=== PATIENT | female | born 1945 | race Caucasian/White ===

== ENCOUNTER 2017-01-14 12:05 | Inpatient (IN) | payer MEDICARE ==
[~2017-01-14] VITALS: Ht 149.9 cm; Wt 36.3 kg
[2017-01-14 14:55] VITALS: BP 166/98
--- NOTE | 2017-01-14 15:12 | PM&R Post Admission Assessment ---
Post Admission Physician Asses The preadmission screen agrees with the post admission assessment that the patient is a good candidate for inpatient rehabilitation. The patient will have a comprehensive program of inpatient rehabilitation with a goal of maximizing level of functional independence prior to discharge home with spouse. The patient will have PT/OT ninety minutes per day each discipline when not being seen by ST, five days a week for gait, strengthening, conditioning, balance, ADLs, any patient/family/caregiver training as necessary. Speech therapy to do cognitive,speech and swallow assessment and treat 5 days a week for 30 to 45 minutes for 2 weeks. Rehabilitation nursing to assist with bowel, bladder, skin, wound care, medication administration, pain management. Card Grinder to assist with discharge planning, community reentry. SCD's for DVT prophylaxis. She appears to be well motivated to participate in three hours of therapy a day. She should be able to tolerate three hours of therapy a day from a medical standpoint. She should benefit from the three hours of therapy a day. She has a reasonable discharge plan, reasonable discharge rehabilitation goals and a supportive family. She has various comorbidities that need to be closely monitored with medications and treatments adjusted on a daily basis as needed. These include: HTN Anemia associated with rectal bleeding Barriers to discharge for this patient who had been independent prior to this are for her to be modified independent to supervision for ADLs and mobility skills prior to discharge home with spouse, so as to lessen the burden of the caregivers. Risks for this patient include: 1. Fall 2. Fracture 3. DVT 4. Pulmonary embolism 5. Worsening anemia/rectal bleeding 6. Skin breakdown 7. Contractures 8. Poorly controlled pain 9. Urinary retention 10. UTI 11. Respiratory infection 12. Aspiration 13, Poorly controlled HTN Estimated Length of Stay: 14 days Prognosis: Rehab prognosis appears good for goal of discharge home with spouse modified independent to supervision for ADLs and mobility skills. LAUREL LOPEZ MD Jan 14, 2017 15:12
--- NOTE | 2017-01-14 15:44 | Physical Therapy Evaluation ---
PT Evaluation-General Medical Diagnosis Admission Date Jan 14, 2017 at 15:23 Medical Diagnosis: CVA Onset Date: Jan 11, 2017 Therapy Diagnosis Therapy Diagnosis: weakness; abn gait Precautions Precautions/Isolations: Standard Precautions Referral Physician: Solis Reason for Referral: Evaluation/Treatment Medical History Pertinent Medical History: HTN, Smoking Current History Pt admitted to acute hospital in [facility] on 01/11/17 with diagnosis of CVA with left sided hemiparesis. Reviewed History: Yes Social History Home: Single Level Current Living Status: Spouse Entry Into Home: Stairs Without Railing PT Steps Into Home: 2 Prior/Core FIM Prior Level of Function Functional [place] Measure 0=Not Assessed/NA 4=Minimal Assistance 1=Total Assistance 5=Supervision or Setup 2=Maximal Assistance 6=Modified [place] 3=Moderate Assistance 7=Complete [place] Bed Mobility: 7 Transfers (B,C,W/C) (FIM): 7 Gait: 7 Pt indep at home and does own housecleaning as well as self care; cooks, laundry. Still drives and able to ambulate community distances. PT Evaluation-Current Subjective Eager to begin therapy services. Agrees to evaluation and treatment this date. Notes that since the original onset, she has improved some. Pain Numeric Pain Scale: 0-No Pain Location: No Pain Reported Pt/Family Goals Return home with her spouse when able Objective Patient Orientation: Person, Place, Time, Situation Problem Solving: Fair ROM/Strength ROM Lower Extremities WFL Strenght Lower Extremities Right LE strength is grossly 5/5 throughout. Left LE: DF 2+/5, Quads 3/5, hip flexion 2/5, hamstrings 3/5. Integumentary/Posture Integumentary Refer to nursing notes. Bowel Incontinence: Yes (per pt report) Bladder Incontinence: Yes (per pt report) Posture normal and symmetrical; small thin frame. Neuromuscular (Tone, Coordination, Reflexes) Right LE: WNL Left LE: impaired coordination and delayed reflexes; no noted tone. Sensory Vision: Wears Glasses (cataract left eye) Hearing: Functional Hand Dominance: Right Sensation Right Lower Extremit: Intact Sensation Left Lower Extremity: Intact Transfers Functional [place] Measure 0=Not Assessed/NA 4=Minimal Assistance 1=Total Assistance 5=Supervision or Setup 2=Maximal Assistance 6=Modified [place] 3=Moderate Assistance 7=Complete IndependenceIRFPAI Quality Coding Scale 6 Independent with activity with or without an assistive device 5 Patient requires set up or clean up by helper. Patient completes activity by themselves 4 Supervision or touching assist (CGA). [place] provide cues , steadying assist 3 The helper provides less than half the effort to complete the activity 2 The helper provides more than half the effort to complete the activity 1 Dependent. The helper does all the effort to complete an activity 7 Patient refused to complete or attempt activity 9 The patient did not perform the activity before the current illness or injury 88 Not attempted due to Medical conditions or safety concerns Transfers (B, C, W/C) (FIM): 4 Roll Left to Right (QC): 5 Supine to/from Sit: 4 (assist to lift her trunk) Sit to/from Stand: 4 (CGA for safety due to balance deficits) Sit to Lying (QC): 5 Lying to Sitting/Side of Bed(Q: 4 Sit to Stand (QC): 4 Chair/Arh-uz-Tyzbr Xfer(QC): 4 Car Transfer (QC): 4 CGA primarily for safety concerns. Gait Does the Patient Walk?: Yes Mode of Locomotion: Walk Anticipated Mode of Locomotion: Walk Gait (FIM): 4 Distance (FIM): 3=150 ft Walk 10 feet (QC): 4 Walk 50 ft with 2 Turns(QC): 4 Walk 150 ft (QC): 4 Walking 10ft/uneven surface-QC: 4 Gait Assistive Device: FWW Comments/Gait Description Unsteady gait with narrow RACHEAL with reliance on FWW. CGA due to balance deficits and fall risk. Wheelchair Training Does the Pt Use a Wheelchair?: No Stairs Stairs (FIM): 2 #of Steps: 4 1 Step (curb) (QC): 4 4 Steps (QC): 4 12 Steps (QC): 88 close CGA on stairs due to balance deficits and safety concerns; step to gait pattern. Balance Sitting Static: Good Sitting Dynamic: Fair Standing Static: Fair Standing Dynamic: Fair Picking up an Object (QC): 3 Treatment Treatment consisted of Co treatment with OT due to need for assist with functional balance activities as well as OT addressing self care tasks. PT provided assist and skilled cues throughout treatment for safetywith sit to from stand transfers as well as seated dynamic, standing static and dynamic balance while pt performed self care. Pt slightly impulsive and requires cues and assist for safety purposes. Assessment/Needs Pt presents post CVA with left sided weakness that impairs transfers, gait, balance, safety and functional activity tolerance. She has decreased safety awareness and has some difficulty with complex movements. She is a good candidate for skilled PT intervention to work on functional strength, mobility and safety to allow her to return home with her spouse. Eval of moderate intensity due to hx: needs to be mod indp for self care/ mobility ( unable to help), recent CVA; exam: L LE weakness, impaired functional balance; impaired safety, limited gait/tfr; presentation: evolving as she recently had the CVA. Rehab Potential: Good PT Short Term Goals Short Term Goals Time Frame: Jan 28, 2017 Transfers (B,C,W/C) (FIM): 5 Gait (FIM): 5 PT Retirement Goals Cloth Painter Goals PT Cloth Painter Goals Time Frame: Feb 11, 2017 Transfers (B,C,W/C) (FIM): 6 Sit to Lying (QC): 6 Lying-Sitting on Side/Bed(QC): 6 Sit to Stand (QC): 6 Roll Left to Right (QC): 6 Chair/Ktv-aw-Utzmq Xfer(QC): 6 Car Transfer (QC): 6 Does the Patient Walk: Yes Gait (FIM): 4 Gait distance (FIM): 3=150 ft Walk 10 feet (QC): 6 Walk 10ft-Uneven Surface(QC): 6 Walk 50ft with 2 Turns (QC): 6 Walk 150 ft (QC): 6 Gait Level of Assist: 6 Gait Assistive Device: FWW Does the Pt use WC or Scooter?: No Stairs (FIM): 5 # of Steps: 8 1 Step (curb) (QC): 6 4 Steps (QC): 6 12 Steps (QC): 88 Picking up an Object (QC): 5 LTG's set so that pt is able to care for herself in her home at a mod indep level. PT Plan Problem List Problem List: Activity Tolerance, Functional Strength, Safety, Balance, Gait, Transfer, Bed Mobility Treatment/Plan Treatment Plan: Continue Plan of Care Treatment Plan: Bed Mobility, Education, Functional Activity Po, Functional Strength, Group Therapy, Gait, Safety, Therapeutic Exercise, Transfers Treatment Duration: Feb 11, 2017 Frequency: At least 5-7 days/Wk (IRF) Estimated Hrs Per Day: 1.5 hours per day Patient and/or Family Agrees t: Yes Safety Risks/Education Patient Education: Transfer Techniques, Safety Issues Teaching Recipient: Patient Teaching Methods: Demonstration, Discussion Response to Teaching: Reinforcement Needed Discharge Recommendations Therapy D/C Recommendations: Physical Therapy Home Care Time/GCodes Time In: 1450 (1555) Time Out: 1515 (1645) Total Billed Treatment Time: 75 Total Billed Treatment visit EVM 15 FA 60 EMILY BRITTON PT Jan 14, 2017 15:44
[2017-01-14] MEDS ORDERED: IBUP-2055 PO (15:50)
[2017-01-14] MEDS ORDERED: BISA5TAB8 PO (15:50)
[2017-01-14] MEDS ORDERED: PANT40TA2 PO (15:50)
[2017-01-14] MEDS ORDERED: MULT-35 PO (15:50)
--- NOTE | 2017-01-14 16:09 | ST Cognitive Linguistic Eval ---
Speech Evaluation-General Medical Diagnosis CVA Onset Date: Jan 11, 2017 Therapy Diagnosis Therapy Diagnosis: Mild Dysarthria Precautions Precautions/Isolations: Standard Precautions Referral Referring Physician: Dr. Leonardo Ely Reason for Referral: Evaluation/Treatment Cognitive, Speech, Language Evaluation Medical History Pertinent Medical History: HTN, Smoking Reviewed History: Yes Social History Current Living Status: Spouse Speech PLF-Current Status Prior Level of Function The patient denied prior challenges with speech, language, or cognition. The patient (and patient's daughter) reported the patient displays mildly imprecise articulation secondary to the patient's edentulous state, however, her speech appears more impaired at this time. Subjective The patient was recently admitted to [facility] following a right ischemic CVA. The patient greeted the clinician appropriately and was agreeable to participation in the cognitive evaluation. Language Eval: Auditory Comprehends Simple Yes/No Ques: Functional Indent/Objects Multiple [place]: Functional Ident/Pics in Multiple [place]: Functional Follows 1-Step Commands: Functional Follows Complex Directions: Functional Follows General Conversations: Functional Language Eval: Verbal Language Completes Spontaneous Greeting: Functional Imitates Simple Words/Phrases: Functional Word Finding: Functional Requests Basic Needs: Functional States Basic Personal Info: Functional Expresses Complex Ideas: Functional Cognitive Patient Orientation The patient was oriented to month, day of week, date, and year (independently). Objective Cognitive Domain Attention: WNL Memory: WNL Problem Solving: Functional Objective Oral Motor/Speech Production The patient displays mildly reduced imprecise articulation secondary to reduced lingual strength and left labial strength. Impression The patient displays cognitive and language skills grossly within normal limits. The patient demonstrates mild dysarthria. Communication/Social Cognition Comprehension: 5 Expression: 5 Social Interaction: 6 Problem Solvin Memory: 6 Speech Patient Assess Expression of Ideas/Wants: Exhibits (3) Understanding [place] Content: Understands (4) Brief Interview-Mental Status: Yes Repetition of Three Words: Three (3) Temporal Orientation: Year: Correct (3) Temporal Orientation: Month: Accurate within 5 days(2) Temporal Orientation: Day: Correct (1) Recall : Wear to say "Sock": Yes, no cue required (2) Recall : Color: Yes, no cue required (2) Recall : Bed: Yes, no cue required (2) Speech Short Term Goals Short Term Goals Short Term Goals 1. The patient will demonstrate oral motor exercises to improve lingual and labial strength while improving verbal intelligibility. Time Frame-STG: Four Days Speech Concert Singer Goals Skilled Nursing Goals 1. The patient will demonstrate increased intelligibility through oral motor strengthening and range of motion exercises. Time Frame: Two Weeks Comprehension: 6 Expression: 6 Social Interaction: 6 Problem Solvin Speech-Plan Treatment Plan Speech Therapy Treatment Plan: Continue Plan of Care Continue skilled speech pathology to target improved intelligibility through oral motor exercises. Frequency: Modified Program (IRF) Estimated Hrs Per Day: .5 hour per day Rehab Potential: Good Safety Risks/Education Teaching Recipient: Patient Teaching Methods: Discussion Response to Teaching: Verbalize Understanding Education Topics Provided: Results, Plan of Care, Recommendations Time Speech Therapy Time In: 15:25 Speech Therapy Time Out: 15:35 Total Billed Time: 10 Billed Treatment Time 1, MICKY GUIDO Jan 14, 2017 16:09
--- NOTE | 2017-01-14 16:16 | Speech Therapy Daily Note ---
Speech Daily Progress Note Subjective Date Seen by Provider: Jan 14, 2017 Time Seen by Provider: 15:35 The patient was recently admitted to [facility] with a diagnosis of right ischemic CVA. The patient greeted the clinician appropriately and was agreeable to participation in the speech treatment session on this date. Co-Treatment occurred with Occupational Therapy due to overall patient fatigue. Per patient, she has participated in therapy prior to discharge from the outside facility and recently completed a 30+ minute drive to our location. Occupation Therapy focused on ADL tasks (feeding, eating) and range of motion exercises, while speech pathology focused on oral motor strengthening and range of motion, as well as, sequencing and problem solving functional ADL activities. Objective Oral Motor Exercises: A cursory oral mechanism exam was completed on this date. The patient demonstrated minimally reduced left labial range of motion and strength, as well as, mildly reduced left lingual range of motion. The patient is edentulous and does not wear dentures at this time (per patient's daughter, the patient has not worn dentures in over two years). The patient displayed mildly reduced laryngeal elevation, however, denied odynophagia upon a dry swallow. Per patient, she consumes a regular diet with thin liquids at home ( prior to the stroke). Oral motor exercises were discussed on this date. Exercises will be provided to the patient on the subsequent date in the form of a handout. The patient and patient's daughter denied questions or concerns at this time. Assessment Assessment Current Status: Excellent Progress Treatment Plan Continue Plan of Care Communication Comprehension: 5 Expression: 5 Social Cognition Social Interaction: 6 Problem Solvin Memory: 6 Speech Short Term Goals Short Term Goals Short Term Goals 1. The patient will demonstrate oral motor exercises to improve lingual and labial strength while improving verbal intelligibility. Time Frame-STG: Four Days Speech Shelter Goals Shelter Goals 1. The patient will demonstrate increased intelligibility through oral motor strengthening and range of motion exercises. Time Frame: Two Weeks Comprehension: 6 Expression: 6 Social Interaction: 6 Problem Solvin Speech-Plan Treatment Plan Speech Therapy Treatment Plan: Continue Plan of Care Continue skilled speech pathology to target oral motor exercises for strengthening and increased intelligibility. Frequency: Modified Program (IRF) Estimated Hrs Per Day: .5 hour per day Rehab Potential: Good Safety Risks/Education Teaching Recipient: Patient, Family Teaching Methods: Discussion Response to Teaching: Verbalize Understanding Education Topics Provided: Oral Motor Exercises Time Speech Therapy Time In: 15:35 Speech Therapy Time Out: 15:55 Total Billed Time: 20 Billed Treatment Time 1, MICKY BESS Jan 14, 2017 16:16
--- NOTE | 2017-01-14 17:00 | Occupational Therapy Eval ---
OT Evaluation-General/PLF Medical Diagnosis Admission Date Jan 14, 2017 at 15:23 Medical Diagnosis: CVA Onset Date: Jan 11, 2017 Therapy Diagnosis Therapy Diagnosis: Left sided weakness Precautions Precautions/Isolations: Standard Precautions Weight Bear Status Weight Bearing Restriction: Weight Bearing/Tolerated Referral Physician: Solis Referral Reason: Activity Tolerance, Self Care, Evaluation/Treatment, Strengthening/ROM Medical History Pertinent Medical History: HTN, Smoking Current History Pt. went to ER with rectal bleeding. Went home. Called daughter to state that she felt poorly. Had slurred speech. Daughter took her to hospital. Reviewed History: Yes Social History Home: Single Level Current Living Status: Spouse Entry Into Home: Stairs Without Railing Steps Into Home: 2 ADL-Prior Level of Function ADL PLOF Comments Pt. was independent with all basic self care. Pt. still drives. Shares household responsibilities with spouse. DME/Equipment: Bath Chair, Tub/Shower DME/Equipment Comments No other equipment available. Drive Self: Yes OT Current Status Subjective No pain reported. Appearance Pt. is alert and oriented. Agreeable to treatment. Mental Status/Objective Patient Orientation: Person, Place, Time, Situation Current Hand Dominance: Right Upper Extremity ROM Pt. is able to abduct left shoulder to approximately 100 degrees. Shoulder does not go into flexion automatically. Pt. is able to flex left elbow to approximately 100 degrees. No active wrist or finger movement noted. Right UE- WFL Upper Extremity Sensation intact Upper Extremity Strength Right UE- WFL Left- impaired in all planes. 2+/5 shoulder ADL-Treatment Functional [place] Measure 0=Not Assessed/NA 4=Minimal Assistance 1=Total Assistance 5=Supervision or Setup 2=Maximal Assistance 6=Modified [place] 3=Moderate Assistance 7=Complete IndependenceIRFPAI Quality Coding Scale 6 Independent with activity with or without an assistive device 5 Patient requires set up or clean up by helper. Patient completes activity by themselves 4 Supervision or touching assist (CGA). [place] provide cues , steadying assist 3 The helper provides less than half the effort to complete the activity 2 The helper provides more than half the effort to complete the activity 1 Dependent. The helper does all the effort to complete an activity 7 Patient refused to complete or attempt activity 9 The patient did not perform the activity before the current illness or injury 88 Not attempted due to Medical conditions or safety concerns Grooming (FIM): 5 (Pt. is able to brush her hair with SBA.) Bathing (FIM): 4 (Pt. needs CGA in stance and cues for safety and balance.) Shower/Bathe Self (QC): 4 Upper Body Dressing (FIM): 4 (Min assist needed to fasten bra. SBA to don shirt.) Upper Body Dressing (QC): 4 Lower Body Dressing (FIM): 3 (Pt. requires assistance to pull pants over hips, CGA in stance, and min assist to start right sock over toes. Able to do all else.) Lower Body Dressing (QC): 3 On/Off Footwear (QC): 3 Toileting (FIM): 4 (CGA to stand and balance.) Toileting Hygiene (QC): 4 Transfers (B, C, W/C) (FIM): 4 (Min assist with walker. Please see note below. ) Toilet/Commode Transfer (FIM): 4 Toilet Transfer (QC): 4 Shower Transfer (FIM): 4 Other Treatments OT co-treated with pt. at different times during course of treatment. Once with PT, and once with speech. This was due to pt's fatigue level after car ride from [facility]. During co-treatment with speech, OT facilitated and worked on left UE assessment, PROM, and positioning of shoulder while speech therapist gave pt. cognitive assessment. This also put pt. into situation, in which she was forced to concentrate and attend to multiple things going on. She did very well with this activity. Note tight bicep in left UE. Good scapular glide noted. During co-treatment with PT, PT assessed balance and gait while OT facilitated placement of left UE on walker, as well as cues for safety during ADLs. PT coached pt. on balance and dynamic movement in shower, while OT made sure that pt. was able to wash and dress all parts. Pt. back in chair after treatment with all needs met. Pt. and family educated on how to use room service to eat. Education OT Patient Education: Correct positioning, Energy conservation, Exercise program, Modified ADL techniques, Progress toward Goal/Update tx plan, Purpose of tx/functional activities, Reviewed precautions, Rehab process, Transfer techniques Teaching Recipient: Patient, Family Teaching Methods: Demonstration, Discussion Response to Teaching: Verbalize Understanding, Return Demonstration OT Short Term Goals Short Term Goals Transfers (B,C,W/C) (FIM): 5 1=Demonstrate adherence to instructed precautions during ADL tasks. 2=Patient will verbalize/demonstrate understanding of assistive devices/ modifications for ADL. 3=Patient will improve strength/tolerance for activity to enable patient to perform ADL's. OT Mcfp Goals [place] Goals Time Frame: Jan 28, 2017 Eating (FIM): 7 Eating (QC): 6 Groomin Oral Hygiene (QC): 6 Bathing(FIM): 6 Shower/Bathe Self (QC): 6 Upper Body Dressing(FIM): 6 Upper Body Dressing (QC): 6 Lower Body Dressing(FIM): 6 Lower Body Dressing (QC): 6 On/Off Footwear (QC): 6 Toileting(FIM): 6 Toileting Hygiene (QC): 6 Transfers (B,C,W/C) (FIM): 6 Toilet/Commode Transfer(FIM): 6 Toilet/Commode Transfer (QC): 6 Shower Transfer(FIM): 6 Comprehension(FIM): 6 Expression (FIM): 6 Social Interaction(FIM): 6 Problem Solving(FIM): 6 Additional Goals: 1-Demonstrate ADL Tasks, 2-Verbalize Understanding, 3- ImproveStrength/Po 1=Demonstrate adherence to instructed precautions during ADL tasks. 2=Patient will verbalize/demonstrate understanding of assistive devices/ modifications for ADL. 3=Patient will improve strength/tolerance for activity to enable patient to perform ADL's. OT Education/Plan Problem List/Assessment Assessment: Decreased Activ Tolerance, Decreased UE Strength, Dependent Transfers, Impaired Bed Mobility, Impaired Coordination, Impaired Funct Balance , Impaired I ADL's, Impaired Self-Care Skills, Restricted Funct UE ROM Discharge Recommendations Plan/Recommendations: Continue POC Therapy D/C Recommendations: Home w/ Family Support, Occupational Therapy Home Care Equpiment Recommendations-D/C: Extended Bath Bench Patient/Family Goals To return home and to be able to knit again. Treatment Plan/Plan of Care Treatment,Training & Education: Yes Patient would benefit from OT for education, treatment and training to promote independence in ADL's, mobility, safety and/or upper extremity function for ADL' s. Plan of Care: ADL Retraining, Caregiver Training, Functional Mobility, Group Exercise/Act as Ind, UE Funct Exercise/Act, UE Neuromus Re-Ed/Coord Treatment Duration: Jan 28, 2017 Frequency: At least 5-7 days/Wk (IRF) Estimated Hrs Per Day: 1 hour per day Agreement: Yes Rehab Potential: Good Time/GCodes Start Time: 15:15 Stop Time: 16:45 Total Time Billed (hr/min): 80 Billed Treatment Time 9406-0501- OT eval [id number]- ST eval no charge [id number] [id number] Co treat with PT 1, EVM x 10minutes, EX x 20minutes, ADL x 50minutes RAMAKRISHNA MOULTON OT Jan 14, 2017 17:00
[2017-01-14 17:59] VITALS: BP 161/84
--- NOTE | 2017-01-15 02:05 | HISTORY AND PHYSICAL ---
DATE OF SERVICE: CHIEF COMPLAINT: Difficulty walking. HISTORY OF PRESENT ILLNESS: The patient is a 71-year-old female who is and had been independent who lives with her spouse in [place] who presented to the [place] ED for rectal bleeding and was set up to have a scope with physician on 01/15/2017, however she began to have left sided weakness, right sided facial droop. She was admitted to the hospital on 01/11/17 and MRI of the brain revealed a right middle cerebral artery distribution ischemic stroke accounting for her left hemiparesis , right facial droop, dysphagia and dysarthria. Also noted was multiple old small lacunar infarcts she apparently had in the past as well as undiagnosed hypertension. Medications were begun for this. Her physician in [place] discussed the case with Dr. Ely on day of transfer and indicated that the patient has not seen a physician in 20 years. She now requires assistance for her ADLs and mobility skills. Currently she is Min assist for bed mobility, transfers and ambulation with a walker. She is set up for grooming. Minimal assist for upper body dressing, toilet, commode transfers, shower transfers, mod assist for lower body dressing. She has impaired standing balance. She has a mild dysarthria and is on nectar thick liquids for dysphagia. PAST MEDICAL HISTORY: Apparently has had undiagnosed hypertension and small lacunar infarcts in the past. Recent rectal bleeding, endoscopy deferred due to stroke. Tobacco use currently abstaining. PAST SURGICAL HISTORY: Noncontributory. ALLERGIES: No known medication allergies. FAMILY HISTORY: Noncontributory. SOCIAL HISTORY: She is right handed, had been independent, was driving, living with spouse in [place]. PCP: Dr. Solange Gil. REVIEW OF SYSTEMS: A 10 point review of systems significant for mild slurring of speech, left sided weakness, upper limb more than lower limb gait imbalance. MEDICATIONS: Plavix 75 mg p.o. every day, ASA discontinued due to rectal bleeding, Lisinopril 10 mg p.o. every day, Dulcolax 5 mg p.o. every day, multivitamins with minerals 1 tablet p.o. every day, Protonix 40 mg p.o. every day, ibuprofen 400 mg p.o. b.i.d. p.r.n. mild pain. PHYSICAL EXAMINATION: GENERAL: A thin female, short stature, alert and oriented in no acute distress. VITAL SIGNS: She is afebrile, pulse 71, respirations 20, blood pressure 161/84, O2 sat 99% on room air. HEENT: Vision and hearing grossly intact. No oral lesions noted. She has a mild right labial droop and mild dysarthria. NECK: Supple without mass. HEART: Regular rhythm. LUNGS: Clear. ABDOMEN: Soft, nontender. Bowel sounds present. EXTREMITIES: No lower edema, no calf tenderness. MUSCULOSKELETAL: The patient has functional passive range of motion in all 4 extremities. NEUROLOGIC: Sensation is grossly intact to touch. Cognition grossly intact. Speech mild dysarthria. Swallow on modified diet. Strength on the right is 5/5, on the left lower extremity 2+/5. Ankle dorsiflexion quads are 3/5, hip flexion 3/5, hamstrings 3/5. She has impaired coordination on the left. Sensation is intact in both upper limbs. She has decreased coordination of left upper limb, 2+/5 strength at the shoulder, 3/5 distal. IMPRESSION: 1. Ambulatory dysfunction secondary to right middle cerebral artery distribution ischemic stroke with resulting left hemiparesis, mild dysarthria and dysphagia on modified diet, nectar thick liquids. 2. Hypertension now controlled with medication. 3. Rectal bleeding, I believe resolved. 4. Tobaccoism, currently abstaining. PLAN: The patient will have a comprehensive program of inpatient stroke rehabilitation with the patient to have PT, OT 90 minutes per day each discipline, 5 days a week for 2 weeks, (when not being seen by speech therapy) for gait, strengthening, balance, ADLs, any patient family caregiver training necessary, any adaptive equipment and training necessary. Speech therapy to have ongoing speech swallow and cognition assessment and treatment 30-45 minutes per day 5 days a week for 2 weeks. Rehabilitation nursing to assist with bowel, bladder, skin care, medication administration, pain management, Check admission labs. Therapy with cardiac and fall precautions. clearing tub worker to assist with discharge planning, community reentry. The patient's family presents with her unit at time of admission to inpatient rehabilitation at [facility]. Consult Dr. English to assist with medical management of this out of town patient. ESTIMATED LENGTH OF STAY: 17 days. PROGNOSIS: Rehab prognosis appears good for goal of discharging home with spouse, modified independent to supervision for ADLs and mobility skills. DIET: Regular but with nectar thickened consistency liquids. CODE STATUS: Full code. Job ID: [id number] DocumentID: [id number] Dictated Date: 01/14/2017 18:33:12 Generation Technician Date: 01/14/2017 20:42:12 Dictated By: LAUREL ELY MD MTDD
[2017-01-15 04:46] LABS: BASOPHILS # (AUTO) 0.1 10^3/uL (0.0-0.1); BASOPHILS % (AUTO) 1 % (0-10); EOSINOPHILS # (AUTO) 0.2 10^3/uL (0.0-0.3); EOSINOPHILS % (AUTO) 2 % (0-10); LYMPHOCYTES # (AUTO) 3.4 X 10^3 (1.0-4.0); LYMPHOCYTES % (AUTO) 30 % (12-44); MEAN CORPUSCULAR HEMOGLOBIN 31 PG (25-34); MEAN CORPUSCULAR HGB CONC 34 G/DL (32-36); MEAN CORPUSCULAR VOLUME 91 FL (80-99); MEAN PLATELET VOLUME 9.8 FL (7.4-10.4); MONOCYTES # (AUTO) 1.1 X 10^3 (0.0-1.0); MONOCYTES % (AUTO) 9 % (0-12); NEUTROPHILS # (AUTO) 6.6 X 10^3 (1.8-7.8); NEUTROPHILS % (AUTO) 58 % (42-75); PLATELET COUNT 270 10^3/uL (130-400); RED BLOOD COUNT 3.62 10^6/uL (4.35-5.85); RED CELL DISTRIBUTION WIDTH 12.4 % (10.0-14.5); WHITE BLOOD COUNT 11.3 10^3/uL (4.3-11.0)
[2017-01-15 04:58] LABS: ALBUMIN 3.5 GM/DL (3.2-4.5); BILIRUBIN,TOTAL 0.5 MG/DL (0.1-1.0); CALCIUM 8.9 MG/DL (8.5-10.1); CREATININE SERUM 0.93 MG/DL (0.60-1.30); POTASSIUM 4.1 MMOL/L (3.6-5.0); TOTAL PROTEIN 5.7 GM/DL (6.4-8.2)
[2017-01-15 05:00] VITALS: BP 157/74
[2017-01-15] MEDS: PANTOPRAZOLE 40 MG (PROTONIX) TAB PO SCH (06:00)
[2017-01-15] MEDS: MULTIVIT W/MINERALS TAB (THERAGRAN M) PO SCH (06:01)
[2017-01-15] MEDS: lisINopril 10 MG (PRINIVIL) TAB PO SCH (07:54)
[2017-01-15] MEDS: CLOPIDOGREL 75 MG (PLAVIX) TABLET PO SCH (07:54)
--- NOTE | 2017-01-15 08:27 | Occupational Ther Daily Note ---
OT Current Status-Daily Note Subjective Pt alert, sitting in recliner. Pt agreed to therapy. No c/o pain. Pt declined shower at this time. Mental Status/Objective Functional [place] Measure 0=Not Assessed/NA 4=Minimal Assistance 1=Total Assistance 5=Supervision or Setup 2=Maximal Assistance 6=Modified [place] 3=Moderate Assistance 7=Complete [place] ADL-Treatment Functional [place] Measure 0=Not Assessed/NA 4=Minimal Assistance 1=Total Assistance 5=Supervision or Setup 2=Maximal Assistance 6=Modified [place] 3=Moderate Assistance 7=Complete IndependenceIRFPAI Quality Coding Scale 6 Independent with activity with or without an assistive device 5 Patient requires set up or clean up by helper. Patient completes activity by themselves 4 Supervision or touching assist (CGA). [place] provide cues , steadying assist 3 The helper provides less than half the effort to complete the activity 2 The helper provides more than half the effort to complete the activity 1 Dependent. The helper does all the effort to complete an activity 7 Patient refused to complete or attempt activity 9 The patient did not perform the activity before the current illness or injury 88 Not attempted due to Medical conditions or safety concerns Toileting (FIM): 4 (CGA using grabbar and FWW, pt was able to manipulate clothing with R UE and cleansed self while sitting.) Toileting Hygiene (QC): 3 (CGA using grabbar and FWW, pt was able to manipulate clothing with R UE and cleansed self while sitting.) Transfers (B, C, W/C) (FIM): 4 (Using FWW, pt is CGA for transfers.) Toilet/Commode Transfer (FIM): 4 (Using FWW and grabbars, pt is CGA for transfers.) Toilet Transfer (QC): 4 (Using FWW and grabbars, pt is CGA for transfers.) Other Treatment Pt ambulated with min A using FWW to therapy gym. Pt completed arm bike 10 min at 5 anne resistance to increase functional movement and grasp for daily functional tasks, frequent breaks for L hand repositioning. During arm bike exercise pt was able to grasp onto handle for 2-3 rotations prior to repositioning L hand. Then pt picker operator pegs with L hand and then transferred them to R hand to place in peg board to increase functional grasp and movement with L hand and strengthening with R hand. Pt ambulated back to room with CGA using FWW. After therapy, pt sitting in recliner with call light/phone in reach. All needs met in room. OT Short Term Goals Short Term Goals Transfers (B,C,W/C) (FIM): 5 1=Demonstrate adherence to instructed precautions during ADL tasks. 2=Patient will verbalize/demonstrate understanding of assistive devices/ modifications for ADL. 3=Patient will improve strength/tolerance for activity to enable patient to perform ADL's. OT Mcc Goals Lotteries Agent Goals Time Frame: Jan 28, 2017 Eating (FIM): 7 Eating (QC): 6 Groomin Oral Hygiene (QC): 6 Bathing(FIM): 6 Shower/Bathe Self (QC): 6 Upper Body Dressing(FIM): 6 Upper Body Dressing (QC): 6 Lower Body Dressing(FIM): 6 Lower Body Dressing (QC): 6 On/Off Footwear (QC): 6 Toileting(FIM): 6 Toileting Hygiene (QC): 6 Transfers (B,C,W/C) (FIM): 6 Toilet/Commode Transfer(FIM): 6 Toilet/Commode Transfer (QC): 6 Shower Transfer(FIM): 6 Comprehension(FIM): 6 Expression (FIM): 6 Social Interaction(FIM): 6 Problem Solving(FIM): 6 Additional Goals: 1-Demonstrate ADL Tasks, 2-Verbalize Understanding, 3- ImproveStrength/Po 1=Demonstrate adherence to instructed precautions during ADL tasks. 2=Patient will verbalize/demonstrate understanding of assistive devices/ modifications for ADL. 3=Patient will improve strength/tolerance for activity to enable patient to perform ADL's. OT Education/Plan Discharge Recommendations Plan/Recommendations: Continue POC Treatment Plan/Plan of Care Patient would benefit from OT for education, treatment and training to promote independence in ADL's, mobility, safety and/or upper extremity function for ADL' s. Plan of Care: ADL Retraining, Caregiver Training, Functional Mobility, Group Exercise/Act as Ind, UE Funct Exercise/Act, UE Neuromus Re-Ed/Coord Treatment Duration: Jan 28, 2017 Frequency: At least 5-7 days/Wk (IRF) Estimated Hrs Per Day: 1 hour per day Agreement: Yes Rehab Potential: Good Time/GCodes Start Time: 08:00 Stop Time: 09:00 Total Time Billed (hr/min): 60 Billed Treatment Time 1 visit-FA 2 (25 min) NM 2 (35 min) EMILY RAYO Jan 15, 2017 08:27
--- NOTE | 2017-01-15 09:07 | Individualized Plan of Care ---
Individualized Plan of Care Rehab Nursing IPOC Order Admission Date Jan 14, 2017 at 15:23 Current Orders Orders Admission-Acute Rehab Unit (01/14/17 14:58) Social Service (01/14/17 14:58) Rehab Nursing Orders-Ipoc (01/14/17 14:58) Physical Therapy Rehab Orders (01/14/17 14:58) Occupational Therapy Rehab Ord (01/14/17 14:58) Speech Therapy Rehab Orders (01/14/17 14:58) Turn And Reposition Q2HR (01/14/17 14:58) Intake & Output Shift Assessme 06,14,22 (01/14/17 14:58) Precautions (Aru) (01/14/17 14:58) Weekly Weight (Lbs) WEEK (01/14/17 14:58) Consult Physician (01/14/17 15:02) Cbc With Automated Diff (01/15/17 06:00) Comprehensive Metabolic Panel (01/15/17 06:00) Clopidogrel Tablet (Plavix Tablet) (01/15/17 09:00) Lisinopril Tablet (Zestril Tablet) (01/15/17 09:00) Bisacodyl Tablet (Dulcolax Tablet) (01/15/17 09:00) Ibuprofen Tablet (Motrin Tablet) (01/14/17 15:15) Therapeutic Multivitamin Tab (Vitamins, (01/15/17 07:00) Pantoprazole Tablet (Protonix Tablet) (01/15/17 07:00) Ambulate TID (01/14/17 15:43) Sequential Compression Device 08,20 (01/14/17 15:43) Dvt/Vte Risk - Notifiy Physici (01/14/17 15:43) Patient Visit (01/14/17 ) Speech Sound Lang Comp (01/14/17 ) Treat. Speech/Lang/Voice (01/14/17 ) Patient Visit (01/14/17 ) Pt Eval Moderate Complexity (01/14/17 ) Functional Activities, Ea 15 (01/14/17 ) Dys1 Pureed (01/15/17 Breakfast) Request For Dysphagia Services (01/14/17 18:52) Speech Therapy Orders (01/14/17 18:52) Request Ot Evaluate & Treat (8/10/17 18:52) Rehab Nursing Orders: Diseage Management, Edu in Press Rel Techn, Hydration Management, Nutrition Management, Pain Management PT IPOC Problem List: Activity Tolerance, Functional Strength, Safety, Balance, Gait, Transfer, Bed Mobility Treatment Plan: Continue Plan of Care Bed Mobility, Education, Functional Activity Po, Functional Strength, Group Therapy, Gait, Safety, Therapeutic Exercise, Transfers Treatment Duration: Feb 11, 2017 Frequency: At least 5-7 days/Wk (IRF) Estimated Hrs Per Day: 1.5 hours per day OT IPOC Problems: Decreased Activ Tolerance, Decreased UE Strength, Dependent Transfers , Impaired Bed Mobility, Impaired Coordination, Impaired Funct Balance, Impaired I ADL's, Impaired Self-Care Skills, Restricted Funct UE ROM Plan of Care: ADL Retraining, Caregiver Training, Functional Mobility, Group Exercise/Act as Ind, UE Funct Exercise/Act, UE Neuromus Re-Ed/Coord Treatment Duration: Jan 28, 2017 Frequency: At least 5-7 days/Wk (IRF) Estimated Hrs Per Day: [address] IPOC Speech Therapy Treatment Plan: Continue Plan of Care Frequency: Modified Program (IRF) Estimated Hrs Per Day: .5 hour per day Physician IPOC Medical Issues being managed closely and that require the 24 hour availability of a physician:HTN mild anemia with hx of rectal bleeding with endoscopy postponed due to stroke Medical Issues: Bowel/Bladder Function, DVT Prophylaxis, Falls Precautions, Fluid/Electrolyte/Nutrition Balance, Infection Protection, Pain Management, Swallowing Precautions, Other (List) (as per above) Brief Synthesis of Preadmission Screen, Post-Admission Evaluation, and Therapy Evaluations: 71 yo female who had been Independent and living with spouse in [facility] who sustained a RT MCA distribution ischemic CVA with resulting left HP and a decline in Functional [place] .Referred to IRU by PCP for Stroke rehab PMH prior small lacunar infarcts and HTN and rectal bleeding Had not seen a Physician in 20 years Medical Prognosis: good Anticipated Length of Stay: 8-24-17 Rehab Goals Modified Independent for ADLS and Mobility skills with resolved dysarthria and dysphagia Anticipated discharge destinat: Home with spouse and [facility] LAUREL LOPEZ MD Jan 15, 2017 09:07
--- NOTE | 2017-01-15 09:12 | PM & R (SOAP) Progress Note ---
Subjective Time Seen by Provider: 08:10 Subjective/Events-last exam Patient was seen in her room this AM Adjusting well to unit Patient min assist for transfers Appreciate labs and therapy notes Review of Systems Neurological: Weakness Objective Exam Last Set of Vital Signs Vital Signs Date Time Temp Pulse Resp B/P (MAP) Pulse Ox O2 Delivery O2 Flow Rate FiO2 01/15/17 05:00 97.6 55 20 157/74 97 Room Air Capillary Refill : Less Than 3 Seconds I&O Bad tableGeneral: Alert, Oriented X3, Cooperative, No Acute Distress HEENT: Atraumatic, PERRLA, EOMI, Mucous Memb Moist/[place], Other (mild rt labial droop) Neck: Supple, No JVD Lungs: Clear to Auscultation Heart: Regular Rate Abdomen: Normal Bowel Sounds, Soft, No Tenderness Extremities: No Edema Skin: No Significant Lesion Neuro: Other (Mild left HP and dysasrthria Dysphagia on thickened liquids) Results Lab Laboratory Tests 01/15/17 04:26: White Blood Count 11.3H, Red Blood Count 3.62L, Hemoglobin 11.2L, Hematocrit 33L , Mean Corpuscular Volume 91, Mean Corpuscular Hemoglobin 31, Mean Corpuscular Hemoglobin Concent 34, Red Cell Distribution Width 12.4, Platelet Count 270, Mean Platelet Volume 9.8, Neutrophils (%) (Auto) 58, Lymphocytes (%) (Auto) 30, Monocytes (%) (Auto) 9, Eosinophils (%) (Auto) 2, Basophils (%) (Auto) 1, Neutrophils # (Auto) 6.6, Lymphocytes # (Auto) 3.4, Monocytes # (Auto) 1.1H, Eosinophils # (Auto) 0.2, Basophils # (Auto) 0.1, Sodium Level 145, Potassium Level 4.1, Chloride Level 111H, Carbon Dioxide Level 25, Anion Gap 9, Blood Urea Nitrogen 12, Creatinine 0.93, Estimat Glomerular Filtration Rate 60, BUN/ Creatinine Ratio 13, Glucose Level 97, Calcium Level 8.9, Total Bilirubin 0.5, Aspartate Amino Transf (AST/SGOT) 20, Alanine Aminotransferase (ALT/SGPT) 17, Alkaline Phosphatase 64, Total Protein 5.7L, Albumin 3.5 Assessment/Plan Assessment RT MCA distribution Ischemic CVA with Left HP ( on plavix) and Dysphagia and Dysarthria HTN MILD Anemia with hx of rectal bleeding Tobaccoism currently abstaining Plan Continue PT/OT/ST Team Conference next week Monitor for any rectal bleeding Adjust meds for HTN as needed LAUREL LOPEZ MD Jan 15, 2017 09:12
[2017-01-15] MEDS: BISACODYL 5 MG (DULCOLAX) TABLET PO SCH (09:37)
--- NOTE | 2017-01-15 10:02 | ST Dysphagia Evaluation ---
Speech Evaluation-General Medical Diagnosis CVA Onset Date: Jan 11, 2017 Therapy Diagnosis Therapy Diagnosis: Oropharyngeal Swallow WNL Precautions Precautions/Isolations: Aspiration, Fall Prevention Referral Referring Physician: Dr. Leonardo Ely Reason for Referral: Evaluation/Treatment Clinical Bedside Swallow Evaluation Medical History Pertinent Medical History: HTN, Smoking Reviewed History: Yes Social History Current Living Status: Spouse Speech PLF/Current-Dysphagia Prior Level of Function The patient denied prior challenges with swallowing, stating she consumed a regular diet with thin liquids at home without difficulties. Subjective The patient was recently admitted to [facility] with a diagnosis of a right ischemic CVA. Upon admission, the patient presented with a diet consistency of puree with honey-thickened liquid. Per patient, the speech pathologist was on vacation in [facility], therefore, they placed her on the most restricted diet until a speech pathologist was available for evaluation. The patient greeted the clinician appropriately and was agreeable to participation in the dysphagia evaluation on this date. Cognitive Status Patient Orientation: Person, Place, Time, Situation Oral Motor Skills Dentition: Edentalous Current Food Consistancy: Pureed, Honey Liquids Ability to Follow Directions: Excellent Oral Expression Ability: No Impairment Voice Voice Phonatory-Based Quality: Glottal [place] Voice Pitch: Normal Voice Loudness: Normal Face Facial Symmetry: Asymmetrical (Minimal left labial weakness/droop noted.) Oral-Facial Assessment Oral-Facial Dentition: Normal Labial Seal Description: Droops Left Smile: Droops Left Puff Cheeks: Reduced Strength (Left (minimal)) Lingual Protrusion: Normal Lingual ROM: Normal Lingual Strength: Normal Pharynx Velopharyngeal Move.: Normal Volitional Dry Swallow: Yes Dysphagia Evaluation Consistencies Presented: Regular, Thin Liquid, Pureed - No oral impairments were noted throughout the evaluation. - No pharyngeal impairments were noted throughout the evaluation. - No signs/symptoms of aspiration were demonstrated with multiple boluses of thin liquid (via teaspoon or straw drink), puree, or solid consistencies tested. The patient's vocal quality remained clear throughout the assessment. Dietary Recommendations: Regular Liquid Recommendations: Thin Swallowing Precautions: Small Bites and Sips, Sitting Upright 90 Degrees Dysphagia Evaluation Summary The patient presented with an oropharyngeal swallow grossly within normal limits. Speech Short Term Goals Short Term Goals Short Term Goals 1. The patient will demonstrate oral motor exercises to improve lingual and labial strength while improving verbal intelligibility. Time Frame-STG: Four Days Speech Care Home Goals Candy Spreader Helper Goals 1. The patient will demonstrate increased intelligibility through oral motor strengthening and range of motion exercises. Time Frame: Two Weeks Comprehension: 6 Expression: 6 Social Interaction: 6 Problem Solvin Speech-Plan Treatment Plan Speech Therapy Treatment Plan: Discontinue ST Discontinue dysphagia services, only. Frequency: Modified Program (IRF) Estimated Hrs Per Day: .5 hour per day Rehab Potential: Good Safety Risks/Education Teaching Recipient: Patient Teaching Methods: Handout, Discussion Response to Teaching: Verbalize Understanding Education Topics Provided: Recommendations, Results, Signs/Symptoms of Aspiration, Swallowing Strategies Time Speech Therapy Time In: 09:00 Speech Therapy Time Out: 09:30 Total Billed Time: 30 Billed Treatment Time 1, MICKY GRUBBS Jan 15, 2017 10:02
--- NOTE | 2017-01-15 10:51 | Occupational Ther Daily Note ---
OT Current Status-Daily Note Subjective Pt alert, sitting in recliner. Pt agreed to therapy. No c/o pain at this time. Mental Status/Objective Patient Orientation: Person, Place, Time, Situation Functional [place] Measure 0=Not Assessed/NA 4=Minimal Assistance 1=Total Assistance 5=Supervision or Setup 2=Maximal Assistance 6=Modified [place] 3=Moderate Assistance 7=Complete [place] ADL-Treatment Pt ambulated with CGA using FWW to bathroom. Pt transferred to toilet using FWW and grabbar with CGA. Pt completed hygiene sitting on toilet by self, manipulating clothing with CGA using FWW. Pt attempts to use L hand to assist with manipulating clothing. L hand is able to grasp waist band of clothing, unable to pull up with L hand at this time. Ambulated with min A using FWW to large shower room. Pt used tub transfer bench to transfer into tub, CGA when going from stand to sit and back, pt able to lift B LE's into tub and out of tub by self. Pt ambulated back to room with min A using FWW. After therapy, pt sitting in recliner with call light/phone in reach. All needs met in room. Functional [place] Measure 0=Not Assessed/NA 4=Minimal Assistance 1=Total Assistance 5=Supervision or Setup 2=Maximal Assistance 6=Modified [place] 3=Moderate Assistance 7=Complete IndependenceIRFPAI Quality Coding Scale 6 Independent with activity with or without an assistive device 5 Patient requires set up or clean up by helper. Patient completes activity by themselves 4 Supervision or touching assist (CGA). [place] provide cues , steadying assist 3 The helper provides less than half the effort to complete the activity 2 The helper provides more than half the effort to complete the activity 1 Dependent. The helper does all the effort to complete an activity 7 Patient refused to complete or attempt activity 9 The patient did not perform the activity before the current illness or injury 88 Not attempted due to Medical conditions or safety concerns OT Short Term Goals Short Term Goals Transfers (B,C,W/C) (FIM): 5 1=Demonstrate adherence to instructed precautions during ADL tasks. 2=Patient will verbalize/demonstrate understanding of assistive devices/ modifications for ADL. 3=Patient will improve strength/tolerance for activity to enable patient to perform ADL's. OT Skilled Nursing Goals Skilled Nursing Goals Time Frame: Jan 28, 2017 Eating (FIM): 7 Eating (QC): 6 Groomin Oral Hygiene (QC): 6 Bathing(FIM): 6 Shower/Bathe Self (QC): 6 Upper Body Dressing(FIM): 6 Upper Body Dressing (QC): 6 Lower Body Dressing(FIM): 6 Lower Body Dressing (QC): 6 On/Off Footwear (QC): 6 Toileting(FIM): 6 Toileting Hygiene (QC): 6 Transfers (B,C,W/C) (FIM): 6 Toilet/Commode Transfer(FIM): 6 Toilet/Commode Transfer (QC): 6 Shower Transfer(FIM): 6 Comprehension(FIM): 6 Expression (FIM): 6 Social Interaction(FIM): 6 Problem Solving(FIM): 6 Additional Goals: 1-Demonstrate ADL Tasks, 2-Verbalize Understanding, 3- ImproveStrength/Po 1=Demonstrate adherence to instructed precautions during ADL tasks. 2=Patient will verbalize/demonstrate understanding of assistive devices/ modifications for ADL. 3=Patient will improve strength/tolerance for activity to enable patient to perform ADL's. OT Education/Plan Discharge Recommendations Plan/Recommendations: Continue POC Treatment Plan/Plan of Care Patient would benefit from OT for education, treatment and training to promote independence in ADL's, mobility, safety and/or upper extremity function for ADL' s. Plan of Care: ADL Retraining, Caregiver Training, Functional Mobility, Group Exercise/Act as Ind, UE Funct Exercise/Act, UE Neuromus Re-Ed/Coord Treatment Duration: Jan 28, 2017 Frequency: At least 5-7 days/Wk (IRF) Estimated Hrs Per Day: 1 hour per day Agreement: Yes Rehab Potential: Good Time/GCodes Start Time: 10:20 Stop Time: 10:40 Total Time Billed (hr/min): 20 Billed Treatment Time 1 visit-FA 1 (20 min) EMILY RAYO Jan 15, 2017 10:51
--- NOTE | 2017-01-15 12:03 | Physical Therapy Daily Note ---
PT Daily Note-Current Subjective Pt. very friendly, agrees to Rx. Pain Numeric Pain Scale: 0-No Pain Mental Status Patient Orientation: Normal For Age Transfers Functional [place] Measure 0=Not Assessed/NA 4=Minimal Assistance 1=Total Assistance 5=Supervision or Setup 2=Maximal Assistance 6=Modified [place] 3=Moderate Assistance 7=Complete IndependenceIRFPAI Quality Coding Scale 6 Independent with activity with or without an assistive device 5 Patient requires set up or clean up by helper. Patient completes activity by themselves 4 Supervision or touching assist (CGA). Bernie provide cues , steadying assist 3 The helper provides less than half the effort to complete the activity 2 The helper provides more than half the effort to complete the activity 1 Dependent. The helper does all the effort to complete an activity 7 Patient refused to complete or attempt activity 9 The patient did not perform the activity before the current illness or injury 88 Not attempted due to Medical conditions or safety concerns Transfers (B, C, W/C) (FIM): 6 Scootin Rollin Supine to/from Sit: 6 Sit to/from Stand: 6 Gait Training Does the Patient Walk?: Yes Gait (FIM): 5 Distance (FIM): 3=150 ft (x2) Gait Level of Assist: 5 Gait Persons Needed: 1 Gait Assistive Device: FWW instruction and cues for broader RACHEAL and hand on FWW Stair Training Stair Training: Handrails/: 2 handrails Stairs (FIM): 2 #of Steps: 4 Stairs: Pattern: Step to Level of Assist: 4 Exercises Supine Ex: Bridging, Ankle pumps, Quad Set, Rolling, Glut sets, Heel Slides, Short Arc Quads, Scooting, Straight leg raise, Hip abd/add Supine Reps: 15 Seated Therapy Exercises: Ankle pumps, Sit to stand, Long arc quads, Hip flexion, Hip abd/add Seated Reps: 12 prone and sidelying exercises as well for hamstring curls, glut sets, clam shells and hip abd Treatments tolieted managing all SBA Assessment Current Status: Good Progress well motivated, gives full effort PT Short Term Goals Short Term Goals Time Frame: Jan 28, 2017 Transfers (B,C,W/C) (FIM): 5 Gait (FIM): 5 PT Lab Support Tech Goals Lab Support Tech Goals PT Custodial Goals Time Frame: Feb 11, 2017 Transfers (B,C,W/C) (FIM): 6 Sit to Lying (QC): 6 Lying-Sitting on Side/Bed(QC): 6 Sit to Stand (QC): 6 Roll Left to Right (QC): 6 Chair/Vty-ep-Txlwy Xfer(QC): 6 Car Transfer (QC): 6 Does the Patient Walk: Yes Gait (FIM): 4 Gait distance (FIM): 3=150 ft Walk 10 feet (QC): 6 Walk 10ft-Uneven Surface(QC): 6 Walk 50ft with 2 Turns (QC): 6 Walk 150 ft (QC): 6 Gait Level of Assist: 6 Gait Assistive Device: FWW Does the Pt use WC or Scooter?: No Stairs (FIM): 5 # of Steps: 8 1 Step (curb) (QC): 6 4 Steps (QC): 6 12 Steps (QC): 88 Picking up an Object (QC): 5 PT Plan Treatment/Plan Treatment Plan: Continue Plan of Care Treatment Plan: Bed Mobility, Education, Functional Activity Po, Functional Strength, Group Therapy, Gait, Safety, Therapeutic Exercise, Transfers Treatment Duration: Feb 11, 2017 Frequency: At least 5-7 days/Wk (IRF) Estimated Hrs Per Day: 1.5 hours per day Patient and/or Family Agrees t: Yes Safety Risks/Education Patient Education: Gait Training, Transfer Techniques, Steps, Correct Positioning Teaching Recipient: Patient Teaching Methods: Demonstration, Discussion, Audiovisual Response to Teaching: Verbalize Understanding, Return Demonstration, Reinforcement Needed Time/GCodes Time In: 1100 Time Out: 1200 Total Billed Treatment Time: 60 Total Billed Treatment 1,GT30m,FA15m,EX15m G Codes Necessary: JOSHUA Ferrara PROFESSOR OF HISTORICAL THEOLOGY Jan 15, 2017 12:02
--- NOTE | 2017-01-15 13:40 | Consultation ---
History of Present Illness History of Present Illness Patient Consulted On(jair/time) 01/15/17 13:34 Time Seen by Provider: 13:25 History of Present Illness patient states she had rectal bleed. Patient went to [facility] . Patient to have a colonoscopy done today Last Wednesday patient Is feeling worse and got more dizzy. Contact To the emergency room. 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 Patient has mild speech problem now. Left upper extremity weakness and unable to move fingers. Surgeries and an appendectomy. Family history denies asthma TB, or diabetes Allergies and Home Medications Allergies Coded Allergies: No Known Drug Allergies (Unverified , 01/14/17) Home Medications Ibuprofen 200 Mg Tablet, 400 MG PO Q12H PRN for PAIN-MILD, (Reported) Multivitamin 1 Each Tablet, 1 TAB PO DAILY, (Reported) Pantoprazole Sodium 40 Mg Tablet.dr, 40 MG PO DAILY, (Reported) Past Ndyftrj-Qwdpfw-Ojajpk Hx Patient Social History Alcohol Use: Denies Use Recreational Drug Use: No Smoking Status: Current Everyday Smoker Type Used: Cigarettes Recent Foreign Travel: No Contact w/Someone Who Travel: No Recent Hopitalizations: Yes ([facility] for CVA) Physical Abuse Screen: No Sexual Abuse: No Seasonal Allergies Seasonal Allergies: Yes (sinus) Surgeries Surgeries: Appendectomy, Bowel Surgery Respiratory Hx Respiratory Disorders: No Cardiovascular Hx Cardiac Disorders: No Cardiac Disorders: Hypertension Gastrointestinal Gastrointestinal Disorders: Gastrointestinal Bleed, Chronic Constipation Musculoskeletal Musculoskeletal Disorders: Arthritis HEENT HEENT Disorders: Cataract Loss of Vision: Left Hearing Impairment: Denies Blood Transfusions Adverse Reaction to a Blood Tr: No Review of Systems-General Constitutional: weakness EENTM: no symptoms reported Respiratory: no symptoms reported Cardiovascular: no symptoms reported Gastrointestinal: no symptoms reported Genitourinary: no symptoms reported Physical Exam-General Problems Physical Exam Vital Signs Vital Sign - Last 12Hours 01/14/17 14:55 Temp 96.9 Pulse 69 Resp 18 B/P (MAP) 166/98 Pulse Ox 97 O2 Delivery Room Air Capillary Refill : Less Than 3 Seconds General Appearance: WD/WN, thin Eyes: Bilateral Eye Normal Inspection Neck: non-tender, full range of motion, normal inspection Respiratory: chest non-tender, no respiratory distress, no accessory muscle use Cardiovascular: regular rate, rhythm, no murmur Gastrointestinal: non tender, soft Assessment/Plan Assessment/Plan Admission Diagnosis/Plan CVA on left. Hypertension. Blood in the stools. Clinical Quality Measures DVT/VTE Risk/Contraindication: Risk Factor Score Per Nursin RFS Level Per Nursing on Admit: 4+=Very High QUINN BRIGGS DO Jan 15, 2017 13:40
--- NOTE | 2017-01-15 15:05 | Physical Therapy Daily Note ---
PT Daily Note-Current Subjective Jovial, states she really enjoyed her lunch and is already planning her dinner. Agrees to Rx. Pain Numeric Pain Scale: 0-No Pain Mental Status Patient Orientation: Normal For Age Transfers Functional [place] Measure 0=Not Assessed/NA 4=Minimal Assistance 1=Total Assistance 5=Supervision or Setup 2=Maximal Assistance 6=Modified [place] 3=Moderate Assistance 7=Complete IndependenceIRFPAI Quality Coding Scale 6 Independent with activity with or without an assistive device 5 Patient requires set up or clean up by helper. Patient completes activity by themselves 4 Supervision or touching assist (CGA). [place] provide cues , steadying assist 3 The helper provides less than half the effort to complete the activity 2 The helper provides more than half the effort to complete the activity 1 Dependent. The helper does all the effort to complete an activity 7 Patient refused to complete or attempt activity 9 The patient did not perform the activity before the current illness or injury 88 Not attempted due to Medical conditions or safety concerns All TRFs SBA Gait Training Gait Assistive Device: FWW 150ft,[id number]. fig [id number], retro gait and turns were emphasized as well as broader safer RACHEAL. no LOB, good safety habits noted Exercises Seated Therapy Exercises: Ankle pumps, Sit to stand, Long arc quads, Hip flexion Seated Reps: 10 Assessment Current Status: Good Progress PT Short Term Goals Short Term Goals Time Frame: Jan 28, 2017 Transfers (B,C,W/C) (FIM): 5 Gait (FIM): 5 PT [facility] Goals Glass Mechanic Goals PT [facility] Goals Time Frame: Feb 11, 2017 Transfers (B,C,W/C) (FIM): 6 Sit to Lying (QC): 6 Lying-Sitting on Side/Bed(QC): 6 Sit to Stand (QC): 6 Rollin Roll Left to Right (QC): 6 Chair/Gsx-ks-Caqvq Xfer(QC): 6 Car Transfer (QC): 6 Does the Patient Walk: Yes Gait (FIM): 4 Gait distance (FIM): 3=150 ft Walk 10 feet (QC): 6 Walk 10ft-Uneven Surface(QC): 6 Walk 50ft with 2 Turns (QC): 6 Walk 150 ft (QC): 6 Gait Level of Assist: 6 Gait Assistive Device: FWW Does the Pt use WC or Scooter?: No Stairs (FIM): 5 # of Steps: 8 1 Step (curb) (QC): 6 4 Steps (QC): 6 12 Steps (QC): 88 Picking up an Object (QC): 5 PT Plan Treatment/Plan Treatment Plan: Continue Plan of Care Treatment Plan: Bed Mobility, Education, Functional Activity Po, Functional Strength, Group Therapy, Gait, Safety, Therapeutic Exercise, Transfers Treatment Duration: Feb 11, 2017 Frequency: At least 5-7 days/Wk (IRF) Estimated Hrs Per Day: 1.5 hours per day Patient and/or Family Agrees t: Yes Safety Risks/Education Patient Education: Gait Training, Transfer Techniques, Correct Positioning, Safety Issues Teaching Recipient: Patient Teaching Methods: Demonstration, Discussion Response to Teaching: Verbalize Understanding, Return Demonstration, Reinforcement Needed Time/GCodes Time In: 1440 Time Out: 1500 Total Billed Treatment Time: 20 Total Billed Treatment 1,GT20m G Codes Necessary: JOSHUA Ferrara CERTIFIED MIDWIFE Jan 15, 2017 15:05
[2017-01-15 18:00] VITALS: BP 180/86
[2017-01-16 05:43] VITALS: BP 168/75
[2017-01-16 05:58] LABS: MEAN PLATELET VOLUME 10.2 FL (7.4-10.4); RED BLOOD COUNT 3.74 10^6/uL (4.35-5.85); RED CELL DISTRIBUTION WIDTH 12.4 % (10.0-14.5); WHITE BLOOD COUNT 11.3 10^3/uL (4.3-11.0)
[2017-01-16] MEDS: MULTIVIT W/MINERALS TAB (THERAGRAN M) PO SCH (06:44)
[2017-01-16] MEDS: PANTOPRAZOLE 40 MG (PROTONIX) TAB PO SCH (06:44)
[2017-01-16] MEDS: BISACODYL 5 MG (DULCOLAX) TABLET PO SCH (08:41)
[2017-01-16] MEDS: CLOPIDOGREL 75 MG (PLAVIX) TABLET PO SCH (08:41)
[2017-01-16] MEDS: lisINopril 10 MG (PRINIVIL) TAB PO SCH (08:41)
--- NOTE | 2017-01-16 08:48 | Physical Therapy Daily Note ---
PT Daily Note-Current Subjective Cheerful, agrees to Rx. Pain Numeric Pain Scale: 0-No Pain Mental Status Patient Orientation: Normal For Age Transfers Functional [place] Measure 0=Not Assessed/NA 4=Minimal Assistance 1=Total Assistance 5=Supervision or Setup 2=Maximal Assistance 6=Modified [place] 3=Moderate Assistance 7=Complete IndependenceIRFPAI Quality Coding Scale 6 Independent with activity with or without an assistive device 5 Patient requires set up or clean up by helper. Patient completes activity by themselves 4 Supervision or touching assist (CGA). [place] provide cues , steadying assist 3 The helper provides less than half the effort to complete the activity 2 The helper provides more than half the effort to complete the activity 1 Dependent. The helper does all the effort to complete an activity 7 Patient refused to complete or attempt activity 9 The patient did not perform the activity before the current illness or injury 88 Not attempted due to Medical conditions or safety concerns Transfers (B, C, W/C) (FIM): 6 Scootin Rollin Supine to/from Sit: 6 Sit to/from Stand: 6 Gait Training Does the Patient Walk?: Yes Gait (FIM): 5 Distance (FIM): 3=150 ft (x2) Gait Level of Assist: 5 Gait Persons Needed: 1 Gait Assistive Device: FWW some assist to cue pt. to keep hand on walker, improving Exercises Standing: Hip Abduction, Hamstring curls, Heel/toe raises, Marching, Mini squats, Sit to Stand Standing Reps: 15 Treatments toileted indep with superv Assessment Current Status: Good Progress PT Short Term Goals Short Term Goals Time Frame: Jan 28, 2017 Transfers (B,C,W/C) (FIM): 5 Gait (FIM): 5 PT Commercial Litigation Paralegal Goals [facility]dc Goals PT [facility]dc Goals Time Frame: Feb 11, 2017 Transfers (B,C,W/C) (FIM): 6 Sit to Lying (QC): 6 Lying-Sitting on Side/Bed(QC): 6 Sit to Stand (QC): 6 Rollin Roll Left to Right (QC): 6 Chair/Hva-bw-Wlvrf Xfer(QC): 6 Car Transfer (QC): 6 Does the Patient Walk: Yes Gait (FIM): 4 Gait distance (FIM): 3=150 ft Walk 10 feet (QC): 6 Walk 10ft-Uneven Surface(QC): 6 Walk 50ft with 2 Turns (QC): 6 Walk 150 ft (QC): 6 Gait Level of Assist: 6 Gait Assistive Device: FWW Does the Pt use WC or Scooter?: No Stairs (FIM): 5 # of Steps: 8 1 Step (curb) (QC): 6 4 Steps (QC): 6 12 Steps (QC): 88 Picking up an Object (QC): 5 PT Plan Treatment/Plan Treatment Plan: Continue Plan of Care Treatment Plan: Bed Mobility, Education, Functional Activity Po, Functional Strength, Group Therapy, Gait, Safety, Therapeutic Exercise, Transfers Treatment Duration: Feb 11, 2017 Frequency: At least 5-7 days/Wk (IRF) Estimated Hrs Per Day: 1.5 hours per day Patient and/or Family Agrees t: Yes Safety Risks/Education Patient Education: Gait Training, Transfer Techniques, Correct Positioning, Safety Issues Teaching Recipient: Patient Teaching Methods: Demonstration, Discussion Response to Teaching: Verbalize Understanding, Return Demonstration, Reinforcement Needed Time/GCodes Time In: 745 Time Out: 810 Total Billed Treatment Time: 25 Total Billed Treatment 1,GT15m,EX10m G Codes Necessary: JOSHUA Ferrara APPLICATIONS ENGINEER MANUFACTURING Jan 16, 2017 08:48
[2017-01-16 17:51] VITALS: BP 155/78
[2017-01-17 05:25] VITALS: BP 162/93
[2017-01-17] MEDS: PANTOPRAZOLE 40 MG (PROTONIX) TAB PO SCH (06:27)
[2017-01-17] MEDS: MULTIVIT W/MINERALS TAB (THERAGRAN M) PO SCH (07:08)
[2017-01-17] MEDS: CLOPIDOGREL 75 MG (PLAVIX) TABLET PO SCH (07:35)
[2017-01-17] MEDS: lisINopril 10 MG (PRINIVIL) TAB PO SCH (07:35)
[2017-01-17] MEDS: BISACODYL 5 MG (DULCOLAX) TABLET PO SCH (12:20)
[2017-01-17 18:00] VITALS: BP 175/93
[2017-01-18 05:27] VITALS: BP 163/84
[2017-01-18] MEDS: MULTIVIT W/MINERALS TAB (THERAGRAN M) PO SCH (06:01)
[2017-01-18] MEDS: PANTOPRAZOLE 40 MG (PROTONIX) TAB PO SCH (06:01)
--- NOTE | 2017-01-18 07:42 | Progress Note (SOAP) ---
Subjective Time Seen by Provider: 07:40 Subjective/Events-last exam CVA. Malignant hypertension. Increase lisinopril to 20 mg from 10 mg. Patient able to move her fingers today on the left hand Objective Exam Vital Signs Date Time Temp Pulse Resp B/P (MAP) Pulse Ox O2 Delivery O2 Flow Rate FiO2 01/18/17 05:27 97.1 77 16 163/84 98 Room Air 01/17/17 18:00 98.5 68 22 175/93 98 Room Air I & O 01/18/17 07:00 Intake Total 1700 ml Output Total 12 ml Balance 1688 ml Capillary Refill : Less Than 3 Seconds General Appearance: No Apparent Distress, Thin HEENT: Normal ENT Inspection Neck: Full Range of Motion, Normal Inspection Respiratory: Chest Non Tender, No Accessory Muscle Use, No Respiratory Distress Cardiovascular: Regular Rate, Rhythm, No Murmur Assessment/Plan Assessment/Plan Assess & Plan/Chief Complaint CVA on left. Hypertension. Blood in the stools.. . 01/18/17 area CVA on left. Malignant hypertension. History of blood in stools. Patient moving hand better. Patient able to move her fingers Clinical Quality Measures DVT/VTE Risk/Contraindication: Risk Factor Score Per Nursin RFS Level Per Nursing on Admit: 4+=Very High QUINN BRIGGS DO Jan 18, 2017 07:42
[2017-01-18] MEDS: lisINopril 20 MG (ZESTRIL) TAB PO SCH (08:14)
[2017-01-18] MEDS: CLOPIDOGREL 75 MG (PLAVIX) TABLET PO SCH (08:14)
[2017-01-18] MEDS: BISACODYL 5 MG (DULCOLAX) TABLET PO SCH (08:15)
--- NOTE | 2017-01-18 10:56 | Occupational Ther Daily Note ---
OT Current Status-Daily Note Subjective Pt alert, sitting in recliner. Pt agreed to therapy. No c/o pain. Mental Status/Objective Patient Orientation: Person, Place, Time, Situation Functional [place] Measure 0=Not Assessed/NA 4=Minimal Assistance 1=Total Assistance 5=Supervision or Setup 2=Maximal Assistance 6=Modified [place] 3=Moderate Assistance 7=Complete [place] ADL-Treatment Functional [place] Measure 0=Not Assessed/NA 4=Minimal Assistance 1=Total Assistance 5=Supervision or Setup 2=Maximal Assistance 6=Modified [place] 3=Moderate Assistance 7=Complete IndependenceIRFPAI Quality Coding Scale 6 Independent with activity with or without an assistive device 5 Patient requires set up or clean up by helper. Patient completes activity by themselves 4 Supervision or touching assist (CGA). [place] provide cues , steadying assist 3 The helper provides less than half the effort to complete the activity 2 The helper provides more than half the effort to complete the activity 1 Dependent. The helper does all the effort to complete an activity 7 Patient refused to complete or attempt activity 9 The patient did not perform the activity before the current illness or injury 88 Not attempted due to Medical conditions or safety concerns Grooming (FIM): 5 (Pt. completed grooming with supervision and items handed to her. ) Bathing (FIM): 5 (After set up, using grabbars, shower bench and hand held shower pt completed bathing, rinsing and drying with supervision.) Bathing Location: L Arm, R Arm, L Upper Leg, R Upper Leg, L Lower Leg ( including foot), R Lower Leg (including foot), Chest, Abdomen, Buttocks, Perineal Area Upper Body (FIM): 5 (Pt. completed dressing with superivision while sitting. ) Lower Body Dressing (FIM): 5 (After set up pt. completed dressing with supervision while sitting. ) Shower Transfer(FIM): 4 (Pt. transferred into shower with CGA using FWW, grabbar and shower bench. ) Other Treatment Pt ambulated with CGA using FWW to therapy gym. Pt completed functional activities to work on L fine motor skills. Pt demonstrated increased finger flexion and slight finger extension. Blocking joints, pt able to oppose thumb to each finger. Pt worked on picking up small items and placing in designated area. Pt ambulated back to room with CGA using FWW. After therapy, pt sitting in recliner with call light/phone in reach. All needs met in room. OT Short Term Goals Short Term Goals Transfers (B,C,W/C) (FIM): 5 1=Demonstrate adherence to instructed precautions during ADL tasks. 2=Patient will verbalize/demonstrate understanding of assistive devices/ modifications for ADL. 3=Patient will improve strength/tolerance for activity to enable patient to perform ADL's. OT Emergency Nurse Goals Emergency Nurse Goals Time Frame: Jan 28, 2017 Eating (FIM): 7 Eating (QC): 6 Groomin Oral Hygiene (QC): 6 Bathing(FIM): 6 Shower/Bathe Self (QC): 6 Upper Body Dressing(FIM): 6 Upper Body Dressing (QC): 6 Lower Body Dressing(FIM): 6 Lower Body Dressing (QC): 6 On/Off Footwear (QC): 6 Toileting(FIM): 6 Toileting Hygiene (QC): 6 Transfers (B,C,W/C) (FIM): 6 Toilet/Commode Transfer(FIM): 6 Toilet/Commode Transfer (QC): 6 Shower Transfer(FIM): 6 Comprehension(FIM): 6 Expression (FIM): 6 Social Interaction(FIM): 6 Problem Solving(FIM): 6 Additional Goals: 1-Demonstrate ADL Tasks, 2-Verbalize Understanding, 3- ImproveStrength/Po 1=Demonstrate adherence to instructed precautions during ADL tasks. 2=Patient will verbalize/demonstrate understanding of assistive devices/ modifications for ADL. 3=Patient will improve strength/tolerance for activity to enable patient to perform ADL's. OT Education/Plan Discharge Recommendations Plan/Recommendations: Continue POC Treatment Plan/Plan of Care Patient would benefit from OT for education, treatment and training to promote independence in ADL's, mobility, safety and/or upper extremity function for ADL' s. Plan of Care: ADL Retraining, Caregiver Training, Functional Mobility, Group Exercise/Act as Ind, UE Funct Exercise/Act, UE Neuromus Re-Ed/Coord Treatment Duration: Jan 28, 2017 Frequency: At least 5-7 days/Wk (IRF) Estimated Hrs Per Day: 1 hour per day Agreement: Yes Rehab Potential: Good Time/GCodes Start Time: 10:00 Stop Time: 11:00 Total Time Billed (hr/min): 60 Billed Treatment Time 1 visit-ADL 2 (30 min) NM 2 (30 min) EMILY RAYO Jan 18, 2017 10:56
--- NOTE | 2017-01-18 11:21 | Speech Therapy Daily Note ---
Speech Daily Progress Note Subjective Date Seen by Provider: Jan 18, 2017 Time Seen by Provider: 09:15 The patient was seated upright in recliner upon entrance. The patient greeted the clinician appropriately and was agreeable to participation in the speech and language treatment session. Objective Oral Motor Exercises: Oral motor exercises (lingual and labial range of motion and strength) were initiated, discussed, and demonstrated on this date. The patient displayed high accuracy with this task (80%) with moderate clinician verbal cueing and direct modeling. Ten repetitions of each exercise were performed. Communication Comprehension: 6 Expression: 5 Social Cognition Social Interaction: 6 Problem Solvin Memory: 5 Speech Short Term Goals Short Term Goals Short Term Goals 1. The patient will demonstrate oral motor exercises to improve lingual and labial strength while improving verbal intelligibility. Time Frame-STG: Four Days Speech Snf Goals Lead Embedded Software Engineer Goals 1. The patient will demonstrate increased intelligibility through oral motor strengthening and range of motion exercises. Time Frame: Two Weeks Comprehension: 6 Expression: 6 Social Interaction: 6 Problem Solvin Speech-Plan Treatment Plan Speech Therapy Treatment Plan: Continue Plan of Care Continued skilled speech pathology to target improved oral intelligibility. Frequency: Modified Program (IRF) Estimated Hrs Per Day: .5 hour per day Rehab Potential: Good Safety Risks/Education Teaching Recipient: Patient Teaching Methods: Demonstration, Handout, Discussion Response to Teaching: Verbalize Understanding, Return Demonstration Education Topics Provided: Oral Motor Exericises Time Speech Therapy Time In: 09:15 Speech Therapy Time Out: 09:45 Total Billed Time: 30 Billed Treatment Time 1, VLADIMIR BESSCESAR PARRA Jan 18, 2017 11:21
--- NOTE | 2017-01-18 12:27 | Physical Therapy Daily Note ---
PT Daily Note-Current Subjective Agrees to PT. Reports she wants to go home on Wednesday or . Pain Numeric Pain Scale: 0-No Pain Location: No Pain Reported Mental Status Patient Orientation: Person, Place, Time, Situation Transfers Functional [place] Measure 0=Not Assessed/NA 4=Minimal Assistance 1=Total Assistance 5=Supervision or Setup 2=Maximal Assistance 6=Modified [place] 3=Moderate Assistance 7=Complete IndependenceIRFPAI Quality Coding Scale 6 Independent with activity with or without an assistive device 5 Patient requires set up or clean up by helper. Patient completes activity by themselves 4 Supervision or touching assist (CGA). [place] provide cues , steadying assist 3 The helper provides less than half the effort to complete the activity 2 The helper provides more than half the effort to complete the activity 1 Dependent. The helper does all the effort to complete an activity 7 Patient refused to complete or attempt activity 9 The patient did not perform the activity before the current illness or injury 88 Not attempted due to Medical conditions or safety concerns Transfers (B, C, W/C) (FIM): 4 (occas CGA for safety) skilled cues 50% of the time to push up from the arms of the chair to stand. Gait Training Does the Patient Walk?: Yes Gait (FIM): 4 (CGA 50% of the time; SBA the other 50%) Distance (FIM): 3=150 ft Walk 10 feet (QC): 5 Walk 50 ft with 2 Turns(QC): 4 Walk 150 ft (QC): 4 Walking 10ft/uneven surface-QC: 4 (outdoor/boardwalk) Gait Assistive Device: FWW Gait training with a combination of functional balance activity with gait 250 ft x 3 reps. Walked on outdoor surfaces to challenge her balance on a boardwalk , slope and stairs all with CGA. Also it was challenging to her to walk on the sidewalk which is a bit rougher surface. She had 2 episodes in which her left knee seemed to buckle, but recovered on her own. Slight balance deficit still present and slightly diminished safety awereness noted. Pt continues to progress and benefit from high level gait training. Stair Training Stairs (FIM): 2 (CGA) #of Steps: 6 Exercises NuStep Minutes: 15 (To increase LE strength for fall recovery with gait and transfers. ) Neuromuscular as noted above Assessment Current Status: Good Progress Pt making functional gains but has potential to continue to progress. PT Short Term Goals Short Term Goals Time Frame: Jan 28, 2017 Transfers (B,C,W/C) (FIM): 5 Gait (FIM): 5 PT Alf Goals Retail Warehouse Supervisor Goals PT Retail Warehouse Supervisor Goals Time Frame: Feb 11, 2017 Transfers (B,C,W/C) (FIM): 6 Sit to Lying (QC): 6 Lying-Sitting on Side/Bed(QC): 6 Sit to Stand (QC): 6 Rollin Roll Left to Right (QC): 6 Chair/Fuj-zh-Ifici Xfer(QC): 6 Car Transfer (QC): 6 Does the Patient Walk: Yes Gait (FIM): 4 Gait distance (FIM): 3=150 ft Walk 10 feet (QC): 6 Walk 10ft-Uneven Surface(QC): 6 Walk 50ft with 2 Turns (QC): 6 Walk 150 ft (QC): 6 Gait Level of Assist: 6 Gait Assistive Device: FWW Does the Pt use WC or Scooter?: No Stairs (FIM): 5 # of Steps: 8 1 Step (curb) (QC): 6 4 Steps (QC): 6 12 Steps (QC): 88 Picking up an Object (QC): 5 PT Plan Problem List Problem List: Activity Tolerance, Functional Strength, Safety Treatment/Plan Treatment Plan: Continue Plan of Care Treatment Plan: Bed Mobility, Education, Functional Activity Po, Functional Strength, Group Therapy, Gait, Safety, Therapeutic Exercise, Transfers Treatment Duration: Feb 11, 2017 Frequency: At least 5-7 days/Wk (IRF) Estimated Hrs Per Day: 1.5 hours per day Patient and/or Family Agrees t: Yes Safety Risks/Education Patient Education: Transfer Techniques, Safety Issues Teaching Recipient: Patient Teaching Methods: Demonstration, Discussion Response to Teaching: Reinforcement Needed Discharge Recommendations Therapy D/C Recommendations: Physical Therapy Home Care Time/GCodes Time In: 1100 Time Out: 1200 Total Billed Treatment Time: 60 Total Billed Treatment visit GT 30 NM 15 EX 15 EMILY BRITTON PT Jan 18, 2017 12:27
--- NOTE | 2017-01-18 14:38 | Therapy Group Daily Note ---
Therapy Daily Group Note Patient Education Topic Home Safety, Fall Prevention Exercises LE Seated Exercise, Fine Motor Other/Notes Pt ambulated to OT group with SBA using FWW. OT group consisted of introductions (name, place living, first car), socialization, education on home safety/fall prevention and seated UE/LE exercises. Pt was able to introduce self appropriately and was attentive to other pt's stories. Pt was able to verbalize understanding of educational topics by stating how it is used in own home and different ways to incorporate in every day use. Pt was able to complete UE seated exercises using R UE to assisted L UE with shldr exercises. Pt demonstrated ability to complete LE exercises without difficulty. Pt ambulated back to room with CGA using FWW then requested to use toilet. After therapy, pt sitting in recliner with call light/phone in reach. All needs met in room. Start Time: 13:00 Stop Time: 14:10 Total Billed Treatment Time: 70 Total Billed Treatment 1-GRP EMILY RAYO Jan 18, 2017 14:38
[2017-01-18 18:03] VITALS: BP 160/75
--- NOTE | 2017-01-18 20:39 | PM & R (SOAP) Progress Note ---
Subjective Time Seen by Provider: 20:20 Subjective/Events-last exam Patient was seen in her room this AM Patient Min assist for transfers Objective Exam Last Set of Vital Signs Vital Signs Date Time Temp Pulse Resp B/P (MAP) Pulse Ox O2 Delivery O2 Flow Rate FiO2 01/18/17 18:03 97.8 74 18 160/75 97 Room Air Capillary Refill : Less Than 3 Seconds I&O Intake and Output 01/18/17 00:00 Intake Total 2050 ml Output Total 6 ml Balance 2044 ml Intake Oral 2050 ml Output Urine Total 6 ml # Voids 4 # Bowel Movements 1 General: Alert, Oriented X3, Cooperative, No Acute Distress HEENT: Atraumatic, PERRLA, EOMI, Mucous Memb Moist/[place], Other (mild rt labial droop) Neck: Supple, No JVD Lungs: Clear to Auscultation Heart: Regular Rate Abdomen: Normal Bowel Sounds, Soft, No Tenderness Extremities: No Edema Skin: No Significant Lesion Neuro: Other (Mild left HP and dysasrthria Dysphagia on thickened liquids) Results Lab Laboratory Tests 01/16/17 05:45: White Blood Count 11.3H, Red Blood Count 3.74L, Hemoglobin 11.4L, Hematocrit 34L , Mean Corpuscular Volume 91, Mean Corpuscular Hemoglobin 31, Mean Corpuscular Hemoglobin Concent 33, Red Cell Distribution Width 12.4, Platelet Count 254, Mean Platelet Volume 10.2 Assessment/Plan Assessment 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
[2017-01-19 04:35] VITALS: BP 136/78
[2017-01-19] MEDS: MULTIVIT W/MINERALS TAB (THERAGRAN M) PO SCH (06:07)
[2017-01-19] MEDS: PANTOPRAZOLE 40 MG (PROTONIX) TAB PO SCH (06:07)
--- NOTE | 2017-01-19 07:44 | Progress Note (SOAP) ---
Subjective Time Seen by Provider: 07:40 Subjective/Events-last exam left CVA improving. Patient can tack picker checkers now with the left hand . Hypertension better with increase dose of lisinopril. Tobaccoism. Objective Exam Vital Signs Date Time Temp Pulse Resp B/P (MAP) Pulse Ox O2 Delivery O2 Flow Rate FiO2 01/19/17 04:35 97.8 73 18 136/78 97 Room Air 01/18/17 18:03 97.8 74 18 160/75 97 Room Air I & O 01/19/17 07:00 Intake Total 1400 ml Balance 1400 ml Capillary Refill : Less Than 3 Seconds General Appearance: No Apparent Distress, Thin Assessment/Plan Assessment/Plan Assess & Plan/Chief Complaint CVA on left. Hypertension. Blood in the stools.. . 01/18/17 area CVA on left. Malignant hypertension. History of blood in stools. Patient moving hand better. Patient able to move her fingers. . 01/19/17. CVA on left improving. Hypertension. Improving. Blood in the stools. Patient able to tack picker checkers with left hand Clinical Quality Measures DVT/VTE Risk/Contraindication: Risk Factor Score Per Nursin RFS Level Per Nursing on Admit: 4+=Very High QUINN BRIGGS DO Jan 19, 2017 07:44
[2017-01-19] MEDS: CLOPIDOGREL 75 MG (PLAVIX) TABLET PO SCH (08:09)
[2017-01-19] MEDS: BISACODYL 5 MG (DULCOLAX) TABLET PO SCH (08:09)
[2017-01-19] MEDS: lisINopril 20 MG (ZESTRIL) TAB PO SCH (08:09)
--- NOTE | 2017-01-19 08:10 | Occupational Ther Daily Note ---
OT Current Status-Daily Note Subjective Pt. was alert, sitting in chair. Pt. agreed to therapy. No c/o pain. Mental Status/Objective Patient Orientation: Person, Place, Time, Situation Functional [place] Measure 0=Not Assessed/NA 4=Minimal Assistance 1=Total Assistance 5=Supervision or Setup 2=Maximal Assistance 6=Modified [place] 3=Moderate Assistance 7=Complete [place] ADL-Treatment Functional [place] Measure 0=Not Assessed/NA 4=Minimal Assistance 1=Total Assistance 5=Supervision or Setup 2=Maximal Assistance 6=Modified [place] 3=Moderate Assistance 7=Complete IndependenceIRFPAI Quality Coding Scale 6 Independent with activity with or without an assistive device 5 Patient requires set up or clean up by helper. Patient completes activity by themselves 4 Supervision or touching assist (CGA). [place] provide cues , steadying assist 3 The helper provides less than half the effort to complete the activity 2 The helper provides more than half the effort to complete the activity 1 Dependent. The helper does all the effort to complete an activity 7 Patient refused to complete or attempt activity 9 The patient did not perform the activity before the current illness or injury 88 Not attempted due to Medical conditions or safety concerns Grooming (FIM): 5 (Pt requested to sit in chair after dressing and have grooming items handed to her. Pt is able to use all grooming items by self. Pt uses oral swabs to cleanse mouth due to no teeth.) Bathing (FIM): 5 (Supervision, pt. completed washing, rinsing, and drying using shower chair, grab bars, and handheld shower. ) Bathing Location: L Arm, R Arm, L Upper Leg, R Upper Leg, L Lower Leg ( including foot), R Lower Leg (including foot), Chest, Abdomen, Buttocks, Perineal Area Upper Body (FIM): 5 (After set up, pt. completed dressing seated.) Lower Body Dressing (FIM): 5 (After set up, pt. completed dressing while seated then supervision while standing to hike pants over hips. ) Toileting (FIM): 5 (Pt. able to complete hygiene sitting then manipulated clothing with supervision in standing.) Transfers (B, C, W/C) (FIM): 5 (Using FWW, pt is able to complete transfers with supervision.) Toilet/Commode Transfer (FIM): 5 (Using FWW and grabbars, pt is able to complete transfers with supervision.) Shower Transfer(FIM): 5 (Using grabbars, FWW and shower bench, pt is able to complete with SBA.) Other Treatment Pt ambulated with CGA using FWW to therapy gym. Electrical stimulation completed to L wrist/fingers extensors for grasp/release during daily activities. Pt has finger flexion with fair director game strength. Pt is able to partially extend L fingers to release object, actively. During electrical stimulation pt was able to grasp and release with fully extended fingers. Then completed arm bike duration 5 min at 10 anne resistance using L UE only to increase strength, AROM and activity tolerance for daily functional tasks. Pt rotated arm bike other direction for director game and shldr retraction. Pt ambulated back to room and completed shower. After therapy, pt sitting in recliner with call light/phone in reach. All needs met in room. OT Short Term Goals Short Term Goals Transfers (B,C,W/C) (FIM): 5 1=Demonstrate adherence to instructed precautions during ADL tasks. 2=Patient will verbalize/demonstrate understanding of assistive devices/ modifications for ADL. 3=Patient will improve strength/tolerance for activity to enable patient to perform ADL's. OT Pump Servicer Goals Custodial Goals Time Frame: Jan 28, 2017 Eating (FIM): 7 Eating (QC): 6 Groomin Oral Hygiene (QC): 6 Bathing(FIM): 6 Shower/Bathe Self (QC): 6 Upper Body Dressing(FIM): 6 Upper Body Dressing (QC): 6 Lower Body Dressing(FIM): 6 Lower Body Dressing (QC): 6 On/Off Footwear (QC): 6 Toileting(FIM): 6 Toileting Hygiene (QC): 6 Transfers (B,C,W/C) (FIM): 6 Toilet/Commode Transfer(FIM): 6 Toilet/Commode Transfer (QC): 6 Shower Transfer(FIM): 6 Comprehension(FIM): 6 Expression (FIM): 6 Social Interaction(FIM): 6 Problem Solving(FIM): 6 Additional Goals: 1-Demonstrate ADL Tasks, 2-Verbalize Understanding, 3- ImproveStrength/Po 1=Demonstrate adherence to instructed precautions during ADL tasks. 2=Patient will verbalize/demonstrate understanding of assistive devices/ modifications for ADL. 3=Patient will improve strength/tolerance for activity to enable patient to perform ADL's. OT Education/Plan Discharge Recommendations Plan/Recommendations: Continue POC Treatment Plan/Plan of Care Patient would benefit from OT for education, treatment and training to promote independence in ADL's, mobility, safety and/or upper extremity function for ADL' s. Plan of Care: ADL Retraining, Caregiver Training, Functional Mobility, Group Exercise/Act as Ind, UE Funct Exercise/Act, UE Neuromus Re-Ed/Coord Treatment Duration: Jan 28, 2017 Frequency: At least 5-7 days/Wk (IRF) Estimated Hrs Per Day: 1 hour per day Agreement: Yes Rehab Potential: Good Time/GCodes Start Time: 07:00 Stop Time: 08:00 Total Time Billed (hr/min): 60 Billed Treatment Time 1 visit - NM 2 (30 minutes) ADL 2 (30 minutes) EMILY RAYO Jan 19, 2017 08:10
--- NOTE | 2017-01-19 10:05 | Speech Therapy Daily Note ---
Speech Daily Progress Note Subjective Date Seen by Provider: Jan 19, 2017 Time Seen by Provider: 09:00 The patient was seated upright in recliner upon entrance. The patient greeted the clinician appropriately and was agreeable to participation in the speech and language treatment session. Objective Oral Motor Exercises: Oral motor exercises (lingual and labial range of motion and strength) were continued, discussed, and demonstrated on this date. The patient displayed high accuracy with this task (95%) with minimal clinician verbal cueing and direct modeling. Ten repetitions of each exercise were performed, independently, by the patient. Assessment Assessment Current Status: Excellent Progress Treatment Plan Discontinue ST, Goals Met Communication Comprehension: 6 Expression: 6 Social Cognition Social Interaction: 6 Problem Solvin Memory: 5 Speech Short Term Goals Short Term Goals Short Term Goals 1. The patient will demonstrate oral motor exercises to improve lingual and labial strength while improving verbal intelligibility. Time Frame-STG: Four Days Speech Alf Goals Outsole Handler Goals 1. The patient will demonstrate increased intelligibility through oral motor strengthening and range of motion exercises. Time Frame: Two Weeks Comprehension: 6 Expression: 6 Social Interaction: 6 Problem Solvin Speech-Plan Treatment Plan Speech Therapy Treatment Plan: Discontinue ST, Goals Met Speech pathology goals have been met at this time. The patient will be discharged from skilled speech pathology services. Frequency: Modified Program (IRF) Estimated Hrs Per Day: .5 hour per day Rehab Potential: Good Safety Risks/Education Teaching Recipient: Patient Teaching Methods: Demonstration, Handout, Discussion Response to Teaching: Verbalize Understanding, Return Demonstration Education Topics Provided: Oral Motor Exercises Time Speech Therapy Time In: 09:00 Speech Therapy Time Out: 09:30 Total Billed Time: 30 Billed Treatment Time 1, MICKY BESS Jan 19, 2017 10:05
--- NOTE | 2017-01-19 10:09 | Therapy Team Discharge Summary ---
Therapy Discharge Summary Discharge Recommendations Date of Discharge Therapy D/C Recommendations: Physical Therapy Home Care Speech-Language Pathology The patient was recently admitted to [facility] following a CVA. Upon admission, the patient demonstrated mild dysarthria (flaccid-type). Skilled speech pathology focused on oral motor exercises (lingual and labial range of motion and strength). The patient displayed high accuracy and independence with the exercises, as well as, increased intelligibility throughout unstructured conversation. The patient met all speech pathology goals placed. No additional speech pathology services are warranted at this time. The patient will be discharged from speech pathology. PT Alf Goals Elephant Keeper Goals PT Elephant Keeper Goals Time Frame: Feb 11, 2017 Transfers (B,C,W/C) (FIM): 6 Roll Left to Right (QC): 6 Sit to Lying (QC): 6 Lying-Sitting on Side/Bed(QC): 6 Sit to Stand (QC): 6 Chair/Jbu-su-Ltabp Xfer(QC): 6 Car Transfer (QC): 6 Does the Patient Walk: Yes Gait (FIM): 4 Gait distance (FIM): 3=150 ft Walk 10 feet (QC): 6 Walk 10ft-Uneven Surface(QC): 6 Walk 50ft with 2 Turns (QC): 6 Walk 150 ft (QC): 6 Gait Level of Assist: 6 Gait Assistive Device: FWW Does the Pt use WC or Scooter?: No Stairs (FIM): 5 # of Steps: 8 1 Step (curb) (QC): 6 4 Steps (QC): 6 12 Steps (QC): 88 Picking up an Object (QC): 5 OT Elephant Keeper Goals Elephant Keeper Goals Time Frame: Jan 28, 2017 Eating (FIM): 7 Eating (QC): 6 Oral Hygiene (QC): 6 Grooming(FIM): 6 Bathing(FIM): 6 Shower/Bathe Self (QC): 6 Upper Body Dressing(FIM): 6 Upper Body Dressing (QC): 6 Lower Body Dressing(FIM): 6 Lower Body Dressing (QC): 6 On/Off Footwear (QC): 6 Toileting(FIM): 6 Toileting Hygiene (QC): 6 Transfers (B,C,W/C) (FIM): 6 Toilet/Commode Transfer(FIM): 6 Toilet/Commode Transfer (QC): 6 Shower Transfer(FIM): 6 Comprehension(FIM): 6 Expression (FIM): 6 Social Interaction(FIM): 6 Problem Solving(FIM): 6 Additional Goals: 1-Demonstrate ADL Tasks, 2-Verbalize Understanding, 3- ImproveStrength/Po 1=Demonstrate adherence to instructed precautions during ADL tasks. 2=Patient will verbalize/demonstrate understanding of assistive devices/ modifications for ADL. 3=Patient will improve strength/tolerance for activity to enable patient to perform ADL's. Speech Alf Goals Alf Goals 1. The patient will demonstrate increased intelligibility through oral motor strengthening and range of motion exercises. Time Frame: Two Weeks Comprehension: 6 (MET) Expression: 6 (MET) Social Interaction: 6 (MET) Problem Solvin (MET) Memory: 5 (MET) MICKY SANDERS Jan 19, 2017 10:09
--- NOTE | 2017-01-19 10:54 | Physical Therapy Daily Note ---
PT Daily Note-Current Subjective Pt was seated in recliner prior to tx. Pt was agreeable to PT. Pt was seated in recliner post tx with all needs within reach. Pain Numeric Pain Scale: 0-No Pain Location: No Pain Reported Mental Status Patient Orientation: Normal For Age Transfers Functional [place] Measure 0=Not Assessed/NA 4=Minimal Assistance 1=Total Assistance 5=Supervision or Setup 2=Maximal Assistance 6=Modified [place] 3=Moderate Assistance 7=Complete IndependenceIRFPAI Quality Coding Scale 6 Independent with activity with or without an assistive device 5 Patient requires set up or clean up by helper. Patient completes activity by themselves 4 Supervision or touching assist (CGA). [place] provide cues , steadying assist 3 The helper provides less than half the effort to complete the activity 2 The helper provides more than half the effort to complete the activity 1 Dependent. The helper does all the effort to complete an activity 7 Patient refused to complete or attempt activity 9 The patient did not perform the activity before the current illness or injury 88 Not attempted due to Medical conditions or safety concerns Transfers (B, C, W/C) (FIM): 5 Scootin Sit to/from Stand: 5 Sit to Stand (QC): 4 Car Transfer (QC): 4 Pt requires close SBA for safety with sit to stand transfers. Gait Training Does the Patient Walk?: Yes Gait (FIM): 5 Distance (FIM): 3=150 ft Distance: >800' Walk 10 feet (QC): 4 Walk 50 ft with 2 Turns(QC): 4 Walk 150 ft (QC): 4 Walking 10ft/uneven surface-QC: 4 Gait Level of Assist: 5 Gait Persons Needed: 1 Gait Assistive Device: FWW Pt performed gait training on uneven terrain, ramps, narrow areas, and navigating obstacles. Pt requires close SBA for safety. Pt presents with left foot drag with fatigue and verbally cued for increased foot clearance. Pt shows exaggerated left knee extension after cueing. Pt requires frequent breaks for rest. Pt experiences occasional LOB and requires steadying with gait belt. Stair Training Stair Training: Handrails/: uses walker Stairs (FIM): 1 #of Steps: 3 1 Step (curb) (QC): 4 Stairs: Pattern: Step to Level of Assist: 5 Exercises Standing: Side steps, Step-ups Standing Reps: 20 Pt requires close SBA with step-ups and side steps for safety. Pt completes step -ups and side steps to increase LE strength to return to PLOF. NuStep Minutes: 15 NuStep Workload: 5 Assessment Current Status: Good Progress Pt performed all gait training activities with close SBA. Pt requires occasional steadying with gait belt and self correct due to swaying without LOB. Pt presents with left foot drag that worsens with fatigue. Pt is given verbal cues for increased foot clearance on left. Pt requires close SBA for step -ups and side steps for safety. PT Short Term Goals Short Term Goals Time Frame: Jan 28, 2017 Transfers (B,C,W/C) (FIM): 5 Gait (FIM): 5 PT Application Support Consultant Goals Nursing Home Goals PT Application Support Consultant Goals Time Frame: Feb 11, 2017 Transfers (B,C,W/C) (FIM): 6 Sit to Lying (QC): 6 Lying-Sitting on Side/Bed(QC): 6 Sit to Stand (QC): 6 Rollin Roll Left to Right (QC): 6 Chair/Ubu-zw-Veill Xfer(QC): 6 Car Transfer (QC): 6 Does the Patient Walk: Yes Gait (FIM): 4 Gait distance (FIM): 3=150 ft Walk 10 feet (QC): 6 Walk 10ft-Uneven Surface(QC): 6 Walk 50ft with 2 Turns (QC): 6 Walk 150 ft (QC): 6 Gait Level of Assist: 6 Gait Assistive Device: FWW Does the Pt use WC or Scooter?: No Stairs (FIM): 5 # of Steps: 8 1 Step (curb) (QC): 6 4 Steps (QC): 6 12 Steps (QC): 88 Picking up an Object (QC): 5 PT Plan Problem List Problem List: Activity Tolerance, Functional Strength, Safety, Balance, Gait, Transfer Treatment/Plan Treatment Plan: Continue Plan of Care Treatment Plan: Bed Mobility, Education, Functional Activity Po, Functional Strength, Group Therapy, Gait, Safety, Therapeutic Exercise, Transfers Treatment Duration: Feb 11, 2017 Frequency: At least 5-7 days/Wk (IRF) Estimated Hrs Per Day: 1.5 hours per day Patient and/or Family Agrees t: Yes Safety Risks/Education Patient Education: Gait Training Teaching Recipient: Patient Teaching Methods: Demonstration Response to Teaching: Verbalize Understanding, Return Demonstration Pt is cued to pick up driver left foot more with gait for increased safety and decreased fall risk. Time/GCodes Time In: 945 Time Out: 1045 Total Billed Treatment Time: 60 Total Billed Treatment 1 visit GT x 2 30 min EX x 2 30 min ISABEL SHEA PT Jan 19, 2017 10:54
--- NOTE | 2017-01-19 11:43 | Occupational Ther Daily Note ---
OT Current Status-Daily Note Subjective Pt. was alert, sitting in chair. Pt. agreed to therapy. No c/o pain. Mental Status/Objective Patient Orientation: Person, Place, Time, Situation Functional [place] Measure 0=Not Assessed/NA 4=Minimal Assistance 1=Total Assistance 5=Supervision or Setup 2=Maximal Assistance 6=Modified [place] 3=Moderate Assistance 7=Complete [place] ADL-Treatment Functional [place] Measure 0=Not Assessed/NA 4=Minimal Assistance 1=Total Assistance 5=Supervision or Setup 2=Maximal Assistance 6=Modified [place] 3=Moderate Assistance 7=Complete IndependenceIRFPAI Quality Coding Scale 6 Independent with activity with or without an assistive device 5 Patient requires set up or clean up by helper. Patient completes activity by themselves 4 Supervision or touching assist (CGA). [place] provide cues , steadying assist 3 The helper provides less than half the effort to complete the activity 2 The helper provides more than half the effort to complete the activity 1 Dependent. The helper does all the effort to complete an activity 7 Patient refused to complete or attempt activity 9 The patient did not perform the activity before the current illness or injury 88 Not attempted due to Medical conditions or safety concerns Eating (FIM): 6 (Pt. opened all packets and was able to feed self using regular utensils. ) Other Treatment Pt. ambulated from room to therapy gym with supervision using FWW. Pt. completed functional activity to work on L fine motor skills. Pt. worked on finger flexion and extension and precision motor skills by picking up small items and placing in designated area. Pt. ambulated back to room with supervision using FWW. Pt. sat in chair to eat lunch. After therapy with call button and phone in reach, All needs met in room. OT Short Term Goals Short Term Goals Transfers (B,C,W/C) (FIM): 5 1=Demonstrate adherence to instructed precautions during ADL tasks. 2=Patient will verbalize/demonstrate understanding of assistive devices/ modifications for ADL. 3=Patient will improve strength/tolerance for activity to enable patient to perform ADL's. OT Chcf Goals Chcf Goals Time Frame: Jan 28, 2017 Eating (FIM): 7 Eating (QC): 6 Groomin Oral Hygiene (QC): 6 Bathing(FIM): 6 Shower/Bathe Self (QC): 6 Upper Body Dressing(FIM): 6 Upper Body Dressing (QC): 6 Lower Body Dressing(FIM): 6 Lower Body Dressing (QC): 6 On/Off Footwear (QC): 6 Toileting(FIM): 6 Toileting Hygiene (QC): 6 Transfers (B,C,W/C) (FIM): 6 Toilet/Commode Transfer(FIM): 6 Toilet/Commode Transfer (QC): 6 Shower Transfer(FIM): 6 Comprehension(FIM): 6 (MET) Expression (FIM): 6 (MET) Social Interaction(FIM): 6 (MET) Problem Solving(FIM): 5 (MET) Memory(FIM): 5 (MET) Additional Goals: 1-Demonstrate ADL Tasks, 2-Verbalize Understanding, 3- ImproveStrength/Po 1=Demonstrate adherence to instructed precautions during ADL tasks. 2=Patient will verbalize/demonstrate understanding of assistive devices/ modifications for ADL. 3=Patient will improve strength/tolerance for activity to enable patient to perform ADL's. OT Education/Plan Discharge Recommendations Plan/Recommendations: Continue POC Treatment Plan/Plan of Care Patient would benefit from OT for education, treatment and training to promote independence in ADL's, mobility, safety and/or upper extremity function for ADL' s. Plan of Care: ADL Retraining, Caregiver Training, Functional Mobility, Group Exercise/Act as Ind, UE Funct Exercise/Act, UE Neuromus Re-Ed/Coord Treatment Duration: Jan 28, 2017 Frequency: At least 5-7 days/Wk (IRF) Estimated Hrs Per Day: 1 hour per day Agreement: Yes Rehab Potential: Good Time/GCodes Start Time: 11:00 Stop Time: 11:30 Total Time Billed (hr/min): 30 Billed Treatment Time 1 visit- FA-1 (15 minutes). EX-1 (15 minutes). EMILY RAYO Jan 19, 2017 11:42
--- NOTE | 2017-01-19 13:58 | Physical Therapy Daily Note ---
PT Daily Note-Current Subjective Pt was in recliner prior to tx and agreeable to PT. Pt was seated in recliner with all needs within reach post tx. Pain Numeric Pain Scale: 0-No Pain Location: No Pain Reported Mental Status Patient Orientation: Normal For Age Transfers Functional [place] Measure 0=Not Assessed/NA 4=Minimal Assistance 1=Total Assistance 5=Supervision or Setup 2=Maximal Assistance 6=Modified [place] 3=Moderate Assistance 7=Complete IndependenceIRFPAI Quality Coding Scale 6 Independent with activity with or without an assistive device 5 Patient requires set up or clean up by helper. Patient completes activity by themselves 4 Supervision or touching assist (CGA). [place] provide cues , steadying assist 3 The helper provides less than half the effort to complete the activity 2 The helper provides more than half the effort to complete the activity 1 Dependent. The helper does all the effort to complete an activity 7 Patient refused to complete or attempt activity 9 The patient did not perform the activity before the current illness or injury 88 Not attempted due to Medical conditions or safety concerns Transfers (B, C, W/C) (FIM): 5 Scootin Sit to/from Stand: 5 Sit to Stand (QC): 4 Pt requires close standby supervision for safety in all transfer and gait activities. Gait Training Does the Patient Walk?: Yes Gait (FIM): 3 Distance (FIM): 3=150 ft Distance: 100x2, 50x2 Walk 10 feet (QC): 4 Walk 50 ft with 2 Turns(QC): 4 Walk 150 ft (QC): 4 Gait Level of Assist: 4 Gait Persons Needed: 1 Gait Assistive Device: FWW Pt walked 100'x2 with FWW and close standby supervision. Pt also walked 50' with single point cane and 50' with quad base cane and CGA for safety. Pt had slower juan and reported less stability using both types of canes, but was more comfortable with quad base cane. Pt had concerns of left knee weakness and "giving out." Pt will continue to use FWW for increased stability and increased safety with gait. Exercises Seated Therapy Exercises: Ankle pumps, Long arc quads, Hip flexion, Hip abd/add , Glut set Seated Reps: 20 Assessment Pt completed gait training with close SBA with FWW and required CGA with single point cane and quad base cane for safety. Patient improving with demonstrating ability to ambulate with SBQC, however, due to comfort and safety, will continue utilizing FWW. PT Short Term Goals Short Term Goals Time Frame: Jan 28, 2017 Transfers (B,C,W/C) (FIM): 5 Gait (FIM): 5 PT Field Education Director Goals Field Education Director Goals PT Field Education Director Goals Time Frame: Feb 11, 2017 Transfers (B,C,W/C) (FIM): 6 Sit to Lying (QC): 6 Lying-Sitting on Side/Bed(QC): 6 Sit to Stand (QC): 6 Rollin Roll Left to Right (QC): 6 Chair/Yjk-vq-Vwhjo Xfer(QC): 6 Car Transfer (QC): 6 Does the Patient Walk: Yes Gait (FIM): 4 Gait distance (FIM): 3=150 ft Walk 10 feet (QC): 6 Walk 10ft-Uneven Surface(QC): 6 Walk 50ft with 2 Turns (QC): 6 Walk 150 ft (QC): 6 Gait Level of Assist: 6 Gait Assistive Device: FWW Does the Pt use WC or Scooter?: No Stairs (FIM): 5 # of Steps: 8 1 Step (curb) (QC): 6 4 Steps (QC): 6 12 Steps (QC): 88 Picking up an Object (QC): 5 PT Plan Problem List Problem List: Activity Tolerance, Functional Strength, Safety, Balance, Gait, Transfer Treatment/Plan Treatment Plan: Continue Plan of Care Treatment Plan: Bed Mobility, Education, Functional Activity Po, Functional Strength, Group Therapy, Gait, Safety, Therapeutic Exercise, Transfers Treatment Duration: Feb 11, 2017 Frequency: At least 5-7 days/Wk (IRF) Estimated Hrs Per Day: 1.5 hours per day Patient and/or Family Agrees t: Yes Safety Risks/Education Patient Education: Gait Training Teaching Recipient: Patient Teaching Methods: Demonstration, Discussion Response to Teaching: Verbalize Understanding, Return Demonstration Time/GCodes Time In: 1320 Time Out: 1350 Total Billed Treatment Time: 30 Total Billed Treatment 1 visit GT 15 min EX 15 min ISABEL SHEA PT Jan 19, 2017 13:58
--- NOTE | 2017-01-19 15:57 | PM & R (SOAP) Progress Note ---
Subjective Time Seen by Provider: 08:15 Subjective/Events-last exam Patient was seen in her room this AM Patient Min assist for transfers Objective Exam Last Set of Vital Signs Vital Signs Date Time Temp Pulse Resp B/P (MAP) Pulse Ox O2 Delivery O2 Flow Rate FiO2 01/19/17 04:35 97.8 73 18 136/78 97 Room Air Capillary Refill : Less Than 3 Seconds I&O Intake and Output 01/19/17 00:00 Intake Total 1400 ml Output Total 6 ml Balance 1394 ml Intake Oral 1400 ml Output Urine Total 6 ml # Voids 8 # Bowel Movements 1 General: Alert, Oriented X3, Cooperative, No Acute Distress HEENT: Atraumatic, PERRLA, EOMI, Mucous Memb Moist/[place], Other (mild rt labial droop) Neck: Supple, No JVD Lungs: Clear to Auscultation Heart: Regular Rate Abdomen: Normal Bowel Sounds, Soft, No Tenderness Extremities: No Edema Skin: No Significant Lesion Neuro: Other (Mild left HP and dysasrthria Dysphagia on thickened liquids) Assessment/Plan Assessment 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
[2017-01-19 16:30] VITALS: BP 135/72
[2017-01-19 19:08] VITALS: BP 169/73
[2017-01-20 06:00] VITALS: BP 138/73
[2017-01-20] MEDS: MULTIVIT W/MINERALS TAB (THERAGRAN M) PO SCH (06:39)
[2017-01-20] MEDS: PANTOPRAZOLE 40 MG (PROTONIX) TAB PO SCH (06:39)
--- NOTE | 2017-01-20 08:08 | Occupational Ther Daily Note ---
OT Current Status-Daily Note Subjective Pt. alert, sitting in chair. Agreed to therapy. No c/o pain. Mental Status/Objective Patient Orientation: Person, Place, Time, Situation Functional [place] Measure 0=Not Assessed/NA 4=Minimal Assistance 1=Total Assistance 5=Supervision or Setup 2=Maximal Assistance 6=Modified [place] 3=Moderate Assistance 7=Complete [place] ADL-Treatment Functional [place] Measure 0=Not Assessed/NA 4=Minimal Assistance 1=Total Assistance 5=Supervision or Setup 2=Maximal Assistance 6=Modified [place] 3=Moderate Assistance 7=Complete IndependenceIRFPAI Quality Coding Scale 6 Independent with activity with or without an assistive device 5 Patient requires set up or clean up by helper. Patient completes activity by themselves 4 Supervision or touching assist (CGA). [place] provide cues , steadying assist 3 The helper provides less than half the effort to complete the activity 2 The helper provides more than half the effort to complete the activity 1 Dependent. The helper does all the effort to complete an activity 7 Patient refused to complete or attempt activity 9 The patient did not perform the activity before the current illness or injury 88 Not attempted due to Medical conditions or safety concerns Grooming (FIM): 5 (Pt. able to complete grooming by self with supervision when standing at sink. ) Bathing (FIM): 5 (After set up, pt. able to complete washing, rinsing, drying with shower chair, grab bars, and handheld shower. ) Bathing Location: L Arm, R Arm, L Upper Leg, R Upper Leg, L Lower Leg ( including foot), R Lower Leg (including foot), Chest, Abdomen, Buttocks, Perineal Area Upper Body (FIM): 5 (After set up, pt. able to complete dressing while sitting. ) Lower Body Dressing (FIM): 5 (After set up, pt. able to complete dressing while sitting. Supervision while standing to pull up pants. ) Toileting (FIM): 5 (Pt. able to complete hygiene by self in sitting then supervision while standing to manipulate clothing. ) Transfers (B, C, W/C) (FIM): 5 (Pt. able to transfer using walker with supervision. ) Toilet/Commode Transfer (FIM): 6 (Pt. able to transfer to toilet using walker and grab bars.) Shower Transfer(FIM): 5 (Pt. able to transfer into shower using FWW, shower bench and grab bars with supervision. ) Other Treatment Pt. ambulated to laundry room with supervision using FWW. Completed functional activity while carrying clothes to laundry room, putting clothes and soap into washer, and turning it on. Pt. then ambulated to therapy gym with supervision using FWW. Pt. worked on L fine motor skills while completing AROM activities against gravity to increase strength. Pt. worked on L wrist flexion and extension 3 sets,10 times each. Pt. was able flex and extend past neutral 5x's then fatigued and was only able to get wrist to neutral. Worked on L finger abduction, adduction 2 sets, 10 times each, pt. was able to complete activity with increased time. Pt. demonstrated gross grasp skills while pinching light resistance therapy sponge. Pt. instructed to work with therapy sponge in room. Pt. then ambulated to patient refrigerator, opened door and bent down to check on items, supervision. Pt. ambulated back to room with supervision using FWW. After therapy, pt. sitting in chair with call light and phone within reach. All needs met in room. OT Short Term Goals Short Term Goals Transfers (B,C,W/C) (FIM): 5 1=Demonstrate adherence to instructed precautions during ADL tasks. 2=Patient will verbalize/demonstrate understanding of assistive devices/ modifications for ADL. 3=Patient will improve strength/tolerance for activity to enable patient to perform ADL's. OT Fci Goals Shopfitter Goals Time Frame: Jan 28, 2017 Eating (FIM): 7 Eating (QC): 6 Groomin Oral Hygiene (QC): 6 Bathing(FIM): 6 Shower/Bathe Self (QC): 6 Upper Body Dressing(FIM): 6 Upper Body Dressing (QC): 6 Lower Body Dressing(FIM): 6 Lower Body Dressing (QC): 6 On/Off Footwear (QC): 6 Toileting(FIM): 6 Toileting Hygiene (QC): 6 Transfers (B,C,W/C) (FIM): 6 Toilet/Commode Transfer(FIM): 6 Toilet/Commode Transfer (QC): 6 Shower Transfer(FIM): 6 Comprehension(FIM): 6 (MET) Expression (FIM): 6 (MET) Social Interaction(FIM): 6 (MET) Problem Solving(FIM): 5 (MET) Memory(FIM): 5 (MET) Additional Goals: 1-Demonstrate ADL Tasks, 2-Verbalize Understanding, 3- ImproveStrength/Po 1=Demonstrate adherence to instructed precautions during ADL tasks. 2=Patient will verbalize/demonstrate understanding of assistive devices/ modifications for ADL. 3=Patient will improve strength/tolerance for activity to enable patient to perform ADL's. OT Education/Plan Discharge Recommendations Plan/Recommendations: Continue POC Treatment Plan/Plan of Care Patient would benefit from OT for education, treatment and training to promote independence in ADL's, mobility, safety and/or upper extremity function for ADL' s. Plan of Care: ADL Retraining, Caregiver Training, Functional Mobility, Group Exercise/Act as Ind, UE Funct Exercise/Act, UE Neuromus Re-Ed/Coord Treatment Duration: Jan 28, 2017 Frequency: At least 5-7 days/Wk (IRF) Estimated Hrs Per Day: 1 hour per day Agreement: Yes Rehab Potential: Good Time/GCodes Start Time: 07:00 Stop Time: 08:00 Total Time Billed (hr/min): 60 Billed Treatment Time 1 visit - ADL 1 (20 minutes) FA 1 (20 minutes) EX 1 (20 minutes) EMILY RAYO Jan 20, 2017 08:08
--- NOTE | 2017-01-20 08:22 | Progress Note (SOAP) ---
Subjective Time Seen by Provider: 08:17 Subjective/Events-last exam left CVA. Patient released with speech therapy yesterday. Patient can move left arm uncomfortably. Patient able to move her fingers. Patient working progress but improving. Patient voices no complaints Objective Exam Vital Signs Date Time Temp Pulse Resp B/P (MAP) Pulse Ox O2 Delivery O2 Flow Rate FiO2 01/20/17 06:00 97.8 55 21 138/73 97 Room Air 01/19/17 19:08 98.1 72 16 169/73 96 Room Air 0.00 01/19/17 16:30 97.5 75 18 135/72 98 Room Air Capillary Refill : Less Than 3 Seconds General Appearance: No Apparent Distress, Thin HEENT: Normal ENT Inspection Neck: Full Range of Motion, Normal Inspection Respiratory: No Accessory Muscle Use, No Respiratory Distress, Decreased Breath Sounds Cardiovascular: Regular Rate, Rhythm, No Murmur Gastrointestinal: non tender, soft Assessment/Plan Assessment/Plan Assess & Plan/Chief Complaint CVA on left. Hypertension. Blood in the stools.. . 01/18/17 area CVA on left. Malignant hypertension. History of blood in stools. Patient moving hand better. Patient able to move her fingers. . 01/19/17. CVA on left improving. Hypertension. Improving. Blood in the stools. 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 . . 01/20/17. CVA on left.. Hypertension. Blood in stools. patient improving. Hypertension okay Clinical Quality Measures DVT/VTE Risk/Contraindication: Risk Factor Score Per Nursin RFS Level Per Nursing on Admit: 4+=Very High QUINN BRIGGS DO Jan 20, 2017 08:22
[2017-01-20] MEDS: lisINopril 20 MG (ZESTRIL) TAB PO SCH (08:27)
[2017-01-20] MEDS: BISACODYL 5 MG (DULCOLAX) TABLET PO SCH (08:27)
[2017-01-20] MEDS: CLOPIDOGREL 75 MG (PLAVIX) TABLET PO SCH (08:27)
--- NOTE | 2017-01-20 11:10 | Physical Therapy Daily Note ---
PT Daily Note-Current Subjective Pt. agrees to Rx. States she is anxious to go home and was hoping for Fri. Discussion with OT reveals pt. has had some LOB during Rx and perhaps pt. should stay to work on further balance issues etc. Pain Numeric Pain Scale: 0-No Pain Mental Status Patient Orientation: Normal For Age Transfers Functional [place] Measure 0=Not Assessed/NA 4=Minimal Assistance 1=Total Assistance 5=Supervision or Setup 2=Maximal Assistance 6=Modified [place] 3=Moderate Assistance 7=Complete IndependenceIRFPAI Quality Coding Scale 6 Independent with activity with or without an assistive device 5 Patient requires set up or clean up by helper. Patient completes activity by themselves 4 Supervision or touching assist (CGA). [place] provide cues , steadying assist 3 The helper provides less than half the effort to complete the activity 2 The helper provides more than half the effort to complete the activity 1 Dependent. The helper does all the effort to complete an activity 7 Patient refused to complete or attempt activity 9 The patient did not perform the activity before the current illness or injury 88 Not attempted due to Medical conditions or safety concerns Transfers (B, C, W/C) (FIM): 5 Scootin Rollin Supine to/from Sit: 6 Sit to/from Stand: 5 Gait Training Does the Patient Walk?: Yes Gait (FIM): 5 Distance (FIM): 3=150 ft (250x2) Gait Level of Assist: 5 Gait Persons Needed: 1 Gait Assistive Device: FWW much work on fig 8s small and large as well as balance challenges for retro gait , tight turns and 360 degree turns etc, no uziel LOB Stair Training Stair Training: Handrails/: 2 handrails Stairs (FIM): 5 #of Steps: 4 Stairs: Pattern: Step to Level of Assist: 5 household assist Exercises Supine Ex: Bridging, Ankle pumps, Quad Set, Rolling, Glut sets, Heel Slides, Short Arc Quads, Scooting, Straight leg raise, Hip abd/add Supine Reps: 15 sidelying clam shells and side hip abduction NuStep Minutes: 10 NuStep Workload: 5 Neuromuscular balance challenges in stance and gait, see above Treatments leg presses on Nustep x12 Assessment Current Status: Good Progress PT Short Term Goals Short Term Goals Time Frame: Jan 28, 2017 Transfers (B,C,W/C) (FIM): 5 Gait (FIM): 5 PT Agricultural Scientist Goals Agricultural Scientist Goals PT Agricultural Scientist Goals Time Frame: Feb 11, 2017 Transfers (B,C,W/C) (FIM): 6 Sit to Lying (QC): 6 Lying-Sitting on Side/Bed(QC): 6 Sit to Stand (QC): 6 Rollin Roll Left to Right (QC): 6 Chair/Oxv-yr-Aiwwg Xfer(QC): 6 Car Transfer (QC): 6 Does the Patient Walk: Yes Gait (FIM): 4 Gait distance (FIM): 3=150 ft Walk 10 feet (QC): 6 Walk 10ft-Uneven Surface(QC): 6 Walk 50ft with 2 Turns (QC): 6 Walk 150 ft (QC): 6 Gait Level of Assist: 6 Gait Assistive Device: FWW Does the Pt use WC or Scooter?: No Stairs (FIM): 5 # of Steps: 8 1 Step (curb) (QC): 6 4 Steps (QC): 6 12 Steps (QC): 88 Picking up an Object (QC): 5 PT Plan Treatment/Plan Treatment Plan: Continue Plan of Care Treatment Plan: Bed Mobility, Education, Functional Activity Po, Functional Strength, Group Therapy, Gait, Safety, Therapeutic Exercise, Transfers Treatment Duration: Feb 11, 2017 Frequency: At least 5-7 days/Wk (IRF) Estimated Hrs Per Day: 1.5 hours per day Patient and/or Family Agrees t: Yes Safety Risks/Education Patient Education: Gait Training, Transfer Techniques, Steps, Correct Positioning, Disease Process, Safety Issues Teaching Recipient: Patient Teaching Methods: Demonstration, Discussion Response to Teaching: Verbalize Understanding, Return Demonstration, Reinforcement Needed Time/GCodes Time In: 1000 Time Out: 1100 Total Billed Treatment Time: 60 Total Billed Treatment 1,NM15m,GT15m,EX20m,FA10m G Codes Necessary: No JOSHUA BLUM OIL SEPARATOR Jan 20, 2017 11:10
--- NOTE | 2017-01-20 11:42 | Occupational Ther Daily Note ---
OT Current Status-Daily Note Subjective Pt. was alert, sitting in chair. Agreed to therapy. No c/o pain. Mental Status/Objective Functional [place] Measure 0=Not Assessed/NA 4=Minimal Assistance 1=Total Assistance 5=Supervision or Setup 2=Maximal Assistance 6=Modified [place] 3=Moderate Assistance 7=Complete [place] ADL-Treatment Functional [place] Measure 0=Not Assessed/NA 4=Minimal Assistance 1=Total Assistance 5=Supervision or Setup 2=Maximal Assistance 6=Modified [place] 3=Moderate Assistance 7=Complete IndependenceIRFPAI Quality Coding Scale 6 Independent with activity with or without an assistive device 5 Patient requires set up or clean up by helper. Patient completes activity by themselves 4 Supervision or touching assist (CGA). [place] provide cues , steadying assist 3 The helper provides less than half the effort to complete the activity 2 The helper provides more than half the effort to complete the activity 1 Dependent. The helper does all the effort to complete an activity 7 Patient refused to complete or attempt activity 9 The patient did not perform the activity before the current illness or injury 88 Not attempted due to Medical conditions or safety concerns Toileting (FIM): 6 (Pt. completed toilet hygiene and manipulated clothing using FWW and grab bars. ) Toilet/Commode Transfer (FIM): 6 (Pt. transferred to and from toilet using FWW and grab bars. ) Other Treatment Pt. ambulated to laundry room using FWW with supervision due to impulsive tendencies. Pt. gathered clothes out of dryer and placed into bag with supervision. Pt. then ambulated back to room using FWW and sat on bed to fold clothes with B UE. Pt. then placed clothes into closet with supervision. Pt. worked on improving balance while bending over to pick items off the floor, education required for safety. Pt. completed activity and ambulated to use the bathroom. Pt. then completed functional activity to work on sit to stand without using walker. After therapy, pt sitting in recliner with call light and phone within reach. All needs met in room. OT Short Term Goals Short Term Goals Transfers (B,C,W/C) (FIM): 5 1=Demonstrate adherence to instructed precautions during ADL tasks. 2=Patient will verbalize/demonstrate understanding of assistive devices/ modifications for ADL. 3=Patient will improve strength/tolerance for activity to enable patient to perform ADL's. OT Fdc Goals Medical Orderly Goals Time Frame: Jan 28, 2017 Eating (FIM): 7 Eating (QC): 6 Groomin Oral Hygiene (QC): 6 Bathing(FIM): 6 Shower/Bathe Self (QC): 6 Upper Body Dressing(FIM): 6 Upper Body Dressing (QC): 6 Lower Body Dressing(FIM): 6 Lower Body Dressing (QC): 6 On/Off Footwear (QC): 6 Toileting(FIM): 6 Toileting Hygiene (QC): 6 Transfers (B,C,W/C) (FIM): 6 Toilet/Commode Transfer(FIM): 6 Toilet/Commode Transfer (QC): 6 Shower Transfer(FIM): 6 Comprehension(FIM): 6 (MET) Expression (FIM): 6 (MET) Social Interaction(FIM): 6 (MET) Problem Solving(FIM): 5 (MET) Memory(FIM): 5 (MET) Additional Goals: 1-Demonstrate ADL Tasks, 2-Verbalize Understanding, 3- ImproveStrength/Po 1=Demonstrate adherence to instructed precautions during ADL tasks. 2=Patient will verbalize/demonstrate understanding of assistive devices/ modifications for ADL. 3=Patient will improve strength/tolerance for activity to enable patient to perform ADL's. OT Education/Plan Discharge Recommendations Plan/Recommendations: Continue POC Treatment Plan/Plan of Care Patient would benefit from OT for education, treatment and training to promote independence in ADL's, mobility, safety and/or upper extremity function for ADL' s. Plan of Care: ADL Retraining, Caregiver Training, Functional Mobility, Group Exercise/Act as Ind, UE Funct Exercise/Act, UE Neuromus Re-Ed/Coord Treatment Duration: Jan 28, 2017 Frequency: At least 5-7 days/Wk (IRF) Estimated Hrs Per Day: 1 hour per day Agreement: Yes Rehab Potential: Good Time/GCodes Start Time: 11:00 Stop Time: 11:30 Total Time Billed (hr/min): 30 Billed Treatment Time 1 visit - FA 2 (30 minutes) EMILY RAYO Jan 20, 2017 11:42
--- NOTE | 2017-01-20 13:32 | Physical Therapy Daily Note ---
PT Daily Note-Current Subjective Enjoyed her lunch and ready to work. Pain Numeric Pain Scale: 0-No Pain Mental Status Patient Orientation: Normal For Age Transfers Functional [place] Measure 0=Not Assessed/NA 4=Minimal Assistance 1=Total Assistance 5=Supervision or Setup 2=Maximal Assistance 6=Modified [place] 3=Moderate Assistance 7=Complete IndependenceIRFPAI Quality Coding Scale 6 Independent with activity with or without an assistive device 5 Patient requires set up or clean up by helper. Patient completes activity by themselves 4 Supervision or touching assist (CGA). [place] provide cues , steadying assist 3 The helper provides less than half the effort to complete the activity 2 The helper provides more than half the effort to complete the activity 1 Dependent. The helper does all the effort to complete an activity 7 Patient refused to complete or attempt activity 9 The patient did not perform the activity before the current illness or injury 88 Not attempted due to Medical conditions or safety concerns all TRFs SBA Gait Training Gait Assistive Device: FWW [id number], no uziel LOB, several turns Exercises Standing: Hip Abduction, Hamstring curls, Heel/toe raises, Marching, Mini squats, Sit to Stand, Side steps Standing Reps: 15 Assessment Current Status: Good Progress PT Short Term Goals Short Term Goals Time Frame: Jan 28, 2017 Transfers (B,C,W/C) (FIM): 5 Gait (FIM): 5 PT Director [employer] Goals Director [employer] Goals PT Longterm Goals Time Frame: Feb 11, 2017 Transfers (B,C,W/C) (FIM): 6 Sit to Lying (QC): 6 Lying-Sitting on Side/Bed(QC): 6 Sit to Stand (QC): 6 Rollin Roll Left to Right (QC): 6 Chair/Lah-sj-Nkzzd Xfer(QC): 6 Car Transfer (QC): 6 Does the Patient Walk: Yes Gait (FIM): 4 Gait distance (FIM): 3=150 ft Walk 10 feet (QC): 6 Walk 10ft-Uneven Surface(QC): 6 Walk 50ft with 2 Turns (QC): 6 Walk 150 ft (QC): 6 Gait Level of Assist: 6 Gait Assistive Device: FWW Does the Pt use WC or Scooter?: No Stairs (FIM): 5 # of Steps: 8 1 Step (curb) (QC): 6 4 Steps (QC): 6 12 Steps (QC): 88 Picking up an Object (QC): 5 PT Plan Treatment/Plan Treatment Plan: Continue Plan of Care Treatment Plan: Bed Mobility, Education, Functional Activity Po, Functional Strength, Group Therapy, Gait, Safety, Therapeutic Exercise, Transfers Treatment Duration: Feb 11, 2017 Frequency: At least 5-7 days/Wk (IRF) Estimated Hrs Per Day: 1.5 hours per day Patient and/or Family Agrees t: Yes Safety Risks/Education Patient Education: Gait Training, Transfer Techniques, Issued Written HEP Teaching Recipient: Patient Teaching Methods: Demonstration, Discussion Response to Teaching: Verbalize Understanding, Return Demonstration, Reinforcement Needed Time/GCodes Time In: 1300 Time Out: 1330 Total Billed Treatment Time: 30 Total Billed Treatment 1,GT15m,EX15m G Codes Necessary: JOSHUA Ferrara VEGETABLE SPECKER Jan 20, 2017 13:32
--- NOTE | 2017-01-20 16:44 | PM & R (SOAP) Progress Note ---
Subjective Time Seen by Provider: 08:20 Subjective/Events-last exam Patient was seen in Gym this AM Enjoyed her dinner pass last evening.Progressing well with therapies Objective Exam Last Set of Vital Signs Vital Signs Date Time Temp Pulse Resp B/P (MAP) Pulse Ox O2 Delivery O2 Flow Rate FiO2 01/20/17 06:00 97.8 55 21 138/73 97 Room Air 01/19/17 19:08 0.00 Capillary Refill : Less Than 3 Seconds I&O Intake and Output 01/21/17 00:00 Intake Total 600 ml Balance 600 ml Intake Oral 600 ml # Voids 6 General: Alert, Oriented X3, Cooperative, No Acute Distress HEENT: Atraumatic, PERRLA, EOMI, Mucous Memb Moist/[place], Other (mild rt labial droop) Neck: Supple, No JVD Lungs: Clear to Auscultation Heart: Regular Rate Abdomen: Normal Bowel Sounds, Soft, No Tenderness Extremities: No Edema Skin: No Significant Lesion Neuro: Other (Mild left HP and dysasrthria Dysphagia on thickened liquids) Assessment/Plan Assessment 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
[2017-01-20 18:17] VITALS: BP 136/72
[2017-01-21 05:08] VITALS: BP 165/79
[2017-01-21] MEDS: MULTIVIT W/MINERALS TAB (THERAGRAN M) PO SCH (06:08)
[2017-01-21] MEDS: PANTOPRAZOLE 40 MG (PROTONIX) TAB PO SCH (06:08)
--- NOTE | 2017-01-21 07:56 | Occupational Ther Daily Note ---
OT Current Status-Daily Note Subjective Pt alert and sitting in chair. Pt agreed to therapy. No c/o pain. Mental Status/Objective Patient Orientation: Person, Place, Time, Situation Functional [place] Measure 0=Not Assessed/NA 4=Minimal Assistance 1=Total Assistance 5=Supervision or Setup 2=Maximal Assistance 6=Modified [place] 3=Moderate Assistance 7=Complete [place] ADL-Treatment Functional [place] Measure 0=Not Assessed/NA 4=Minimal Assistance 1=Total Assistance 5=Supervision or Setup 2=Maximal Assistance 6=Modified [place] 3=Moderate Assistance 7=Complete IndependenceIRFPAI Quality Coding Scale 6 Independent with activity with or without an assistive device 5 Patient requires set up or clean up by helper. Patient completes activity by themselves 4 Supervision or touching assist (CGA). [place] provide cues , steadying assist 3 The helper provides less than half the effort to complete the activity 2 The helper provides more than half the effort to complete the activity 1 Dependent. The helper does all the effort to complete an activity 7 Patient refused to complete or attempt activity 9 The patient did not perform the activity before the current illness or injury 88 Not attempted due to Medical conditions or safety concerns Bathing (FIM): 6 (Pt. completed shower using shower chair, grab bars, and handheld shower. ) Bathing Location: L Arm, R Arm, L Upper Leg, R Upper Leg, L Lower Leg ( including foot), R Lower Leg (including foot), Chest, Abdomen, Buttocks, Perineal Area Shower/Bathe Self (QC): 6 (Pt. completed shower with shower chair, grab bars, and handheld shower. ) Upper Body (FIM): 6 (After retrieving own clothing using FWW to transport clothing, pt completed dressing while sitting. ) Upper Body Dressing (QC): 6 (After retrieving own clothing using FWW to transport clothing, pt completed dressing while sitting. ) Lower Body Dressing (FIM): 6 (After retrieving own clothing using FWW to transport clothing, pt completed dressing while sitting. Used FWW to steady self while hiking pants over hips. ) Lower Body Dressing (QC): 6 (After retrieving own clothing using FWW to transport clothing, pt completed dressing while sitting. Used FWW to steady self while hiking pants over hips. ) On/Off Footwear (QC): 6 (Pt. put shoes and socks on while seated. ) Toileting (FIM): 6 (Pt completed hygiene and manipulation of clothing using grab bars and FWW. ) Toileting Hygiene (QC): 6 (Pt completed hygiene and manipulation of clothing using grab bars and FWW. ) Transfers (B, C, W/C) (FIM): 6 (Pt. transfers using FWW. ) Toilet/Commode Transfer (FIM): 6 (Pt trasnfers to toilet using grab bars and FWW.) Toilet Transfer (QC): 6 (Pt transfers to toilet using grab bars and FWW.) Shower Transfer(FIM): 6 (Pt transfers to shower using FWW, shower chair, and grab bars. ) Pt was able to complete ADL tasks mod I with safety concerns. Pt moves abruptly with turning and bending, has been able to catch self with any slight LOB. Other Treatment Pt. ambulated with FWW to therapy gym. Pt completed wrist flexion and extension AROM exercises 3 sets, 10 times each. Pt brought past neutral 5x then fatigued and brought to neutral. Pt then completed activity to work on pinch strength using clothes pins. Pt completed first time by self, then fatigued and required assistance steadying wrist. Pt completed UE dowel scott exercises with 2 lb weight attached, worked on shoulder and bicep strengthening. Pt. tolerated well. Pt ambulated with FWW back to room where shower was completed. After shower, pt. sitting in recliner with call light and phone in reach. All needs met in room. OT Short Term Goals Short Term Goals Transfers (B,C,W/C) (FIM): 5 1=Demonstrate adherence to instructed precautions during ADL tasks. 2=Patient will verbalize/demonstrate understanding of assistive devices/ modifications for ADL. 3=Patient will improve strength/tolerance for activity to enable patient to perform ADL's. OT Senior Care Goals Senior Care Goals Time Frame: Jan 28, 2017 Eating (FIM): 7 Eating (QC): 6 Groomin Oral Hygiene (QC): 6 Bathing(FIM): 6 Shower/Bathe Self (QC): 6 Upper Body Dressing(FIM): 6 Upper Body Dressing (QC): 6 Lower Body Dressing(FIM): 6 Lower Body Dressing (QC): 6 On/Off Footwear (QC): 6 Toileting(FIM): 6 Toileting Hygiene (QC): 6 Transfers (B,C,W/C) (FIM): 6 Toilet/Commode Transfer(FIM): 6 Toilet/Commode Transfer (QC): 6 Shower Transfer(FIM): 6 Comprehension(FIM): 6 (MET) Expression (FIM): 6 (MET) Social Interaction(FIM): 6 (MET) Problem Solving(FIM): 5 (MET) Memory(FIM): 5 (MET) Additional Goals: 1-Demonstrate ADL Tasks, 2-Verbalize Understanding, 3- ImproveStrength/Po 1=Demonstrate adherence to instructed precautions during ADL tasks. 2=Patient will verbalize/demonstrate understanding of assistive devices/ modifications for ADL. 3=Patient will improve strength/tolerance for activity to enable patient to perform ADL's. OT Education/Plan Discharge Recommendations Plan/Recommendations: Continue POC Treatment Plan/Plan of Care Patient would benefit from OT for education, treatment and training to promote independence in ADL's, mobility, safety and/or upper extremity function for ADL' s. Plan of Care: ADL Retraining, Caregiver Training, Functional Mobility, Group Exercise/Act as Ind, UE Funct Exercise/Act, UE Neuromus Re-Ed/Coord Treatment Duration: Jan 28, 2017 Frequency: At least 5-7 days/Wk (IRF) Estimated Hrs Per Day: 1 hour per day Agreement: Yes Rehab Potential: Good Time/GCodes Start Time: 07:00 Stop Time: 08:00 Total Time Billed (hr/min): 60 Billed Treatment Time 1 visit, ADL 2 (30 minutes) EX 2 (30 minutes) EMILY RAYO Jan 21, 2017 07:56
--- NOTE | 2017-01-21 08:12 | Progress Note (SOAP) ---
Subjective Time Seen by Provider: 08:10 Subjective/Events-last exam CVA. Malignant hypertension. Patient doing better. Patient Moving her hands better and fingers. Patient's blood pressure in the morning elevated.. Patient improving and doing better Objective Exam Vital Signs Date Time Temp Pulse Resp B/P (MAP) Pulse Ox O2 Delivery O2 Flow Rate FiO2 01/21/17 05:08 97.3 66 20 165/79 98 Room Air 01/20/17 18:17 98.0 58 18 136/72 98 Room Air Capillary Refill : Less Than 3 Seconds General Appearance: No Apparent Distress, Thin HEENT: Normal ENT Inspection Neck: Full Range of Motion, Normal Inspection Cardiovascular: Regular Rate, Rhythm Assessment/Plan Assessment/Plan Assess & Plan/Chief Complaint CVA on left. Hypertension. Blood in the stools.. . 01/18/17 area CVA on left. Malignant hypertension. History of blood in stools. Patient moving hand better. Patient able to move her fingers. . 01/19/17. CVA on left improving. Hypertension. Improving. Blood in the stools. 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 . . 01/20/17. CVA on left.. Hypertension. Blood in stools. patient improving. Hypertension okay.. . 01/21/17. CVA on left improving. Hypertension still high in the morning .. Patient using walker to get around.. Left hand doing better and fingers is improving Clinical Quality Measures DVT/VTE Risk/Contraindication: Risk Factor Score Per Nursin RFS Level Per Nursing on Admit: 4+=Very High QUINN BRIGGS DO Jan 21, 2017 08:12
[2017-01-21 08:34] VITALS: BP 126/66
[2017-01-21] MEDS: BISACODYL 5 MG (DULCOLAX) TABLET PO SCH (08:40)
[2017-01-21] MEDS: lisINopril 20 MG (ZESTRIL) TAB PO SCH (08:41)
[2017-01-21] MEDS: CLOPIDOGREL 75 MG (PLAVIX) TABLET PO SCH (08:41)
--- NOTE | 2017-01-21 08:53 | PM & R (SOAP) Progress Note ---
Subjective Time Seen by Provider: 08:05 Subjective/Events-last exam Patient was seen in her room this AM Patient SBA for transfers Patient progressing well with therapies. Objective Exam Last Set of Vital Signs Vital Signs Date Time Temp Pulse Resp B/P (MAP) Pulse Ox O2 Delivery O2 Flow Rate FiO2 01/21/17 08:34 97.6 76 18 126/66 98 Room Air 01/19/17 19:08 0.00 Capillary Refill : Less Than 3 Seconds I&O Intake and Output 01/22/17 00:00 Intake Total 400 ml Balance 400 ml Intake Oral 400 ml # Voids 5 # Bowel Movements 1 General: Alert, Oriented X3, Cooperative, No Acute Distress HEENT: Atraumatic, PERRLA, EOMI, Mucous Memb Moist/[place], Other (mild rt labial droop) Neck: Supple, No JVD Lungs: Clear to Auscultation Heart: Regular Rate Abdomen: Normal Bowel Sounds, Soft, No Tenderness Extremities: No Edema Skin: No Significant Lesion Neuro: Other (Mild left HP and dysasrthria Dysphagia on thickened liquids) Assessment/Plan Assessment 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
--- NOTE | 2017-01-21 10:58 | Physical Therapy Daily Note ---
PT Daily Note-Current Subjective Patient agrees to PT. No c/o at this time. Pain Numeric Pain Scale: 0-No Pain Location: No Pain Reported Mental Status Patient Orientation: Normal For Age Transfers Functional [place] Measure 0=Not Assessed/NA 4=Minimal Assistance 1=Total Assistance 5=Supervision or Setup 2=Maximal Assistance 6=Modified [place] 3=Moderate Assistance 7=Complete IndependenceIRFPAI Quality Coding Scale 6 Independent with activity with or without an assistive device 5 Patient requires set up or clean up by helper. Patient completes activity by themselves 4 Supervision or touching assist (CGA). [place] provide cues , steadying assist 3 The helper provides less than half the effort to complete the activity 2 The helper provides more than half the effort to complete the activity 1 Dependent. The helper does all the effort to complete an activity 7 Patient refused to complete or attempt activity 9 The patient did not perform the activity before the current illness or injury 88 Not attempted due to Medical conditions or safety concerns Transfers (B, C, W/C) (FIM): 6 Scootin Rollin Roll Left to Right (QC): 5 Supine to/from Sit: 6 Sit to/from Stand: 6 Sit to Lying (QC): 5 Sit to Stand (QC): 5 Chair/Suy-wg-Fjpxp Xfer(QC): 5 Bed to/from Chair: 6 Car Transfer (QC): 5 Gait Training Does the Patient Walk?: Yes Gait (FIM): 6 Distance (FIM): 3=150 ft Distance: >500' x 5 Walk 10 feet (QC): 5 Walk 50 ft with 2 Turns(QC): 5 Walk 150 ft (QC): 5 Walking 10ft/uneven surface-QC: 6 Gait Level of Assist: 6 Gait Assistive Device: FWW safe and functional on all terrains. no deviations noted and is progressing well Stair Training Stair Training: Handrails/: 1 handrail Stairs (FIM): 2 #of Steps: 4 1 Step (curb) (QC): 5 4 Steps (QC): 5 Stairs: Pattern: Step to Level of Assist: 6 Balance Picking up an Object (QC): 5 Exercises Supine Ex: Knee to chest, Straight leg raise Supine Reps: 20 (2 sets with 2# wt bilateral LE) Seated Therapy Exercises: Long arc quads, Hip flexion Seated Reps: 20 (2 sets 2# wts bilateral LE) Standing: Heel/toe raises, Marching Standing Reps: 20 (2 sets 2# wt. bilateral LE) Assessment Progressing with treatment plan with improvement with distance with ambulation and left foot clearance. Patient prefers to utilize FWW for ambulate due to security with this device. PT Short Term Goals Short Term Goals Time Frame: Jan 28, 2017 Transfers (B,C,W/C) (FIM): 5 Gait (FIM): 5 PT Group Home Goals Group Social Worker Goals PT Group Home Goals Time Frame: Feb 11, 2017 Transfers (B,C,W/C) (FIM): 6 Sit to Lying (QC): 6 Lying-Sitting on Side/Bed(QC): 6 Sit to Stand (QC): 6 Rollin Roll Left to Right (QC): 6 Chair/Jzv-ug-Igrbf Xfer(QC): 6 Car Transfer (QC): 6 Does the Patient Walk: Yes Gait (FIM): 4 Gait distance (FIM): 3=150 ft Walk 10 feet (QC): 6 Walk 10ft-Uneven Surface(QC): 6 Walk 50ft with 2 Turns (QC): 6 Walk 150 ft (QC): 6 Gait Level of Assist: 6 Gait Assistive Device: FWW Does the Pt use WC or Scooter?: No Stairs (FIM): 5 # of Steps: 8 1 Step (curb) (QC): 6 4 Steps (QC): 6 12 Steps (QC): 88 Picking up an Object (QC): 5 PT Plan Treatment/Plan Treatment Plan: Continue Plan of Care Treatment Plan: Bed Mobility, Education, Functional Activity Po, Functional Strength, Group Therapy, Gait, Safety, Therapeutic Exercise, Transfers Treatment Duration: Feb 11, 2017 Frequency: At least 5-7 days/Wk (IRF) Estimated Hrs Per Day: 1.5 hours per day Patient and/or Family Agrees t: Yes Time/GCodes Time In: 955 Time Out: 1055 Total Billed Treatment Time: 60 Total Billed Treatment 1 visit EX x 2 30 min GT x 2 30 min ISABEL SHEA PT Jan 21, 2017 10:58
--- NOTE | 2017-01-21 11:50 | Occupational Ther Daily Note ---
OT Current Status-Daily Note Subjective Pt. alert, sitting in chair. Agreed to therapy. No c/o pain. Mental Status/Objective Patient Orientation: Person, Place, Time, Situation Functional [place] Measure 0=Not Assessed/NA 4=Minimal Assistance 1=Total Assistance 5=Supervision or Setup 2=Maximal Assistance 6=Modified [place] 3=Moderate Assistance 7=Complete [place] ADL-Treatment Functional [place] Measure 0=Not Assessed/NA 4=Minimal Assistance 1=Total Assistance 5=Supervision or Setup 2=Maximal Assistance 6=Modified [place] 3=Moderate Assistance 7=Complete IndependenceIRFPAI Quality Coding Scale 6 Independent with activity with or without an assistive device 5 Patient requires set up or clean up by helper. Patient completes activity by themselves 4 Supervision or touching assist (CGA). [place] provide cues , steadying assist 3 The helper provides less than half the effort to complete the activity 2 The helper provides more than half the effort to complete the activity 1 Dependent. The helper does all the effort to complete an activity 7 Patient refused to complete or attempt activity 9 The patient did not perform the activity before the current illness or injury 88 Not attempted due to Medical conditions or safety concerns Other Treatment Pt ambulated to therapy kitchen using FWW. Pt completed dishwashing activity to increase fine and gross motor skills, activity tolerance, and prepare for home. Pt tolerated well, had one LOB but recovered by self. Pt. used problem solving skills to put dishes away in cupboard. Pt. walked along countertop to steady self while putting away dishes. Pt ambulated to [facility] large shower room to work on tub transfers. Pt completed transfer by self using FWW, tub transfer bench, and grab bars. Pt ambulated back to room using FWW. After therapy, pt sitting in chair with phone and call light within reach. All needs met in room. OT Short Term Goals Short Term Goals Transfers (B,C,W/C) (FIM): 5 1=Demonstrate adherence to instructed precautions during ADL tasks. 2=Patient will verbalize/demonstrate understanding of assistive devices/ modifications for ADL. 3=Patient will improve strength/tolerance for activity to enable patient to perform ADL's. OT Intermediate Goals Studio Designer Goals Time Frame: Jan 28, 2017 Eating (FIM): 7 Eating (QC): 6 Groomin Oral Hygiene (QC): 6 Bathing(FIM): 6 Shower/Bathe Self (QC): 6 Upper Body Dressing(FIM): 6 Upper Body Dressing (QC): 6 Lower Body Dressing(FIM): 6 Lower Body Dressing (QC): 6 On/Off Footwear (QC): 6 Toileting(FIM): 6 Toileting Hygiene (QC): 6 Transfers (B,C,W/C) (FIM): 6 Toilet/Commode Transfer(FIM): 6 Toilet/Commode Transfer (QC): 6 Shower Transfer(FIM): 6 Comprehension(FIM): 6 (MET) Expression (FIM): 6 (MET) Social Interaction(FIM): 6 (MET) Problem Solving(FIM): 5 (MET) Memory(FIM): 5 (MET) Additional Goals: 1-Demonstrate ADL Tasks, 2-Verbalize Understanding, 3- ImproveStrength/Po 1=Demonstrate adherence to instructed precautions during ADL tasks. 2=Patient will verbalize/demonstrate understanding of assistive devices/ modifications for ADL. 3=Patient will improve strength/tolerance for activity to enable patient to perform ADL's. OT Education/Plan Discharge Recommendations Plan/Recommendations: Continue POC Treatment Plan/Plan of Care Patient would benefit from OT for education, treatment and training to promote independence in ADL's, mobility, safety and/or upper extremity function for ADL' s. Plan of Care: ADL Retraining, Caregiver Training, Functional Mobility, Group Exercise/Act as Ind, UE Funct Exercise/Act, UE Neuromus Re-Ed/Coord Treatment Duration: Jan 28, 2017 Frequency: At least 5-7 days/Wk (IRF) Estimated Hrs Per Day: 1 hour per day Agreement: Yes Rehab Potential: Good Time/GCodes Start Time: 11:15 Stop Time: 11:45 Total Time Billed (hr/min): 30 Billed Treatment Time 1 visit, FA 2 (30 minutes) EMILY RAYO Jan 21, 2017 11:50
--- NOTE | 2017-01-21 14:06 | Physical Therapy Daily Note ---
PT Daily Note-Current Subjective Patient agrees to PT. No c/o at this time. Pain Numeric Pain Scale: 0-No Pain Location: No Pain Reported Mental Status Patient Orientation: Normal For Age Transfers Functional [place] Measure 0=Not Assessed/NA 4=Minimal Assistance 1=Total Assistance 5=Supervision or Setup 2=Maximal Assistance 6=Modified [place] 3=Moderate Assistance 7=Complete IndependenceIRFPAI Quality Coding Scale 6 Independent with activity with or without an assistive device 5 Patient requires set up or clean up by helper. Patient completes activity by themselves 4 Supervision or touching assist (CGA). [place] provide cues , steadying assist 3 The helper provides less than half the effort to complete the activity 2 The helper provides more than half the effort to complete the activity 1 Dependent. The helper does all the effort to complete an activity 7 Patient refused to complete or attempt activity 9 The patient did not perform the activity before the current illness or injury 88 Not attempted due to Medical conditions or safety concerns Transfers (B, C, W/C) (FIM): 6 Scootin Sit to/from Stand: 6 Sit to Stand (QC): 5 Car Transfer (QC): 6 Gait Training Does the Patient Walk?: Yes Gait (FIM): 6 Distance (FIM): 3=150 ft Distance: 150' x 2 Walk 10 feet (QC): 5 Walk 50 ft with 2 Turns(QC): 5 Walk 150 ft (QC): 5 Gait Level of Assist: 6 Gait Persons Needed: 1 Gait Assistive Device: FWW slight left LE lag Exercises Seated Therapy Exercises: Ankle pumps, Long arc quads, Hip flexion, Hip abd/add Seated Reps: 25 NuStep Minutes: 15 NuStep Workload: 3 (to increase strength and functional mobility to return to home safely with family support) Assessment Current Status: Excellent Progress PT Short Term Goals Short Term Goals Time Frame: Jan 28, 2017 Transfers (B,C,W/C) (FIM): 5 Gait (FIM): 5 PT Reel Winder Goals Chcf Goals PT Reel Winder Goals Time Frame: Feb 11, 2017 Transfers (B,C,W/C) (FIM): 6 Sit to Lying (QC): 6 Lying-Sitting on Side/Bed(QC): 6 Sit to Stand (QC): 6 Rollin Roll Left to Right (QC): 6 Chair/Bzw-ej-Mzdui Xfer(QC): 6 Car Transfer (QC): 6 Does the Patient Walk: Yes Gait (FIM): 4 Gait distance (FIM): 3=150 ft Walk 10 feet (QC): 6 Walk 10ft-Uneven Surface(QC): 6 Walk 50ft with 2 Turns (QC): 6 Walk 150 ft (QC): 6 Gait Level of Assist: 6 Gait Assistive Device: FWW Does the Pt use WC or Scooter?: No Stairs (FIM): 5 # of Steps: 8 1 Step (curb) (QC): 6 4 Steps (QC): 6 12 Steps (QC): 88 Picking up an Object (QC): 5 PT Plan Treatment/Plan Treatment Plan: Continue Plan of Care Treatment Plan: Bed Mobility, Education, Functional Activity Po, Functional Strength, Group Therapy, Gait, Safety, Therapeutic Exercise, Transfers Treatment Duration: Feb 11, 2017 Frequency: At least 5-7 days/Wk (IRF) Estimated Hrs Per Day: 1.5 hours per day Patient and/or Family Agrees t: Yes Time/GCodes Time In: 1330 Time Out: 1400 Total Billed Treatment Time: 30 Total Billed Treatment 1 visit EX x 2 30 min ISABEL SHEA PT Jan 21, 2017 14:06
[2017-01-21 15:08] VITALS: BP 127/75
[2017-01-21] MEDS: HYDROCHLOROTHIAZIDE 12.5 MG (HCTZ) CAP PO SCH (15:12)
[2017-01-21 18:33] VITALS: BP 123/75
[2017-01-22 05:36] VITALS: BP 135/83
[2017-01-22] MEDS: MULTIVIT W/MINERALS TAB (THERAGRAN M) PO SCH (06:27)
[2017-01-22] MEDS: PANTOPRAZOLE 40 MG (PROTONIX) TAB PO SCH (06:27)
--- NOTE | 2017-01-22 07:53 | Progress Note (SOAP) ---
Subjective Time Seen by Provider: 07:50 Subjective/Events-last exam hypertension better. CVA on left Patient moving left hand better and fingers better Objective Exam Vital Signs Date Time Temp Pulse Resp B/P (MAP) Pulse Ox O2 Delivery O2 Flow Rate FiO2 01/22/17 05:36 97.6 78 18 135/83 98 Room Air 01/21/17 18:33 97.7 87 14 123/75 98 Room Air 01/21/17 15:08 83 18 127/75 98 Room Air 01/21/17 08:34 97.6 76 18 126/66 98 Room Air Capillary Refill : Less Than 3 Seconds General Appearance: No Apparent Distress, Thin HEENT: Normal ENT Inspection Neck: Full Range of Motion, Normal Inspection, Non Tender Respiratory: Chest Non Tender, No Accessory Muscle Use, No Respiratory Distress Cardiovascular: Regular Rate, Rhythm, No Murmur Gastrointestinal: non tender, soft Assessment/Plan Assessment/Plan Assess & Plan/Chief Complaint CVA on left. Hypertension. Blood in the stools.. . 01/18/17 area CVA on left. Malignant hypertension. History of blood in stools. Patient moving hand better. Patient able to move her fingers. . 01/19/17. CVA on left improving. Hypertension. Improving. Blood in the stools. Patient able to cotton picker checkers with left hand.. . . 01/20/17. CVA on left.. Hypertension. Blood in stools. patient improving. Hypertension okay.. . 01/21/17. CVA on left improving. Hypertension still high in the morning .. Patient using walker to get around.. Left hand doing better and fingers is improving. . 01/22/17. CVA on left. Hypertension. Patient moving left hand and fingers much better Clinical Quality Measures DVT/VTE Risk/Contraindication: Risk Factor Score Per Nursin RFS Level Per Nursing on Admit: 4+=Very High QUINN BRIGGS DO Jan 22, 2017 07:53
--- NOTE | 2017-01-22 07:54 | Occupational Ther Daily Note ---
OT Current Status-Daily Note Subjective Pt alert, sitting in chair. Pt agreed to therapy. No c/o pain. Mental Status/Objective Patient Orientation: Person, Place, Time, Situation Functional [place] Measure 0=Not Assessed/NA 4=Minimal Assistance 1=Total Assistance 5=Supervision or Setup 2=Maximal Assistance 6=Modified [place] 3=Moderate Assistance 7=Complete [place] ADL-Treatment Functional [place] Measure 0=Not Assessed/NA 4=Minimal Assistance 1=Total Assistance 5=Supervision or Setup 2=Maximal Assistance 6=Modified [place] 3=Moderate Assistance 7=Complete IndependenceIRFPAI Quality Coding Scale 6 Independent with activity with or without an assistive device 5 Patient requires set up or clean up by helper. Patient completes activity by themselves 4 Supervision or touching assist (CGA). [place] provide cues , steadying assist 3 The helper provides less than half the effort to complete the activity 2 The helper provides more than half the effort to complete the activity 1 Dependent. The helper does all the effort to complete an activity 7 Patient refused to complete or attempt activity 9 The patient did not perform the activity before the current illness or injury 88 Not attempted due to Medical conditions or safety concerns Grooming (FIM): 6 (Pt completed grooming at sink with FWW. ) Oral Hygiene (QC): 6 (Pt able to stand at sink using FWW to wash mouth out. Pt wears dentures. ) Bathing (FIM): 6 (Pt is able to complete bathing using shower chair, grab bars , and handheld shower. ) Bathing Location: L Arm, R Arm, L Upper Leg, R Upper Leg, L Lower Leg ( including foot), R Lower Leg (including foot), Chest, Abdomen, Buttocks, Perineal Area Shower/Bathe Self (QC): 6 (Pt is able to complete shower using shower chair, grab bars, and handheld shower. ) Upper Body (FIM): 6 (Pt is able to retrieve clothing using FWW to transport back to bathroom. Pt is able to complete dressing while sitting. ) Upper Body Dressing (QC): 6 (Pt is able to retrieve clothing using FWW to transport back to bathroom. Pt is able to complete dressing while sitting. ) Lower Body Dressing (FIM): 6 (Pt is able to retrieve clothing using FWW to transport back to bathroom. Pt is able to complete dressing while sitting. Pt is able to steady self with FWW while standing to hike pants over hips. ) Lower Body Dressing (QC): 6 (Pt is able to retrieve clothing using FWW to transport back to bathroom. Pt is able to complete dressing while sitting. Pt is able to steady self with FWW while standing to hike pants over hips. ) On/Off Footwear (QC): 6 (Pt is able to don and doff socks and shoes while sitting. ) Toileting (FIM): 6 (Pt is able to complete hygiene and manipulation of clothing using FWW and grab bars. ) Toileting Hygiene (QC): 6 (Pt is able to complete hygiene and manipulation of clothing using FWW and grab bars. ) Transfers (B, C, W/C) (FIM): 6 (Pt is able to transfer using FWW. ) Toilet/Commode Transfer (FIM): 6 (Pt is able to transfer to toilet using FWW and grab bars. ) Toilet Transfer (QC): 6 (Pt is able to transfer to toilet using FWW and grab bars. ) Shower Transfer(FIM): 6 (Pt is able to transfer to shower using FWW, grab bars , and shower chair. ) Other Treatment Pt ambulated to therapy gym using FWW. Pt completed B UE exercises using light resistance theraband. Theraband exercises to strengthen B elbow flex and shoulder external rotation, 3 sets, 10x . Pt performed well the first 2 sets and began to fatigue on the last set, taking more time and needing help steadying arm. Then completed activity of [employer] to work on L FM skills to increase ability for bathing and dressing. Used 3 pt pincer grasp to take a card checker out of a box and set on table. Pt then placed checkers into designated slots. Pt required help to steady wrist while placing into slots. Pt then the checkers again and put back into box. Pt ambulated back to room where a shower was completed. After therapy, pt sitting in recliner with call light and phone within reach. All needs met in room. OT Short Term Goals Short Term Goals Transfers (B,C,W/C) (FIM): 5 1=Demonstrate adherence to instructed precautions during ADL tasks. 2=Patient will verbalize/demonstrate understanding of assistive devices/ modifications for ADL. 3=Patient will improve strength/tolerance for activity to enable patient to perform ADL's. OT Engineering Technology Instructor Goals Skilled Nursing Goals Time Frame: Jan 28, 2017 Eating (FIM): 7 Eating (QC): 6 Groomin Oral Hygiene (QC): 6 Bathing(FIM): 6 Shower/Bathe Self (QC): 6 Upper Body Dressing(FIM): 6 Upper Body Dressing (QC): 6 Lower Body Dressing(FIM): 6 Lower Body Dressing (QC): 6 On/Off Footwear (QC): 6 Toileting(FIM): 6 Toileting Hygiene (QC): 6 Transfers (B,C,W/C) (FIM): 6 Toilet/Commode Transfer(FIM): 6 Toilet/Commode Transfer (QC): 6 Shower Transfer(FIM): 6 Comprehension(FIM): 6 (MET) Expression (FIM): 6 (MET) Social Interaction(FIM): 6 (MET) Problem Solving(FIM): 5 (MET) Memory(FIM): 5 (MET) Additional Goals: 1-Demonstrate ADL Tasks, 2-Verbalize Understanding, 3- ImproveStrength/Po 1=Demonstrate adherence to instructed precautions during ADL tasks. 2=Patient will verbalize/demonstrate understanding of assistive devices/ modifications for ADL. 3=Patient will improve strength/tolerance for activity to enable patient to perform ADL's. OT Education/Plan Discharge Recommendations Plan/Recommendations: Continue POC Treatment Plan/Plan of Care Patient would benefit from OT for education, treatment and training to promote independence in ADL's, mobility, safety and/or upper extremity function for ADL' s. Plan of Care: ADL Retraining, Caregiver Training, Functional Mobility, Group Exercise/Act as Ind, UE Funct Exercise/Act, UE Neuromus Re-Ed/Coord Treatment Duration: Jan 28, 2017 Frequency: At least 5-7 days/Wk (IRF) Estimated Hrs Per Day: 1 hour per day Agreement: Yes Rehab Potential: Good Time/GCodes Start Time: 07:00 Stop Time: 08:00 Total Time Billed (hr/min): 60 Billed Treatment Time 1 visit, ADL 2 (30 minutes) EX 2 (30 minutes) EMILY RAYO Jan 22, 2017 07:54
--- NOTE | 2017-01-22 08:50 | PM & R (SOAP) Progress Note ---
Subjective Time Seen by Provider: 08:10 Subjective/Events-last exam Patient was seen in her room this AM Patient SBA for transfers Progressing well with therapies Objective Exam Last Set of Vital Signs Vital Signs Date Time Temp Pulse Resp B/P (MAP) Pulse Ox O2 Delivery O2 Flow Rate FiO2 01/22/17 05:36 97.6 78 18 135/83 98 Room Air 01/19/17 19:08 0.00 Capillary Refill : Less Than 3 Seconds I&O Intake and Output 01/23/17 00:00 Intake Total 400 ml Balance 400 ml Intake Oral 400 ml # Voids 3 General: Alert, Oriented X3, Cooperative, No Acute Distress HEENT: Atraumatic, PERRLA, EOMI, Mucous Memb Moist/[place], Other (mild rt labial droop) Neck: Supple, No JVD Lungs: Clear to Auscultation Heart: Regular Rate Abdomen: Normal Bowel Sounds, Soft, No Tenderness Extremities: No Edema Skin: No Significant Lesion Neuro: Other (Mild left HP and dysasrthria Dysphagia on thickened liquids) Assessment/Plan Assessment 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
[2017-01-22 09:11] VITALS: BP 133/63
[2017-01-22] MEDS: lisINopril 20 MG (ZESTRIL) TAB PO SCH (09:13)
[2017-01-22] MEDS: CLOPIDOGREL 75 MG (PLAVIX) TABLET PO SCH (09:13)
[2017-01-22] MEDS: HYDROCHLOROTHIAZIDE 12.5 MG (HCTZ) CAP PO SCH (09:13)
[2017-01-22] MEDS: BISACODYL 5 MG (DULCOLAX) TABLET PO SCH (09:13)
--- NOTE | 2017-01-22 10:53 | Physical Therapy Daily Note ---
PT Daily Note-Current Subjective Patient agrees to PT. Patient voices she is up ad alicia in room and hallway without difficulty. Pain Numeric Pain Scale: 0-No Pain Location: No Pain Reported Mental Status Patient Orientation: Normal For Age Transfers Functional [place] Measure 0=Not Assessed/NA 4=Minimal Assistance 1=Total Assistance 5=Supervision or Setup 2=Maximal Assistance 6=Modified [place] 3=Moderate Assistance 7=Complete IndependenceIRFPAI Quality Coding Scale 6 Independent with activity with or without an assistive device 5 Patient requires set up or clean up by helper. Patient completes activity by themselves 4 Supervision or touching assist (CGA). [place] provide cues , steadying assist 3 The helper provides less than half the effort to complete the activity 2 The helper provides more than half the effort to complete the activity 1 Dependent. The helper does all the effort to complete an activity 7 Patient refused to complete or attempt activity 9 The patient did not perform the activity before the current illness or injury 88 Not attempted due to Medical conditions or safety concerns Transfers (B, C, W/C) (FIM): 6 Scootin Rollin Roll Left to Right (QC): 5 Supine to/from Sit: 6 Sit to/from Stand: 6 Sit to Lying (QC): 5 Sit to Stand (QC): 5 Gait Training Does the Patient Walk?: Yes Gait (FIM): 6 Distance (FIM): 3=150 ft Distance: >1200' Walk 10 feet (QC): 5 Walk 50 ft with 2 Turns(QC): 5 Walk 150 ft (QC): 5 Walking 10ft/uneven surface-QC: 5 Gait Level of Assist: 6 Gait Assistive Device: FWW on all terrains inside and outside with improved ability to negotiate on rough terrain and changes/adjusting to all levels of terrain Stair Training Stair Training: Handrails/: 2 handrails Stairs (FIM): 5 #of Steps: 8 1 Step (curb) (QC): 4 4 Steps (QC): 4 Level of Assist: 5 1 sets with 2# wt bilateral LE to improve ability for foot clearance 1 set without demonstrating improved ability with foot clearance Exercises Supine Ex: Ankle pumps, Quad Set, Heel Slides, Short Arc Quads, Straight leg raise Supine Reps: 20 (2# wts bilateral LE to improve strength to improve functional mobility with left LE foot clearance) Seated Therapy Exercises: Long arc quads Seated Reps: 25 (2 sets with 2# wt to increase strength) Assessment Patient does fatigue with treatment program on this date due to PT increasing, with use of 2# wt, exercise program and ambulation to ensure safe return to home with spouse/family support. PT Short Term Goals Short Term Goals Time Frame: Jan 28, 2017 Transfers (B,C,W/C) (FIM): 5 Gait (FIM): 5 PT Motor And Generator Brush Maker Goals Mcc Goals PT Mcc Goals Time Frame: Feb 11, 2017 Transfers (B,C,W/C) (FIM): 6 Sit to Lying (QC): 6 Lying-Sitting on Side/Bed(QC): 6 Sit to Stand (QC): 6 Rollin Roll Left to Right (QC): 6 Chair/Ywk-ek-Zmjlt Xfer(QC): 6 Car Transfer (QC): 6 Does the Patient Walk: Yes Gait (FIM): 4 Gait distance (FIM): 3=150 ft Walk 10 feet (QC): 6 Walk 10ft-Uneven Surface(QC): 6 Walk 50ft with 2 Turns (QC): 6 Walk 150 ft (QC): 6 Gait Level of Assist: 6 Gait Assistive Device: FWW Does the Pt use WC or Scooter?: No Stairs (FIM): 5 # of Steps: 8 1 Step (curb) (QC): 6 4 Steps (QC): 6 12 Steps (QC): 88 Picking up an Object (QC): 5 PT Plan Treatment/Plan Treatment Plan: Continue Plan of Care Treatment Plan: Bed Mobility, Education, Functional Activity Po, Functional Strength, Group Therapy, Gait, Safety, Therapeutic Exercise, Transfers Treatment Duration: Feb 11, 2017 Frequency: At least 5-7 days/Wk (IRF) Estimated Hrs Per Day: 1.5 hours per day Patient and/or Family Agrees t: Yes Time/GCodes Time In: 945 Time Out: 1045 Total Billed Treatment Time: 60 Total Billed Treatment 1 visit EX 20 min FA 10 min GT x 2 30 min ISABEL SHEA PT Jan 22, 2017 10:53
--- NOTE | 2017-01-22 13:06 | Physical Therapy Daily Note ---
PT Daily Note-Current Subjective Patient is very agreeable to participate with PT. Pain Numeric Pain Scale: 0-No Pain Location: No Pain Reported Mental Status Patient Orientation: Normal For Age Transfers Functional [place] Measure 0=Not Assessed/NA 4=Minimal Assistance 1=Total Assistance 5=Supervision or Setup 2=Maximal Assistance 6=Modified [place] 3=Moderate Assistance 7=Complete IndependenceIRFPAI Quality Coding Scale 6 Independent with activity with or without an assistive device 5 Patient requires set up or clean up by helper. Patient completes activity by themselves 4 Supervision or touching assist (CGA). [place] provide cues , steadying assist 3 The helper provides less than half the effort to complete the activity 2 The helper provides more than half the effort to complete the activity 1 Dependent. The helper does all the effort to complete an activity 7 Patient refused to complete or attempt activity 9 The patient did not perform the activity before the current illness or injury 88 Not attempted due to Medical conditions or safety concerns Transfers (B, C, W/C) (FIM): 6 Scootin Rollin Roll Left to Right (QC): 5 Supine to/from Sit: 6 Sit to/from Stand: 6 Sit to Lying (QC): 5 Sit to Stand (QC): 5 Car Transfer (QC): 5 Gait Training Does the Patient Walk?: Yes Gait (FIM): 6 Distance (FIM): 3=150 ft Distance: 150' x 2 Walk 10 feet (QC): 5 Walk 50 ft with 2 Turns(QC): 5 Walk 150 ft (QC): 5 Gait Level of Assist: 6 Gait Assistive Device: FWW safe and functional Exercises Standin way Ex=Flex, Abd, Ext, Mini squats Standing Reps: 20 (2 sets with 2# wt bilateral LE to improve strength) NuStep Minutes: 15 NuStep Workload: 4 (to improve reciprocal pattern with ambulation) Assessment Current Status: Excellent Progress PT Short Term Goals Short Term Goals Time Frame: Jan 28, 2017 Transfers (B,C,W/C) (FIM): 5 Gait (FIM): 5 PT Insurance Manager Goals Senior Living Goals PT Insurance Manager Goals Time Frame: Feb 11, 2017 Transfers (B,C,W/C) (FIM): 6 Sit to Lying (QC): 6 Lying-Sitting on Side/Bed(QC): 6 Sit to Stand (QC): 6 Rollin Roll Left to Right (QC): 6 Chair/Xjf-qc-Wjsgt Xfer(QC): 6 Car Transfer (QC): 6 Does the Patient Walk: Yes Gait (FIM): 4 Gait distance (FIM): 3=150 ft Walk 10 feet (QC): 6 Walk 10ft-Uneven Surface(QC): 6 Walk 50ft with 2 Turns (QC): 6 Walk 150 ft (QC): 6 Gait Level of Assist: 6 Gait Assistive Device: FWW Does the Pt use WC or Scooter?: No Stairs (FIM): 5 # of Steps: 8 1 Step (curb) (QC): 6 4 Steps (QC): 6 12 Steps (QC): 88 Picking up an Object (QC): 5 PT Plan Treatment/Plan Treatment Plan: Continue Plan of Care Treatment Plan: Bed Mobility, Education, Functional Activity Po, Functional Strength, Group Therapy, Gait, Safety, Therapeutic Exercise, Transfers Treatment Duration: Feb 11, 2017 Frequency: At least 5-7 days/Wk (IRF) Estimated Hrs Per Day: 1.5 hours per day Patient and/or Family Agrees t: Yes Time/GCodes Time In: 1225 Time Out: 1255 Total Billed Treatment Time: 30 Total Billed Treatment 1 visit EX x 2 30 min ISABEL SHEA PT Jan 22, 2017 13:06
--- NOTE | 2017-01-22 13:23 | Occupational Ther Daily Note ---
OT Current Status-Daily Note Subjective Pt alert, sitting in chair. Agreed to therapy. No c/o pain. Mental Status/Objective Patient Orientation: Person, Place, Time, Situation Functional [place] Measure 0=Not Assessed/NA 4=Minimal Assistance 1=Total Assistance 5=Supervision or Setup 2=Maximal Assistance 6=Modified [place] 3=Moderate Assistance 7=Complete [place] ADL-Treatment Functional [place] Measure 0=Not Assessed/NA 4=Minimal Assistance 1=Total Assistance 5=Supervision or Setup 2=Maximal Assistance 6=Modified [place] 3=Moderate Assistance 7=Complete IndependenceIRFPAI Quality Coding Scale 6 Independent with activity with or without an assistive device 5 Patient requires set up or clean up by helper. Patient completes activity by themselves 4 Supervision or touching assist (CGA). [place] provide cues , steadying assist 3 The helper provides less than half the effort to complete the activity 2 The helper provides more than half the effort to complete the activity 1 Dependent. The helper does all the effort to complete an activity 7 Patient refused to complete or attempt activity 9 The patient did not perform the activity before the current illness or injury 88 Not attempted due to Medical conditions or safety concerns Other Treatment Pt completed knitting activity to work on FM skills. Pt gathered supplies using FWW. Pt sat on EOB to begin activity. Pt began knitting using built-up handles for L hand to increase grasp ability. Pt demonstrated FM skills and hand manipulation to work with yarn and needles. Pt L hand then fatigued and became more difficult to work with. Pt then sat in chair and completed AROM against gravity when completing wrist flexion and extension, forearm pronation and supination. Progress noted in L wrist flexion as evidenced by increased ROM, and in L wrist extension as evidenced by the ability to extend fingers while extending wrist. After therapy, pt sitting in chair, call light and phone within reach. All needs met in room. OT Short Term Goals Short Term Goals Transfers (B,C,W/C) (FIM): 5 1=Demonstrate adherence to instructed precautions during ADL tasks. 2=Patient will verbalize/demonstrate understanding of assistive devices/ modifications for ADL. 3=Patient will improve strength/tolerance for activity to enable patient to perform ADL's. OT Long-Term Goals Long-Term Goals Time Frame: Jan 28, 2017 Eating (FIM): 7 Eating (QC): 6 Groomin Oral Hygiene (QC): 6 Bathing(FIM): 6 Shower/Bathe Self (QC): 6 Upper Body Dressing(FIM): 6 Upper Body Dressing (QC): 6 Lower Body Dressing(FIM): 6 Lower Body Dressing (QC): 6 On/Off Footwear (QC): 6 Toileting(FIM): 6 Toileting Hygiene (QC): 6 Transfers (B,C,W/C) (FIM): 6 Toilet/Commode Transfer(FIM): 6 Toilet/Commode Transfer (QC): 6 Shower Transfer(FIM): 6 Comprehension(FIM): 6 (MET) Expression (FIM): 6 (MET) Social Interaction(FIM): 6 (MET) Problem Solving(FIM): 5 (MET) Memory(FIM): 5 (MET) Additional Goals: 1-Demonstrate ADL Tasks, 2-Verbalize Understanding, 3- ImproveStrength/Po 1=Demonstrate adherence to instructed precautions during ADL tasks. 2=Patient will verbalize/demonstrate understanding of assistive devices/ modifications for ADL. 3=Patient will improve strength/tolerance for activity to enable patient to perform ADL's. OT Education/Plan Discharge Recommendations Plan/Recommendations: Continue POC Treatment Plan/Plan of Care Patient would benefit from OT for education, treatment and training to promote independence in ADL's, mobility, safety and/or upper extremity function for ADL' s. Plan of Care: ADL Retraining, Caregiver Training, Functional Mobility, Group Exercise/Act as Ind, UE Funct Exercise/Act, UE Neuromus Re-Ed/Coord Treatment Duration: Jan 28, 2017 Frequency: At least 5-7 days/Wk (IRF) Estimated Hrs Per Day: 1 hour per day Agreement: Yes Rehab Potential: Good Time/GCodes Start Time: 11:30 Stop Time: 12:00 Total Time Billed (hr/min): 30 Billed Treatment Time 1 visit, FA 1 (15 minutes) MIKEY 1 (15 minutes) EMILY RAYO Jan 22, 2017 13:23
[2017-01-22 19:00] VITALS: BP 122/73
[2017-01-22 20:01] VITALS: BP 157/79
[2017-01-22] MEDS ORDERED: HYDROCHLOROTHIAZIDE 25 MG (HCTZ) TAB PO NR (20:15)
[2017-01-22 21:00] VITALS: BP 155/84
[2017-01-22] MEDS: IBUPROFEN TABLET 200 MG TAB PO PRN (22:15)
[2017-01-23] MEDS: MULTIVIT W/MINERALS TAB (THERAGRAN M) PO SCH (06:42)
[2017-01-23] MEDS: PANTOPRAZOLE 40 MG (PROTONIX) TAB PO SCH (06:42)
[2017-01-23 06:47] VITALS: BP 131/77
[2017-01-23] MEDS: BISACODYL 5 MG (DULCOLAX) TABLET PO SCH (09:03)
[2017-01-23] MEDS: lisINopril 20 MG (ZESTRIL) TAB PO SCH (09:04)
[2017-01-23] MEDS: HYDROCHLOROTHIAZIDE 12.5 MG (HCTZ) CAP PO SCH (09:04)
[2017-01-23] MEDS: CLOPIDOGREL 75 MG (PLAVIX) TABLET PO SCH (09:04)
--- NOTE | 2017-01-23 12:27 | Physical Therapy Daily Note ---
PT Daily Note-Current Subjective Pt up in chair, agreeable. Denied pain. Anxious to discharge home on Wednesday. Mental Status Patient Orientation: Person, Place, Time, Situation Transfers Functional [place] Measure 0=Not Assessed/NA 4=Minimal Assistance 1=Total Assistance 5=Supervision or Setup 2=Maximal Assistance 6=Modified [place] 3=Moderate Assistance 7=Complete IndependenceIRFPAI Quality Coding Scale 6 Independent with activity with or without an assistive device 5 Patient requires set up or clean up by helper. Patient completes activity by themselves 4 Supervision or touching assist (CGA). [place] provide cues , steadying assist 3 The helper provides less than half the effort to complete the activity 2 The helper provides more than half the effort to complete the activity 1 Dependent. The helper does all the effort to complete an activity 7 Patient refused to complete or attempt activity 9 The patient did not perform the activity before the current illness or injury 88 Not attempted due to Medical conditions or safety concerns Sit to/from Stand: 6 Sit to Stand (QC): 6 Weight Bearing Weight Bearing Restriction: Full Weight Bearing Gait Training Does the Patient Walk?: Yes Gait (FIM): 6 Distance (FIM): 3=150 ft Distance: 200 Walk 10 feet (QC): 6 Walk 50 ft with 2 Turns(QC): 6 Walk 150 ft (QC): 6 Gait Level of Assist: 6 Gait Persons Needed: 0 Gait Assistive Device: FWW Exercises Standin way Ex=Flex, Abd, Ext, Marching NuStep Minutes: 8 NuStep Workload: 5 Treatments NuStep for reciprocal movement, LE strengthening with 2# weights for functional strengthening. Returned to up in chair with all needs met. Assessment Current Status: Good Progress Pt tolerated very well. Improving functional strength. PT Short Term Goals Short Term Goals Time Frame: Jan 28, 2017 Transfers (B,C,W/C) (FIM): 5 Gait (FIM): 5 PT Mcc Goals Sales Team Recruiter Goals PT Sales Team Recruiter Goals Time Frame: Feb 11, 2017 Transfers (B,C,W/C) (FIM): 6 Sit to Lying (QC): 6 Lying-Sitting on Side/Bed(QC): 6 Sit to Stand (QC): 6 Rollin Roll Left to Right (QC): 6 Chair/Rvx-vd-Zueav Xfer(QC): 6 Car Transfer (QC): 6 Does the Patient Walk: Yes Gait (FIM): 4 Gait distance (FIM): 3=150 ft Walk 10 feet (QC): 6 Walk 10ft-Uneven Surface(QC): 6 Walk 50ft with 2 Turns (QC): 6 Walk 150 ft (QC): 6 Gait Level of Assist: 6 Gait Assistive Device: FWW Does the Pt use WC or Scooter?: No Stairs (FIM): 5 # of Steps: 8 1 Step (curb) (QC): 6 4 Steps (QC): 6 12 Steps (QC): 88 Picking up an Object (QC): 5 PT Plan Problem List Problem List: Activity Tolerance, Functional Strength, Safety, Balance, Gait, Transfer Treatment/Plan Treatment Plan: Continue Plan of Care Treatment Plan: Bed Mobility, Education, Functional Activity Po, Functional Strength, Group Therapy, Gait, Safety, Therapeutic Exercise, Transfers Treatment Duration: Feb 11, 2017 Frequency: At least 5-7 days/Wk (IRF) Estimated Hrs Per Day: 1.5 hours per day Patient and/or Family Agrees t: Yes Time/GCodes Time In: 857 Time Out: 921 Total Billed Treatment Time: 24 Total Billed Treatment 1, Ex x 24' G Codes Necessary: No LATRICIA PEDERSON DPT Jan 23, 2017 12:27
[2017-01-23 18:33] VITALS: BP 146/81
[2017-01-24] MEDS: PANTOPRAZOLE 40 MG (PROTONIX) TAB PO SCH (06:21)
[2017-01-24] MEDS: MULTIVIT W/MINERALS TAB (THERAGRAN M) PO SCH (06:21)
[2017-01-24 06:24] VITALS: BP 123/80
[2017-01-24] MEDS: HYDROCHLOROTHIAZIDE 12.5 MG (HCTZ) CAP PO SCH (08:17)
[2017-01-24] MEDS: lisINopril 20 MG (ZESTRIL) TAB PO SCH (08:17)
[2017-01-24] MEDS: CLOPIDOGREL 75 MG (PLAVIX) TABLET PO SCH (08:17)
[2017-01-24 08:19] VITALS: BP 107/71
[2017-01-24] MEDS: BISACODYL 5 MG (DULCOLAX) TABLET PO SCH (08:19)
[2017-01-24 18:22] VITALS: BP 127/74
[2017-01-25 06:00] VITALS: BP 107/66
[2017-01-25] MEDS: MULTIVIT W/MINERALS TAB (THERAGRAN M) PO SCH (06:19)
[2017-01-25] MEDS: PANTOPRAZOLE 40 MG (PROTONIX) TAB PO SCH (06:19)
--- NOTE | 2017-01-25 07:54 | Occupational Ther Daily Note ---
OT Current Status-Daily Note Subjective Pt alert, sitting in chair. Agreed to therapy. No c/o pain. C/o tingling in R hand and foot, reports it has been present since before CVA. Mental Status/Objective Patient Orientation: Person, Place, Time, Situation Functional [place] Measure 0=Not Assessed/NA 4=Minimal Assistance 1=Total Assistance 5=Supervision or Setup 2=Maximal Assistance 6=Modified [place] 3=Moderate Assistance 7=Complete [place] ADL-Treatment Functional [place] Measure 0=Not Assessed/NA 4=Minimal Assistance 1=Total Assistance 5=Supervision or Setup 2=Maximal Assistance 6=Modified [place] 3=Moderate Assistance 7=Complete IndependenceIRFPAI Quality Coding Scale 6 Independent with activity with or without an assistive device 5 Patient requires set up or clean up by helper. Patient completes activity by themselves 4 Supervision or touching assist (CGA). [place] provide cues , steadying assist 3 The helper provides less than half the effort to complete the activity 2 The helper provides more than half the effort to complete the activity 1 Dependent. The helper does all the effort to complete an activity 7 Patient refused to complete or attempt activity 9 The patient did not perform the activity before the current illness or injury 88 Not attempted due to Medical conditions or safety concerns Eating (FIM): 7 (Pt is able to set self up and use regular utensils to feed self. Pt states has dentures at home, did not bring to hospital. Pt able to eat all food without dentures. ) Eating (QC): 6 (Pt is able to set self up and use regular utensils to feed self. Pt states has dentures at home, did not bring to hospital. Pt able to eat all food without dentures. ) Grooming (FIM): 6 (Pt completes grooming while seated/standing at sink with FWW. ) Oral Hygiene (QC): 6 (Pt uses oral swabs to cleanse mouth at sink using FWW. ) Bathing (FIM): 6 (Pt completes bathing using shower bench, grab bars, and handheld shower. ) Bathing Location: L Arm, R Arm, L Upper Leg, R Upper Leg, L Lower Leg ( including foot), R Lower Leg (including foot), Chest, Abdomen, Buttocks, Perineal Area Shower/Bathe Self (QC): 6 (Pt completes bathing using shower bench, grab bars, and handheld shower. ) Upper Body (FIM): 6 (Pt gathers clothing using FWW to transport clothes to bathroom, completes dressing while seated. ) Upper Body Dressing (QC): 6 (Pt gathers clothing using FWW to transport clothes to bathroom, completes dressing while seated. ) Lower Body Dressing (FIM): 6 (Pt gathers clothing using FWW to transport clothes to bathroom. Dressing completed while seated, using FWW to stand to hike pants over hips. ) Lower Body Dressing (QC): 6 (Pt gathers clothing using FWW to transport clothes to bathroom, completes dressing while seated. ) On/Off Footwear (QC): 6 (Pt is able to don and doff shoes and socks while seated. ) Toileting (FIM): 6 (Pt completes hygiene and manipulation of clothing using FWW and grab bars. ) Toileting Hygiene (QC): 6 (Pt completes hygiene and manipulation of clothing using FWW and grab bars.) Transfers (B, C, W/C) (FIM): 6 (Pt transfers using FWW. ) Toilet/Commode Transfer (FIM): 6 (Pt transfers to and from toilet using FWW and grab bars. ) Toilet Transfer (QC): 6 (Pt transfers to and from toilet using FWW and grab bars. ) Shower Transfer(FIM): 6 (Pt transfers into shower using shower chair, grab bars , and FWW. ) Pt completes tub transfer using tub transfer bench, FWW, and grab bars. Pt reports having this equipment at home. Other Treatment Pt ambulates to therapy gym using FWW. Completes exercises with dowel bar with 2 lb weight attached to increase strength, ROM and activity tolerance. Dowel bar exercises included elbow flexion and extension and shoulder flexion 2 sets, 10x. Pt began to fatigue after first set, resulting in incomplete ROM, more rest breaks, and the need to regrip L hand. Pt ambulate back to room using FWW to use bathroom. After therapy, pt sitting in recliner with phone and call button within reach. All needs met in room. Education OT Patient Education: Safety issues, Transfer techniques Teaching Recipient: Patient Teaching Methods: Demonstration, Discussion Response to Teaching: Verbalize Understanding, Return Demonstration OT Short Term Goals Short Term Goals Transfers (B,C,W/C) (FIM): 5 1=Demonstrate adherence to instructed precautions during ADL tasks. 2=Patient will verbalize/demonstrate understanding of assistive devices/ modifications for ADL. 3=Patient will improve strength/tolerance for activity to enable patient to perform ADL's. OT Associate Professor Goals Associate Professor Goals Time Frame: Jan 28, 2017 Eating (FIM): 7 (met- 01/25/17) Eating (QC): 6 (met 01/25/17) Groomin (met 01/25/17) Oral Hygiene (QC): 6 (met 01/25/17) Bathing(FIM): 6 (met 01/25/17) Shower/Bathe Self (QC): 6 (met 01/25/17) Upper Body Dressing(FIM): 6 (met 01/25/17) Upper Body Dressing (QC): 6 (met 01/25/17) Lower Body Dressing(FIM): 6 (met 01/25/17) Lower Body Dressing (QC): 6 (met 01/25/17) On/Off Footwear (QC): 6 (met 01/25/17) Toileting(FIM): 6 (met 01/25/17) Toileting Hygiene (QC): 6 (met 01/25/17) Transfers (B,C,W/C) (FIM): 6 (met 01/25/17) Toilet/Commode Transfer(FIM): 6 (met 01/25/17) Toilet/Commode Transfer (QC): 6 (met 01/25/17) Shower Transfer(FIM): 6 (met 01/25/17) Comprehension(FIM): 6 (MET) Expression (FIM): 6 (MET) Social Interaction(FIM): 6 (MET) Problem Solving(FIM): 5 (MET) Memory(FIM): 5 (MET) Additional Goals: 1-Demonstrate ADL Tasks, 2-Verbalize Understanding, 3- ImproveStrength/Po 1=Demonstrate adherence to instructed precautions during ADL tasks. 2=Patient will verbalize/demonstrate understanding of assistive devices/ modifications for ADL. 3=Patient will improve strength/tolerance for activity to enable patient to perform ADL's. OT Education/Plan Discharge Recommendations Plan/Recommendations: Continue POC Therapy D/C Recommendations: Occupational Therapy Home Care Treatment Plan/Plan of Care Patient would benefit from OT for education, treatment and training to promote independence in ADL's, mobility, safety and/or upper extremity function for ADL' s. Plan of Care: ADL Retraining, Caregiver Training, Functional Mobility, Group Exercise/Act as Ind, UE Funct Exercise/Act, UE Neuromus Re-Ed/Coord Treatment Duration: Jan 28, 2017 Frequency: At least 5-7 days/Wk (IRF) Estimated Hrs Per Day: 1 hour per day Agreement: Yes Rehab Potential: Good Time/GCodes Start Time: 07:00 Stop Time: 08:00 Total Time Billed (hr/min): 60 Billed Treatment Time 1 visit, ADL 2 (30 minutes) EX 2 (30 minutes) EMILY RAYO Jan 25, 2017 07:54
--- NOTE | 2017-01-25 08:52 | Progress Note (SOAP) ---
Subjective Time Seen by Provider: 08:50 Subjective/Events-last exam CVA on left. Patient improving. Patient able to move left arm and fingers. Patient stronger with left leg. 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 Hypertension. Blood in the stools.. . 01/18/17 area CVA on left. Malignant hypertension. History of blood in stools. Patient moving hand better. Patient able to move her fingers. . 01/19/17. CVA on left improving. Hypertension. Improving. Blood in the stools. 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 . . 01/20/17. CVA on left.. Hypertension. Blood in stools. patient improving. Hypertension okay.. . 01/21/17. CVA on left improving. Hypertension still high in the morning .. Patient using walker to get around.. Left hand doing better and fingers is improving. . 01/22/17. CVA on left. Hypertension. Patient moving left hand and fingers much better. . 01/25/17. CVA on left. Hypertension. Patient improving. Patient doing more things with the left upper and lower extremities Clinical Quality Measures DVT/VTE Risk/Contraindication: Risk Factor Score Per Nursin RFS Level Per Nursing on Admit: 4+=Very High QUINN BRIGGS DO Jan 25, 2017 08:52
[2017-01-25] MEDS: BISACODYL 5 MG (DULCOLAX) TABLET PO SCH (09:00)
[2017-01-25] MEDS: HYDROCHLOROTHIAZIDE 12.5 MG (HCTZ) CAP PO SCH (09:09)
[2017-01-25] MEDS: CLOPIDOGREL 75 MG (PLAVIX) TABLET PO SCH (09:09)
[2017-01-25] MEDS: lisINopril 20 MG (ZESTRIL) TAB PO SCH (09:09)
--- NOTE | 2017-01-25 11:47 | Physical Therapy Daily Note ---
PT Daily Note-Current Subjective Pt. states she is having some tingling and heat down her right arm and leg. States it is non stop and that she had had these symptoms previously on and off for years. Also state she has a little dizziness upon standing and wonders if it is related to the increase in BP meds. Pain Numeric Pain Scale: 2 Location: Right Location Body Site: Arm Pain Description: Burning Mental Status Patient Orientation: Normal For Age Transfers Functional [place] Measure 0=Not Assessed/NA 4=Minimal Assistance 1=Total Assistance 5=Supervision or Setup 2=Maximal Assistance 6=Modified [place] 3=Moderate Assistance 7=Complete IndependenceIRFPAI Quality Coding Scale 6 Independent with activity with or without an assistive device 5 Patient requires set up or clean up by helper. Patient completes activity by themselves 4 Supervision or touching assist (CGA). [place] provide cues , steadying assist 3 The helper provides less than half the effort to complete the activity 2 The helper provides more than half the effort to complete the activity 1 Dependent. The helper does all the effort to complete an activity 7 Patient refused to complete or attempt activity 9 The patient did not perform the activity before the current illness or injury 88 Not attempted due to Medical conditions or safety concerns Transfers (B, C, W/C) (FIM): 6 Scootin Rollin Roll Left to Right (QC): 6 Supine to/from Sit: 6 Sit to/from Stand: 6 Sit to Lying (QC): 6 Sit to Stand (QC): 6 Chair/Lsx-lj-Ljxcc Xfer(QC): 6 Bed to/from Chair: 6 Gait Training Does the Patient Walk?: Yes Gait (FIM): 6 Distance (FIM): 3=150 ft (300x2) Walk 10 feet (QC): 6 Walk 50 ft with 2 Turns(QC): 6 Walk 150 ft (QC): 6 Walking 10ft/uneven surface-QC: 6 Gait Level of Assist: 6 Gait Persons Needed: 0 Gait Assistive Device: FWW up ad alicia no LOB Wheelchair Training Does the Pt Use a Wheelchair?: No Stair Training Stair Training: Handrails/: 2 handrails Stairs (FIM): 6 #of Steps: 12 1 Step (curb) (QC): 6 4 Steps (QC): 6 12 Steps (QC): 6 Stairs: Pattern: Step to Level of Assist: 6 Balance Picking up an Object (QC): 6 Exercises Supine Ex: Bridging, Ankle pumps, Quad Set, Rolling, Glut sets, Lower trunk rotation, Heel Slides, Short Arc Quads, Scooting, Straight leg raise, Hip abd/ add Supine Reps: 15 NuStep Minutes: 8 NuStep Workload: 4 Treatments TRFs to prone and up on all 4s and back indep Assessment Current Status: Excellent Progress PT Short Term Goals Short Term Goals Time Frame: Jan 28, 2017 Transfers (B,C,W/C) (FIM): 5 Gait (FIM): 5 PT Detention Goals Can Capper Goals PT Can Capper Goals Time Frame: Feb 11, 2017 Transfers (B,C,W/C) (FIM): 6 Sit to Lying (QC): 6 Lying-Sitting on Side/Bed(QC): 6 Sit to Stand (QC): 6 Rollin Roll Left to Right (QC): 6 Chair/Img-by-Wqptf Xfer(QC): 6 Car Transfer (QC): 6 Does the Patient Walk: Yes Gait (FIM): 4 Gait distance (FIM): 3=150 ft Walk 10 feet (QC): 6 Walk 10ft-Uneven Surface(QC): 6 Walk 50ft with 2 Turns (QC): 6 Walk 150 ft (QC): 6 Gait Level of Assist: 6 Gait Assistive Device: FWW Does the Pt use WC or Scooter?: No Stairs (FIM): 5 # of Steps: 8 1 Step (curb) (QC): 6 4 Steps (QC): 6 12 Steps (QC): 88 Picking up an Object (QC): 5 PT Plan Treatment/Plan Treatment Plan: Continue Plan of Care Treatment Plan: Bed Mobility, Education, Functional Activity Po, Functional Strength, Group Therapy, Gait, Safety, Therapeutic Exercise, Transfers Treatment Duration: Feb 11, 2017 Frequency: At least 5-7 days/Wk (IRF) Estimated Hrs Per Day: 1.5 hours per day Patient and/or Family Agrees t: Yes Safety Risks/Education Patient Education: Gait Training, Transfer Techniques, Steps, Correct Positioning, Safety Issues Teaching Recipient: Patient Teaching Methods: Demonstration, Discussion Response to Teaching: Verbalize Understanding, Return Demonstration Time/GCodes Time In: 1000 Time Out: 1100 Total Billed Treatment Time: 60 Total Billed Treatment 1,FA15m,EX25m,GT20m G Codes Necessary: No JOSHUA BLUM JIG OPERATOR Jan 25, 2017 11:47
--- NOTE | 2017-01-25 12:55 | Physical Therapy Daily Note ---
PT Daily Note-Current Subjective Patient states she is not feeling well. Agrees to PT. Pain Numeric Pain Scale: 0-No Pain Location: No Pain Reported Mental Status Patient Orientation: Normal For Age Transfers Functional [place] Measure 0=Not Assessed/NA 4=Minimal Assistance 1=Total Assistance 5=Supervision or Setup 2=Maximal Assistance 6=Modified [place] 3=Moderate Assistance 7=Complete IndependenceIRFPAI Quality Coding Scale 6 Independent with activity with or without an assistive device 5 Patient requires set up or clean up by helper. Patient completes activity by themselves 4 Supervision or touching assist (CGA). [place] provide cues , steadying assist 3 The helper provides less than half the effort to complete the activity 2 The helper provides more than half the effort to complete the activity 1 Dependent. The helper does all the effort to complete an activity 7 Patient refused to complete or attempt activity 9 The patient did not perform the activity before the current illness or injury 88 Not attempted due to Medical conditions or safety concerns Transfers (B, C, W/C) (FIM): 6 Scootin Rollin Roll Left to Right (QC): 5 Supine to/from Sit: 6 Sit to/from Stand: 6 Sit to Lying (QC): 5 Sit to Stand (QC): 5 Gait Training Does the Patient Walk?: Yes Gait (FIM): 6 Distance (FIM): 3=150 ft Distance: 500' x 5 Walk 10 feet (QC): 5 Walk 50 ft with 2 Turns(QC): 5 Walk 150 ft (QC): 5 Walking 10ft/uneven surface-QC: 5 Gait Level of Assist: 6 Gait Assistive Device: FWW Stair Training Stair Training: Handrails/: 1 handrail Stairs (FIM): 5 #of Steps: 8 1 Step (curb) (QC): 5 4 Steps (QC): 5 Stairs: Pattern: Step to Level of Assist: 6 Assessment Patient to dismiss to home tomorrow. Patient is currently at [facility] safely. PT Short Term Goals Short Term Goals Time Frame: Jan 28, 2017 Transfers (B,C,W/C) (FIM): 5 Gait (FIM): 5 PT Halfway Goals Posting Machine Operator Goals PT Halfway Goals Time Frame: Feb 11, 2017 Transfers (B,C,W/C) (FIM): 6 Sit to Lying (QC): 6 Lying-Sitting on Side/Bed(QC): 6 Sit to Stand (QC): 6 Rollin Roll Left to Right (QC): 6 Chair/Hzj-ez-Ymqzj Xfer(QC): 6 Car Transfer (QC): 6 Does the Patient Walk: Yes Gait (FIM): 4 Gait distance (FIM): 3=150 ft Walk 10 feet (QC): 6 Walk 10ft-Uneven Surface(QC): 6 Walk 50ft with 2 Turns (QC): 6 Walk 150 ft (QC): 6 Gait Level of Assist: 6 Gait Assistive Device: FWW Does the Pt use WC or Scooter?: No Stairs (FIM): 5 # of Steps: 8 1 Step (curb) (QC): 6 4 Steps (QC): 6 12 Steps (QC): 88 Picking up an Object (QC): 5 PT Plan Treatment/Plan Treatment Plan: Continue Plan of Care Treatment Plan: Bed Mobility, Education, Functional Activity Po, Functional Strength, Group Therapy, Gait, Safety, Therapeutic Exercise, Transfers Treatment Duration: Feb 11, 2017 Frequency: At least 5-7 days/Wk (IRF) Estimated Hrs Per Day: 1.5 hours per day Patient and/or Family Agrees t: Yes Time/GCodes Time In: 1220 Time Out: 1250 Total Billed Treatment Time: 30 Total Billed Treatment 1 visit FA x 2 30 min ISABEL SHEA PT Jan 25, 2017 12:55
--- NOTE | 2017-01-25 13:08 | Occupational Ther Daily Note ---
OT Current Status-Daily Note Subjective Pt stated that she was fatigued and not feeling very well. BP-106/71 P-76. Reported to nrsg. Mental Status/Objective Functional [place] Measure 0=Not Assessed/NA 4=Minimal Assistance 1=Total Assistance 5=Supervision or Setup 2=Maximal Assistance 6=Modified [place] 3=Moderate Assistance 7=Complete [place] ADL-Treatment Functional [place] Measure 0=Not Assessed/NA 4=Minimal Assistance 1=Total Assistance 5=Supervision or Setup 2=Maximal Assistance 6=Modified [place] 3=Moderate Assistance 7=Complete IndependenceIRFPAI Quality Coding Scale 6 Independent with activity with or without an assistive device 5 Patient requires set up or clean up by helper. Patient completes activity by themselves 4 Supervision or touching assist (CGA). [place] provide cues , steadying assist 3 The helper provides less than half the effort to complete the activity 2 The helper provides more than half the effort to complete the activity 1 Dependent. The helper does all the effort to complete an activity 7 Patient refused to complete or attempt activity 9 The patient did not perform the activity before the current illness or injury 88 Not attempted due to Medical conditions or safety concerns Other Treatment Pt participated in therapy in room. Completed activity to work on L FM skills. Worked on grasping and releasing small objects into designated area. Pt participated in beading activity to work on L tip pinch and precision motor control. Pt tolerated activity well but began to fatigue at the end, requiring rest breaks. After therapy, pt sitting in bed with phone and call button within reach. All needs met in room. OT Short Term Goals Short Term Goals Transfers (B,C,W/C) (FIM): 5 1=Demonstrate adherence to instructed precautions during ADL tasks. 2=Patient will verbalize/demonstrate understanding of assistive devices/ modifications for ADL. 3=Patient will improve strength/tolerance for activity to enable patient to perform ADL's. OT Long-Term Goals Regulatory Administrator Goals Time Frame: Jan 28, 2017 Eating (FIM): 7 Eating (QC): 6 Groomin (met 01/25/17) Oral Hygiene (QC): 6 (met 01/25/17) Bathing(FIM): 6 (met 01/25/17) Shower/Bathe Self (QC): 6 (met 01/25/17) Upper Body Dressing(FIM): 6 (met 01/25/17) Upper Body Dressing (QC): 6 (met 01/25/17) Lower Body Dressing(FIM): 6 (met 01/25/17) Lower Body Dressing (QC): 6 (met 01/25/17) On/Off Footwear (QC): 6 (met 01/25/17) Toileting(FIM): 6 (met 01/25/17) Toileting Hygiene (QC): 6 (met 01/25/17) Transfers (B,C,W/C) (FIM): 6 (met 01/25/17) Toilet/Commode Transfer(FIM): 6 (met 01/25/17) Toilet/Commode Transfer (QC): 6 (met 01/25/17) Shower Transfer(FIM): 6 (met 01/25/17) Comprehension(FIM): 6 (MET) Expression (FIM): 6 (MET) Social Interaction(FIM): 6 (MET) Problem Solving(FIM): 5 (MET) Memory(FIM): 5 (MET) Additional Goals: 1-Demonstrate ADL Tasks, 2-Verbalize Understanding, 3- ImproveStrength/Po 1=Demonstrate adherence to instructed precautions during ADL tasks. 2=Patient will verbalize/demonstrate understanding of assistive devices/ modifications for ADL. 3=Patient will improve strength/tolerance for activity to enable patient to perform ADL's. OT Education/Plan Discharge Recommendations Plan/Recommendations: Continue POC Treatment Plan/Plan of Care Patient would benefit from OT for education, treatment and training to promote independence in ADL's, mobility, safety and/or upper extremity function for ADL' s. Plan of Care: ADL Retraining, Caregiver Training, Functional Mobility, Group Exercise/Act as Ind, UE Funct Exercise/Act, UE Neuromus Re-Ed/Coord Treatment Duration: Jan 28, 2017 Frequency: At least 5-7 days/Wk (IRF) Estimated Hrs Per Day: 1 hour per day Agreement: Yes Rehab Potential: Good Time/GCodes Start Time: 12:50 Stop Time: 13:20 Total Time Billed (hr/min): 30 Billed Treatment Time 1 visit-EX 2 (30 min) EMILY RAYO Jan 25, 2017 13:08
--- NOTE | 2017-01-25 13:26 | Occupational Ther Daily Note ---
OT Current Status-Daily Note Subjective Mental Status/Objective Functional [place] Measure 0=Not Assessed/NA 4=Minimal Assistance 1=Total Assistance 5=Supervision or Setup 2=Maximal Assistance 6=Modified [place] 3=Moderate Assistance 7=Complete [place] ADL-Treatment Functional [place] Measure 0=Not Assessed/NA 4=Minimal Assistance 1=Total Assistance 5=Supervision or Setup 2=Maximal Assistance 6=Modified [place] 3=Moderate Assistance 7=Complete IndependenceIRFPAI Quality Coding Scale 6 Independent with activity with or without an assistive device 5 Patient requires set up or clean up by helper. Patient completes activity by themselves 4 Supervision or touching assist (CGA). [place] provide cues , steadying assist 3 The helper provides less than half the effort to complete the activity 2 The helper provides more than half the effort to complete the activity 1 Dependent. The helper does all the effort to complete an activity 7 Patient refused to complete or attempt activity 9 The patient did not perform the activity before the current illness or injury 88 Not attempted due to Medical conditions or safety concerns OT Short Term Goals Short Term Goals Transfers (B,C,W/C) (FIM): 5 1=Demonstrate adherence to instructed precautions during ADL tasks. 2=Patient will verbalize/demonstrate understanding of assistive devices/ modifications for ADL. 3=Patient will improve strength/tolerance for activity to enable patient to perform ADL's. OT Fermentologist Goals Fermentologist Goals Time Frame: Jan 28, 2017 Eating (FIM): 7 Eating (QC): 6 Groomin (met 01/25/17) Oral Hygiene (QC): 6 (met 01/25/17) Bathing(FIM): 6 (met 01/25/17) Shower/Bathe Self (QC): 6 (met 01/25/17) Upper Body Dressing(FIM): 6 (met 01/25/17) Upper Body Dressing (QC): 6 (met 01/25/17) Lower Body Dressing(FIM): 6 (met 01/25/17) Lower Body Dressing (QC): 6 (met 01/25/17) On/Off Footwear (QC): 6 (met 01/25/17) Toileting(FIM): 6 (met 01/25/17) Toileting Hygiene (QC): 6 (met 01/25/17) Transfers (B,C,W/C) (FIM): 6 (met 01/25/17) Toilet/Commode Transfer(FIM): 6 (met 01/25/17) Toilet/Commode Transfer (QC): 6 (met 01/25/17) Shower Transfer(FIM): 6 (met 01/25/17) Comprehension(FIM): 6 (MET) Expression (FIM): 6 (MET) Social Interaction(FIM): 6 (MET) Problem Solving(FIM): 5 (MET) Memory(FIM): 5 (MET) Additional Goals: 1-Demonstrate ADL Tasks, 2-Verbalize Understanding, 3- ImproveStrength/Po 1=Demonstrate adherence to instructed precautions during ADL tasks. 2=Patient will verbalize/demonstrate understanding of assistive devices/ modifications for ADL. 3=Patient will improve strength/tolerance for activity to enable patient to perform ADL's. OT Education/Plan Treatment Plan/Plan of Care Patient would benefit from OT for education, treatment and training to promote independence in ADL's, mobility, safety and/or upper extremity function for ADL' s. Plan of Care: ADL Retraining, Caregiver Training, Functional Mobility, Group Exercise/Act as Ind, UE Funct Exercise/Act, UE Neuromus Re-Ed/Coord Treatment Duration: Jan 28, 2017 Frequency: At least 5-7 days/Wk (IRF) Estimated Hrs Per Day: 1 hour per day Agreement: Yes Rehab Potential: EMILY Lara Jan 25, 2017 13:26
[2017-01-25] MEDS: IBUPROFEN TABLET 200 MG TAB PO PRN (15:05)
[2017-01-25 17:23] VITALS: BP 124/76
--- NOTE | 2017-01-25 20:20 | PM & R (SOAP) Progress Note ---
Subjective Time Seen by Provider: 20:15 Subjective/Events-last exam Patient was seen in her room this evening Patient has progressed well Discharge remains set for tomorrow Patient SBA for transfers Objective Exam Last Set of Vital Signs Vital Signs Date Time Temp Pulse Resp B/P (MAP) Pulse Ox O2 Delivery O2 Flow Rate FiO2 01/25/17 20:06 Room Air 01/25/17 17:23 97.9 68 18 124/76 97 01/19/17 19:08 0.00 Capillary Refill : Less Than 3 Seconds I&O Intake and Output 01/26/17 00:00 Intake Total 1040 ml Balance 1040 ml Intake Oral 1040 ml # Voids 7 # Bowel Movements 1 General: Alert, Oriented X3, Cooperative, No Acute Distress HEENT: Atraumatic, PERRLA, EOMI, Mucous Memb Moist/[place], Other (mild rt labial droop) Neck: Supple, No JVD Lungs: Clear to Auscultation Heart: Regular Rate Abdomen: Normal Bowel Sounds, Soft, No Tenderness Extremities: No Edema Skin: No Significant Lesion Neuro: Other (Mild left HP and dysasrthria Dysphagia on thickened liquids) Assessment/Plan Assessment 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
[2017-01-26 05:01] VITALS: BP 110/75
[2017-01-26] MEDS: PANTOPRAZOLE 40 MG (PROTONIX) TAB PO SCH (06:22)
[2017-01-26] MEDS: MULTIVIT W/MINERALS TAB (THERAGRAN M) PO SCH (06:22)
--- NOTE | 2017-01-26 08:08 | Progress Note (SOAP) ---
Subjective Time Seen by Provider: 08:05 Subjective/Events-last exam patient feels upset with her stomach today. Zofran ordered. CVA on left. Patient moving left hand and finger much better.. Patient continues to improve Objective Exam Vital Signs Date Time Temp Pulse Resp B/P (MAP) Pulse Ox O2 Delivery O2 Flow Rate FiO2 01/26/17 05:01 97.8 76 18 110/75 97 Room Air 01/25/17 20:06 Room Air 01/25/17 17:23 97.9 68 18 124/76 97 Room Air 01/25/17 09:00 Room Air Capillary Refill : Less Than 3 Seconds General Appearance: No Apparent Distress, Thin HEENT: Normal ENT Inspection Neck: Normal Inspection Respiratory: No Accessory Muscle Use, No Respiratory Distress Cardiovascular: Regular Rate, Rhythm, No Murmur Assessment/Plan Assessment/Plan Assess & Plan/Chief Complaint CVA on left. Hypertension. Blood in the stools.. . 01/18/17 area CVA on left. Malignant hypertension. History of blood in stools. Patient moving hand better. Patient able to move her fingers. . 01/19/17. CVA on left improving. Hypertension. Improving. Blood in the stools. 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 . . 01/20/17. CVA on left.. Hypertension. Blood in stools. patient improving. Hypertension okay.. . 01/21/17. CVA on left improving. Hypertension still high in the morning .. Patient using walker to get around.. Left hand doing better and fingers is improving. . 01/22/17. CVA on left. Hypertension. Patient moving left hand and fingers much better. . 01/25/17. CVA on left. Hypertension. Patient improving. Patient doing more things with the left upper and lower extremities. . 01/26/17. CVA on left. Hypertension. Patient has an upset stomach today.. Patient working progress Clinical Quality Measures DVT/VTE Risk/Contraindication: Risk Factor Score Per Nursin RFS Level Per Nursing on Admit: 4+=Very High QUINN BRIGGS DO Jan 26, 2017 08:08
[2017-01-26] MEDS ORDERED: ONDANSETRON 4 MG (ZOFRAN) ORAL DISSOLVE TAB PO PRN (08:15)
[2017-01-26] MEDS: BISACODYL 5 MG (DULCOLAX) TABLET PO SCH (08:38)
[2017-01-26] MEDS ORDERED: CLOP75TA28 PO (08:45)
[2017-01-26] MEDS ORDERED: HYDR12.5 PO (08:45)
[2017-01-26] MEDS ORDERED: PANT40TA2 PO (08:45)
[2017-01-26] MEDS ORDERED: LISI-552 PO (08:45)
--- NOTE | 2017-01-26 08:48 | PM & R (SOAP) Progress Note ---
Subjective Time Seen by Provider: 07:45 Subjective/Events-last exam Patient was seen in her room this AM C/O mild dyspepsia this AM Current meds reviewed Dr salazar has addressed. Objective Exam Last Set of Vital Signs Vital Signs Date Time Temp Pulse Resp B/P (MAP) Pulse Ox O2 Delivery O2 Flow Rate FiO2 01/26/17 05:01 97.8 76 18 110/75 97 Room Air Capillary Refill : Less Than 3 Seconds I&O Intake and Output 01/27/17 00:00 Intake Total 250 ml Balance 250 ml Intake Oral 250 ml # Voids 4 General: Alert, Oriented X3, Cooperative, No Acute Distress HEENT: Atraumatic, PERRLA, EOMI, Mucous Memb Moist/[place], Other (mild rt labial droop) Neck: Supple, No JVD Lungs: Clear to Auscultation Heart: Regular Rate Abdomen: Normal Bowel Sounds, Soft, No Tenderness Extremities: No Edema Skin: No Significant Lesion Neuro: Other (Mild left HP and dysasrthria Dysphagia on thickened liquids) Assessment/Plan Assessment 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 Patient indicates thst she will have f/u with PCP in [place] 01/27/17 and that her daughter will be picking her up tomorrow afternoon LAUREL LOPEZ MD Jan 26, 2017 08:48
[2017-01-26 09:40] VITALS: BP 110/72
[2017-01-26] MEDS: HYDROCHLOROTHIAZIDE 12.5 MG (HCTZ) CAP PO SCH (09:44)
[2017-01-26] MEDS: lisINopril 20 MG (ZESTRIL) TAB PO SCH (09:44)
[2017-01-26] MEDS: CLOPIDOGREL 75 MG (PLAVIX) TABLET PO SCH (09:45)
--- NOTE | 2017-01-26 10:16 | Therapy Team Discharge Summary ---
Therapy Discharge Summary Discharge Recommendations Date of Discharge Therapy D/C Recommendations: Occupational Therapy Home Care Physical Therapy 71 y.o. female, s/p CVA with left hemiparesis, received skilled PT to improve functional strength and mobility. Upon initial evaluation, patient presents post CVA with left sided weakness that impairs transfers, gait, balance, safety and functional activity tolerance. She has decreased safety awareness and has some difficulty with complex movements. Patient is currently at a modified independent LOF with all gross motor skills and has attained all functional goals set. Patient will continue to receive therapy on a home health or out patient basis. PT Deoiling Machine Operator Goals Usp Goals PT Deoiling Machine Operator Goals Time Frame: Feb 11, 2017 Transfers (B,C,W/C) (FIM): 6 (met 01/25/17) Roll Left to Right (QC): 6 (met 01/25/17) Sit to Lying (QC): 6 (met 01/25/17) Lying-Sitting on Side/Bed(QC): 6 (met 01/25/17) Sit to Stand (QC): 6 (met 01/25/17) Chair/Oru-mr-Onirh Xfer(QC): 6 (met 01/25/17) Car Transfer (QC): 6 (met 01/25/17) Does the Patient Walk: Yes Gait (FIM): 4 (met 01/25/17) Gait distance (FIM): 3=150 ft Walk 10 feet (QC): 6 (met 01/25/17) Walk 10ft-Uneven Surface(QC): 6 (met 01/25/17) Walk 50ft with 2 Turns (QC): 6 (met 01/25/17) Walk 150 ft (QC): 6 (met 01/25/17) Gait Level of Assist: 6 (met 01/25/17) Gait Assistive Device: FWW Does the Pt use WC or Scooter?: No Stairs (FIM): 5 (met 01/25/17) # of Steps: 8 1 Step (curb) (QC): 6 (met 01/25/17) 4 Steps (QC): 6 (met 01/25/17) 12 Steps (QC): 88 (performed 12 steps modified independent) Picking up an Object (QC): 5 (met 01/25/17) OT Deoiling Machine Operator Goals Usp Goals Time Frame: Jan 28, 2017 Eating (FIM): 7 (met- 01/25/17) Eating (QC): 6 (met 01/25/17) Oral Hygiene (QC): 6 (met 01/25/17) Grooming(FIM): 6 (met 01/25/17) Bathing(FIM): 6 (met 01/25/17) Shower/Bathe Self (QC): 6 (met 01/25/17) Upper Body Dressing(FIM): 6 (met 01/25/17) Upper Body Dressing (QC): 6 (met 01/25/17) Lower Body Dressing(FIM): 6 (met 01/25/17) Lower Body Dressing (QC): 6 (met 01/25/17) On/Off Footwear (QC): 6 (met 01/25/17) Toileting(FIM): 6 (met 01/25/17) Toileting Hygiene (QC): 6 (met 01/25/17) Transfers (B,C,W/C) (FIM): 6 (met 01/25/17) Toilet/Commode Transfer(FIM): 6 (met 01/25/17) Toilet/Commode Transfer (QC): 6 (met 01/25/17) Shower Transfer(FIM): 6 (met 01/25/17) Comprehension(FIM): 6 (MET) Expression (FIM): 6 (MET) Social Interaction(FIM): 6 (MET) Problem Solving(FIM): 5 (MET) Memory(FIM): 5 (MET) Additional Goals: 1-Demonstrate ADL Tasks, 2-Verbalize Understanding, 3- ImproveStrength/Po 1=Demonstrate adherence to instructed precautions during ADL tasks. 2=Patient will verbalize/demonstrate understanding of assistive devices/ modifications for ADL. 3=Patient will improve strength/tolerance for activity to enable patient to perform ADL's. Speech Deoiling Machine Operator Goals Usp Goals 1. The patient will demonstrate increased intelligibility through oral motor strengthening and range of motion exercises. Time Frame: Two Weeks Comprehension: 6 (MET) Expression: 6 (MET) Social Interaction: 6 (MET) Problem Solvin (MET) Memory: 5 (MET) ISABEL SHEA PT Jan 26, 2017 10:16
[2017-01-26 13:15] VITALS: BP 110/72
--- NOTE | 2017-01-26 15:30 | Therapy Team Discharge Summary ---
Therapy Discharge Summary Discharge Recommendations Date of Discharge Therapy D/C Recommendations: Home w/ Family Support, Occupational Therapy Home Care Occupational Therapy Pt. has been seen by occupational therapy to increase overall strength and independence with daily tasks. Pt. has met all goals. Pt. is able to complete all ADLs with Mod I/I. Pt. is discharging home with spouse and family support. Recommend home health OT services. PT Clinical Transformation Specialist Goals Clinical Transformation Specialist Goals PT Clinical Transformation Specialist Goals Time Frame: Feb 11, 2017 Transfers (B,C,W/C) (FIM): 6 (met 01/25/17) Roll Left to Right (QC): 6 (met 01/25/17) Sit to Lying (QC): 6 (met 01/25/17) Lying-Sitting on Side/Bed(QC): 6 (met 01/25/17) Sit to Stand (QC): 6 (met 01/25/17) Chair/Mzm-al-Fpyoq Xfer(QC): 6 (met 01/25/17) Car Transfer (QC): 6 (met 01/25/17) Does the Patient Walk: Yes Gait (FIM): 4 (met 01/25/17) Gait distance (FIM): 3=150 ft Walk 10 feet (QC): 6 (met 01/25/17) Walk 10ft-Uneven Surface(QC): 6 (met 01/25/17) Walk 50ft with 2 Turns (QC): 6 (met 01/25/17) Walk 150 ft (QC): 6 (met 01/25/17) Gait Level of Assist: 6 (met 01/25/17) Gait Assistive Device: FWW Does the Pt use WC or Scooter?: No Stairs (FIM): 5 (met 01/25/17) # of Steps: 8 1 Step (curb) (QC): 6 (met 01/25/17) 4 Steps (QC): 6 (met 01/25/17) 12 Steps (QC): 88 (performed 12 steps modified independent) Picking up an Object (QC): 5 (met 01/25/17) OT Clinical Transformation Specialist Goals Correction Goals Time Frame: Jan 28, 2017 Eating (FIM): 7 (met- 01/25/17) Eating (QC): 6 (met 01/25/17) Oral Hygiene (QC): 6 (met 01/25/17) Grooming(FIM): 6 (met 01/25/17) Bathing(FIM): 6 (met 01/25/17) Shower/Bathe Self (QC): 6 (met 01/25/17) Upper Body Dressing(FIM): 6 (met 01/25/17) Upper Body Dressing (QC): 6 (met 01/25/17) Lower Body Dressing(FIM): 6 (met 01/25/17) Lower Body Dressing (QC): 6 (met 01/25/17) On/Off Footwear (QC): 6 (met 01/25/17) Toileting(FIM): 6 (met 01/25/17) Toileting Hygiene (QC): 6 (met 01/25/17) Transfers (B,C,W/C) (FIM): 6 (met 01/25/17) Toilet/Commode Transfer(FIM): 6 (met 01/25/17) Toilet/Commode Transfer (QC): 6 (met 01/25/17) Shower Transfer(FIM): 6 (met 01/25/17) Comprehension(FIM): 6 (MET) Expression (FIM): 6 (MET) Social Interaction(FIM): 6 (MET) Problem Solving(FIM): 5 (MET) Memory(FIM): 5 (MET) Additional Goals: 1-Demonstrate ADL Tasks, 2-Verbalize Understanding, 3- ImproveStrength/Po 1=Demonstrate adherence to instructed precautions during ADL tasks. 2=Patient will verbalize/demonstrate understanding of assistive devices/ modifications for ADL. 3=Patient will improve strength/tolerance for activity to enable patient to perform ADL's. Speech Clinical Transformation Specialist Goals Clinical Transformation Specialist Goals 1. The patient will demonstrate increased intelligibility through oral motor strengthening and range of motion exercises. Time Frame: Two Weeks Comprehension: 6 (MET) Expression: 6 (MET) Social Interaction: 6 (MET) Problem Solvin (MET) Memory: 5 (MET) RAMAKRISHNA MOULTON OT Jan 26, 2017 15:30
--- NOTE | 2017-01-28 04:20 | DISCHARGE SUMMARY ---
DATE OF SERVICE: 01/26/2017 HISTORY OF PRESENT ILLNESS: The patient is a 71-year-old female who is and independent, lives with her spouse in [place], [place] who presented to [place] ED for rectal bleeding, was setup to have a scope with a physician on 01/15/2017 however, she developed left-sided weakness and facial droop in the interval. She was admitted to the hospital on 01/11/2017. MRI of the brain revealed a right middle cerebral artery distribution ischemic stroke accounting for her left hemiparesis, right facial droop, dysphagia and dysarthria. Also noted was multiple small old lacunar infarcts she apparently had in the past as well as undiagnosed hypertension. Medications were begun for this. Apparently the patient had not been seen by a physician in quite a while. She has a mild dysarthria and is on nectar thick liquids for her dysphagia. PAST MEDICAL HISTORY: Hypertension, small lacunar infarcts, recent rectal bleeding, endoscopy deferred due to stroke, tobacco use currently abstaining. She is right handed, had been independent, was driving and living with spouse in [place]. PRIMARY CARE PHYSICIAN: Dr. Solange Gil. MEDICAL COURSE: The patient was followed by Dr. Ely and Amador while on rehab unit. She progressed well with her therapies. Her CBC was stable. Her stool for occult blood was negative. Her WBC on 01/16/2017 was 1.3, H and H 11.4 and 34, platelet count 254,000. Chemistry on 01/15/2017 was normal other than mildly elevated chloride of 111 and total protein low at 5.7. She was afebrile during her stay. Blood pressure was 110/72 on 01/26, pulse 70, respirations 18, O2 sat 99% on room air. She had improved strength on the left side and improved balance. She had some mild nausea on day of discharge which resolved was 1 Zofran tablet. She continued on her hydrochlorothiazide, lisinopril, Plavix, multivitamins, Protonix and Motrin p.r.n. REHABILITATION COURSE: She progressed well with her therapy. She had increased strength and endurance as mentioned above. PHYSICAL THERAPY NOTES: Upon admission, the patient presented with left-sided weakness and impaired transfers, gait, balance, safety and functional activity tolerance. She had decreased safety awareness and had some difficulty with complex movements. Upon discharge she is modified independent with all gross motor skills, modified independent for transfers, bed mobility and ambulation with extra time. OCCUPATIONAL THERAPY NOTES: Upon discharge, she is able to complete all her ADLs, modified independent to independent. Upon admission, she was set up for grooming, min assist for bathing, upper body dressing, mod assist for lower body dressing, min assist for toilet and hygiene, toilet transfers, shower transfers. Thus, she markedly improved in those domains. SPEECH THERAPY NOTES: Upon admission the patient demonstrated mild dysarthria, although flaccid type skills. Speech pathology focused on oral motor exercises, lingual and labial range of motion and strength. The patient displayed high accuracy and independence with her exercises as well as increased intelligibility throughout unstructured conversation. The patient was essentially independent for cognition and speech and swallow, eating regular consistency diet and liquids. DISCHARGE INSTRUCTIONS: Continue current diet. The patient will have home health care. The patient indicates that she will see Dr. Solange Gil her PCP, later this week. She is discharged to home with her spouse. DISCHARGE MEDICATIONS: 1. Plavix 75 mg p.o. daily. 2. Hydrochlorothiazide 12.5 mg p.o. daily. 3. Lisinopril 20 mg p.o. daily. 4. Ibuprofen 400 mg p.o. q.12h. p.r.n. mild pain. 5. Multivitamins 1 tablet p.o. daily. 6. Protonix 40 mg p.o. daily. DISCHARGE DIAGNOSES: 1. Rehabilitation ambulatory dysfunction secondary to right middle cerebral artery distribution ischemic stroke with resulting left hemiparesis, mild dysarthria and dysphagia, all improved. 2. Hypertension, controlled on medication. 3. History of rectal bleeding, now quiescent. 4. Tobaccoism, currently abstaining. 5. Mild anemia of blood loss. 6. Dyspepsia, resolved. CONDITION AT DISCHARGE: Improved and stable. PROGNOSIS: Rehab prognosis appears good for continued improvement at home with home health care and assistance from her spouse as needed. Return to independent living. Job ID: [id number] DocumentID: [id number] Dictated Date: 01/27/2017 09:46:04 Career Based Intervention Coordinator Date: 01/28/2017 04:20:01 Dictated By: LAUREL ELY MD
== END 2017-01-26 18:01 | disposition home health service (06) | DRG 57 ==
PROVIDERS: ADMIT Physical Medicine & Rehabilitation; ATTEND Physical Medicine & Rehabilitation
DX: I69.354 Hemiplegia and hemiparesis following cerebral infarction affecting left non-dominant side (principal); I69.392 Facial weakness following cerebral infarction; I69.391 Dysphagia following cerebral infarction; I69.322 Dysarthria following cerebral infarction; I10 Essential (primary) hypertension; K92.1 Melena; D64.9 Anemia, unspecified; R10.13 Epigastric pain; F17.200 Nicotine dependence, unspecified, uncomplicated
CPT/HCPCS: 36415; 80053; 82274; 85025; 85027

== ENCOUNTER → 2019-10-16 | Outpatient (CLI) | payer MEDICARE ==
[~2019-10-16] MED LIST: B12; BISA5TAB8 PO; CLOP75TA28 PO; CLOP75TA69 PO; CYAN-41 PO; HYDR12.5 PO; IBUP-2473 PO; LISI-552 PO; MULT-178 PO; MULT-35 PO; PANT40TA2 PO
[2019-10-16 10:53] LABS: POTASSIUM 4.1 MMOL/L (3.6-5.0)
[2019-10-16 10:54] LABS: BILIRUBIN,TOTAL 0.4 MG/DL (0.1-1.0); CALCIUM 9.4 MG/DL (8.5-10.1); CREATININE SERUM 0.97 MG/DL (0.60-1.30); TOTAL PROTEIN 6.5 GM/DL (6.4-8.2)
[2019-10-17 15:22] LABS: TRIGLYCERIDES 74 MG/DL (<150); VLDL CHOLESTEROL 15 MG/DL (5-40)
[2019-10-17 15:27] LABS: CHOLESTEROL 168 MG/DL (< 200)
[2019-10-17 15:28] LABS: HDL CHOLESTEROL 49 MG/DL (40-60)
== END ==
LOC: LAB FS 09:11
PROVIDERS: ATTEND Family Medicine
DX: Z00.00 Encounter for general adult medical examination without abnormal findings (principal)
CPT/HCPCS: 36415; 80053; 80061

== ENCOUNTER 2021-03-18 21:11 | Emergency (ER) | payer MEDICARE ==
[~2021-03-18] VITALS: Ht 149.9 cm; Wt 32.6 kg
[~2021-03-18 21:11] MED LIST changes: -LISI-552 PO; +LISI20TA26 PO
[2021-03-18] MEDS ORDERED: IBUPROFEN TABLET 200 MG TAB PO STA (21:28)
--- NOTE | 2021-03-18 21:34 | ED Hip Pain/Injury ---
General Chief Complaint: Hip/Pelvic Problems Stated Complaint: FALL/R HIP PAIN History of Present Illness Date Seen by Provider: Mar 18, 2021 Time Seen by Provider: 21:15 Initial Comments 75-year-old female presents by private conveyance for right hip pain. She states she stubbed her toe on a piece of grass causing her to fall and land on her right hip. She denies head injury. She is on an anticoagulant. No other injuries from the fall. She was unable to bear weight on her right leg after the fall. She has had no previous history of injuries to her right lower extremity. Timing/Duration: this evening Location: hip (R) Method of Injury: fell Associated Symptoms: denies symptoms (KAIN CORDOVA) Allergies and Home Medications Allergies Coded Allergies: No Known Drug Allergies (Unverified , 01/14/17) Patient Home Medication List Home Medication List Reviewed: Yes (KAIN CORDOVA) Clopidogrel Bisulfate (Plavix) 75 Mg Tablet, 75 MG PO DAILY, (Reported) Entered as Reported by: GUERRERO BERGMAN on 08/25/18 150 Last Action: Last Taken Edited Cyanocobalamin (Vitamin B-12) (Vitamin B-12) 1,000 Mcg Tablet, 1,000 MCG PO DAILY, (Reported) Entered as Reported by: GUERRERO BERGMAN on 08/25/181507 Lisinopril (Lisinopril) 20 Mg Tablet, 20 MG PO DAILY, (Reported) Entered as Reported by: GUERRERO BERGMAN on 08/25/18 150 Last Action: Last Taken Edited Multivitamin (Multiple Vitamins) 1 Each Tablet, 1 TAB PO DAILY, (Reported) Entered as Reported by: GUERRERO BERGMAN on 08/25/18 150 Review of Systems Constitutional: no symptoms reported, see HPI Musculoskeletal: see HPI, joint pain (Right hip) (KAIN CORDOVA) All Other Systems Reviewed Negative Unless Noted: Yes (KAIN CORDOVA) Past Tnugbeb-Glaqkp-Zybhpi Hx Patient Social History Tobacco Use?: No Substance use?: No Alcohol Use?: No Pt feels they are or have been: No (KAIN CORDOVA) Seasonal Allergies Seasonal Allergies: Yes (sinus) (KAIN CORDOVA) Past Medical History Surgery/Hospitalization HX: COLON RESECTION, COLOSTOMY WITH REVERSAL. HTN, CVA Surgeries: Yes Appendectomy, Bowel Surgery Respiratory: No Currently Using CPAP: No Currently Using BIPAP: No Cardiac: No Hypertension Neurological: Yes Stroke Genitourinary: No Gastrointestinal: Yes (colon resection, temporary colostomy 20 yrs ago) Gastrointestinal Bleed, Chronic Constipation Musculoskeletal: Yes (hands) Arthritis Endocrine: No HEENT: Yes (Cataract Lt eye) Cataract Loss of Vision: Left Hearing Impairment: Denies Cancer: No Psychosocial: No Integumentary: Yes (dry/flaky) Blood Disorders: No Adverse Reaction/Blood Tranf: No (KAIN CORDOVA) Family Medical History Reviewed Nursing Family Hx (KAIN CORDOVA) Physical Exam Vital Signs Vital Signs - First Documented 03/18/21 21:15 Temp 37.0 Pulse 77 Resp 16 B/P (MAP) 164/92 (116) Pulse Ox 93 O2 Delivery Room Air (BOBBI,MICHELET K DO) Vital Signs Capillary Refill : (KAIN CORDOVA) Height, Weight, BMI Height: 4'11.00" Weight: 72lbs. 5.0oz. 32.273450il; 15.2 BMI Method:Stated General Appearance: No Apparent Distress, WD/WN HEENT: PERRL/EOMI, TMs Normal, Normal ENT Inspection, Pharynx Normal Neck: Full Range of Motion, Normal Inspection, Non Tender, Supple Cardiovascular: Regular Rate, Rhythm, No Murmur, Normal Peripheral Pulses Respiratory: Chest Non Tender, Lungs Clear, Normal Breath Sounds Gastrointestinal: Normal Bowel Sounds, Non Tender, Soft Extremity: Normal Capillary Refill, Normal Inspection, Pelvis Stable, Other (Limited range of motion to right hip secondary to pain. No shortening or external rotation noted.) Neurologic/Psychiatric: Alert, Oriented x3, No Motor/Sensory Deficits, Normal Mood/Affect Skin: Normal Color, Warm/Dry, Other (No abrasions or lacerations noted to right lower extremity.) (KAIN CORDOVA) Progress/Results/Core Measures Results/Orders Vital Signs/I&O 03/18/21 03/18/21 21:15 22:43 Temp 37.0 36.5 Pulse 77 68 Resp 16 16 B/P (MAP) 164/92 (116) 154/87 Pulse Ox 93 94 O2 Delivery Room Air Room Air (BOBBI,MICHELET K DO) Progress Progress Note : Time: 21:15 Progress Note Patient seen and evaluated, with will obtain x-ray of the pelvis and right hip. Ice to right hip. Motrin 600 mg orally. 2215 patient ambulated with mild discomfort on the lateral aspect of the right hip. She was able to bear full weight on the right hip. Improved mobility while in bed with right hip. She has a walker at home to use, discharge instructions and return precautions reviewed with the patient. (KAIN CORDOVA) Diagnostic Imaging Diagonstic Imaging: Xray Plain Films/CT/US/NM/MRI: pelvis, hip Comments No Fracture or acute findings noted. Will be over-read by radiology NAME: LAKHWINDER VIRK [facility] REC#: [id number] PT STATUS: REG ER : 1945 PHYSICIAN: KAIN CORDOVA ADMIT DATE: 03/18/21/ER Draft Date of Exam:03/18/21 PELVIS WITH RIGHT HIP 2-3VIEWS INDICATION: Pelvic pain COMPARISON: None. FINDINGS: AP view of the pelvis and 2 dedicated radiographic views of the right hip were obtained. There is no acute fracture or dislocation in the right hip. Femoral acetabular joint space is maintained. Note is made of deformity of the right inferior and superior pubic rami; presumably chronic. Pubic symphysis is within normal limits. SI joints are symmetric. No other acute appearing osseous abnormality in the pelvis is identified. No unexpected radiopaque foreign bodies are seen. IMPRESSION: 1. No acute fracture or dislocation in the right hip. 2. Deformity of the superior and inferior pubic rami on the right. These are favored to be chronic in nature, but if concern for acute fracture persists, CT is advised. Dictated on workstation # [id number] Dict: 03/18/212231 Trans: 03/18/212236 [facility] [id number] Interpreted by: ELMIRA MUHAMMAD MD Electronically signed by: Reviewed: Reviewed by Me (No pain over pelvis, noted chronic change to pubic rami, not symptomatic of site of pain. All pain is lateral hip and soft tissue. ) (KAIN CORDOVA) Departure Impression Primary Impression: Fall Qualified Codes: W19.XXXA - Unspecified fall, initial encounter Additional Impression: Right hip pain Disposition: 01 HOME, SELF-CARE Condition: Improved Departure-Patient Inst. Decision time for Depature: 22:30 (KAIN CORDOVA) Referrals: ADRIANA GRAHAM MD (PCP/Family) Primary Care Physician Patient Instructions: Contusion (DC) Add. Discharge Instructions: Use walker for the next 5 to 7 days as needed for support when ambulation. Continue to take Motrin 600 mg every 8 hours for pain. Apply ice to your right hip for 10 to 15 minutes every 2-3 hours. Use the tramadol for increased pain. Continue your home medications. Follow-up with Dr. Graham if symptoms are not improving or worsen. Return to the emergency department for new, urgent healthcare problems. All discharge instructions reviewed with patient and/or family. Voiced understanding. ATTENDING PHYSICIAN NOTE: I WAS PHYSICALLY PRESENT ER PHYSICIAN, WHEN THIS PATIENT WAS IN ER, BUT I WAS NOT INVOLVED IN DECISION MAKING OR ANY CARE OF THIS PATIENT. (MICHELET MARTINES DO) Copy Copies To 1: ADRIANA GRAHAM MD, AMY ARNP Mar 18, 2021 21:34 MICHELET MARTINES DO Mar 19, 2021 02:02
--- NOTE | 2021-03-18 22:37 | Diagnostic Imaging Report ---
INDICATION: Pelvic pain COMPARISON: None. FINDINGS: AP view of the pelvis and 2 dedicated radiographic views of the right hip were obtained. There is no acute fracture or dislocation in the right hip. Femoral acetabular joint space is maintained. Note is made of deformity of the right inferior and superior pubic rami; presumably chronic. Pubic symphysis is within normal limits. SI joints are symmetric. No other acute appearing osseous abnormality in the pelvis is identified. No unexpected radiopaque foreign bodies are seen. IMPRESSION: 1. No acute fracture or dislocation in the right hip. 2. Deformity of the superior and inferior pubic rami on the right. These are favored to be chronic in nature, but if concern for acute fracture persists, CT is advised. Dictated by: Dictated on workstation # [id number]
[2021-03-18 22:43] VITALS: BP 154/87
== END 2021-03-18 22:49 | disposition home or self-care (01) ==
LOC: EDUNIT# 21:11 → ER 21:12
DX: M25.551 Pain in right hip (principal); I10 Essential (primary) hypertension; Z86.73 Personal history of transient ischemic attack (TIA), and cerebral infarction without residual deficits; Z79.02 Long term (current) use of antithrombotics/antiplatelets; Z79.899 Other long term (current) drug therapy; W18.09XA Striking against other object with subsequent fall, initial encounter

== ENCOUNTER → 2021-03-25 | Outpatient (CLI) | payer MEDICARE ==
[~2021-03-25] MED LIST changes: +ACHD5005 PO; +CATHETER FLUSH 10 ML SYR IV PRN; +HOLD METFORMIN - RECEIVED CONTRAST 20 ML VIAL IV SCH; +IBUP-2185 PO; +IOHEXOL 350 MG/ML 100 ML (OMNIPAQUE 350) VIAL IV ONE; +NS 100 ML (IVPB) BAG IV ONE
[2021-03-25 10:08] LABS: CREATININE SERUM 0.94 MG/DL (0.60-1.30)
--- NOTE | 2021-03-25 11:32 | Diagnostic Imaging Report ---
PROCEDURE: CT pelvis with contrast. TECHNIQUE: Oral and intravenous contrast were administered with pelvic CT performed. Auto Exposure Controls were utilized during the CT exam to meet ALARA standards for radiation dose reduction. INDICATION: Pelvic fracture. COMPARISON: Radiographs of 03/27/2021. FINDINGS: There is an acute simple fracture in the central aspect of the right inferior pubic ramus which has less than 3 mm of fracture gap diastases. There is also an acute transverse simple fracture in the left pubic body. This fracture has approximately 4 mm of diastases. Vertically oriented simple fracture in the right sacral ala is lateral to the sacral foramen. No fracture in the left sacral ala. No acute fracture in the proximal femurs. No osteonecrosis of femoral heads. No free pelvic fluid. No features of pelvic hematoma. Uterus is normal in appearance. No adnexal mass. No dilated loops of bowel. IMPRESSION: 1. Acute and mildly displaced fractures of the right inferior pubic ramus and left pubic body. 2. Additional nondisplaced fracture of the right sacral ala is most likely posttraumatic in nature, but could be superimposed on insufficiency fracture. Dictated by: Dictated on workstation # [id number]
== END ==
LOC: LAB FS 09:24
PROVIDERS: ATTEND Family Medicine
DX: S34.139A Unspecified injury to sacral spinal cord, initial encounter (principal); S32.502A Unspecified fracture of left pubis, initial encounter for closed fracture; S32.501A Unspecified fracture of right pubis, initial encounter for closed fracture; X58.XXXA Exposure to other specified factors, initial encounter
CPT/HCPCS: 36415; 72193; 82565; 84520

== ENCOUNTER 2021-03-26 10:00 | Inpatient (IN) | payer MEDICARE ==
[~2021-03-26] VITALS: Ht 149.8 cm; Wt 32.2 kg
[2021-03-26 10:00] VITALS: BP_SYST 145; BP_DIAS 70; BP_DIAS 73
[~2021-03-26 10:00] MED LIST changes: -ACHD5005 PO; -CATHETER FLUSH 10 ML SYR IV PRN; -HOLD METFORMIN - RECEIVED CONTRAST 20 ML VIAL IV SCH; -IBUP-2185 PO; -IOHEXOL 350 MG/ML 100 ML (OMNIPAQUE 350) VIAL IV ONE; -NS 100 ML (IVPB) BAG IV ONE
[2021-03-26] MEDS ORDERED: ALPRAZolam 0.25 MG (XANAX) TAB PO PRN (10:15)
[2021-03-26] MEDS ORDERED: BISACODYL 10 MG SUPP (DULCOLAX) PR PRN (10:15)
[2021-03-26] MEDS ORDERED: diphenhydrAMINE 25 MG TAB (BENADRYL) PO PRN (10:15)
[2021-03-26] MEDS ORDERED: LOPERAMIDE 2 MG (IMODIUM) TABLET PO PRN (10:15)
[2021-03-26] MEDS ORDERED: FLEET ENEMA ADULT 1 EA BTL PR PRN (10:15)
[2021-03-26] MEDS ORDERED: guaiFENesin/CODEINE (ROBITUSSIN AC) 10ML UDC PO PRN (10:15)
[2021-03-26] MEDS ORDERED: CALCIUM CARBONATE 500 MG (TUMS) TAB.CHEW PO PRN (10:15)
[2021-03-26] MEDS ORDERED: DOCUSATE SODIUM 100 MG (COLACE) CAP PO PRN (10:15)
--- NOTE | 2021-03-26 10:46 | Occupational Therapy Eval ---
OT Evaluation-General/PLF Medical Diagnosis Admission Date Mar 26, 2021 at 10:00 Medical Diagnosis: Pelvic Fractures Onset Date: Mar 18, 2021 Therapy Diagnosis Therapy Diagnosis: decreased ADL status Height/Weight Height (Feet): 4 Height (Inches): 11.00 Weight (Pounds): 72 Weight (Ounces): 5.0 Weight Bear Status Weight Bearing Restriction: Weight Bearing/Tolerated Location Restriction: LE Bilateral Referral Physician: Jenni Referral Reason: Evaluation/Treatment Medical History Pertinent Medical History: CVA, HTN, Smoking Additional Medical History colon resection, colostomy with reversal Current History ED 03/18 due to fall and R hip pain. Found to have pelvic fractures (R inferior pubic ramus & L pubic body) Social History Home: Single Level Current Living Status: Alone Entry Into Home: Stairs With Railing Steps Into Home: 2 ADL-Prior Level of Function SCALE: Activities may be completed with or without assistive devices. 8-Gcdbcrlyvu-grmdvxd completes the activity by him/herself with no assistance from a helper. 5-Set-up or Clean-up Assistance-helper sets up or cleans up; patient completes activity. Aurora assists only prior to or following the activity. 4-Supervision or Touching Assistance-helper provides verbal cues and/or touching/steadying and/or contact guard assistance as patient completes activity. Assistance may be provided throughout the activity or intermittently. 3-Partial/Moderate Assistance-helper does LESS THAN HALF the effort. Aurora lifts, holds or supports trunk or limbs, but provides less than half the effort. 2-Substantial/Maximal Assistance-helper does MORE THAN HALF the effort. Aurora lifts or holds trunk or limbs and provides more than half the effort. 6-Phlumxyah-mothri does ALL the effort. Patient does none of the effort to complete the activity. Or, the assistance of 2 or more helpers is required for the patient to complete the activity. If activity was not attempted, code reason: 7-Patient Refused. 9-Not Applicable-not attempted and the patient did not perform the activity before the current illness, exacerbation or injury. 10-Not Attempted due to Environmental Limitations-(lack of equipment, weather restraints, etc.). 88-Not Attempted due to Medical Conditions or Safety Concerns. ADL PLOF Comments Pt reports IND with ADLs and functional mobility at OF, she uses a cane but primarily first thing in the morning. She completes her own housework, cooking/cleaning. Self Care: Independent Functional Cognition: Independent DME/Equipment: Bath Bench, Tub/Shower DME/Equipment Comments cane OT Current Status Subjective Pt agreeable to OT evaluation, then OT/PT cotreat. Rated pain 3/10 in pelvic area Mental Status/Objective Patient Orientation: Person, Place, Time, Situation Current Glasses/Contacts: Yes Hearing Aids: No Dentures/Partials: No Hand Dominance: Right Upper Extremity ROM WFL, BUE shoulder flexion to approx 130 degrees. Upper Extremity Coordination WFL, slightly decreased LUE as pt fatigues. Upper Extremity Sensation Pt reports decreased sensation in RUE, intact to light touch. Reports it feels "off" compared to her left. Upper Extremity Strength grossly 3+/5 RUE, grossly 3-/5 LUE. Some decreased strength noted in LUE with tasks (w/c mobility and balloon batting task) ADL-Treatment Eating (QC): 7 Oral Hygiene (QC): 4 (CGA standing at sink.) Shower/Bathe Self (QC): 7 Upper Body Dressing (QC): 7 Lower Body Dressing (QC): 7 On/Off Footwear (QC): 2 (Pt doffed slip on shoes, assistance to doff/don gripper socks.) Toileting Hygiene (QC): 3 (Min A standing balance, pt able to manage clothing and perform hygiene.) Other Treatments [id number]: OT evaluation complete. OT/PT cotreat due to skill of 2 clinicians required which a veterans rehabilitation counselor could not perform in order to coordinate UEs/LEs, decrease fall risk, and due to pt's limitations in pain, activity tolerance, strength, and mobility. OT focused on UE placement, ADLs, cues for sequencing and safety. PT focused on gross overall movements, transfers/mobility, and LE placement. Pt performed functional transfers in/out of bed, functional mobility using FWW, and w/c mobility. Pt taken to therapy gym where she stood at FWW to complete balloon batting task to improve dynamic standing balance. Pt completed 1st trial hitting balloon with L hand, standing 1:30mins, 2nd trial hitting balloon with R hand, standing 2 mins total. Pt taken back to her room, stood at sink for oral care, CGA. Pt performed functional mobility in w/c around ARU common area, then transferred to recliner. OT assisted pt with ordering lunch. Pt completed the following BUE exercises in order to increase strength and activity tolerance, 2x10 reps each: shoulder flexion, shoulder abduction, horizontal abduction, elbow flexion, elbow extension. Pt took rest breaks as needed between exercises. Post tx, pt in recliner, call light in reach and all needs met. Please refer to PT evaluation for scores associated with transfers/mobility. [id number] Pt seated in recliner, participated in moderate resistance theraputty activity, removing beads in order to increase fine motor strength and activity tolerance. Pt requests to use toilet, SPT performed from recliner to [facility], Min A. Pt completed toileting, then transferred back to recliner. Wound care nurse present, pt stood once more from recliner in order for allevyn to be placed on coccyx area. Min A sit to stand with cues for UE placement. Pt returned to recliner. Post tx, pt seated in recliner, call light in reach and all needs met. With transfers, pt required verbal cues for UE placement, and cues for UE placement with w/c mobility. Education OT Patient Education: Correct positioning, Energy conservation, Exercise program, Modified ADL techniques, Progress toward Goal/Update tx plan, Purpose of tx/functional activities, Rehab process Teaching Recipient: Patient Teaching Methods: Discussion Response to Teaching: Verbalize Understanding OT Short Term Goals Short Term Goals Time Frame: Apr 09, 2021 Eatin Oral hygiene: 5 Toileting hygiene: 4 Shower/bathe self: 4 Upper body dressin Lower body dressin Putting on/taking off footwear: 4 OT Rehab Liaison Goals Penitentiary Goals Time Frame: Apr 18, 2021 Eating (QC): 6 Oral Hygiene (QC): 6 Toileting Hygiene (QC): 6 Shower/Bathe Self (QC): 6 Upper Body Dressing (QC): 6 Lower Body Dressing (QC): 6 On/Off Footwear (QC): 6 Additional Goals: 1-Demonstrate ADL Tasks, 2-Verbalize Understanding, 3-Impro veStrength/Po 1=Demonstrate adherence to instructed precautions during ADL tasks. 2=Patient will verbalize/demonstrate understanding of assistive devices/modifications for ADL. 3=Patient will improve strength/tolerance for activity to enable patient to perform ADL's. OT Education/Plan Problem List/Assessment Assessment: Decreased Activ Tolerance, Decreased UE Strength, Impaired Coordination, Impaired Funct Balance, Impaired I ADL's, Impaired Self-Care Skills, Restricted Funct UE ROM Discharge Recommendations Plan/Recommendations: Continue POC Treatment Plan/Plan of Care Patient would benefit from OT for education, treatment and training to promote independence in ADL's, mobility, safety and/or upper extremity function for ADL's. Plan of Care: ADL Retraining, Functional Mobility, Group Exercise/Act as Ind, UE Funct Exercise/Act Treatment Duration: Apr 18, 2021 Frequency: At least 5 of 7 days/Wk (IRF) Estimated Hrs Per Day: 1.5 hours per day Rehab Potential: Good Time/GCodes Start Time: 10:10 ([id number]) Stop Time: 14:10 ([id number]) Total Time Billed (hr/min): 85 Billed Treatment Time 9811-0830 OT Evaluation (10'), 9182-4497 OT/PT cotreat (50') 1, EVM (10'), ADL (10'), FA 2 (40') 9154-2973 OT tx (25') 1, FA (15'), FA (10') ALEXANDRA SINGH OT Mar 26, 2021 10:46
[2021-03-26] MEDS ORDERED: ACHD5005 PO (11:24)
[2021-03-26] MEDS ORDERED: IBUP-2185 PO (11:24)
--- NOTE | 2021-03-26 11:24 | PM&R Post Admission Assessment ---
PM&R HP Date of Visit: Mar 26, 2021 Time of Visit: 13:00 History of Present Illness Chief complaint: Pelvic fracture with debility History of present illness: This is an elderly and frail 75-year-old white female of Dr. Gil who presents to inpatient rehab from home due to sustaining a pelvic fracture after she fell last Wednesday getting out of a car. She is deemed a nonsurgical fracture. At this current time patient is taking pain medication. She is very debilitated and has findings consistent with self- neglect. She appears to be frail and her BMI is 13. She does currently smoke. Pt seen/examined at 11:45 03/26/21 CC: Debility s/p fall with R pelvic fractures HPI: Pt presents to IRF after experiencing a fall last Wednesday(03/18/21) when she was getting out of a car, tripped and fell on her R hip. Denies LOC or hitting her head. Currently having 3/10 pain to her lower back, denies radiation, states that it is chronic. Denies pain related to her R pelvic fracture, but does state that she took Hydrocodone at about 7AM. No questions or concerns at this time. ROS: denies chest pain, abd pain, SOB, N/V, fevers/chills, dysuria, diarrhea/constipation PMH: HTN, CVA 4.5 years ago PSH: Appendectomy, bowel rupture with resection/repair 28 years ago Meds: Plavix 75mg QD, VitB12 1000mcg QD, Lisinopril 20mg QD, Multivitamin QD Allergies: NKDA, no food allergies, has seasonal allergies FHx: None Social HX: smokes 1/3-1/2pack/day since she was 15, denies alcohol/recreational drug use PE: VS: T 36.1, HR 52, RR 14, BP 145/70, O2Sat 96 on RA Laboratory Tests 03/26/21 12:20 General: Sitting in chair, NAD, alert, pleasant affect, thin/frail Neuro: Alert/oriented x3 HEENT: PERRLA, EOMI, no lymphadenopathy, edentulous, moist mucosa CV: RRR, no clicks/murmurs/rubs, no JVD, no edema Pulmonary: Lungs CTAB, no accessory muscle use GI/: abd soft/nontender, BS active x4, last bm yesterday morning without issue MSK: LUE 4/5, RUE 5/5, BLE 4/5 strength, gait not assessed Integument: thin/friable skin consistent with age related changes, no rashes/ulcers/erythema A/P: Debility s/p fall with R pelvic fractures PT/OT rehab per unit protocol Pain management Encourage PO nutrition HTN Continue home medication SARAI,SCHUYLER MED STUDENT Mar 26, 2021 15:27 Past Yldqwoc-Yxezlu-Lwovjy Hx Past Med/Social Hx: Reviewed Nursing Past Med/Soc Hx, Reviewed and Corrections made Patient Social History Marrital Status: single Employed/Student: retired Alcohol Use: Denies Use Smoking Status: Current Everyday Smoker Type Used: Cigarettes Recent Hopitalizations: No Seasonal Allergies Seasonal Allergies: Yes (sinus) Past Medical History Surgeries: Appendectomy, Bowel Surgery Currently Using CPAP: No Currently Using BIPAP: No Cardiac: Hypertension Neurological: Stroke Gastrointestinal: Gastrointestinal Bleed, Chronic Constipation Musculoskeletal: Arthritis HEENT: Cataract Loss of Vision: Left Hearing Impairment: Denies History of Blood Disorders: No Adverse Reaction to Blood Peter: No Self Care: Independent Functional Cognition: Independent PM&R Allergy/Meds/Data Review Allergies Coded Allergies: No Known Drug Allergies (Unverified , 01/14/17) Home Medications Scheduled Clopidogrel Bisulfate (Plavix), 75 MG PO DAILY, (Reported) Lisinopril (Lisinopril), 20 MG PO DAILY, (Reported) Multivitamin (Multiple Vitamins), 1 TAB PO DAILY, (Reported) Scheduled PRN Hydrocodone/Acetaminophen (Hydrocodone-Acetamin 5-325 mg), 1 EA PO Q6H PRN for PAIN-MODERATE (5-7), (Reported) Ibuprofen (Ibuprofen), 400 MG PO Q8H PRN for PAIN-MILD (1-4), (Reported) Current Medications Current Medications Reviewed Review of Systems Constitutional: see HPI, malaise, weakness EENTM: no symptoms reported Respiratory: no symptoms reported, dyspnea on exertion Cardiovascular: no symptoms reported Gastrointestinal: no symptoms reported Genitourinary: decreased output Musculoskeletal: back pain, joint pain, muscle pain, muscle stiffness, muscle cramps Skin: no symptoms reported Psychiatric/Neurological: Depressed All Other Systems Reviewed Negative Unless Noted: Yes Physical Exam Physical Exam Vital Signs Vital Signs - First Documented 03/26/21 10:00 Temp 36.1 Pulse 52 Resp 14 B/P (MAP) 145/70 (95) Pulse Ox 96 O2 Delivery Room Air Capillary Refill : Height, Weight, BMI Height: 4'11.00" Weight: 72lbs. 5.0oz. [id number]; 17.55 BMI Method:Stated General Appearance: No Apparent Distress, WD/WN, Chronically ill, Thin Eyes: Bilateral Eye Normal Inspection, Bilateral Eye PERRL HEENT: PERRL/EOMI, Normal ENT Inspection, Pharynx Normal Neck: Full Range of Motion, Normal Inspection, Non Tender, Supple, Carotid Bruit Respiratory: Chest Non Tender, Lungs Clear, Normal Breath Sounds, No Accessory Muscle Use, No Respiratory Distress Cardiovascular: Regular Rate, Rhythm, No Edema, No Gallop, No JVD, No Murmur, Normal Peripheral Pulses Gastrointestinal: Normal Bowel Sounds, No Organomegaly, No Pulsatile Mass, Non Tender, Soft Back: Normal Inspection, No CVA Tenderness, No Vertebral Tenderness Extremity: Normal Capillary Refill, Normal Inspection, Normal Range of Motion (Except legs with pain in pelvis), Non Tender, No Calf Tenderness, No Pedal Edema Neurologic/Psychiatric: Alert, Oriented x3, No Motor/Sensory Deficits, Normal Mood/Affect, Abnormal Gait, Motor Weakness (Generalized 4/5 extremities) Skin: Normal Color, Warm/Dry Lymphatic: No Adenopathy PM&R Medical Assessment & Plan REHAB/MEDICAL ASSESSMENT AND PLAN: REHAB IMPAIRMENT GROUP: Debility with pelvic fracture ETIOLOGIC DIAGNOSIS: Debility with pelvic fracture The comorbidities that impact the patients function and/or functional outcome by: Advanced age, frail status, self-neglect, pressure ulcer, malnutrition REHAB PLAN: The patient is being admitted to our comprehensive inpatient rehabilitation facility and can tolerate the intensity of service consisting of at least: 180 minutes of therapy a day, 5 out of 7 days a week Rehab treatment will consist of: PT and OT will focus on regaining function with use of assistive device to prevent falls and increase independence with ADLs The patient/family has a good understanding of our discharge process and will benefit from an interdisciplinary inpatient rehabilitation program. The patient has potential to make improvement and is in need of at least two of the following multidisciplinary therapies including but not limited to physical, occupational, speech, and prosthetics and orthotics. Additionally the patient will need services from respiratory, nutritional services, wound care, psychology, etc. (Customize this to each patient). Given the patients complex condition and risk of further medical complications, rehabilitation services cannot be safely or effectively provided at a lower level of care such as a alf facility. BARRIERS TO DISCHARGE: Lives alone with frail status ESTIMATED LOS: 10 days DISPOSITION: Home RELEVANT CHANGES SINCE PREADMISSION SCREENING: I have compared the patients medical and functional status at the time of the preadmission screening and there are: No changes PROGNOSIS: Fair REHABILITATION GOALS: 1. PT and OT will focus on regaining function with use of assistive device to prevent falls and increase independence with ADLs All the above goals were reviewed with the patient and he/she is in agreement. By signing this document, I acknowledge that I have personally performed a full physical examination on this patient within 24 hours of admission to this inpatient rehabilitation facility and have determined the patient to be able to tolerate the above course of treatment at an intensive level for a reasonable period of time. I will be completing a detailed individualized Plan of Care for this patient by day #4 of the patients stay based upon the Preadmission Screen, the Post-Admission Evaluation, and the therapy evaluations. Admission Dx/Comorbidities: (1) Debility ICD Codes: R53.81 - Other malaise (2) Pelvic fracture ICD Codes: S32.9XXA - Fracture of unspecified parts of lumbosacral spine and pelvis, initial encounter for closed fracture (3) History of CVA (cerebrovascular accident) ICD Codes: Z86.73 - Personal history of transient ischemic attack (TIA), and cerebral infarction without residual deficits (4) Malnutrition ICD Codes: E46 - Unspecified protein-calorie malnutrition (5) Leukocytosis ICD Codes: D72.829 - Elevated white blood cell count, unspecified (6) Fall Status: Acute ICD Codes: W19.XXXA - Unspecified fall, initial encounter Assessment/Plan Assessment and Plan Assess & Plan/Chief Complaint Assessment: Debility Pelvic fracture Previous CVA Current smoker Frail status BMI 13 Pressure ulcer Falls Leukocytosis without source of infection Plan: Supportive care Pain meds Bowel regimen Aggressive therapy ANTONIO HWANG DO Mar 26, 2021 11:24
[2021-03-26] MEDS: ONDANSETRON 4 MG (ZOFRAN) ORAL DISSOLVE TAB PO PRN (11:32)
[2021-03-26 12:27] LABS: BASOPHILS % (AUTO) 0 % (0-10); EOSINOPHILS % (AUTO) 0 % (0-10); HEMATOCRIT 40 % (35-52); HEMOGLOBIN 13.5 g/dL (11.5-16.0); LYMPHOCYTES # (AUTO) 1.8 10^3/uL (1.0-4.0); LYMPHOCYTES % (AUTO) 11 % (12-44); MEAN CORPUSCULAR HEMOGLOBIN 31 pg (25-34); MEAN CORPUSCULAR HGB CONC 34 g/dL (32-36); MEAN CORPUSCULAR VOLUME 91 fL (80-99); MEAN PLATELET VOLUME 10.4 fL (9.0-12.2); MONOCYTES # (AUTO) 1.1 10^3/uL (0.0-1.0); MONOCYTES % (AUTO) 6 % (0-12); NEUTROPHILS # (AUTO) 14.1 10^3/uL (1.8-7.8); NEUTROPHILS % (AUTO) 82 % (42-75); PLATELET COUNT 348 10^3/uL (130-400); WHITE BLOOD COUNT 17.1 10^3/uL (4.3-11.0)
[2021-03-26 12:38] LABS: ALBUMIN 3.8 GM/DL (3.2-4.5); POTASSIUM 2.9 MMOL/L (3.6-5.0)
[2021-03-26 12:42] LABS: BILIRUBIN,TOTAL 0.8 MG/DL (0.1-1.0)
[2021-03-26 12:44] LABS: CREATININE SERUM 0.99 MG/DL (0.60-1.30)
[2021-03-26] MEDS ORDERED: ACETAMINOPHEN 325 MG TABLET PO PRN (12:45)
[2021-03-26 12:50] LABS: LYMPHOCYTES % (MANUAL) 14 %; MONOCYTES % (MANUAL) 5 %; NEUTROPHILS % (MANUAL) 81 %; RBC MORPH NORMAL
--- NOTE | 2021-03-26 13:59 | ST Cognitive Linguistic Eval ---
Speech Evaluation-General Medical Diagnosis Pelvic Fractures Onset Date: Mar 18, 2021 Therapy Diagnosis Therapy Diagnosis: Cognitive-communication Referral Referring Physician: Dr. Arteaga Medical History Pertinent Medical History: CVA, HTN, Smoking Reviewed History: Yes Social History Current Living Status: Alone Speech PLF-Current Status Prior Level of Function Patient lives home alone, however she has many family members near by for daily support. Subjective Patient was pleasant and cooperative with the cognitive assessment. Language Eval: Auditory Comprehends Simple Yes/No Ques: Functional Indent/Objects Multiple Esquivel: Functional Ident/Pics in Multiple Esquivel: Functional Follows 1-Step Commands: Functional Follows Complex Directions: Functional Follows General Conversations: Functional Cognitive Patient Orientation Patient is A&O x3 Objective Cognitive Domain Attention: WNL Memory: WNL Problem Solving: Functional Executive Functions: WNL Visuospatial Skills: WNL Composite Severity Rating: WNL Clock Drawing Severity Rating: WNL Objective Formal/Standardized Tests [facility] Mental Status ([facility]) Results 27/30, within normal range of function Oral Motor/Speech Production Patient is edentulous, however her speech is intelligible Impression Patient is a pleasant 75 y/o female who was admitted to the ARU following a fall which resulted in multiple pelvic fractures. The patient had a prior admission in 2017 due to a CVA. The patient was given the UMS with a score of 27/30 obtained. This score is within normal range of function.and does not indicate a need for further ST services. Speech Patient Assess Expression of Ideas/Wants: Expression (4) Understanding Verbal Content: Understands (4) Brief Interview-Mental Status: Yes Repetition of Three Words: Three (3) Temporal Orientation: Year: Correct (3) Temporal Orientation: Month: Accurate within 5 days(2) Temporal Orientation: Day: Correct (1) Recall : Wear to say "Sock": Yes, no cue required (2) Recall : Color: Yes, after cueing (1) Recall : Bed: Yes, no cue required (2) Memory/Recall Ability: Current season, Location of own room, That he or she is in a hsp/hsp unit Speech-Plan Patient/Family Goals Patient/Family Goals: Patient plans on returning to her home where she lives alone. The patient has a lot of family near for support. Treatment Plan Speech Therapy Treatment Plan: Discontinue ST Treatment Duration: Mar 26, 2021 Frequency: 1 time per week Estimated Hrs Per Day: .5 hour per day Rehab Potential: Good Barriers to Learning: None identified Pt/Family Agrees to Plan: Yes Safety Risks/Education Teaching Recipient: Patient Teaching Methods: Discussion Response to Teaching: Verbalize Understanding Education Topics Provided: Safety within her room, communication of wants/needs. Time Speech Therapy Time In: 13:15 Speech Therapy Time Out: 13:45 Total Billed Time: 30 Billed Treatment Time 1, MELECIO ESPINOSA [address] Mar 26, 2021 13:59
[2021-03-26] MEDS: HYDROcodone/APAP 5 MG/325 MG (LORTAB) TAB PO PRN ×2 (14:28→23:55)
--- NOTE | 2021-03-26 15:27 | Progress Note ---
SCHUYLER MOON MED STUDENT 03/26/21 1527: Progress Note Pt seen/examined at 11:45 03/26/21 CC: Debility s/p fall with R pelvic fractures HPI: Pt presents to IRF after experiencing a fall last Wednesday(03/18/21) when she was getting out of a car, tripped and fell on her R hip. Denies LOC or hitting her head. Currently having 3/10 pain to her lower back, denies radiati on, states that it is chronic. Denies pain related to her R pelvic fracture, but does state that she took Hydrocodone at about 7AM. No questions or concerns at this time. ROS: denies chest pain, abd pain, SOB, N/V, fevers/chills, dysuria, diarrhea/constipation PMH: HTN, CVA 4.5 years ago PSH: Appendectomy, bowel rupture with resection/repair 28 years ago Meds: Plavix 75mg QD, VitB12 1000mcg QD, Lisinopril 20mg QD, Multivitamin QD Allergies: NKDA, no food allergies, has seasonal allergies FHx: None Social HX: smokes 1/3-1/2pack/day since she was 15, denies alcohol/recreational drug use PE: VS: T 36.1, HR 52, RR 14, BP 145/70, O2Sat 96 on RA Laboratory Tests 03/26/21 12:20 General: Sitting in chair, NAD, alert, pleasant affect, thin/frail Neuro: Alert/oriented x3 HEENT: PERRLA, EOMI, no lymphadenopathy, edentulous, moist mucosa CV: RRR, no clicks/murmurs/rubs, no JVD, no edema Pulmonary: Lungs CTAB, no accessory muscle use GI/: abd soft/nontender, BS active x4, last bm yesterday morning without issue MSK: LUE 4/5, RUE 5/5, BLE 4/5 strength, gait not assessed Integument: thin/friable skin consistent with age related changes, no rashes/ulc ers/erythema A/P: Debility s/p fall with R pelvic fractures PT/OT rehab per unit protocol Pain management Encourage PO nutrition HTN Continue home medication DESIREE HWANG DO 03/27/21 4220: Supervisory-Addendum Brief Verification & Attestation Participated in pt care: history, MDM, physical Personally performed: exam, history, MDM, supervision of care Care discussed with: Medical Student Procedures: n/a Results interpretation: Verified all documentation Verification and Attestation of Medical Student E/M Service A medical student performed and documented this service in my presence. I reviewed and verified all information documented by the medical student and made modifications to such information, when appropriate. I personally performed the physical exam and medical decision making. Desiree Hwang, Mar 27, 2021,05:20 SCHUYLER [employer] MED STUDENT Mar 26, 2021 15:27 DESIREE HWANG DO Mar 27, 2021 05:20
--- NOTE | 2021-03-26 15:46 | Physical Therapy Evaluation ---
PT Evaluation-General Medical Diagnosis Admission Date Mar 26, 2021 at 10:00 Medical Diagnosis: Pelvic Fractures Onset Date: Mar 18, 2021 Therapy Diagnosis Therapy Diagnosis: Gait deficit, Strength deficit Height/Weight Height (Feet): 4 Height (Inches): 11.00 Weight (Pounds): 72 Weight (Ounces): 5.0 Precautions Precautions/Isolations: Fall Prevention, Standard Precautions Weight Bear Status Right Lower Extremity: Right Weight Bearing/Tolerated Left Lower Extremity: Left Weight Bearing/Tolerated Referral Physician: Jneni Reason for Referral: Evaluation/Treatment Medical History Pertinent Medical History: CVA, HTN, Smoking Reviewed History: Yes Social History Home: Single Level Current Living Status: Alone Entry Into Home: Stairs With Railing PT Steps Into Home: 2 Prior Prior Level of Function SCALE: Activities may be completed with or without assistive devices. 7-Irdskoozzu-onuitnx completes the activity by him/herself with no assistance from a helper. 5-Set-up or Clean-up Assistance-helper sets up or cleans up; patient completes activity. [place] assists only prior to or following the activity. 4-Supervision or Touching Assistance-helper provides verbal cues and/or touching/steadying and/or contact guard assistance as patient completes activity. Assistance may be provided throughout the activity or intermittently. 3-Partial/Moderate Assistance-helper does LESS THAN HALF the effort. [place] lifts, holds or supports trunk or limbs, but provides less than half the effort. 2-Substantial/Maximal Assistance-helper does MORE THAN HALF the effort. [place] lifts or holds trunk or limbs and provides more than half the effort. 4-Mvkahizdp-wpnnlk does ALL the effort. Patient does none of the effort to comp lete the activity. Or, the assistance of 2 or more helpers is required for the patient to complete the activity. If activity was not attempted, code reason: 7-Patient Refused. 9-Not Applicable-not attempted and the patient did not perform the activity before the current illness, exacerbation or injury. 10-Not Attempted due to Environmental Limitations-(lack of equipment, weather restraints, etc.). 88-Not Attempted due to Medical Conditions or Safety Concerns. Bed Mobility: 6 Transfers (B,C,W/C): 6 Gait: 6 Stairs: 6 Indoor Mobility (Ambulation): Independent Stairs: Independent Prior Devices Use: Walker PT Evaluation-Current Subjective Patient rates her pain at 6/10 in her pelvic/hip area. Patient transferred from car to W/c and was transported from home to ARU. Objective Patient Orientation: Person, Place, Time, Situation ROM/Strength ROM Lower Extremities WFL's all planes bilaterally, however all motions increase pain Strength Lower Extremities 3/5 Bilaterally all planes Neuromuscular (Tone, Coordination, Reflexes) Impaired due to pain Sensory Vision: Wears Glasses Hearing: Functional Hand Dominance: Right Sensation Right Lower Extremit: Intact Sensation Left Lower Extremity: Intact Transfers Roll Left & Right (QC): 3 Sit to Lying (QC): 3 Lying to Sitting/Side of Bed(Q: 3 Sit to Stand (QC): 3 Chair/Yan-uf-Dgnnz Xfer(QC): 3 Toilet Transfer (QC): 3 Car Transfer (QC): 3 Gait Does the Patient Walk?: Yes Mode of Locomotion: Walk Anticipated Mode of Locomotion: Walk Walk 10 feet (QC): 88 Walk 50 ft with 2 Turns(QC): 88 Walk 150 ft (QC): 88 Walking 10ft/uneven surface-QC: 88 Distance: 5 feet Gait Assistive Device: FWW Wheelchair Training Does the Pt Use a Wheelchair?: Yes Distance: 40 feet Wheel 50 ft with 2 turns (QC): 88 Wheel 150 ft (QC): 88 Type of Wheelchair: Manual Stairs 1 Step (curb) (QC): 88 4 Steps (QC): 88 12 Steps (QC): 88 Balance Sitting Static: Fair Sitting Dynamic: Fair Standing Static: Poor Standing Dynamic: Poor Picking up an Object (QC): 88 Assessment/Needs Patient in car upon arrival to facility, requires mod/Max assistance for transfer out of car. Patient performs all other trasnfers with min a and bed mobility with mod assistance. Patient ambulates 5 feet with FWW, with mod A and x1 to follow with w/c. Patient demonstrates narrow RACHEAL with shortened stride length bilaterally and excessive standing time. Patient performs LE therapeutic exercise consisting of AP, QS, GS, hip abd, hip add, SLR with AAROM x 20 each, bilateral LEs. Patient is able to propel the w/c 40 feet with min A and verbal cues for safety, steering and use of left UE. She tends to move the left UE less with w/c mobility. Patient in chair post treatment with all needs met, nursing notified, call light in hand. Rehab Potential: Fair Equipment Needs Unsure at this time. PT Short Term Goals Short Term Goals Time Frame: Apr 09, 2021 Roll Left & Right: 5 Sit to lyin Lying to sitting on side of be: 5 Sit to stand: 5 Chair/mee-gq-jnqrf transfer: 5 Toilet transfer: 5 Walk 10 feet: 4 Walk 50 feet with two turns: 3 Walk 150 feet: 3 1 step (curb): 3 4 steps: 3 12 steps: 3 Picking up objects: 4 Does pt use a wc or scooter: Yes Wheel 50ft w/2 turns: 6 Wheel 150 feet: 6 Type: Manual PT Loom Tuner Goals Loom Tuner Goals PT Loom Tuner Goals Time Frame: May 07, 2021 Roll Left & Right (QC): 6 Sit to Lying (QC): 6 Lying-Sitting on Side/Bed(QC): 6 Sit to Stand (QC): 6 Chair/Ffl-yq-Sqmmw Xfer(QC): 6 Toilet Transfer (QC): 6 Car Transfer (QC): 6 Does the Patient Walk: Yes Walk 10 feet (QC): 6 Walk 50ft with 2 Turns (QC): 5 Walk 150 ft (QC): 5 Walking 10ft on Uneven Surface: 5 1 Step (curb) (QC): 5 4 Steps (QC): 5 12 Steps (QC): 5 Picking up an Object (QC): 5 Does the Pt use WC or Scooter?: Yes Wheel 50 feet with 2 turns (QC: 6 Type: Manual Wheel 150 feet: 6 Type: Manual PT Plan Problem List Problem List: Activity Tolerance, Functional Strength, Safety, Balance, Gait, Transfer, Bed Mobility, ROM Treatment/Plan Treatment Plan: Continue Plan of Care Treatment Plan: Bed Mobility, Education, Functional Activity Po, Functional Strength, Group Therapy, Gait, Safety, Therapeutic Exercise, Transfers Treatment Duration: Jun 04, 2021 Frequency: At least 5 of 7 days/Wk (IRF) Estimated Hrs Per Day: 1.5 hours per day Patient and/or Family Agrees t: Yes Safety Risks/Education Patient Education: Gait Training, Transfer Techniques Teaching Recipient: Patient, Family Teaching Methods: Demonstration, Discussion Response to Teaching: Verbalize Understanding, Return Demonstration Discharge Recommendations Target Placement Home with assistance as needed. Time/GCodes Time In: 1000 Time Out: 1110 Total Billed Treatment Time: 70 Total Billed Treatment Visit, Madhavi Rivera FA (2) TOSHIA MCCLELLAND PT Mar 26, 2021 15:46
[2021-03-26 16:21] LABS: BILIRUBIN,URINE NEGATIVE (NEGATIVE); CLARITY,URINE CLEAR; COLOR,URINE YELLOW; GLUCOSE, URINE (UA) NEGATIVE (NEGATIVE); KETONES,URINE TRACE (NEGATIVE); LEUKOCYTE ESTERASE ,URINE NEGATIVE (NEGATIVE); NITRITE,URINE NEGATIVE (NEGATIVE); PROTEIN,URINE 1+ (NEGATIVE)
--- NOTE | 2021-03-26 16:24 | Physical Therapy Daily Note ---
PT Daily Note-Current Subjective Pt in recliner upon arrival and pt agrees to PT. Pt reports pain of R hip but does not rate. Mental Status Patient Orientation: Normal For Age Transfers SCALE: Activities may be completed with or without assistive devices. 3-Beynlafkup-lgkrcqd completes the activity by him/herself with no assistance from a helper. 5-Set-up or Clean-up Assistance-helper sets up or cleans up; patient completes activity. [place] assists only prior to or following the activity. 4-Supervision or Touching Assistance-helper provides verbal cues and/or touching/steadying and/or contact guard assistance as patient completes activity. Assistance may be provided throughout the activity or intermittently. 3-Partial/Moderate Assistance-helper does LESS THAN HALF the effort. [place] lifts, holds or supports trunk or limbs, but provides less than half the effort. 2-Substantial/Maximal Assistance-helper does MORE THAN HALF the effort. [place] lifts or holds trunk or limbs and provides more than half the effort. 4-Wypjwitnj-xbvhlu does ALL the effort. Patient does none of the effort to complete the activity. Or, the assistance of 2 or more helpers is required for the patient to complete the activity. If activity was not attempted, code reason: 7-Patient Refused. 9-Not Applicable-not attempted and the patient did not perform the activity before the current illness, exacerbation or injury. 10-Not Attempted due to Environmental Limitations-(lack of equipment, weather restraints, etc.). 88-Not Attempted due to Medical Conditions or Safety Concerns. Weight Bearing Right Lower Extremity: Right Weight Bearing/Tolerated Left Lower Extremity: Left Weight Bearing/Tolerated Exercises Supine Ex: Ankle pumps, Quad Set, Glut sets, Heel Slides, Short Arc Quads, Straight leg raise, Hip abd/add Supine Reps: 10 Seated Therapy Exercises: Long arc quads, Hip flexion (LLE only), Glut set Seated Reps: 15 Treatments Pt in recliner upon arrival and agrees to PT. Pt performs seated exs while in recliner. Pt c/o some pain while performing add/abd and hip flexion on RLE but does not rate. Pt in recliner when PT departs call light in hand and all needs met. Assessment Current Status: Fair Progress Pt fatigued this afternoon but able to complete all exs w/o significant increase in pain. Did not ambulate d/t pt fatigue. PT Short Term Goals Short Term Goals Time Frame: Apr 09, 2021 Roll Left & Right: 5 Sit to lyin Lying to sitting on side of be: 5 Sit to stand: 5 Chair/jhl-vs-biown transfer: 5 Toilet transfer: 5 Walk 10 feet: 4 Walk 50 feet with two turns: 3 Walk 150 feet: 3 1 step (curb): 3 4 steps: 3 12 steps: 3 Picking up objects: 4 Does pt use a wc or scooter: Yes Wheel 50ft w/2 turns: 6 Wheel 150 feet: 6 Type: Manual PT Geologist [employer] Goals Usp Goals PT Usp Goals Time Frame: May 07, 2021 Roll Left & Right (QC): 6 Sit to Lying (QC): 6 Lying-Sitting on Side/Bed(QC): 6 Sit to Stand (QC): 6 Chair/Zrx-wx-Bfqaq Xfer(QC): 6 Toilet Transfer (QC): 6 Car Transfer (QC): 6 Does the Patient Walk: Yes Walk 10 feet (QC): 6 Walk 50ft with 2 Turns (QC): 5 Walk 150 ft (QC): 5 Walking 10ft on Uneven Surface: 5 1 Step (curb) (QC): 5 4 Steps (QC): 5 12 Steps (QC): 5 Picking up an Object (QC): 5 Does the Pt use WC or Scooter?: Yes Wheel 50 feet with 2 turns (QC: 6 Type: Manual Wheel 150 feet: 6 Type: Manual PT Plan Problem List Problem List: Activity Tolerance, Functional Strength, Other (pain) Treatment/Plan Treatment Plan: Continue Plan of Care Treatment Plan: Bed Mobility, Education, Functional Activity Po, Functional Strength, Group Therapy, Gait, Safety, Therapeutic Exercise, Transfers Treatment Duration: Jun 04, 2021 Frequency: At least 5 of 7 days/Wk (IRF) Estimated Hrs Per Day: 1.5 hours per day Patient and/or Family Agrees t: Yes Safety Risks/Education Patient Education: Correct Positioning Teaching Recipient: Patient Teaching Methods: Discussion Response to Teaching: Return Demonstration Time/GCodes Time In: 1435 Time Out: 1445 Total Billed Treatment Time: 10 Total Billed Treatment 1, EX RANDALL ANAYA FITNESS TEACHER Mar 26, 2021 16:24
[2021-03-26 16:35] LABS: BACTERIA,URINE NEGATIVE /HPF; RBC,URINE RARE /HPF; SQUAMOUS EPITHELIAL CELL,UR 0-2 /HPF; WBC,URINE 0-2 /HPF
--- NOTE | 2021-03-26 17:12 | Diagnostic Imaging Report ---
EXAMINATION: Chest 1 view. HISTORY: Elevated white blood cell count. COMPARISON: 08/25/2018. FINDINGS: Heart size and pulmonary vasculature are normal. There are background findings suggestive of COPD. No new consolidation, pleural effusion or pneumothorax. The osseous structures are intact. IMPRESSION: No acute radiographic abnormality in the chest. Dictated by: Dictated on workstation # [id number]
[2021-03-26] MEDS: SENNA W/DOCUSATE (SENOKOT S) TABLET PO SCH (19:28)
[2021-03-26] MEDS: polyethylene glycoL POWDER 17 GM (MIRALAX) PACK PO SCH (19:28)
[2021-03-26] MEDS: DOCUSATE SODIUM 100 MG (COLACE) CAP PO SCH (19:29)
[2021-03-26 19:59] VITALS: BP 123/55
[2021-03-27] MEDS: MULTIVIT W/MINERALS TAB (THERAGRAN M) PO SCH (06:18)
[2021-03-27 08:00] VITALS: BP 108/57
[2021-03-27] MEDS: SENNA W/DOCUSATE (SENOKOT S) TABLET PO SCH ×2 (08:59→19:37)
[2021-03-27] MEDS: HYDROcodone/APAP 5 MG/325 MG (LORTAB) TAB PO PRN ×2 (08:59→16:26)
[2021-03-27] MEDS: DOCUSATE SODIUM 100 MG (COLACE) CAP PO SCH ×2 (08:59→19:37)
[2021-03-27] MEDS: lisINopril 20 MG (PRINIVIL) TABLET PO SCH (08:59)
[2021-03-27] MEDS: CLOPIDOGREL 75 MG (PLAVIX) TABLET PO SCH (08:59)
[2021-03-27] MEDS: polyethylene glycoL POWDER 17 GM (MIRALAX) PACK PO SCH ×2 (09:34→19:37)
--- NOTE | 2021-03-27 10:12 | Individualized Plan of Care ---
Individualized Plan of Care Rehab Nursing IPOC Order Admission Date Mar 26, 2021 at 10:00 Current Orders Orders Admission Order(Inpt,Obs,Sdc) (03/26/21 10:02) Vital Signs: Per Unit Policy ( 08,16,00 (03/26/21 10:02) Silvestre Gordon (03/26/21 10:02) Sequential Compression Device .admit (03/26/21 10:02) Model Artists'-Inpt Rehab Con (03/26/21 10:02) Rehab Nursing Orders-Ipoc (03/26/21 10:02) Physical Therapy Rehab Orders (03/26/21 10:02) Occupational Therapy Rehab Ord (03/26/21 10:02) Speech Therapy Rehab Orders (03/26/21 10:02) Precautions (Aru) (03/26/21 10:02) Weekly Weight WEEK (03/26/21 10:02) Rehab-Intensity Of Therapy (03/26/21 10:02) Initiate Admission Nursing Pro .admission (03/26/21 10:02) Alprazolam Tablet (Xanax Tablet) (03/26/21 10:15) Calcium Carbonate Chew Tablet (Antacid C (03/26/21 10:15) Diphenhydramine Tablet (Benadryl Tablet) (03/26/21 10:15) Docusate Sodium Capsule (Colace Capsule) (03/26/21 21:00) Docusate Sodium Capsule (Colace Capsule) (03/26/21 10:15) Bisacodyl Suppository (Dulcolax Supposit (03/26/21 10:15) Lactulose Oral Solution (Enulose Oral So (03/26/21 10:15) Na Phos/Na Biphos Enema (Fleet Enema Matt (03/26/21 10:15) Guaifenesin/Codeine Syrup (Robitussin Ac (03/26/21 10:15) Loperamide Tablet (Imodium Tablet) (03/26/21 10:15) Melatonin Tablet (Melatonin Tablet) (03/26/21 10:15) Polyethylene Glycol Powder Pkt (Miralax (03/26/21 21:00) Ondansetron Oral Dissolve Tab (Zofran (03/26/21 10:15) Senna S Tablet (Senokot S Tablet) (03/26/21 21:00) Initiate Admission Nursing Pro .admission (03/26/21 10:02) Cbc With Automated Diff (03/26/21 10:02) Comprehensive Metabolic Panel (03/26/21 10:02) Admission Arrival Bed Request (03/26/21 10:10) General/Regular (03/26/21 Lunch) Ensure Plus Chocolate (03/26/21 11:02) Manual Differential (03/26/21 12:20) Clopidogrel Tablet (Plavix Tablet) (03/27/21 09:00) Hydrocodone/Apap 5/325 Tablet (Lortab 5 (03/26/21 12:45) Lisinopril Tablet (Zestril Tablet) (03/27/21 09:00) Ibuprofen Tablet (Motrin Tablet) (03/26/21 14:30) Therapeutic Multivitamin Tab (Vitamins, (03/27/21 07:00) Acetaminophen Tablet/Caplet (Tylenol T (03/26/21 12:45) Patient Visit (03/26/21 ) Pt Eval Low Complexity (03/26/21 ) Gait Training, Ea 15 Min (03/26/21 ) Exercise Therap, Ea 15 Min (03/26/21 ) Lactic Acid Analyzer (03/26/21 14:04) Procalcitonin (Pct) (03/26/21 14:04) Straight Cath (Urinary) (03/26/21 14:04) Urinalysis (03/26/21 16:10) Patient Visit (03/26/21 ) Speech Sound Lang Comp (03/26/21 ) Treat. Speech/Lang/Voice (03/26/21 ) Patient Visit (03/26/21 ) Exercise Therap, Ea 15 Min (03/26/21 ) Chest 1 View, Ap/Pa Only (03/26/21 16:49) Functional Activities, Ea 15 (03/26/21 ) Cbc With Automated Diff (03/27/21 10:09) Comprehensive Metabolic Panel (03/27/21 10:09) Magnesium (03/27/21 10:09) Smear For Path Review (03/27/21 10:09) LDH (03/27/21 10:09) Patient Visit (03/27/21 ) Exercise Therap, Ea 15 Min (03/27/21 ) Functional Activities, Ea 15 (03/27/21 ) Patient Visit (03/27/21 ) Exercise Therap, Ea 15 Min (03/27/21 ) Rehab Nursing Orders: Ongoing Assess. of Cognitive Status, Ongoing Assess. of Function Status, Bladder Management, Bladder Scan, Bladder Training, Bowel Management, Bowel Training, Disease Management & Educaiton, DVT Prophylaxis, Fall Prevention, Fluid/Electrolyte/Nutrition Mgmt, Infection Prevention, Medication Management & Education, Management of Risks & Complications, Management of Skin Intergrity, Nutrition Management, Pain Management, Patient/Family Support, Safety Management, Wound Management Intensity of Therapy to be met Patient to be seen: Min.3h per day/5 of 7d PT IPOC Problem List: Activity Tolerance, Functional Strength, Other (pain) Treatment Plan: Continue Plan of Care Bed Mobility, Education, Functional Activity Po, Functional Strength, Group Therapy, Gait, Safety, Therapeutic Exercise, Transfers Treatment Duration: Jun 04, 2021 Frequency: At least 5 of 7 days/Wk (IRF) Estimated Hrs Per Day: 1.5 hours per day OT IPOC Problems: Decreased Activ Tolerance, Decreased UE Strength, Impaired Coordination, Impaired Funct Balance, Impaired I ADL's, Impaired Self-Care Skills, Restricted Funct UE ROM OT Treatment, Training and Edu: Yes Plan of Care: ADL Retraining, Functional Mobility, Group Exercise/Act as Ind, UE Funct Exercise/Act Treatment Duration: Apr 18, 2021 Frequency: At least 5 of 7 days/Wk (IRF) Estimated Hrs Per Day: 1.[address] IPOC Speech Therapy Treatment Plan: Discontinue ST Treatment Duration: Mar 26, 2021 Frequency: 1 time per week Estimated Hrs Per Day: .5 hour per day Model Artists'/Case Mgmt Model Artists'/Case Managemen: Discharge Planning Dietitian/Merchandise Execution Leader Dietitian/Merchandise Execution Leader to monitor nutritional status and make changes and/or recommendations as needed and work with speech pathology on dietary upgrades as the occur. Physician IPOC Medical Issues being managed closely and that require the 24 hour availability of a physician: Patient with recent fall with pelvic fracture will require close monitoring for pain issues, narcotic bowel and high risk for further falls with elevated white count in the midst of work-up likely leukemic type of condition Medical Issues: Bowel/Bladder Function, DVT Prophylaxis, Falls Precautions, Fluid/Electrolyte/Nutrition Balance, Infection Protection, Pain Management, Wound Care Brief Synthesis of Preadmission Screen, Post-Admission Evaluation, and Therapy Evaluations: PT and OT will focus on regaining function with use of assistive devices and decrease chance for falls in addition increasing independent ADLs. Medical Prognosis: Fair Anticipated Length of Stay: 10 days ANTONIO HWANG DO Mar 27, 2021 10:12
--- NOTE | 2021-03-27 10:12 | PM&R Progress Note ---
Subjective HPI/CC On Admission Date Seen by Provider: Mar 27, 2021 Time Seen by Provider: 11:00 Subjective/Events-last exam 03/27/2021: Patient seen in gym Very frail Pain managed with Lortab Took a shower today Very fragile Recheck labs Review of Systems General: Fatigue, Malaise Neurological: Weakness Focused Exam Lactate Level 03/26/21 14:49: Lactic Acid Level 1.12 Objective Exam Vital Signs Vital Signs Date Time Temp Pulse Resp B/P (MAP) Pulse Ox O2 Delivery O2 Flow Rate FiO2 03/27/21 09:00 Room Air 03/27/21 08:00 36.5 65 12 108/57 (74) 93 Capillary Refill : General Appearance: No Apparent Distress, WD/WN, Chronically ill, Thin HEENT: PERRL/EOMI, Normal ENT Inspection, Pharynx Normal Neck: Full Range of Motion, Normal Inspection, Non Tender, Supple, Carotid Bruit Respiratory: Chest Non Tender, Lungs Clear, Normal Breath Sounds, No Accessory Muscle Use, No Respiratory Distress Cardiovascular: Regular Rate, Rhythm, No Edema, No Gallop, No JVD, No Murmur, Normal Peripheral Pulses Gastrointestinal: Normal Bowel Sounds, No Organomegaly, No Pulsatile Mass, Non Tender, Soft Back: Normal Inspection, No CVA Tenderness, No Vertebral Tenderness Extremity: Normal Capillary Refill, Normal Inspection, Normal Range of Motion (Except legs with pain in pelvis), Non Tender, No Calf Tenderness, No Pedal Edema Neurologic/Psychiatric: Alert, Oriented x3, No Motor/Sensory Deficits, Normal Mood/Affect, Abnormal Gait, Motor Weakness (Generalized 4/5 extremities) Skin: Normal Color, Warm/Dry Lymphatic: No Adenopathy Results/Procedures Lab Laboratory Tests 03/27/21 10:46 Patient resulted labs reviewed. FIM Transfers Therapy Code Descriptions/Definitions Functional [place] Measure: 0=Not Assessed/NA 4=Minimal Assistance 1=Total Assistance 5=Supervision or Setup 2=Maximal Assistance 6=Modified [place] 3=Moderate Assistance 7=Complete IndependenceSCALE: Activities may be completed with or without assistive devices. 3-Ussvnjnktu-eefrecc completes the activity by him/herself with no assistance from a helper. 5-Set-up or Clean-up Assistance-helper sets up or cleans up; patient completes activity. [place] assists only prior to or following the activity. 4-Supervision or Touching Assistance-helper provides verbal cues and/or touching/steadying and/or contact guard assistance as patient completes activity. Assistance may be provided throughout the activity or intermittently. 3-Partial/Moderate Assistance-helper does LESS THAN HALF the effort. [place] lifts, holds or supports trunk or limbs, but provides less than half the effort. 2-Substantial/Maximal Assistance-helper does MORE THAN HALF the effort. [place] lifts or holds trunk or limbs and provides more than half the effort. 4-Wzmhmsvkg-fxcwcc does ALL the effort. Patient does none of the effort to complete the activity. Or, the assistance of 2 or more helpers is required for the patient to complete the activity. If activity was not attempted, code reason: 7-Patient Refused. 9-Not Applicable-not attempted and the patient did not perform the activity before the current illness, exacerbation or injury. 10-Not Attempted due to Environmental Limitations-(lack of equipment, weather restraints, etc.). 88-Not Attempted due to Medical Conditions or Safety Concerns. Roll Left to Right (QC): 3 Sit to Lying (QC): 3 Sit to Stand (QC): 3 Chair/Iqn-kd-Khbqy Xfer(QC): 3 Car Transfer (QC): 3 Gait Training Does the Patient Walk?: Yes Walk 10 feet (QC): 88 Walk 50 ft with 2 Turns(QC): 88 Walk 150 ft (QC): 88 Walking 10ft/uneven surface-QC: 88 Gait Assistive Device: FWW Wheelchair Training Does the Pt Use a Wheelchair?: Yes Distance: 40 feet Wheel 50 ft with 2 turns (QC): 88 Wheel 150 ft (QC): 88 Type of Wheelchair: Manual Stair Training 1 Step (curb) (QC): 88 4 Steps (QC): 88 12 Steps (QC): 88 Balance Picking up an Object (QC): 88 ADL-Treatment Eating (QC): 7 Oral Hygiene (QC): 4 (CGA standing at sink.) Shower/Bathe Self (QC): 7 Upper Body Dressing (QC): 7 Lower Body Dressing (QC): 7 On/Off Footwear (QC): 2 (Pt doffed slip on shoes, assistance to doff/don gripper socks.) Toileting Hygiene (QC): 3 (Min A standing balance, pt able to manage clothing and perform hygiene.) Assessment/Plan Assessment and Plan Assess & Plan/Chief Complaint Assessment: Debility Pelvic fracture Previous CVA Current smoker Frail status BMI 13 Pressure ulcer Falls Leukocytosis without source of infection Plan: Supportive care Pain meds Bowel regimen Aggressive therapy 03/27/2021: Increase nutrition Work-up leukocytosis appears to be some sort of leukemia or that type of abnormality Check meds and labs (1) Debility (2) Pelvic fracture (3) History of CVA (cerebrovascular accident) (4) Malnutrition (5) Leukocytosis (6) Fall Status: Acute ANTONIO HWANG DO Mar 27, 2021 10:12
--- NOTE | 2021-03-27 10:51 | Physical Therapy Daily Note ---
PT Daily Note-Current Subjective Patient in hallway pre tx with OT coming to therapy gym. Agrees to PT, has 8/10 pain in right leg, states she has already had pain meds. Will be co-treating with OT due to poor patient mobility, strength, endurance, severe pain with activity, coordinate UE and LE with activity, safety and reduce risk of falls. Appearance Patient in bed post tx with nurse call, phone, tray, all needs met. Mental Status Patient Orientation: Person, Place, Situation Transfers SCALE: Activities may be completed with or without assistive devices. 3-Kmnceslqqe-ymzvwqj completes the activity by him/herself with no assistance f rom a helper. 5-Set-up or Clean-up Assistance-helper sets up or cleans up; patient completes activity. [place] assists only prior to or following the activity. 4-Supervision or Touching Assistance-helper provides verbal cues and/or touching/steadying and/or contact guard assistance as patient completes activity. Assistance may be provided throughout the activity or intermittently. 3-Partial/Moderate Assistance-helper does LESS THAN HALF the effort. [place] lifts, holds or supports trunk or limbs, but provides less than half the effort. 2-Substantial/Maximal Assistance-helper does MORE THAN HALF the effort. [place] lifts or holds trunk or limbs and provides more than half the effort. 0-Upzxtdypl-etenlg does ALL the effort. Patient does none of the effort to complete the activity. Or, the assistance of 2 or more helpers is required for the patient to complete the activity. If activity was not attempted, code reason: 7-Patient Refused. 9-Not Applicable-not attempted and the patient did not perform the activity before the current illness, exacerbation or injury. 10-Not Attempted due to Environmental Limitations-(lack of equipment, weather restraints, etc.). 88-Not Attempted due to Medical Conditions or Safety Concerns. Roll Left & Right (QC): 3 Sit to Lying (QC): 3 Sit to Stand (QC): 3 Chair/Mwc-tx-Emmjr Xfer(QC): 4 Weight Bearing Right Lower Extremity: Right Weight Bearing/Tolerated Left Lower Extremity: Left Weight Bearing/Tolerated Gait Training Distance: 3'x2, 6' Gait Assistive Device: Parallel Bars CGA, very slow, antalgic, WC follow Exercises Seated Therapy Exercises: Ankle pumps, Long arc quads, Hip flexion, Hip abd/add (with ball and RTB) standing in parallel bars performing ring activity x2 for about 1 min each time NuStep Minutes: 5 NuStep Workload: 4 (patient had a lot of pain and couldn't tolerate any more) Treatments bed mobility and transfers, ambulation, functional strengthening Assessment Current Status: Poor Progress Patient has a lot of pain, tries to stop therapy a couple of times because of it but continues with encouragement. PT Short Term Goals Short Term Goals Time Frame: Apr 09, 2021 Roll Left & Right: 5 Sit to lyin Lying to sitting on side of be: 5 Sit to stand: 5 Chair/bzq-rm-bclct transfer: 5 Toilet transfer: 5 Walk 10 feet: 4 Walk 50 feet with two turns: 3 Walk 150 feet: 3 1 step (curb): 3 4 steps: 3 12 steps: 3 Picking up objects: 4 Does pt use a wc or scooter: Yes Wheel 50ft w/2 turns: 6 Wheel 150 feet: 6 Type: Manual PT Long-Term Goals Gas Meter Checker Goals PT Long-Term Goals Time Frame: May 07, 2021 Roll Left & Right (QC): 6 Sit to Lying (QC): 6 Lying-Sitting on Side/Bed(QC): 6 Sit to Stand (QC): 6 Chair/Isd-hl-Cgjme Xfer(QC): 6 Toilet Transfer (QC): 6 Car Transfer (QC): 6 Does the Patient Walk: Yes Walk 10 feet (QC): 6 Walk 50ft with 2 Turns (QC): 5 Walk 150 ft (QC): 5 Walking 10ft on Uneven Surface: 5 1 Step (curb) (QC): 5 4 Steps (QC): 5 12 Steps (QC): 5 Picking up an Object (QC): 5 Does the Pt use WC or Scooter?: Yes Wheel 50 feet with 2 turns (QC: 6 Type: Manual Wheel 150 feet: 6 Type: Manual PT Plan Problem List Problem List: Activity Tolerance, Functional Strength, Safety, Balance, Gait, Transfer, Bed Mobility, ROM Treatment/Plan Treatment Plan: Continue Plan of Care Treatment Plan: Bed Mobility, Education, Functional Activity Po, Functional Strength, Group Therapy, Gait, Safety, Therapeutic Exercise, Transfers Treatment Duration: Jun 04, 2021 Frequency: At least 5 of 7 days/Wk (IRF) Estimated Hrs Per Day: 1.5 hours per day Patient and/or Family Agrees t: Yes Safety Risks/Education Patient Education: Gait Training, Transfer Techniques, Correct Positioning, Safety Issues Teaching Recipient: Patient Teaching Methods: Demonstration, Discussion Response to Teaching: Reinforcement Needed Time/GCodes Time In: 1000 Time Out: 1100 Total Billed Treatment Time: 60 Total Billed Treatment 1 visit EX 15' FA 45' co-treated with OT from 3035-1424 RAVEN CRAMER PT Mar 27, 2021 10:51
--- NOTE | 2021-03-27 10:57 | Occupational Ther Daily Note ---
OT Current Status-Daily Note Subjective Pt was lying supine in bed upon OT arrival. Pt was just waking up for the day. Nurse had just given pt her pain pill. Pt agreed to OT tx session. Mental Status/Objective Patient Orientation: Person, Place, Situation ADL-Treatment Therapy Code Descriptions/Definitions Functional [place] Measure: 0=Not Assessed/NA 4=Minimal Assistance 1=Total Assistance 5=Supervision or Setup 2=Maximal Assistance 6=Modified [place] 3=Moderate Assistance 7=Complete IndependenceSCALE: Activities may be completed with or without assistive devices. 2-Fuazlbfefe-yhhtxmp completes the activity by him/herself with no assistance from a helper. 5-Set-up or Clean-up Assistance-helper sets up or cleans up; patient completes activity. [place] assists only prior to or following the activity. 4-Supervision or Touching Assistance-helper provides verbal cues and/or touching/steadying and/or contact guard assistance as patient completes act ivity. Assistance may be provided throughout the activity or intermittently. 3-Partial/Moderate Assistance-helper does LESS THAN HALF the effort. [place] lifts, holds or supports trunk or limbs, but provides less than half the effort. 2-Substantial/Maximal Assistance-helper does MORE THAN HALF the effort. [place] lifts or holds trunk or limbs and provides more than half the effort. 6-Tkfuwnpkx-ajdaat does ALL the effort. Patient does none of the effort to complete the activity. Or, the assistance of 2 or more helpers is required for the patient to complete the activity. If activity was not attempted, code reason: 7-Patient Refused. 9-Not Applicable-not attempted and the patient did not perform the activity before the current illness, exacerbation or injury. 10-Not Attempted due to Environmental Limitations-(lack of equipment, weather restraints, etc.). 88-Not Attempted due to Medical Conditions or Safety Concerns. Eating (QC): 5 (per clincial judgment, set up assistance required with containers.) Shower/Bathe Self (QC): 2 (Pt unable to wash lower legs/feet, assistance with periarea and buttocks. Pt able to wash BUEs, chest/abdomen and thighs but assistance for thoroughness.) Upper Body Dressing (QC): 3 (Pt doffed extractor puller shirt, assist to doff fasteners of bra. Min A to don extractor puller shirt down trunk.) Lower Body Dressing (QC): 2 (Pt required max assist. Pt able to manage pants up/down with little assistance, assistance to thread over feet) On/Off Footwear: 1 (Pt required complete assitance. ) Other Treatment [id number] Pt was lying supine in bed upon OT arrival. Pt was just waking up for the day. Nurse had just given pt her pain pill. Pt agreed to OT tx session. Pt performed bed mobility from lying supine to EOB at Min assist w/ VC's. Pt then transferred from EOB to w/c and w/c to SC at Min assist. Pt performed shower task, UBD, LBD, and footwear, see above QC's. Pt transferred from SC to w/c at Mod assist due to decreased activity tolerance, to finish donning LBD and footwear. Pt required lotion getting applied to her skin due to excess dry skin covering entire body. Pt performed grooming task of putting on deodorant sink side while seated in w/c, w/ OT brushing hair for energy conservation. Pt then performed w/c mobility from room to therapy room, requiring x5 rest breaks. [id number] OT/PT cotreat due to skill of 2 clinicians required which a psychosocial rehabilitation counselor could not perform in order to coordinate UEs/LEs, decrease fall risk, and due to pt's limitations in pain, activity tolerance, strength, and mobility. OT focused on UE placement, cues for sequencing and safety. PT focused on gross overall movements, transfers/mobility, and LE placement. Pt performed functional mobility in parallel bars (3'x2, 6'), CGA with w/c follow. Pt then stood to complete ring arch x12 rings first with R hand, then with L, seated rest break between. Pt able to stand ~1 min each trial. This was complete to increase standing tolerance and crossing midline with tasks. Post tx, pt seated in w/c with PT present, all needs met. Education OT Patient Education: Correct positioning, Energy conservation, Progress toward Goal/Update tx plan, Purpose of tx/functional activities, Rehab process, Safety issues, Transfer techniques Teaching Recipient: Patient Teaching Methods: Demonstration, Discussion Response to Teaching: Verbalize Understanding, Return Demonstration OT Short Term Goals Short Term Goals Time Frame: Apr 09, 2021 Eatin Oral hygiene: 5 Toileting hygiene: 4 Shower/bathe self: 4 Upper body dressin Lower body dressin Putting on/taking off footwear: 4 OT Coil Winding Machines Set Up Mechanic Goals [facility] Goals Time Frame: Apr 18, 2021 Eating (QC): 6 Oral Hygiene (QC): 6 Toileting Hygiene (QC): 6 Shower/Bathe Self (QC): 6 Upper Body Dressing (QC): 6 Lower Body Dressing (QC): 6 On/Off Footwear (QC): 6 Additional Goals: 1-Demonstrate ADL Tasks, 2-Verbalize Understanding, 3- ImproveStrength/Po 1=Demonstrate adherence to instructed precautions during ADL tasks. 2=Patient will verbalize/demonstrate understanding of assistive devices/modifica tions for ADL. 3=Patient will improve strength/tolerance for activity to enable patient to perform ADL's. OT Education/Plan Problem List/Assessment Assessment: Decreased Activ Tolerance, Decreased Safety Aware, Decreased UE Strength, Impaired Bed Mobility, Impaired Coordination, Impaired Funct Balance, Impaired I ADL's, Impaired Self-Care Skills, Restricted Funct UE ROM Discharge Recommendations Plan/Recommendations: Continue POC Treatment Plan/Plan of Care Patient would benefit from OT for education, treatment and training to promote independence in ADL's, mobility, safety and/or upper extremity function for ADL's. Plan of Care: ADL Retraining, Functional Mobility, Group Exercise/Act as Ind, UE Funct Exercise/Act Treatment Duration: Apr 18, 2021 Frequency: At least 5 of 7 days/Wk (IRF) Estimated Hrs Per Day: 1.5 hours per day Rehab Potential: Fair Time/GCodes Start Time: 09:00 Stop Time: 10:30 Total Time Billed (hr/min): 90 Billed Treatment Time [id number] OT tx, [id number] OT/PT cotreat. 1 Visit, ADL 4 (60'), FA 2 (30') ALEXANDRA SINGH OT Mar 27, 2021 10:57
[2021-03-27 11:21] LABS: ALBUMIN 3.7 GM/DL (3.2-4.5); BILIRUBIN,TOTAL 0.4 MG/DL (0.1-1.0); CALCIUM 10.1 MG/DL (8.5-10.1); CREATININE SERUM 1.11 MG/DL (0.60-1.30); MAGNESIUM 2.4 MG/DL (1.6-2.4); POTASSIUM 3.5 MMOL/L (3.6-5.0); TOTAL PROTEIN 6.9 GM/DL (6.4-8.2)
[2021-03-27 11:28] LABS: ABSOLUTE RETIC # 91 10e9/uL (24-90); BASOPHILS # (AUTO) 0.1 10^3/uL (0.0-0.1); BASOPHILS % (AUTO) 0 % (0-10); EOSINOPHILS # (AUTO) 0.1 10^3/uL (0.0-0.3); EOSINOPHILS % (AUTO) 1 % (0-10); HEMATOCRIT 39 % (35-52); HEMOGLOBIN 13.1 g/dL (11.5-16.0); LYMPHOCYTES # (AUTO) 3.5 10^3/uL (1.0-4.0); LYMPHOCYTES % (AUTO) 19 % (12-44); MEAN CORPUSCULAR HEMOGLOBIN 31 pg (25-34); MEAN CORPUSCULAR HGB CONC 33 g/dL (32-36); MEAN CORPUSCULAR VOLUME 93 fL (80-99); MEAN PLATELET VOLUME 10.6 fL (9.0-12.2); MONOCYTES # (AUTO) 1.4 10^3/uL (0.0-1.0); MONOCYTES % (AUTO) 8 % (0-12); NEUTROPHILS # (AUTO) 13.5 10^3/uL (1.8-7.8); NEUTROPHILS % (AUTO) 72 % (42-75); PLATELET COUNT 364 10^3/uL (130-400); RETICULOCYTE % 2.15 % (0.50-2.40); WHITE BLOOD COUNT 18.7 10^3/uL (4.3-11.0)
[2021-03-27 12:07] LABS: BAND NEUTROPHILS 1 %; LYMPHOCYTES % (MANUAL) 13 %; MONOCYTES % (MANUAL) 8 %
[2021-03-27 12:08] LABS: BASOPHILS % (MANUAL) 0 %; EOSINOPHILS % (MANUAL) 0 %; NEUTROPHILS % (MANUAL) 78 %; RBC MORPH NORMAL
[2021-03-27] MEDS: IBUPROFEN TABLET 200 MG TAB PO PRN (13:11)
--- NOTE | 2021-03-27 14:56 | Physical Therapy Daily Note ---
PT Daily Note-Current Subjective Patient in bed pre tx, agrees to PT but she is very tired and doesn't want to get out of bed, agrees to exercises in bed, has 6/10 pain in right leg Appearance Patient in bed post tx with nurse call, phone, tray, all needs met. Mental Status Patient Orientation: Person, Place, Situation Transfers SCALE: Activities may be completed with or without assistive devices. 5-Mneogciztf-lvendoy completes the activity by him/herself with no assistance from a helper. 5-Set-up or Clean-up Assistance-helper sets up or cleans up; patient completes activity. [place] assists only prior to or following the activity. 4-Supervision or Touching Assistance-helper provides verbal cues and/or touching/steadying and/or contact guard assistance as patient completes activity. Assistance may be provided throughout the activity or intermittently. 3-Partial/Moderate Assistance-helper does LESS THAN HALF the effort. [place] lifts, holds or supports trunk or limbs, but provides less than half the effort. 2-Substantial/Maximal Assistance-helper does MORE THAN HALF the effort. [place] lifts or holds trunk or limbs and provides more than half the effort. 0-Yuybrwwgf-tmtfbq does ALL the effort. Patient does none of the effort to complete the activity. Or, the assistance of 2 or more helpers is required for the patient to complete the activity. If activity was not attempted, code reason: 7-Patient Refused. 9-Not Applicable-not attempted and the patient did not perform the activity before the current illness, exacerbation or injury. 10-Not Attempted due to Environmental Limitations-(lack of equipment, weather restraints, etc.). 88-Not Attempted due to Medical Conditions or Safety Concerns. Weight Bearing Right Lower Extremity: Right Weight Bearing/Tolerated Left Lower Extremity: Left Weight Bearing/Tolerated Exercises Supine Ex: Ankle pumps, Quad Set, Glut sets, Heel Slides (AAROM RLE), Short Arc Quads (AAROM RLE), Straight leg raise (AAROM RLE), Hip abd/add (AAROM RLE) Treatments LE exercise Assessment Current Status: Poor Progress increased pain in right leg with movement PT Short Term Goals Short Term Goals Time Frame: Apr 09, 2021 Roll Left & Right: 5 Sit to lyin Lying to sitting on side of be: 5 Sit to stand: 5 Chair/asu-oh-genxi transfer: 5 Toilet transfer: 5 Walk 10 feet: 4 Walk 50 feet with two turns: 3 Walk 150 feet: 3 1 step (curb): 3 4 steps: 3 12 steps: 3 Picking up objects: 4 Does pt use a wc or scooter: Yes Wheel 50ft w/2 turns: 6 Wheel 150 feet: 6 Type: Manual PT Loss Control Technician Goals [facility] Goals PT Loss Control Technician Goals Time Frame: May 07, 2021 Roll Left & Right (QC): 6 Sit to Lying (QC): 6 Lying-Sitting on Side/Bed(QC): 6 Sit to Stand (QC): 6 Chair/Yqs-xr-Pqjkk Xfer(QC): 6 Toilet Transfer (QC): 6 Car Transfer (QC): 6 Does the Patient Walk: Yes Walk 10 feet (QC): 6 Walk 50ft with 2 Turns (QC): 5 Walk 150 ft (QC): 5 Walking 10ft on Uneven Surface: 5 1 Step (curb) (QC): 5 4 Steps (QC): 5 12 Steps (QC): 5 Picking up an Object (QC): 5 Does the Pt use WC or Scooter?: Yes Wheel 50 feet with 2 turns (QC: 6 Type: Manual Wheel 150 feet: 6 Type: Manual PT Plan Problem List Problem List: Activity Tolerance, Functional Strength, Safety, Balance, Gait, Transfer, Bed Mobility, ROM Treatment/Plan Treatment Plan: Continue Plan of Care Treatment Plan: Bed Mobility, Education, Functional Activity Po, Functional Strength, Group Therapy, Gait, Safety, Therapeutic Exercise, Transfers Treatment Duration: Jun 04, 2021 Frequency: At least 5 of 7 days/Wk (IRF) Estimated Hrs Per Day: 1.5 hours per day Patient and/or Family Agrees t: Yes Safety Risks/Education Patient Education: Correct Positioning, Safety Issues Teaching Recipient: Patient Teaching Methods: Demonstration, Discussion Response to Teaching: Reinforcement Needed Time/GCodes Time In: 1430 Time Out: 1500 Total Billed Treatment Time: 30 Total Billed Treatment 1 visit EX 30' RAVEN CRAMER PT Mar 27, 2021 14:56
[2021-03-27 20:05] VITALS: BP 118/57
[2021-03-28] MEDS: HYDROcodone/APAP 5 MG/325 MG (LORTAB) TAB PO PRN ×5 (00:22→21:34)
[2021-03-28] MEDS: MULTIVIT W/MINERALS TAB (THERAGRAN M) PO SCH (05:57)
--- NOTE | 2021-03-28 06:11 | PM&R Progress Note ---
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 Overall very debilitated and Pt needs a fdc at discharge Pain medication will be changed to be more frequent of Q4 Dr Duque consult 03/27/2021: Patient seen in gym Very frail Pain managed with Lortab Took a shower today Very fragile Recheck labs Review of Systems General: Fatigue, Malaise Musculoskeletal: back pain, leg pain Focused Exam Lactate Level 03/26/21 14:49: Lactic Acid Level 1.12 Objective Exam Vital Signs Vital Signs Date Time Temp Pulse Resp B/P (MAP) Pulse Ox O2 Delivery O2 Flow Rate FiO2 03/28/21 20:09 36.8 66 18 127/59 (81) 97 Room Air Capillary Refill : General Appearance: No Apparent Distress, WD/WN, Chronically ill, Thin HEENT: PERRL/EOMI, Normal ENT Inspection, Pharynx Normal Neck: Full Range of Motion, Normal Inspection, Non Tender, Supple, Carotid Bruit Respiratory: Chest Non Tender, Lungs Clear, Normal Breath Sounds, No Accessory Muscle Use, No Respiratory Distress Cardiovascular: Regular Rate, Rhythm, No Edema, No Gallop, No JVD, No Murmur, Normal Peripheral Pulses Gastrointestinal: Normal Bowel Sounds, No Organomegaly, No Pulsatile Mass, Non Tender, Soft Back: Normal Inspection, No CVA Tenderness, No Vertebral Tenderness Extremity: Normal Capillary Refill, Normal Inspection, Normal Range of Motion (Except legs with pain in pelvis), Non Tender, No Calf Tenderness, No Pedal Edema Neurologic/Psychiatric: Alert, Oriented x3, No Motor/Sensory Deficits, Normal Mood/Affect, Abnormal Gait, Motor Weakness (Generalized 4/5 extremities) Skin: Normal Color, Warm/Dry Lymphatic: No Adenopathy Results/Procedures Lab Patient resulted labs reviewed. FIM Transfers Therapy Code Descriptions/Definitions Functional [place] Measure: 0=Not Assessed/NA 4=Minimal Assistance 1=Total Assistance 5=Supervision or Setup 2=Maximal Assistance 6=Modified [place] 3=Moderate Assistance 7=Complete IndependenceSCALE: Activities may be completed with or without assistive devices. 8-Tmrcsitqmc-eyphwje completes the activity by him/herself with no assistance from a helper. 5-Set-up or Clean-up Assistance-helper sets up or cleans up; patient completes activity. [place] assists only prior to or following the activity. 4-Supervision or Touching Assistance-helper provides verbal cues and/or touching/steadying and/or contact guard assistance as patient completes activity. Assistance may be provided throughout the activity or intermittently. 3-Partial/Moderate Assistance-helper does LESS THAN HALF the effort. [place] lifts, holds or supports trunk or limbs, but provides less than half the effort. 2-Substantial/Maximal Assistance-helper does MORE THAN HALF the effort. [place] lifts or holds trunk or limbs and provides more than half the effort. 1-Xpokbvofu-tgxvui does ALL the effort. Patient does none of the effort to complete the activity. Or, the assistance of 2 or more helpers is required for the patient to complete the activity. If activity was not attempted, code reason: 7-Patient Refused. 9-Not Applicable-not attempted and the patient did not perform the activity before the current illness, exacerbation or injury. 10-Not Attempted due to Environmental Limitations-(lack of equipment, weather restraints, etc.). 88-Not Attempted due to Medical Conditions or Safety Concerns. Roll Left to Right (QC): 3 Sit to Lying (QC): 3 Sit to Stand (QC): 3 Chair/Gfi-by-Abkfv Xfer(QC): 4 Car Transfer (QC): 3 Gait Training Does the Patient Walk?: Yes Distance: 3'x2, 6' Walk 10 feet (QC): 88 Walk 50 ft with 2 Turns(QC): 88 Walk 150 ft (QC): 88 Walking 10ft/uneven surface-QC: 88 Gait Assistive Device: Parallel Bars Wheelchair Training Does the Pt Use a Wheelchair?: Yes Distance: 40 feet Wheel 50 ft with 2 turns (QC): 88 Wheel 150 ft (QC): 88 Type of Wheelchair: Manual Stair Training 1 Step (curb) (QC): 88 4 Steps (QC): 88 12 Steps (QC): 88 Balance Picking up an Object (QC): 88 ADL-Treatment Eating (QC): 5 (per clincial judgment, set up assistance required with containers.) Oral Hygiene (QC): 4 (CGA standing at sink.) Shower/Bathe Self (QC): 2 (Pt unable to wash lower legs/feet, assistance with p eriarea and buttocks. Pt able to wash BUEs, chest/abdomen and thighs but assistance for thoroughness.) Upper Body Dressing (QC): 3 (Pt doffed dross puller shirt, assist to doff fasteners of bra. Min A to don dross puller shirt down trunk.) Lower Body Dressing (QC): 2 (Pt required max assist. Pt able to manage pants up/down with little assistance, assistance to thread over feet) On/Off Footwear (QC): 1 (Pt required complete assitance. ) Toileting Hygiene (QC): 3 (Min A standing balance, pt able to manage clothing and perform hygiene.) Assessment/Plan Assessment and Plan Assess & Plan/Chief Complaint Assessment: Debility Pelvic fracture Previous CVA Current smoker Frail status BMI 13 Pressure ulcer Falls Leukocytosis without source of infection Plan: Supportive care Pain meds Bowel regimen Aggressive therapy 03/27/2021: Increase nutrition Work-up leukocytosis appears to be some sort of leukemia or that type of abnormality Check meds and labs 03/28/21: Increase nutrition Consult Dr Duque (1) Debility (2) Pelvic fracture (3) History of CVA (cerebrovascular accident) (4) Malnutrition (5) Leukocytosis (6) Fall Status: Acute ANTONIO HWANG DO Mar 28, 2021 06:11
[2021-03-28 07:39] VITALS: BP 129/75
[2021-03-28] MEDS: DOCUSATE SODIUM 100 MG (COLACE) CAP PO SCH ×2 (08:48→20:15)
[2021-03-28] MEDS: SENNA W/DOCUSATE (SENOKOT S) TABLET PO SCH ×2 (08:49→20:16)
[2021-03-28] MEDS: polyethylene glycoL POWDER 17 GM (MIRALAX) PACK PO SCH ×2 (08:49→20:16)
[2021-03-28] MEDS: lisINopril 20 MG (PRINIVIL) TABLET PO SCH (08:49)
[2021-03-28] MEDS: CLOPIDOGREL 75 MG (PLAVIX) TABLET PO SCH (08:50)
--- NOTE | 2021-03-28 09:55 | Physical Therapy Daily Note ---
PT Daily Note-Current Subjective Patient in bed pre tx, agrees to PT, has 3/10 pain, wants pain meds, nurse notified. Will be co-treating with OT due to poor patient mobility, strength, endurance, severe pain with activity, coordinate UE and LE with activity, safety and reduce risk of falls. Appearance Patient in recliner post tx with nurse call, phone, tray, all needs met. Patient has a wet cough and sitting would be better for her. Mental Status Patient Orientation: Person, Place, Situation Transfers SCALE: Activities may be completed with or without assistive devices. 2-Vjnshsheef-hbqcqdx completes the activity by him/herself with no assistance from a helper. 5-Set-up or Clean-up Assistance-helper sets up or cleans up; patient completes activity. [place] assists only prior to or following the activity. 4-Supervision or Touching Assistance-helper provides verbal cues and/or touch ing/steadying and/or contact guard assistance as patient completes activity. Assistance may be provided throughout the activity or intermittently. 3-Partial/Moderate Assistance-helper does LESS THAN HALF the effort. [place] lifts, holds or supports trunk or limbs, but provides less than half the effort. 2-Substantial/Maximal Assistance-helper does MORE THAN HALF the effort. [place] lifts or holds trunk or limbs and provides more than half the effort. 1-Gmnvxepyr-ccpnok does ALL the effort. Patient does none of the effort to complete the activity. Or, the assistance of 2 or more helpers is required for the patient to complete the activity. If activity was not attempted, code reason: 7-Patient Refused. 9-Not Applicable-not attempted and the patient did not perform the activity before the current illness, exacerbation or injury. 10-Not Attempted due to Environmental Limitations-(lack of equipment, weather restraints, etc.). 88-Not Attempted due to Medical Conditions or Safety Concerns. Roll Left & Right (QC): 6 Lying to Sitting/Side of Bed(Q: 4 Sit to Stand (QC): 4 Chair/Xot-ry-Qtmjc Xfer(QC): 4 Patient has a wet brief and will ambulate to the restroom and sit on toilet and change brief and pants. Weight Bearing Right Lower Extremity: Right Weight Bearing/Tolerated Left Lower Extremity: Left Weight Bearing/Tolerated Gait Training Distance: 20', 5'x2 Walk 10 feet (QC): 4 Gait Persons Needed: 1 Gait Assistive Device: FWW WC follow, CGA, antalgic, very slow Wheelchair Training Does the Pt Use a Wheelchair?: Yes Wheel 50 ft with 2 turns (QC): 3 Type of Wheelchair: Manual 120'x2 Exercises standing ring activity, stands x4 for about 2 min each time Treatments PT performs toileting, bed mobility and transfers, ambulation, standing for ring activity, OT performed ring activity, toileting, dressing, UE positioning and safety during activity Assessment Current Status: Fair Progress improved distance of ambulation PT Short Term Goals Short Term Goals Time Frame: Apr 09, 2021 Roll Left & Right: 5 Sit to lyin Lying to sitting on side of be: 5 Sit to stand: 5 Chair/cjx-ew-yfmum transfer: 5 Toilet transfer: 5 Walk 10 feet: 4 Walk 50 feet with two turns: 3 Walk 150 feet: 3 1 step (curb): 3 4 steps: 3 12 steps: 3 Picking up objects: 4 Does pt use a wc or scooter: Yes Wheel 50ft w/2 turns: 6 Wheel 150 feet: 6 Type: Manual PT Pick Up Goals Nursing Home Goals PT Nursing Home Goals Time Frame: May 07, 2021 Roll Left & Right (QC): 6 Sit to Lying (QC): 6 Lying-Sitting on Side/Bed(QC): 6 Sit to Stand (QC): 6 Chair/Zsj-az-Pajes Xfer(QC): 6 Toilet Transfer (QC): 6 Car Transfer (QC): 6 Does the Patient Walk: Yes Walk 10 feet (QC): 6 Walk 50ft with 2 Turns (QC): 5 Walk 150 ft (QC): 5 Walking 10ft on Uneven Surface: 5 1 Step (curb) (QC): 5 4 Steps (QC): 5 12 Steps (QC): 5 Picking up an Object (QC): 5 Does the Pt use WC or Scooter?: Yes Wheel 50 feet with 2 turns (QC: 6 Type: Manual Wheel 150 feet: 6 Type: Manual PT Plan Problem List Problem List: Activity Tolerance, Functional Strength, Safety, Balance, Gait, Transfer, Bed Mobility, ROM Treatment/Plan Treatment Plan: Continue Plan of Care Treatment Plan: Bed Mobility, Education, Functional Activity Po, Functional Strength, Group Therapy, Gait, Safety, Therapeutic Exercise, Transfers Treatment Duration: Jun 04, 2021 Frequency: At least 5 of 7 days/Wk (IRF) Estimated Hrs Per Day: 1.5 hours per day Patient and/or Family Agrees t: Yes Safety Risks/Education Patient Education: Gait Training, Transfer Techniques, Correct Positioning, W/C Management, Safety Issues Teaching Recipient: Patient Teaching Methods: Demonstration, Discussion Response to Teaching: Reinforcement Needed Time/GCodes Time In: 0900 Time Out: 1000 Total Billed Treatment Time: 60 Total Billed Treatment 1 visit EX 15' FA 45' RAVEN CRAMER PT Mar 28, 2021 09:55
--- NOTE | 2021-03-28 10:00 | Occupational Ther Daily Note ---
OT Current Status-Daily Note Subjective Pt was lying supine in bed upon OT/PT arrival. Pt agreed to COTREAT session on this date. Mental Status/Objective Patient Orientation: Person, Place, Situation ADL-Treatment Therapy Code Descriptions/Definitions Functional [place] Measure: 0=Not Assessed/NA 4=Minimal Assistance 1=Total Assistance 5=Supervision or Setup 2=Maximal Assistance 6=Modified [place] 3=Moderate Assistance 7=Complete IndependenceSCALE: Activities may be completed with or without assistive devices. 0-Acfbajxzdt-kscuuvc completes the activity by him/herself with no assistance from a helper. 5-Set-up or Clean-up Assistance-helper sets up or cleans up; patient completes activity. [place] assists only prior to or following the activity. 4-Supervision or Touching Assistance-helper provides verbal cues and/or michelle padilla/steadying and/or contact guard assistance as patient completes activity. Assistance may be provided throughout the activity or intermittently. 3-Partial/Moderate Assistance-helper does LESS THAN HALF the effort. [place] lifts, holds or supports trunk or limbs, but provides less than half the effort. 2-Substantial/Maximal Assistance-helper does MORE THAN HALF the effort. [place] lifts or holds trunk or limbs and provides more than half the effort. 6-Ilarzbsob-kaqqmi does ALL the effort. Patient does none of the effort to complete the activity. Or, the assistance of 2 or more helpers is required for the patient to complete the activity. If activity was not attempted, code reason: 7-Patient Refused. 9-Not Applicable-not attempted and the patient did not perform the activity before the current illness, exacerbation or injury. 10-Not Attempted due to Environmental Limitations-(lack of equipment, weather restraints, etc.). 88-Not Attempted due to Medical Conditions or Safety Concerns. Lower Body Dressing (QC): 2 (Pt required Max assist, able to manage pants up/down w/ little assistance, full assistance to thread over feet. ) On/Off Footwear: 1 (Pt required full assistance. ) Toileting Hygiene (QC): 3 (Pt required min assist from sit to stand for pant hike, lost balance slightly when trying to pull up in the back. Pt required seated x2 rest breaks: first after pulling up brief, second pulling up pants to support energy conservation. ) Toilet Transfer (QC): 4 (Pt requried CGA during task. ) Other Treatment Pt was lying supine in bed upon OT/PT arrival. Pt agreed to COTREAT session on this date. [place] was utilized due to skill of 2 clinicians required which a rehabilitation services aide could not perform in order to coordinate UE's/LE's, decrease fall risk, and due to pt limitations in pain, activity tolerance, strength and mobility. OT focused on UE placement, cues for sequencing and safety, and ADLs. PT focused on gross overall movements, transfers/mobility, and LE placement Pt fatigues easily rest breaks were utilized for energy conservation during tx session. Pt performed bed mobility from supine to EOB at [facility]. Pt transferred from EOB to standing w/ FWW at [facility]. Pt performed functional mobility from standing EOB to toilet at [facility], slow pace. Pt performed toilet task, see above QC's. Pt transferred from standing w/ FWW to w/c. Pt performed w/c management from room to therapy gym, requiring VC's for skill, and x4 rest breaks. Pt was then wheeled into gym for energy conservation. Pt performed ring arch at parallel bars while standing at [facility] x4 rounds: First round: L hand crossing midline to R 12/12. Seated rest break. Second round: R hand crossing midline to L 12/12. Seated rest break. Third round: Arch raised to medium grade to support increased ROM, L to R 12/12. Seated rest break. Fourth round: Arch raised to medium grade to support increased ROM, R to L 12/12. Seated rest break. Pt performed w/c management from therapy gym to common area, requiring VC's for skill, and x2 rest breaks. Pt was then wheeled into room for energy conservation. Pt transferred from w/c to chair at [facility] w/ FWW. Post tx session, pt was seated in chair and tired, call light within reach, and all needs met. Education OT Patient Education: Correct positioning, Energy conservation, Progress toward Goal/Update tx plan, Purpose of tx/functional activities, Safety issues, Transfer techniques, W/C management Teaching Recipient: Patient Teaching Methods: Demonstration, Discussion Response to Teaching: Verbalize Understanding, Return Demonstration OT Short Term Goals Short Term Goals Time Frame: Apr 09, 2021 Eatin Oral hygiene: 5 Toileting hygiene: 4 Shower/bathe self: 4 Upper body dressin Lower body dressin Putting on/taking off footwear: 4 OT Gis Web Developer Goals Care Home Goals Time Frame: Apr 18, 2021 Eating (QC): 6 Oral Hygiene (QC): 6 Toileting Hygiene (QC): 6 Shower/Bathe Self (QC): 6 Upper Body Dressing (QC): 6 Lower Body Dressing (QC): 6 On/Off Footwear (QC): 6 Additional Goals: 1-Demonstrate ADL Tasks, 2-Verbalize Understanding, 3- ImproveStrength/Po 1=Demonstrate adherence to instructed precautions during ADL tasks. 2=Patient will verbalize/demonstrate understanding of assistive devices/modifications for ADL. 3=Patient will improve strength/tolerance for activity to enable patient to perform ADL's. OT Education/Plan Problem List/Assessment Assessment: Decreased Activ Tolerance, Decreased Safety Aware, Decreased UE Strength, Impaired Bed Mobility, Impaired Coordination, Impaired Funct Balance, Impaired I ADL's, Impaired Self-Care Skills Discharge Recommendations Plan/Recommendations: Continue POC Treatment Plan/Plan of Care Patient would benefit from OT for education, treatment and training to promote independence in ADL's, mobility, safety and/or upper extremity function for ADL's. Plan of Care: ADL Retraining, Functional Mobility, Group Exercise/Act as Ind, UE Funct Exercise/Act Treatment Duration: Apr 18, 2021 Frequency: At least 5 of 7 days/Wk (IRF) Estimated Hrs Per Day: 1.5 hours per day Rehab Potential: Fair Time/GCodes Start Time: 09:00 Stop Time: 10:00 Total Time Billed (hr/min): 60 Billed Treatment Time COTREAT: (10:00 - 11:00) 1 Visit, ADL (20'), FA 3 (40') ALEXANDRA SINGH OT Mar 28, 2021 10:00
--- NOTE | 2021-03-28 14:43 | Therapy Group Daily Note ---
Therapy Daily Group Note Patient Education Topic Fall Prevention, Home Safety Exercises LE Seated Exercise, UE Exercise Session Ratio (pt:therapist): 4:1 Goal of Session: Education on ARU Expectations, Home Safety Strategies, UE/LE Strengthing Goal Met for this Session: Yes Pt Benefit of Group: Contributions to Others, F/U Use of Strategies @Home, Increased Functional Safety, Increased Functional Strength, Improved Cognition, Recognition of Peers, Socialization Other/Notes Pt ambulated to [facility] area for OT/PT group. Group consisted of introductions (name, place living, childhood memory), socialization, B UE seated exercises, educational topics of fall prevention/risk, floor transfers and home safety. Pt introduced self appropriately and actively listened to peers. Pt able to complete B UE/LE seated exercises. Pt acknowledged understanding of educational topics by verbalizing own strategies and focusing on speakers. After session, pt lying in bed with call light/phone in reach. All needs met in room. Start Time: 13:00 Stop Time: 14:15 Total Billed Treatment Time: 75 Total Billed Treatment 1-GRP EMILY RAYO Mar 28, 2021 14:43
--- NOTE | 2021-03-28 16:54 | CONSULTATION REPORT ---
DATE OF SERVICE: 03/28/2021 The patient is admitted to room 228. PHYSICIAN REQUESTING CONSULTATION: Desiree Arteaga DO IMPRESSION: 1. A 75-year-old female admitted to acute rehabilitation unit after a fall and pelvic fracture. 2. Persistent leukocytosis with neutrophilia and monocytosis. RECOMMENDATIONS: 1. Continue to monitor CBC serially. 2. Continue rehabilitation and increase her activity level as tolerated. 3. If the leukocytosis and monocytosis is worsening, she may need a bone marrow aspiration and biopsy to rule out myeloproliferative/myelodysplastic or overlap syndrome. 4. As the patient is stable and is recovering from the pelvic fracture, I would not recommend immediate intervention other than surveillance. BRIEF HISTORY: The patient is a 75-year-old female who lives in [place], [place]. She had a fall after getting out of her daughter's vehicle and hit her right hip. Because of significant pain she was brought to the emergency room and was found to have fractured pelvis. This did not require surgery and is being managed conservatively. She was admitted to the acute rehabilitation unit for strengthening and ambulation. She was noted to have leukocytosis with neutrophilia and monocytosis. Pathology review of the smear was done and hematology consult was requested for further recommendations. PAST MEDICAL HISTORY: Only significant for hypertension for several years and is on treatment. No other medical problems. Previous surgeries include bilateral rupture requiring resection 28 years ago. Also had an appendectomy years ago. She had a CVA in 2017 with no residual. SOCIAL HISTORY: The patient lives by herself in [place], [place]. She has a daughter and a son, both of whom live close by. She has smoked a half pack of cigarettes a day since the age of 15 years. Recently, she has been smoking up to five cigarettes a day. No alcohol or recreational drug use. 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 No significant exposure to chemicals or radiation. FAMILY HISTORY: Unremarkable with no major medical problems or malignancies in the family. PHYSICAL EXAMINATION: GENERAL: Today showed an elderly female, thin appearing, awake and answering questions appropriately, in no acute distress. VITAL SIGNS: Temperature was 36.5, pulse rate of 64, respirations 18, blood pressure 129/75 with oxygen saturation of 94% on room air. HEENT: Normocephalic, extraocular muscles intact, conjunctivae pink, oral mucosa moist. NECK: Supple, with no JVD. No cervical, supraclavicular or axillary lymphadenopathy palpable. CHEST: Symmetrical. LUNGS: With slightly diminished breath sounds bilaterally without any wheezes or rales. CARDIOVASCULAR: Regular in rate and rhythm. No murmurs or gallops heard. ABDOMEN: Soft, nontender with no hepatosplenomegaly or other masses palpable. EXTREMITIES: Showed no edema. NEUROLOGIC: Showed no focal motor deficits. The patient is ambulating with a walker. Does have mild pain in the right hip/pelvis on weightbearing. LABORATORY DATA: CBC done yesterday showed white count of 18.7, hemoglobin 13.1, MCV 93, platelet count 364,000 with differential count showing neutrophil count of 13.5, lymphocyte count 3.5, monocyte count 1.4 with eosinophils 0.1 and basophils 0.1. Absolute reticulocyte count was 91,000. Previous CBCs dating back to 01/2017 showed mild leukocytosis and monocytosis. Hemoglobin and platelets have been in the normal range. Reviewed the peripheral smear, which showed increased white blood cells with mostly being mature neutrophils. Monocytes were slightly elevated. Red cells appeared unremarkable. Platelets are also adequate in number and no clumps were noted. Several large platelets noted. Chemistry panel done yesterday showed normal electrolytes except potassium level of 3.5. BUN was 31 and creatinine 1.1 with GFR of 48 mL per minute. Corrected calcium was 10.3. Liver function studies were within normal limits. Serum LDH was 325. Urinalysis done on 03/26/2021 was relatively unremarkable. Chest x-ray done on 03/26/2021 showed no acute radiographic abnormality in the chest. Thank you for allowing me to participate in this patient's care. I will follow the patient with you and make appropriate recommendations. CC: Solange Gil - requested, unable to deliver Job ID: [id number] DocumentID: [id number] Dictated Date: 03/28/2021 16:18:25 Yarn Preparation Supervisor Date: 03/28/2021 16:53:13 Dictated By: BRIJESH SANCHEZ MD
[2021-03-28 20:09] VITALS: BP 127/59
[2021-03-28] MEDS: MELATONIN 3 MG TABLET PO PRN (22:24)
[2021-03-28] MEDS: IBUPROFEN TABLET 200 MG TAB PO PRN (22:25)
[2021-03-29] MEDS: HYDROcodone/APAP 5 MG/325 MG (LORTAB) TAB PO PRN ×5 (02:47→22:50)
--- NOTE | 2021-03-29 06:20 | PM&R Progress Note ---
Subjective HPI/CC On Admission Date Seen by Provider: Mar 29, 2021 Time Seen by Provider: 06:20 Subjective/Events-last exam 03/29/2021: Patient improved Pain is better controlled Appreciate Dr. 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 Overall very debilitated and Pt needs a senior living at discharge Pain medication will be changed to be more frequent of Q4 Dr Duque consult 03/27/2021: Patient seen in gym Very frail Pain managed with Lortab Took a shower today Very fragile Recheck labs Review of Systems General: Fatigue, Malaise Focused Exam Lactate Level Objective Exam Vital Signs Vital Signs Date Time Temp Pulse Resp B/P (MAP) Pulse Ox O2 Delivery O2 Flow Rate FiO2 03/29/21 09:13 Room Air 03/29/21 08:20 37.0 60 16 127/66 (86) 95 Capillary Refill : General Appearance: No Apparent Distress, WD/WN, Chronically ill, Thin HEENT: PERRL/EOMI, Normal ENT Inspection, Pharynx Normal Neck: Full Range of Motion, Normal Inspection, Non Tender, Supple, Carotid Bruit Respiratory: Chest Non Tender, Lungs Clear, Normal Breath Sounds, No Accessory Muscle Use, No Respiratory Distress Cardiovascular: Regular Rate, Rhythm, No Edema, No Gallop, No JVD, No Murmur, Normal Peripheral Pulses Gastrointestinal: Normal Bowel Sounds, No Organomegaly, No Pulsatile Mass, Non Tender, Soft Back: Normal Inspection, No CVA Tenderness, No Vertebral Tenderness Extremity: Normal Capillary Refill, Normal Inspection, Normal Range of Motion (Except legs with pain in pelvis), Non Tender, No Calf Tenderness, No Pedal Edema Neurologic/Psychiatric: Alert, Oriented x3, No Motor/Sensory Deficits, Normal Mood/Affect, Abnormal Gait, Motor Weakness (Generalized 4/5 extremities) Skin: Normal Color, Warm/Dry Lymphatic: No Adenopathy Results/Procedures Lab Patient resulted labs reviewed. FIM Transfers Therapy Code Descriptions/Definitions Functional [place] Measure: 0=Not Assessed/NA 4=Minimal Assistance 1=Total Assistance 5=Supervision or Setup 2=Maximal Assistance 6=Modified [place] 3=Moderate Assistance 7=Complete IndependenceSCALE: Activities may be completed with or without assistive devices. 9-Jlhcdrbimy-qudxjia completes the activity by him/herself with no assistance from a helper. 5-Set-up or Clean-up Assistance-helper sets up or cleans up; patient completes activity. [place] assists only prior to or following the activity. 4-Supervision or Touching Assistance-helper provides verbal cues and/or touching/steadying and/or contact guard assistance as patient completes act ivity. Assistance may be provided throughout the activity or intermittently. 3-Partial/Moderate Assistance-helper does LESS THAN HALF the effort. [place] lifts, holds or supports trunk or limbs, but provides less than half the effort. 2-Substantial/Maximal Assistance-helper does MORE THAN HALF the effort. [place] lifts or holds trunk or limbs and provides more than half the effort. 3-Hznwqmouy-mbihdp does ALL the effort. Patient does none of the effort to complete the activity. Or, the assistance of 2 or more helpers is required for the patient to complete the activity. If activity was not attempted, code reason: 7-Patient Refused. 9-Not Applicable-not attempted and the patient did not perform the activity before the current illness, exacerbation or injury. 10-Not Attempted due to Environmental Limitations-(lack of equipment, weather restraints, etc.). 88-Not Attempted due to Medical Conditions or Safety Concerns. Roll Left to Right (QC): 6 Sit to Lying (QC): 3 Sit to Stand (QC): 4 Chair/Zqq-zn-Axmiq Xfer(QC): 4 Car Transfer (QC): 3 Gait Training Does the Patient Walk?: Yes Distance: 20', 5'x2 Walk 10 feet (QC): 4 Walk 50 ft with 2 Turns(QC): 88 Walk 150 ft (QC): 88 Walking 10ft/uneven surface-QC: 88 Gait Persons Needed: 1 Gait Assistive Device: FWW Wheelchair Training Does the Pt Use a Wheelchair?: Yes Distance: 40 feet Wheel 50 ft with 2 turns (QC): 3 Wheel 150 ft (QC): 88 Type of Wheelchair: Manual Stair Training 1 Step (curb) (QC): 88 4 Steps (QC): 88 12 Steps (QC): 88 Balance Picking up an Object (QC): 88 ADL-Treatment Eating (QC): 5 (per clincial judgment, set up assistance required with containers.) Oral Hygiene (QC): 4 (CGA standing at sink.) Shower/Bathe Self (QC): 2 (Pt unable to wash lower legs/feet, assistance with periarea and buttocks. Pt able to wash BUEs, chest/abdomen and thighs but assistance for thoroughness.) Upper Body Dressing (QC): 3 (Pt doffed government guard shirt, assist to doff fasteners of bra. Min A to don government guard shirt down trunk.) Lower Body Dressing (QC): 2 (Pt required Max assist, able to manage pants up/down w/ little assistance, full assistance to thread over feet. ) On/Off Footwear (QC): 1 (Pt required full assistance. ) Toileting Hygiene (QC): 3 (Pt required min assist from sit to stand for pant hike, lost balance slightly when trying to pull up in the back. Pt required seated x2 rest breaks: first after pulling up brief, second pulling up pants to support energy conservation. ) Toilet Transfer (QC): 4 (Pt requried CGA during task. ) Assessment/Plan Assessment and Plan Assess & Plan/Chief Complaint Assessment: Debility Pelvic fracture Previous CVA Current smoker Frail status BMI 13 Pressure ulcer Falls Leukocytosis without source of infection Plan: Supportive care Pain meds Bowel regimen Aggressive therapy 03/27/2021: Increase nutrition Work-up leukocytosis appears to be some sort of leukemia or that type of abnormality Check meds and labs 03/28/21: Increase nutrition Consult Dr Duque 03/29/2021: Supportive care Pain control (1) Debility (2) Pelvic fracture (3) History of CVA (cerebrovascular accident) (4) Malnutrition (5) Leukocytosis (6) Fall Status: Acute ANTONIO HWANG DO Mar 29, 2021 06:20
[2021-03-29] MEDS: MULTIVIT W/MINERALS TAB (THERAGRAN M) PO SCH (06:44)
[2021-03-29 08:20] VITALS: BP 127/66
[2021-03-29] MEDS: CLOPIDOGREL 75 MG (PLAVIX) TABLET PO SCH (08:21)
[2021-03-29] MEDS: DOCUSATE SODIUM 100 MG (COLACE) CAP PO SCH ×2 (08:21→20:44)
[2021-03-29] MEDS: lisINopril 20 MG (PRINIVIL) TABLET PO SCH (08:21)
[2021-03-29] MEDS: SENNA W/DOCUSATE (SENOKOT S) TABLET PO SCH ×2 (08:21→20:44)
[2021-03-29] MEDS: polyethylene glycoL POWDER 17 GM (MIRALAX) PACK PO SCH ×2 (09:16→19:40)
--- NOTE | 2021-03-29 09:19 | Physical Therapy Daily Note ---
PT Daily Note-Current Subjective Pt in bed upon arrival and states pain "everywhere", RN notified and has already given pain medication. Pt states she can't move and doesn't want to get out of bed, but agrees to supine ex. Mental Status Patient Orientation: Person, Place, Time, Situation Transfers SCALE: Activities may be completed with or without assistive devices. 4-Goxhthhcwz-leapmsi completes the activity by him/herself with no assistance from a helper. 5-Set-up or Clean-up Assistance-helper sets up or cleans up; patient completes activity. [place] assists only prior to or following the activity. 4-Supervision or Touching Assistance-helper provides verbal cues and/or touching/steadying and/or contact guard assistance as patient completes activity. Assistance may be provided throughout the activity or intermittently. 3-Partial/Moderate Assistance-helper does LESS THAN HALF the effort. [place] lif ts, holds or supports trunk or limbs, but provides less than half the effort. 2-Substantial/Maximal Assistance-helper does MORE THAN HALF the effort. [place] lifts or holds trunk or limbs and provides more than half the effort. 7-Hwwwjbcyg-sitgbo does ALL the effort. Patient does none of the effort to complete the activity. Or, the assistance of 2 or more helpers is required for the patient to complete the activity. If activity was not attempted, code reason: 7-Patient Refused. 9-Not Applicable-not attempted and the patient did not perform the activity before the current illness, exacerbation or injury. 10-Not Attempted due to Environmental Limitations-(lack of equipment, weather restraints, etc.). 88-Not Attempted due to Medical Conditions or Safety Concerns. Weight Bearing Right Lower Extremity: Right Weight Bearing/Tolerated Left Lower Extremity: Left Weight Bearing/Tolerated Exercises Supine Ex: Ankle pumps, Quad Set, Heel Slides, Short Arc Quads, Hip abd/add Supine Reps: 15 Treatments Pt states she is in too much pain to get out of bed, but agrees to supine ex. Pt completes ex and remains in bed with all needs met. Assessment Current Status: Fair Progress Increasing strength PT Short Term Goals Short Term Goals Time Frame: Apr 09, 2021 Roll Left & Right: 5 Sit to lyin Lying to sitting on side of be: 5 Sit to stand: 5 Chair/ffi-sz-bektr transfer: 5 Toilet transfer: 5 Walk 10 feet: 4 Walk 50 feet with two turns: 3 Walk 150 feet: 3 1 step (curb): 3 4 steps: 3 12 steps: 3 Picking up objects: 4 Does pt use a wc or scooter: Yes Wheel 50ft w/2 turns: 6 Wheel 150 feet: 6 Type: Manual PT Shelter Goals All Source Analyst Goals PT Shelter Goals Time Frame: May 07, 2021 Roll Left & Right (QC): 6 Sit to Lying (QC): 6 Lying-Sitting on Side/Bed(QC): 6 Sit to Stand (QC): 6 Chair/Pud-vw-Ybrdr Xfer(QC): 6 Toilet Transfer (QC): 6 Car Transfer (QC): 6 Does the Patient Walk: Yes Walk 10 feet (QC): 6 Walk 50ft with 2 Turns (QC): 5 Walk 150 ft (QC): 5 Walking 10ft on Uneven Surface: 5 1 Step (curb) (QC): 5 4 Steps (QC): 5 12 Steps (QC): 5 Picking up an Object (QC): 5 Does the Pt use WC or Scooter?: Yes Wheel 50 feet with 2 turns (QC: 6 Type: Manual Wheel 150 feet: 6 Type: Manual PT Plan Treatment/Plan Treatment Plan: Continue Plan of Care Treatment Plan: Bed Mobility, Education, Functional Activity Po, Functional Strength, Group Therapy, Gait, Safety, Therapeutic Exercise, Transfers Treatment Duration: Jun 04, 2021 Frequency: At least 5 of 7 days/Wk (IRF) Estimated Hrs Per Day: 1.5 hours per day Patient and/or Family Agrees t: Yes Time/GCodes Time In: 823 Time Out: 832 Total Billed Treatment Time: 9 Total Billed Treatment 1, Jennifer OLGA WEISS GARBAGE TRUCK DISPATCHER Mar 29, 2021 09:19
[2021-03-29] MEDS: IBUPROFEN TABLET 200 MG TAB PO PRN ×2 (11:07→20:45)
[2021-03-29 19:59] VITALS: BP 151/76
[2021-03-29] MEDS: MELATONIN 3 MG TABLET PO PRN (20:45)
[2021-03-30] MEDS: HYDROcodone/APAP 5 MG/325 MG (LORTAB) TAB PO PRN ×3 (05:28→16:50)
--- NOTE | 2021-03-30 05:58 | PM&R Progress Note ---
Subjective HPI/CC On Admission Date Seen by Provider: Mar 30, 2021 Time Seen by Provider: 06:00 Subjective/Events-last exam 03/30/2021: Patient about the same Pain is better controlled Wondered what her white blood cell count was today but she did not have labs ordered Subtle confusion noted Poor memory recall High risk for fci at discharge 03/29/2021: Patient improved Pain is better controlled Appreciate Dr. 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 Overall very debilitated and Pt needs a fci at discharge Pain medication will be changed to be more frequent of Q4 Dr Duque consult 03/27/2021: Patient seen in gym Very frail Pain managed with Lortab Took a shower today Very fragile Recheck labs Review of Systems General: Fatigue, Malaise Neurological: Weakness Objective Exam Vital Signs Vital Signs Date Time Temp Pulse Resp B/P (MAP) Pulse Ox O2 Delivery O2 Flow Rate FiO2 03/30/21 08:20 Room Air 03/30/21 07:30 37.2 64 16 123/71 (88) 93 Capillary Refill : General Appearance: No Apparent Distress, WD/WN, Chronically ill, Thin HEENT: PERRL/EOMI, Normal ENT Inspection, Pharynx Normal Neck: Full Range of Motion, Normal Inspection, Non Tender, Supple, Carotid Bruit Respiratory: Chest Non Tender, Lungs Clear, Normal Breath Sounds, No Accessory Muscle Use, No Respiratory Distress Cardiovascular: Regular Rate, Rhythm, No Edema, No Gallop, No JVD, No Murmur, Normal Peripheral Pulses Gastrointestinal: Normal Bowel Sounds, No Organomegaly, No Pulsatile Mass, Non Tender, Soft Back: Normal Inspection, No CVA Tenderness, No Vertebral Tenderness Extremity: Normal Capillary Refill, Normal Inspection, Normal Range of Motion (Except legs with pain in pelvis), Non Tender, No Calf Tenderness, No Pedal Edema Neurologic/Psychiatric: Alert, Oriented x3, No Motor/Sensory Deficits, Normal Mood/Affect, Abnormal Gait, Motor Weakness (Generalized 4/5 extremities) Skin: Normal Color, Warm/Dry Lymphatic: No Adenopathy Results/Procedures Lab Patient resulted labs reviewed. FIM Transfers Therapy Code Descriptions/Definitions Functional [place] Measure: 0=Not Assessed/NA 4=Minimal Assistance 1=Total Assistance 5=Supervision or Setup 2=Maximal Assistance 6=Modified [place] 3=Moderate Assistance 7=Complete IndependenceSCALE: Activities may be completed with or without assistive devices. 7-Vknwlxvbyc-jmludos completes the activity by him/herself with no assistance from a helper. 5-Set-up or Clean-up Assistance-helper sets up or cleans up; patient completes activity. [place] assists only prior to or following the activity. 4-Supervision or Touching Assistance-helper provides verbal cues and/or touching/steadying and/or contact guard assistance as patient completes activity. Assistance may be provided throughout the activity or intermittently. 3-Partial/Moderate Assistance-helper does LESS THAN HALF the effort. [place] lifts, holds or supports trunk or limbs, but provides less than half the effort. 2-Substantial/Maximal Assistance-helper does MORE THAN HALF the effort. [place] lifts or holds trunk or limbs and provides more than half the effort. 4-Bybbbnnsl-xdxamx does ALL the effort. Patient does none of the effort to complete the activity. Or, the assistance of 2 or more helpers is required for the patient to complete the activity. If activity was not attempted, code reason: 7-Patient Refused. 9-Not Applicable-not attempted and the patient did not perform the activity before the current illness, exacerbation or injury. 10-Not Attempted due to Environmental Limitations-(lack of equipment, weather restraints, etc.). 88-Not Attempted due to Medical Conditions or Safety Concerns. Roll Left to Right (QC): 6 Sit to Lying (QC): 3 Sit to Stand (QC): 4 Chair/Cjg-nf-Beqnj Xfer(QC): 4 Car Transfer (QC): 3 Gait Training Does the Patient Walk?: Yes Distance: 20', 5'x2 Walk 10 feet (QC): 4 Walk 50 ft with 2 Turns(QC): 88 Walk 150 ft (QC): 88 Walking 10ft/uneven surface-QC: 88 Gait Persons Needed: 1 Gait Assistive Device: FWW Wheelchair Training Does the Pt Use a Wheelchair?: Yes Distance: 40 feet Wheel 50 ft with 2 turns (QC): 3 Wheel 150 ft (QC): 88 Type of Wheelchair: Manual Stair Training 1 Step (curb) (QC): 88 4 Steps (QC): 88 12 Steps (QC): 88 Balance Picking up an Object (QC): 88 ADL-Treatment Eating (QC): 5 (per clincial judgment, set up assistance required with containers.) Oral Hygiene (QC): 4 (CGA standing at sink.) Shower/Bathe Self (QC): 2 (Pt unable to wash lower legs/feet, assistance with periarea and buttocks. Pt able to wash BUEs, chest/abdomen and thighs but assistance for thoroughness.) Upper Body Dressing (QC): 3 (Pt doffed pin puller shirt, assist to doff fasteners of bra. Min A to don pin puller shirt down trunk.) Lower Body Dressing (QC): 2 (Pt required Max assist, able to manage pants up/down w/ little assistance, full assistance to thread over feet. ) On/Off Footwear (QC): 1 (Pt required full assistance. ) Toileting Hygiene (QC): 3 (Pt required min assist from sit to stand for pant hike, lost balance slightly when trying to pull up in the back. Pt required seated x2 rest breaks: first after pulling up brief, second pulling up pants to support energy conservation. ) Toilet Transfer (QC): 4 (Pt requried CGA during task. ) Assessment/Plan Assessment and Plan Assess & Plan/Chief Complaint Assessment: Debility Pelvic fracture Previous CVA Current smoker Frail status BMI 13 Pressure ulcer Falls Leukocytosis without source of infection Plan: Supportive care Pain meds Bowel regimen Aggressive therapy 03/27/2021: Increase nutrition Work-up leukocytosis appears to be some sort of leukemia or that type of abnormality Check meds and labs 03/28/21: Increase nutrition Consult Dr Duque 03/29/2021: Supportive care Pain control 03/30/2021: Supportive care Pain control Check labs in the morning (1) Debility (2) Pelvic fracture (3) History of CVA (cerebrovascular accident) (4) Malnutrition (5) Leukocytosis (6) Fall Status: Acute ANTONIO HWANG DO Mar 30, 2021 05:58
[2021-03-30] MEDS: MULTIVIT W/MINERALS TAB (THERAGRAN M) PO SCH (06:35)
[2021-03-30] MEDS: ONDANSETRON 4 MG (ZOFRAN) ORAL DISSOLVE TAB PO PRN (06:59)
[2021-03-30 07:30] VITALS: BP 123/71
[2021-03-30] MEDS: lisINopril 20 MG (PRINIVIL) TABLET PO SCH (08:11)
[2021-03-30] MEDS: CLOPIDOGREL 75 MG (PLAVIX) TABLET PO SCH (08:11)
[2021-03-30] MEDS: DOCUSATE SODIUM 100 MG (COLACE) CAP PO SCH ×2 (08:11→19:34)
[2021-03-30] MEDS: SENNA W/DOCUSATE (SENOKOT S) TABLET PO SCH ×2 (08:11→19:35)
[2021-03-30] MEDS: IBUPROFEN TABLET 200 MG TAB PO PRN ×2 (08:11→19:38)
[2021-03-30] MEDS: polyethylene glycoL POWDER 17 GM (MIRALAX) PACK PO SCH ×3 (08:48→19:35)
[2021-03-30] MEDS: LACTULOSE SYRUP 10GM/15ML (ENULOSE) 30ML UDC PO PRN (13:51)
[2021-03-30 19:00] VITALS: BP 131/68
[2021-03-30] MEDS: MELATONIN 3 MG TABLET PO PRN (19:37)
[2021-03-31] MEDS: HYDROcodone/APAP 5 MG/325 MG (LORTAB) TAB PO PRN ×3 (00:01→13:18)
[2021-03-31] MEDS: MULTIVIT W/MINERALS TAB (THERAGRAN M) PO SCH (06:03)
[2021-03-31 06:40] LABS: BASOPHILS # (AUTO) 0.1 10^3/uL (0.0-0.1); BASOPHILS % (AUTO) 0 % (0-10); EOSINOPHILS # (AUTO) 0.2 10^3/uL (0.0-0.3); EOSINOPHILS % (AUTO) 1 % (0-10); HEMATOCRIT 33 % (35-52); LYMPHOCYTES # (AUTO) 2.9 10^3/uL (1.0-4.0); LYMPHOCYTES % (AUTO) 18 % (12-44); MEAN CORPUSCULAR HEMOGLOBIN 31 pg (25-34); MEAN CORPUSCULAR HGB CONC 33 g/dL (32-36); MEAN CORPUSCULAR VOLUME 93 fL (80-99); MEAN PLATELET VOLUME 9.7 fL (9.0-12.2); MONOCYTES # (AUTO) 1.4 10^3/uL (0.0-1.0); MONOCYTES % (AUTO) 8 % (0-12); NEUTROPHILS # (AUTO) 12.2 10^3/uL (1.8-7.8); NEUTROPHILS % (AUTO) 72 % (42-75); PLATELET COUNT 442 10^3/uL (130-400); WHITE BLOOD COUNT 16.8 10^3/uL (4.3-11.0)
[2021-03-31 06:58] LABS: ALBUMIN 3.1 GM/DL (3.2-4.5)
[2021-03-31 06:59] LABS: POTASSIUM 4.1 MMOL/L (3.6-5.0)
[2021-03-31 07:00] LABS: CALCIUM 9.2 MG/DL (8.5-10.1)
[2021-03-31 07:01] LABS: TOTAL PROTEIN 5.8 GM/DL (6.4-8.2)
[2021-03-31 07:03] LABS: BILIRUBIN,TOTAL 0.5 MG/DL (0.1-1.0)
[2021-03-31 07:05] LABS: CREATININE SERUM 0.97 MG/DL (0.60-1.30)
[2021-03-31 07:46] VITALS: BP 117/55
[2021-03-31] MEDS: lisINopril 20 MG (PRINIVIL) TABLET PO SCH (08:31)
[2021-03-31] MEDS: IBUPROFEN TABLET 200 MG TAB PO PRN ×2 (08:31→16:17)
[2021-03-31] MEDS: CLOPIDOGREL 75 MG (PLAVIX) TABLET PO SCH (08:31)
[2021-03-31] MEDS: DOCUSATE SODIUM 100 MG (COLACE) CAP PO SCH ×2 (09:31→19:50)
[2021-03-31] MEDS: polyethylene glycoL POWDER 17 GM (MIRALAX) PACK PO SCH ×2 (09:32→19:50)
[2021-03-31] MEDS: SENNA W/DOCUSATE (SENOKOT S) TABLET PO SCH ×2 (09:32→19:51)
--- NOTE | 2021-03-31 09:58 | Physical Therapy Daily Note ---
PT Daily Note-Current Subjective Patient in bed pre tx, agrees to PT, has "a little bit" of pain per patient. Will be co-treating with OT due to poor patient mobility, strength, endurance, severe pain with activity, coordinate UE and LE during activity, safety and reduce risk of falls. Appearance Patient in WC in room post tx to continue with OT Mental Status Patient Orientation: Person, Place, Situation Transfers SCALE: Activities may be completed with or without assistive devices. 5-Ewvutyubkb-sbxgypz completes the activity by him/herself with no assistance from a helper. 5-Set-up or Clean-up Assistance-helper sets up or cleans up; patient completes activity. [place] assists only prior to or following the activity. 4-Supervision or Touching Assistance-helper provides verbal cues and/or touching/steadying and/or contact guard assistance as patient completes activity. Assistance may be provided throughout the activity or intermittently. 3-Partial/Moderate Assistance-helper does LESS THAN HALF the effort. [place] lifts, holds or supports trunk or limbs, but provides less than half the effort. 2-Substantial/Maximal Assistance-helper does MORE THAN HALF the effort. [place] lifts or holds trunk or limbs and provides more than half the effort. 5-Cafmfrtvs-crpqsn does ALL the effort. Patient does none of the effort to complete the activity. Or, the assistance of 2 or more helpers is required for the patient to complete the activity. If activity was not attempted, code reason: 7-Patient Refused. 9-Not Applicable-not attempted and the patient did not perform the activity before the current illness, exacerbation or injury. 10-Not Attempted due to Environmental Limitations-(lack of equipment, weather restraints, etc.). 88-Not Attempted due to Medical Conditions or Safety Concerns. Roll Left & Right (QC): 6 Lying to Sitting/Side of Bed(Q: 6 Sit to Stand (QC): 4 Chair/Fgm-wj-Vtllq Xfer(QC): 4 Weight Bearing Right Lower Extremity: Right Weight Bearing/Tolerated Left Lower Extremity: Left Weight Bearing/Tolerated Gait Training Distance: 20'x7 Walk 10 feet (QC): 4 Gait Assistive Device: FWW WC follow, 20' is the max patient can ambulate at this time due to pain, has better step through but still very slow Wheelchair Training Does the Pt Use a Wheelchair?: Yes Wheel 50 ft with 2 turns (QC): 4 Type of Wheelchair: Manual 100' Exercises standing balance and stability exercise hitting balloon x4 Treatments PT worked on bed mobility and transfers, ambulation, standing during balloon activity, WC mobility, OT worked on balloon activity, UE positioning and safety during activity. Assessment Current Status: Fair Progress improved ambulation PT Short Term Goals Short Term Goals Time Frame: Apr 09, 2021 Roll Left & Right: 5 Sit to lyin Lying to sitting on side of be: 5 Sit to stand: 5 Chair/nec-wf-qurnf transfer: 5 Toilet transfer: 5 Walk 10 feet: 4 Walk 50 feet with two turns: 3 Walk 150 feet: 3 1 step (curb): 3 4 steps: 3 12 steps: 3 Picking up objects: 4 Does pt use a wc or scooter: Yes Wheel 50ft w/2 turns: 6 Wheel 150 feet: 6 Type: Manual PT Metallurgical Engineering Teacher Goals [facility] Goals PT Metallurgical Engineering Teacher Goals Time Frame: May 07, 2021 Roll Left & Right (QC): 6 Sit to Lying (QC): 6 Lying-Sitting on Side/Bed(QC): 6 Sit to Stand (QC): 6 Chair/Awd-qm-Xgpik Xfer(QC): 6 Toilet Transfer (QC): 6 Car Transfer (QC): 6 Does the Patient Walk: Yes Walk 10 feet (QC): 6 Walk 50ft with 2 Turns (QC): 5 Walk 150 ft (QC): 5 Walking 10ft on Uneven Surface: 5 1 Step (curb) (QC): 5 4 Steps (QC): 5 12 Steps (QC): 5 Picking up an Object (QC): 5 Does the Pt use WC or Scooter?: Yes Wheel 50 feet with 2 turns (QC: 6 Type: Manual Wheel 150 feet: 6 Type: Manual PT Plan Problem List Problem List: Activity Tolerance, Functional Strength, Safety, Balance, Gait, Transfer, Bed Mobility, ROM Treatment/Plan Treatment Plan: Continue Plan of Care Treatment Plan: Bed Mobility, Education, Functional Activity Po, Functional Strength, Group Therapy, Gait, Safety, Therapeutic Exercise, Transfers Treatment Duration: Jun 04, 2021 Frequency: At least 5 of 7 days/Wk (IRF) Estimated Hrs Per Day: 1.5 hours per day Patient and/or Family Agrees t: Yes Safety Risks/Education Patient Education: Gait Training, Transfer Techniques, Correct Positioning, W/C Management, Safety Issues Teaching Recipient: Patient Teaching Methods: Demonstration, Discussion Response to Teaching: Reinforcement Needed Time/GCodes Time In: 899 Time Out: 999 Total Billed Treatment 1 visit EX 15' FA 45' co-treat with OT from [id number] RAVEN CRAMER PT Mar 31, 2021 09:58
--- NOTE | 2021-03-31 10:29 | PM&R Progress Note ---
Subjective HPI/CC On Admission Date Seen by Provider: Mar 31, 2021 Time Seen by Provider: 10:15 Subjective/Events-last exam 03/31/2021: Pt appears to be about the same Frail status Constipated a bit yesterday, laxatives given Pain is pretty well controlled 03/30/2021: Patient about the same Pain is better controlled Wondered what her white blood cell count was today but she did not have labs ordered Subtle confusion noted Poor memory recall High risk for usp at discharge 03/29/2021: Patient improved Pain is better controlled Appreciate Dr. 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 Overall very debilitated and Pt needs a usp at discharge Pain medication will be changed to be more frequent of Q4 Dr Duque consult 03/27/2021: Patient seen in gym Very frail Pain managed with Lortab Took a shower today Very fragile Recheck labs Review of Systems General: Fatigue, Malaise Musculoskeletal: back pain, leg pain Neurological: Weakness, Incoordination Objective Exam Vital Signs Vital Signs Date Time Temp Pulse Resp B/P (MAP) Pulse Ox O2 Delivery O2 Flow Rate FiO2 03/31/21 20:00 Room Air 03/31/21 19:44 36.5 59 16 134/77 (96) 94 Capillary Refill : General Appearance: No Apparent Distress, WD/WN, Chronically ill, Thin HEENT: PERRL/EOMI, Normal ENT Inspection, Pharynx Normal Neck: Full Range of Motion, Normal Inspection, Non Tender, Supple, Carotid Bruit Respiratory: Chest Non Tender, Lungs Clear, Normal Breath Sounds, No Accessory Muscle Use, No Respiratory Distress Cardiovascular: Regular Rate, Rhythm, No Edema, No Gallop, No JVD, No Murmur, Normal Peripheral Pulses Gastrointestinal: Normal Bowel Sounds, No Organomegaly, No Pulsatile Mass, Non Tender, Soft Back: Normal Inspection, No CVA Tenderness, No Vertebral Tenderness Extremity: Normal Capillary Refill, Normal Inspection, Normal Range of Motion (Except legs with pain in pelvis), Non Tender, No Calf Tenderness, No Pedal Edema Neurologic/Psychiatric: Alert, Oriented x3, No Motor/Sensory Deficits, Normal Mood/Affect, Abnormal Gait, Motor Weakness (Generalized 4/5 extremities) Skin: Normal Color, Warm/Dry Lymphatic: No Adenopathy Results/Procedures Lab Laboratory Tests 03/31/21 05:59 Patient resulted labs reviewed. FIM Transfers Therapy Code Descriptions/Definitions Functional [place] Measure: 0=Not Assessed/NA 4=Minimal Assistance 1=Total Assistance 5=Supervision or Setup 2=Maximal Assistance 6=Modified [place] 3=Moderate Assistance 7=Complete IndependenceSCALE: Activities may be completed with or without assistive devices. 0-Urawzhlhkv-bhxdysc completes the activity by him/herself with no assistance from a helper. 5-Set-up or Clean-up Assistance-helper sets up or cleans up; patient completes activity. [place] assists only prior to or following the activity. 4-Supervision or Touching Assistance-helper provides verbal cues and/or touching/steadying and/or contact guard assistance as patient completes activity. Assistance may be provided throughout the activity or intermittently. 3-Partial/Moderate Assistance-helper does LESS THAN HALF the effort. [place] lifts, holds or supports trunk or limbs, but provides less than half the effort. 2-Substantial/Maximal Assistance-helper does MORE THAN HALF the effort. [place] lifts or holds trunk or limbs and provides more than half the effort. 9-Nouqfspmn-gnbfof does ALL the effort. Patient does none of the effort to complete the activity. Or, the assistance of 2 or more helpers is required for the patient to complete the activity. If activity was not attempted, code reason: 7-Patient Refused. 9-Not Applicable-not attempted and the patient did not perform the activity before the current illness, exacerbation or injury. 10-Not Attempted due to Environmental Limitations-(lack of equipment, weather restraints, etc.). 88-Not Attempted due to Medical Conditions or Safety Concerns. Roll Left to Right (QC): 6 Sit to Lying (QC): 3 Sit to Stand (QC): 4 Chair/Hpn-xu-Lmxpm Xfer(QC): 4 Car Transfer (QC): 3 Gait Training Does the Patient Walk?: Yes Distance: 20'x7 Walk 10 feet (QC): 4 Walk 50 ft with 2 Turns(QC): 88 Walk 150 ft (QC): 88 Walking 10ft/uneven surface-QC: 88 Gait Persons Needed: 1 Gait Assistive Device: FWW Wheelchair Training Does the Pt Use a Wheelchair?: Yes Distance: 40 feet Wheel 50 ft with 2 turns (QC): 4 Wheel 150 ft (QC): 88 Type of Wheelchair: Manual Stair Training 1 Step (curb) (QC): 88 4 Steps (QC): 88 12 Steps (QC): 88 Balance Picking up an Object (QC): 88 ADL-Treatment Eating (QC): 5 (per clincial judgment, set up assistance required with containers.) Oral Hygiene (QC): 4 (CGA standing at sink.) Shower/Bathe Self (QC): 2 (Pt unable to wash lower legs/feet, assistance with periarea and buttocks. Pt able to wash BUEs, chest/abdomen and thighs but assistance for thoroughness.) Upper Body Dressing (QC): 3 (Pt doffed plant puller shirt, assist to doff fasteners of bra. Min A to don plant puller shirt down trunk.) Lower Body Dressing (QC): 2 (Pt required Max assist, able to manage pants up/down w/ little assistance, full assistance to thread over feet. ) On/Off Footwear (QC): 1 (Pt required full assistance. ) Toileting Hygiene (QC): 3 (Pt required min assist from sit to stand for pant hike, lost balance slightly when trying to pull up in the back. Pt required seated x2 rest breaks: first after pulling up brief, second pulling up pants to support energy conservation. ) Toilet Transfer (QC): 4 (Pt requried CGA during task. ) Assessment/Plan Assessment and Plan Assess & Plan/Chief Complaint Assessment: Debility Pelvic fracture Previous CVA Current smoker Frail status BMI 13 Pressure ulcer Falls Leukocytosis without source of infection Plan: Supportive care Pain meds Bowel regimen Aggressive therapy 03/27/2021: Increase nutrition Work-up leukocytosis appears to be some sort of leukemia or that type of abnormality Check meds and labs 03/28/21: Increase nutrition Consult Dr Duque 03/29/2021: Supportive care Pain control 03/30/2021: Supportive care Pain control Check labs in the morning 03/31/2021: Supportive care (1) Debility (2) Pelvic fracture (3) History of CVA (cerebrovascular accident) (4) Malnutrition (5) Leukocytosis (6) Fall Status: Acute ANTONIO HWANG DO Mar 31, 2021 10:29
--- NOTE | 2021-03-31 10:59 | Occupational Ther Daily Note ---
OT Current Status-Daily Note Subjective Pt was in therapy gym finishing up w/ PT tx session. Pt agreed to co-treat and regular tx session on this date. Mental Status/Objective Patient Orientation: Person, Place, Situation ADL-Treatment Therapy Code Descriptions/Definitions Functional [place] Measure: 0=Not Assessed/NA 4=Minimal Assistance 1=Total Assistance 5=Supervision or Setup 2=Maximal Assistance 6=Modified [place] 3=Moderate Assistance 7=Complete IndependenceSCALE: Activities may be completed with or without assistive devices. 7-Ukigthkszc-qogjaqz completes the activity by him/herself with no assistance from a helper. 5-Set-up or Clean-up Assistance-helper sets up or cleans up; patient completes activity. [place] assists only prior to or following the activity. 4-Supervision or Touching Assistance-helper provides verbal cues and/or touching/steadying and/or contact guard assistance as patient completes activity. Assistance may be provided throughout the activity or intermittently. 3-Partial/Moderate Assistance-helper does LESS THAN HALF the effort. [place] li fts, holds or supports trunk or limbs, but provides less than half the effort. 2-Substantial/Maximal Assistance-helper does MORE THAN HALF the effort. [place] lifts or holds trunk or limbs and provides more than half the effort. 5-Jvfxwqzpi-oddbfv does ALL the effort. Patient does none of the effort to complete the activity. Or, the assistance of 2 or more helpers is required for the patient to complete the activity. If activity was not attempted, code reason: 7-Patient Refused. 9-Not Applicable-not attempted and the patient did not perform the activity before the current illness, exacerbation or injury. 10-Not Attempted due to Environmental Limitations-(lack of equipment, weather restraints, etc.). 88-Not Attempted due to Medical Conditions or Safety Concerns. Oral Hygiene (QC): 6 (Pt performed IND while seated in w/c sink side. ) Shower/Bathe Self (QC): 3 (Pt required Min assist when standing, washing backside, and shyann area. Pt utilized a long handled sponge during task to wash BLE and feet efficiently. ) Upper Body Dressing (QC): 5 (Pt requried set up. ) Lower Body Dressing (QC): 4 (Pt requried CGA when standing for pant hike and doffing LB garments to knees. No AE used to don LE clothing) On/Off Footwear: 5 (Pt required set up and utilized a meat dresser doff, donned with out AE) Other Treatment Pt was in therapy gym finishing up w/ PT tx session. Pt agreed to co-treat and regular tx session on this date. CO-TREAT {09:30 - 10:00}: OT/PT co-treat due to skill of 2 clinicians required which a animal rehabilitator could not perform in order to coordinate UEs/LEs, decrease fall risk, and due to pt's limitations in pain, activity tolerance, strength, and mobility. OT focused on UE placement, cues for sequencing and safety. PT focused on gross overall movement, transfers/mobility, and LE placement. Pt transferred from w/c to therapy mat [facility] w/ VC for hand placement. Pt then performed balloon hitting activity w/ FWW at [facility], w/ seated rest breaks, to support ROM, standing balance, coordination, wrist flexion/extension for strength and endurance in ADL's, x3 rounds: Round 1: Hitting balloon in all planes w/ L hand. Round 2: Hitting balloon in all planes w/ R hand. Round 3: Hitting balloon in all planes w/ L hand. Pt was too exhausted to complete 4th Round. Pt performed functional mobility from therapy mat to common area using FWW, w/c follow taking rest breaks as needed. Pt was wheeled the rest of the way back to room due to decrease of endurance. OT tx [id number]: Pt transferred from w/c to TX at [facility] for safety. Pt performed shower task, UBD, LBD, and footwear, see above QC's. Pt performed w/c mobility to sink side for oral hygiene and grooming task, see QC above. Pt required Mod assist to brush hair due to decrease in activity tolerance, OT put hair in braid to keep from tangling as much. Pt performed w/c mobility at [facility] from sink side to room. Pt participated in BUE exercises 1 round of x7 reps of each of the following to support strength and endurance for ADL function and skill: shoulder flexion, shoulder abduction, shoulder horizontal abduction, elbow flexion, and elbow extension. Pt transferred from w/c to chair w/ FWW at [facility] for safety. Post tx session, pt was seated in chair, legs elevated, call light within reach, and all needs met. Education OT Patient Education: Correct positioning, Energy conservation, Exercise program, Modified ADL techniques, Progress toward Goal/Update tx plan, Purpose of tx/functional activities, Rehab process, Safety issues, Transfer techniques, Use of adapted equipment, W/C management Teaching Recipient: Patient Teaching Methods: Demonstration, Discussion Response to Teaching: Verbalize Understanding, Return Demonstration OT Short Term Goals Short Term Goals Time Frame: Apr 09, 2021 Eatin Oral hygiene: 5 Toileting hygiene: 4 Shower/bathe self: 4 Upper body dressin Lower body dressin Putting on/taking off footwear: 4 OT Circular Head Saw Operator Goals Custodial Goals Time Frame: Apr 18, 2021 Eating (QC): 6 Oral Hygiene (QC): 6 Toileting Hygiene (QC): 6 Shower/Bathe Self (QC): 6 Upper Body Dressing (QC): 6 Lower Body Dressing (QC): 6 On/Off Footwear (QC): 6 Additional Goals: 1-Demonstrate ADL Tasks, 2-Verbalize Understanding, 3- ImproveStrength/Po 1=Demonstrate adherence to instructed precautions during ADL tasks. 2=Patient will verbalize/demonstrate understanding of assistive devices/modifications for ADL. 3=Patient will improve strength/tolerance for activity to enable patient to perform ADL's. OT Education/Plan Problem List/Assessment Assessment: Decreased Activ Tolerance, Decreased UE Strength, Impaired Coordination, Impaired Funct Balance, Impaired I ADL's, Impaired Self-Care Skills Discharge Recommendations Plan/Recommendations: Continue POC Treatment Plan/Plan of Care Patient would benefit from OT for education, treatment and training to promote independence in ADL's, mobility, safety and/or upper extremity function for ADL's. Plan of Care: ADL Retraining, Functional Mobility, Group Exercise/Act as Ind, UE Funct Exercise/Act Treatment Duration: Apr 18, 2021 Frequency: At least 5 of 7 days/Wk (IRF) Estimated Hrs Per Day: 1.5 hours per day Rehab Potential: Fair Time/GCodes Start Time: 09:30 Stop Time: 11:00 Total Time Billed (hr/min): 90 Billed Treatment Time [place] [id number], OT [place] [id number] 1 Visit, FA 2 (30'), ADL 3 (40'). EX (20') ALEXANDRA SINGH OT Mar 31, 2021 10:58
--- NOTE | 2021-03-31 14:23 | Physical Therapy Daily Note ---
PT Daily Note-Current Subjective Patient in bed pre tx, agrees reluctantly to PT, is very drowsy, asks if she can not get out of bed and perform LE exercise in stead. Appearance Patient in bed post tx with nurse call, phone, tray, all needs met. Mental Status Patient Orientation: Person, Place, Situation Transfers SCALE: Activities may be completed with or without assistive devices. 6-Mebqrbubol-xnlmncy completes the activity by him/herself with no assistance from a helper. 5-Set-up or Clean-up Assistance-helper sets up or cleans up; patient completes activity. [place] assists only prior to or following the activity. 4-Supervision or Touching Assistance-helper provides verbal cues and/or touching/steadying and/or contact guard assistance as patient completes activity. Assistance may be provided throughout the activity or intermittently. 3-Partial/Moderate Assistance-helper does LESS THAN HALF the effort. [place] lifts, holds or supports trunk or limbs, but provides less than half the effort. 2-Substantial/Maximal Assistance-helper does MORE THAN HALF the effort. [place] lifts or holds trunk or limbs and provides more than half the effort. 3-Inabuygzn-ibegqd does ALL the effort. Patient does none of the effort to complete the activity. Or, the assistance of 2 or more helpers is required for the patient to complete the activity. If activity was not attempted, code reason: 7-Patient Refused. 9-Not Applicable-not attempted and the patient did not perform the activity before the current illness, exacerbation or injury. 10-Not Attempted due to Environmental Limitations-(lack of equipment, weather restraints, etc.). 88-Not Attempted due to Medical Conditions or Safety Concerns. Weight Bearing Right Lower Extremity: Right Weight Bearing/Tolerated Left Lower Extremity: Left Weight Bearing/Tolerated Exercises Supine Ex: Ankle pumps, Quad Set, Glut sets, Heel Slides, Short Arc Quads, Straight leg raise, Hip abd/add Supine Reps: 20 AAROM BLE with HS, LAQ, hip abd/add, SLR Treatments LE strengthening Assessment Current Status: Poor Progress needed several rest breaks PT Short Term Goals Short Term Goals Time Frame: Apr 09, 2021 Roll Left & Right: 5 Sit to lyin Lying to sitting on side of be: 5 Sit to stand: 5 Chair/rwh-sj-pgqny transfer: 5 Toilet transfer: 5 Walk 10 feet: 4 Walk 50 feet with two turns: 3 Walk 150 feet: 3 1 step (curb): 3 4 steps: 3 12 steps: 3 Picking up objects: 4 Does pt use a wc or scooter: Yes Wheel 50ft w/2 turns: 6 Wheel 150 feet: 6 Type: Manual PT Residential Goals Operations Administrative Assistant Goals PT Residential Goals Time Frame: May 07, 2021 Roll Left & Right (QC): 6 Sit to Lying (QC): 6 Lying-Sitting on Side/Bed(QC): 6 Sit to Stand (QC): 6 Chair/Uso-gb-Vaccj Xfer(QC): 6 Toilet Transfer (QC): 6 Car Transfer (QC): 6 Does the Patient Walk: Yes Walk 10 feet (QC): 6 Walk 50ft with 2 Turns (QC): 5 Walk 150 ft (QC): 5 Walking 10ft on Uneven Surface: 5 1 Step (curb) (QC): 5 4 Steps (QC): 5 12 Steps (QC): 5 Picking up an Object (QC): 5 Does the Pt use WC or Scooter?: Yes Wheel 50 feet with 2 turns (QC: 6 Type: Manual Wheel 150 feet: 6 Type: Manual PT Plan Problem List Problem List: Activity Tolerance, Functional Strength, Safety, Balance, Gait, Transfer, Bed Mobility, ROM Treatment/Plan Treatment Plan: Continue Plan of Care Treatment Plan: Bed Mobility, Education, Functional Activity Po, Functional Strength, Group Therapy, Gait, Safety, Therapeutic Exercise, Transfers Treatment Duration: Jun 04, 2021 Frequency: At least 5 of 7 days/Wk (IRF) Estimated Hrs Per Day: 1.5 hours per day Patient and/or Family Agrees t: Yes Safety Risks/Education Patient Education: Correct Positioning, Safety Issues Teaching Recipient: Patient Teaching Methods: Demonstration, Discussion Response to Teaching: Reinforcement Needed Time/GCodes Time In: 1400 Time Out: 1430 Total Billed Treatment Time: 30 Total Billed Treatment 1 visit EX 30' RAVEN CRAMER PT Mar 31, 2021 14:23
[2021-03-31 19:44] VITALS: BP 134/77
[2021-03-31] MEDS: MELATONIN 3 MG TABLET PO PRN (19:50)
[2021-04-01] MEDS: HYDROcodone/APAP 5 MG/325 MG (LORTAB) TAB PO PRN ×3 (01:47→14:01)
[2021-04-01] MEDS: MULTIVIT W/MINERALS TAB (THERAGRAN M) PO SCH (06:17)
--- NOTE | 2021-04-01 07:21 | PM&R Progress Note ---
Subjective HPI/CC On Admission Date Seen by Provider: Apr 01, 2021 Time Seen by Provider: 09:00 Subjective/Events-last exam 04/01/2021: Patient about the same Minimal dietary intake Consult Dr. Grewal for feet and toenail care Working with therapy 03/31/2021: Pt appears to be about the same Frail status Constipated a bit yesterday, laxatives given Pain is pretty well controlled 03/30/2021: Patient about the same Pain is better controlled Wondered what her white blood cell count was today but she did not have labs ordered Subtle confusion noted Poor memory recall High risk for jail at discharge 03/29/2021: Patient improved Pain is better controlled Appreciate Dr. 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 Overall very debilitated and Pt needs a jail at discharge Pain medication will be changed to be more frequent of Q4 Dr Duque consult 03/27/2021: Patient seen in gym Very frail Pain managed with Lortab Took a shower today Very fragile Recheck labs Review of Systems General: Fatigue, Malaise Musculoskeletal: back pain Objective Exam Vital Signs Vital Signs Date Time Temp Pulse Resp B/P (MAP) Pulse Ox O2 Delivery O2 Flow Rate FiO2 04/02/21 04:30 36.6 04/01/21 21:00 Room Air 04/01/21 19:40 66 12 114/70 (85) 93 Capillary Refill : General Appearance: No Apparent Distress, WD/WN, Chronically ill, Thin HEENT: PERRL/EOMI, Normal ENT Inspection, Pharynx Normal Neck: Full Range of Motion, Normal Inspection, Non Tender, Supple, Carotid Bruit Respiratory: Chest Non Tender, Lungs Clear, Normal Breath Sounds, No Accessory Muscle Use, No Respiratory Distress Cardiovascular: Regular Rate, Rhythm, No Edema, No Gallop, No JVD, No Murmur, Normal Peripheral Pulses Gastrointestinal: Normal Bowel Sounds, No Organomegaly, No Pulsatile Mass, Non Tender, Soft Back: Normal Inspection, No CVA Tenderness, No Vertebral Tenderness Extremity: Normal Capillary Refill, Normal Inspection, Normal Range of Motion (Except legs with pain in pelvis), Non Tender, No Calf Tenderness, No Pedal Edema Neurologic/Psychiatric: Alert, Oriented x3, No Motor/Sensory Deficits, Normal Mood/Affect, Abnormal Gait, Motor Weakness (Generalized 4/5 extremities) Skin: Normal Color, Warm/Dry Lymphatic: No Adenopathy Results/Procedures Lab Patient resulted labs reviewed. FIM Transfers Therapy Code Descriptions/Definitions Functional [place] Measure: 0=Not Assessed/NA 4=Minimal Assistance 1=Total Assistance 5=Supervision or Setup 2=Maximal Assistance 6=Modified [place] 3=Moderate Assistance 7=Complete IndependenceSCALE: Activities may be completed with or without assistive devices. 8-Lhrsxahrhi-wgajhfj completes the activity by him/herself with no assistance from a helper. 5-Set-up or Clean-up Assistance-helper sets up or cleans up; patient completes activity. [place] assists only prior to or following the activity. 4-Supervision or Touching Assistance-helper provides verbal cues and/or touching/steadying and/or contact guard assistance as patient completes activity. Assistance may be provided throughout the activity or intermittently. 3-Partial/Moderate Assistance-helper does LESS THAN HALF the effort. [place] lifts, holds or supports trunk or limbs, but provides less than half the effort. 2-Substantial/Maximal Assistance-helper does MORE THAN HALF the effort. [place] lifts or holds trunk or limbs and provides more than half the effort. 6-Szpluvnvo-ajohte does ALL the effort. Patient does none of the effort to complete the activity. Or, the assistance of 2 or more helpers is required for the patient to complete the activity. If activity was not attempted, code reason: 7-Patient Refused. 9-Not Applicable-not attempted and the patient did not perform the activity before the current illness, exacerbation or injury. 10-Not Attempted due to Environmental Limitations-(lack of equipment, weather restraints, etc.). 88-Not Attempted due to Medical Conditions or Safety Concerns. Roll Left to Right (QC): 6 Sit to Lying (QC): 3 Sit to Stand (QC): 4 Chair/Mni-ef-Cfiyb Xfer(QC): 4 Car Transfer (QC): 3 Gait Training Does the Patient Walk?: Yes Distance: 20'x7 Walk 10 feet (QC): 4 Walk 50 ft with 2 Turns(QC): 88 Walk 150 ft (QC): 88 Walking 10ft/uneven surface-QC: 88 Gait Persons Needed: 1 Gait Assistive Device: FWW Wheelchair Training Does the Pt Use a Wheelchair?: Yes Distance: 40 feet Wheel 50 ft with 2 turns (QC): 4 Wheel 150 ft (QC): 88 Type of Wheelchair: Manual Stair Training 1 Step (curb) (QC): 88 4 Steps (QC): 88 12 Steps (QC): 88 Balance Picking up an Object (QC): 88 ADL-Treatment Eating (QC): 5 (per clincial judgment, set up assistance required with containers.) Oral Hygiene (QC): 6 (Pt performed IND while seated in w/c sink side. ) Shower/Bathe Self (QC): 3 (Pt required Min assist when standing, washing backside, and shyann area. Pt utilized a long handled sponge during task to wash BLE and feet efficiently. ) Upper Body Dressing (QC): 5 (Pt requried set up. ) Lower Body Dressing (QC): 4 (Pt requried CGA when standing for pant hike and doffing LB garments to knees. No AE used to don LE clothing) On/Off Footwear (QC): 5 (Pt required set up and utilized a block saw operator doff, donned without AE) Toileting Hygiene (QC): 3 (Pt required min assist from sit to stand for pant hike, lost balance slightly when trying to pull up in the back. Pt required seated x2 rest breaks: first after pulling up brief, second pulling up pants to support energy conservation. ) Toilet Transfer (QC): 4 (Pt requried CGA during task. ) Assessment/Plan Assessment and Plan Assess & Plan/Chief Complaint Assessment: Debility Pelvic fracture Previous CVA Current smoker Frail status BMI 13 Pressure ulcer Falls Leukocytosis without source of infection Plan: Supportive care Pain meds Bowel regimen Aggressive therapy 03/27/2021: Increase nutrition Work-up leukocytosis appears to be some sort of leukemia or that type of abnormality Check meds and labs 03/28/21: Increase nutrition Consult Dr Duque 03/29/2021: Supportive care Pain control 03/30/2021: Supportive care Pain control Check labs in the morning 03/31/2021: Supportive care 04/01/2021: Needs jail Plan to continue aggressive therapy (1) Debility (2) Pelvic fracture (3) History of CVA (cerebrovascular accident) (4) Malnutrition (5) Leukocytosis (6) Fall Status: Acute ANTONIO HWANG DO Apr 01, 2021 07:21
[2021-04-01 07:43] VITALS: BP 141/66
[2021-04-01] MEDS: CLOPIDOGREL 75 MG (PLAVIX) TABLET PO SCH (08:30)
[2021-04-01] MEDS: lisINopril 20 MG (PRINIVIL) TABLET PO SCH (08:30)
[2021-04-01] MEDS: SENNA W/DOCUSATE (SENOKOT S) TABLET PO SCH ×2 (08:30→20:24)
[2021-04-01] MEDS: DOCUSATE SODIUM 100 MG (COLACE) CAP PO SCH ×2 (08:31→20:25)
[2021-04-01] MEDS: polyethylene glycoL POWDER 17 GM (MIRALAX) PACK PO SCH ×2 (08:31→20:25)
--- NOTE | 2021-04-01 09:02 | Occupational Ther Daily Note ---
OT Current Status-Daily Note Subjective Pt was lying supine in bed upon OT/PT arrival. Pt stated she was ready for tx session today. Mental Status/Objective Patient Orientation: Person, Place, Time, Situation ADL-Treatment Therapy Code Descriptions/Definitions Functional [place] Measure: 0=Not Assessed/NA 4=Minimal Assistance 1=Total Assistance 5=Supervision or Setup 2=Maximal Assistance 6=Modified [place] 3=Moderate Assistance 7=Complete IndependenceSCALE: Activities may be completed with or without assistive devices. 4-Ipfiwsagra-ncmtddy completes the activity by him/herself with no assistance from a helper. 5-Set-up or Clean-up Assistance-helper sets up or cleans up; patient completes activity. [place] assists only prior to or following the activity. 4-Supervision or Touching Assistance-helper provides verbal cues and/or touching/steadying and/or contact guard assistance as patient completes activity. Assistance may be provided throughout the activity or intermittently. 3-Partial/Moderate Assistance-helper does LESS THAN HALF the effort. [place] lifts, holds or supports trunk or limbs, but provides less than half the effort. 2-Substantial/Maximal Assistance-helper does MORE THAN HALF the effort. [place] lifts or holds trunk or limbs and provides more than half the effort. 4-Uyroczalm-zxlajx does ALL the effort. Patient does none of the effort to complete the activity. Or, the assistance of 2 or more helpers is required for the patient to complete the activity. If activity was not attempted, code reason: 7-Patient Refused. 9-Not Applicable-not attempted and the patient did not perform the activity before the current illness, exacerbation or injury. 10-Not Attempted due to Environmental Limitations-(lack of equipment, weather restraints, etc.). 88-Not Attempted due to Medical Conditions or Safety Concerns. Oral Hygiene (QC): 6 (IND seated) Toileting Hygiene (QC): 4 (Pt required CGA for safety, pant and brief hike, and doffing pant and brief to knees.) Toilet Transfer (QC): 4 (Pt required CGA for safety during task. ) Other Treatment COTREAT (1439-4475): OT/PT co-treat due to skill of 2 clinicians required which a rehabilitation attendant could not perform in order to coordinate UEs/LEs, decrease fall risk, and due to pt's limitations in pain, activity tolerance, strength, and mobility. OT focused on UE placement, cues for sequencing and safety. PT focused on gross overall movement, transfers/mobility, and LE placement. Pt performed bed mobility from supine to EOB at [facility]. Pt transferred from sit to stand w/ FWW at [facility] for safety, took x3 steps needed to take a seated rest break in w/c. Pt performed w/c mobility to toilet requiring VC's. Pt transferred from w/c to toilet w/ FWW at [facility]. Pt performed toileting task, see above QC's. Pt transferred from toilet to w/c w/ FWW at [facility]. Pt performed oral hygiene and grooming task while seated sink side in w/c, see above QC. Pt was able to brush hair, required Mod assist for effectiveness and fatigue. Pt wheeled out to hallway. Pt performed functional mobility using FWW from room to therapy gym, requiring x3 seated rest breaks, w/ VC's for skill and encouragement. Pt transferred from w/c to therapy mat w/ FWW at [facility]. Pt then performed balloon hitting activity standing at FWW at [facility], w/ seated rest breaks, to support ROM, standing balance, coordination, wrist flexion/extension for strength and endurance in ADL's, x4 rounds: Round 1: Hitting balloon in all planes w/ L hand. Round 2: Hitting balloon in all planes w/ R hand. Round 3: Hitting balloon in all planes w/ L hand. Round 4: Hitting balloon in all planes w/ R hand. Pt fatigues quickly and needs rest breaks throughout tx session for energy conservation, shows good determination w/ completing tasks. OT (09:00-0930): Pt participated in peg board activity while seated on therapy mat, x2 rounds, w/ 1 lb weighted wrist weights, to support ROM, cognition, crossing midline, sitting balance, finger manipulation, strength, and endurance for ADL function: Round #1: L hand only. Pt placed x25 pegs onto board, placed another round of x25 on top, placed another round of x25 on top, removed all pegs one at time, x1 rest break. Round #2: R hand only. Pt placed x25 pegs onto board, placed another round of x25 on top, placed another round of x25 on top, removed all pegs one at time, x3 rest breaks. Pt transferred from therapy mat to w/c w/ FWW at [facility]. Pt was taken to room. Pt fatigues quickly and needs rest breaks throughout tx session for energy conservation, shows good determination w/ completing tasks. Pt transferred from w/c to chair w/ FWW at [facility]. Post tx session, pt was seated in chair w/ legs elevated, call light within reach, all needs met. Education OT Patient Education: Correct positioning, Energy conservation, Modified ADL techniques, Progress toward Goal/Update tx plan, Purpose of tx/functional activities, Safety issues, Transfer techniques, W/C management Teaching Recipient: Patient Teaching Methods: Demonstration, Discussion Response to Teaching: Verbalize Understanding, Return Demonstration OT Short Term Goals Short Term Goals Time Frame: Apr 09, 2021 Eatin Oral hygiene: 5 Toileting hygiene: 4 Shower/bathe self: 4 Upper body dressin Lower body dressin Putting on/taking off footwear: 4 OT Floating Operator Goals Fpc Goals Time Frame: Apr 18, 2021 Eating (QC): 6 Oral Hygiene (QC): 6 Toileting Hygiene (QC): 6 Shower/Bathe Self (QC): 6 Upper Body Dressing (QC): 6 Lower Body Dressing (QC): 6 On/Off Footwear (QC): 6 Additional Goals: 1-Demonstrate ADL Tasks, 2-Verbalize Understanding, 3-ImproveStrength/Po 1=Demonstrate adherence to instructed precautions during ADL tasks. 2=Patient will verbalize/demonstrate understanding of assistive devices/modifications for ADL. 3=Patient will improve strength/tolerance for activity to enable patient to perform ADL's. OT Education/Plan Problem List/Assessment Assessment: Decreased Activ Tolerance, Decreased UE Strength, Impaired Coordination, Impaired I ADL's, Impaired Self-Care Skills Discharge Recommendations Plan/Recommendations: Continue POC Treatment Plan/Plan of Care Patient would benefit from OT for education, treatment and training to promote independence in ADL's, mobility, safety and/or upper extremity function for ADL's. Plan of Care: ADL Retraining, Functional Mobility, Group Exercise/Act as Ind, UE Funct Exercise/Act Treatment Duration: Apr 18, 2021 Frequency: At least 5 of 7 days/Wk (IRF) Estimated Hrs Per Day: 1.5 hours per day Rehab Potential: Fair Time/GCodes Start Time: 08:00 Stop Time: 09:30 Total Time Billed (hr/min): 90 Billed Treatment Time [place] [id number], OT tx [id number] 1 Visit, ADL 2 (35'), FA 4 (55') ALEXANDRA SINGH OT Apr 01, 2021 09:02
--- NOTE | 2021-04-01 09:04 | Physical Therapy Daily Note ---
PT Daily Note-Current Subjective Pt laying Supine in bed upon arrival. Pt agrees to PT/Ot co-treat. Pain Numeric Pain Scale: 8 Location: Right, Left Location Body Site: Pelvic Pain Description: Ache Mental Status Patient Orientation: Person, Place, Situation Transfers SCALE: Activities may be completed with or without assistive devices. 3-Nrzzbbrvut-meuxrhj completes the activity by him/herself with no assistance from a helper. 5-Set-up or Clean-up Assistance-helper sets up or cleans up; patient completes activity. [place] assists only prior to or following the activity. 4-Supervision or Touching Assistance-helper provides verbal cues and/or touching/steadying and/or contact guard assistance as patient completes activity. Assistance may be provided throughout the activity or intermittently. 3-Partial/Moderate Assistance-helper does LESS THAN HALF the effort. [place] lifts, holds or supports trunk or limbs, but provides less than half the effort. 2-Substantial/Maximal Assistance-helper does MORE THAN HALF the effort. [place] lifts or holds trunk or limbs and provides more than half the effort. 9-Mljssdblz-fijtdl does ALL the effort. Patient does none of the effort to complete the activity. Or, the assistance of 2 or more helpers is required for the patient to complete the activity. If activity was not attempted, code reason: 7-Patient Refused. 9-Not Applicable-not attempted and the patient did not perform the activity before the current illness, exacerbation or injury. 10-Not Attempted due to Environmental Limitations-(lack of equipment, weather restraints, etc.). 88-Not Attempted due to Medical Conditions or Safety Concerns. Lying to Sitting/Side of Bed(Q: 4 Sit to Stand (QC): 5 Toilet Transfer (QC): 4 Weight Bearing Right Lower Extremity: Right Weight Bearing/Tolerated Left Lower Extremity: Left Weight Bearing/Tolerated Gait Training Does the Patient Walk?: Yes Distance: 10' x4, 20' Walk 10 feet (QC): 4 Gait Persons Needed: 1 Gait Assistive Device: FWW Wheelchair Training Does the Pt Use a Wheelchair?: Yes Type of Wheelchair: Manual Exercises Supine Ex: Ankle pumps, Quad Set, Glut sets, Heel Slides, Short Arc Quads, Straight leg raise, Hip abd/add Supine Reps: 10 Seated Therapy Exercises: Ankle pumps, Long arc quads, Hip flexion Seated Reps: 10 Treatments COTREAT ([id number]): OT/PT co-treat due to skill of 2 clinicians required which a rehab therapist could not perform in order to coordinate UEs/LEs, decrease fall risk, and due to pt's limitations in pain, activity tolerance, strength, and mobility. OT focused on UE placement, cues for sequencing and safety. PT focused on gross overall movement, transfers/mobility, and LE placement. Pt performed bed mobility from supine to EOB at [facility]. Pt transferred from sit to stand w/ FWW at [facility] for safety, took x3 steps needed to take a seated rest break in w/c. Pt performed w/c mobility to toilet requiring VC's. Pt transferred from w/c to toilet w/ FWW at [facility]. Pt performed toileting task, see above QC's. Pt transferred from toilet to w/c w/ FWW at [facility]. Pt performed oral hygiene and grooming task while seated sink side in w/c. Pt was able to brush hair, required Mod assist for effectiveness and fatigue. Pt wheeled out to hallway. Pt performed functional mobility using FWW from room to therapy gym, requiring x3 seated rest breaks, w/ VC's for skill and encouragement. Pt transferred from w/c to therapy mat w/ FWW at [facility]. Pt then performed balloon hitting activity standing at FWW at [facility], w/ seated rest breaks, to support ROM, standing balance, coordination, wrist flexion/extension for strength and endurance in ADL's, x4 rounds: Round 1: Hitting balloon in all planes w/ L hand. Round 2: Hitting balloon in all planes w/ R hand. Round 3: Hitting balloon in all planes w/ L hand. Round 4: Hitting balloon in all planes w/ R hand. Pt fatigues quickly and needs rest breaks throughout tx session for energy conservation, shows good determination w/ completing tasks. PT departs from tx & OT continues Indiv. tx. [id number]: Pt given written HEP for Supine & Seated Ex. This reviewed and practiced at recliner. Pt declines need for BR. Resting with all needs met, call light in hand. Assessment Current Status: Fair Progress Pt fatigues quickly and needs frequent RB samanta. w/standing activities. PT Short Term Goals Short Term Goals Time Frame: Apr 09, 2021 Roll Left & Right: 5 Sit to lyin Lying to sitting on side of be: 5 Sit to stand: 5 Chair/lsj-ww-wvhwx transfer: 5 Toilet transfer: 5 Walk 10 feet: 4 Walk 50 feet with two turns: 3 Walk 150 feet: 3 1 step (curb): 3 4 steps: 3 12 steps: 3 Picking up objects: 4 Does pt use a wc or scooter: Yes Wheel 50ft w/2 turns: 6 Wheel 150 feet: 6 Type: Manual PT [facility] Goals Director Treasurer Goals PT Director Treasurer Goals Time Frame: May 07, 2021 Roll Left & Right (QC): 6 Sit to Lying (QC): 6 Lying-Sitting on Side/Bed(QC): 6 Sit to Stand (QC): 6 Chair/Zea-nb-Zbfnr Xfer(QC): 6 Toilet Transfer (QC): 6 Car Transfer (QC): 6 Does the Patient Walk: Yes Walk 10 feet (QC): 6 Walk 50ft with 2 Turns (QC): 5 Walk 150 ft (QC): 5 Walking 10ft on Uneven Surface: 5 1 Step (curb) (QC): 5 4 Steps (QC): 5 12 Steps (QC): 5 Picking up an Object (QC): 5 Does the Pt use WC or Scooter?: Yes Wheel 50 feet with 2 turns (QC: 6 Type: Manual Wheel 150 feet: 6 Type: Manual PT Plan Problem List Problem List: Activity Tolerance, Functional Strength, Balance, Gait Treatment/Plan Treatment Plan: Continue Plan of Care Treatment Plan: Bed Mobility, Education, Functional Activity Po, Functional Strength, Group Therapy, Gait, Safety, Therapeutic Exercise, Transfers Treatment Duration: Jun 04, 2021 Frequency: At least 5 of 7 days/Wk (IRF) Estimated Hrs Per Day: 1.5 hours per day Patient and/or Family Agrees t: Yes Safety Risks/Education Patient Education: Gait Training, Transfer Techniques, Correct Positioning, Safety Issues Teaching Recipient: Patient Teaching Methods: Discussion Response to Teaching: Verbalize Understanding Time/GCodes Time In: 800 Time Out: 900 Total Billed Treatment Time: 60 Total Billed Treatment 800-900: Co-treat w/OT for 60m 1, FA x2, (25m), [facility] (15m) & EX (20m) [id number]: 1, EX x2 (30m) BROWN WILLARD PTA Apr 01, 2021 09:04
[2021-04-01] MEDS: IBUPROFEN TABLET 200 MG TAB PO PRN ×2 (11:38→21:29)
[2021-04-01 19:40] VITALS: BP 114/70
[2021-04-01] MEDS: MELATONIN 3 MG TABLET PO PRN (20:24)
[2021-04-01] MEDS: LACTULOSE SYRUP 10GM/15ML (ENULOSE) 30ML UDC PO PRN (23:04)
[2021-04-02] MEDS: HYDROcodone/APAP 5 MG/325 MG (LORTAB) TAB PO PRN ×4 (04:30→22:39)
[2021-04-02] MEDS: MULTIVIT W/MINERALS TAB (THERAGRAN M) PO SCH (06:21)
[2021-04-02] MEDS: ONDANSETRON 4 MG (ZOFRAN) ORAL DISSOLVE TAB PO PRN (06:53)
[2021-04-02 08:40] VITALS: BP 118/66
[2021-04-02] MEDS: SENNA W/DOCUSATE (SENOKOT S) TABLET PO SCH ×2 (08:43→20:02)
[2021-04-02] MEDS: DOCUSATE SODIUM 100 MG (COLACE) CAP PO SCH ×2 (08:43→20:01)
[2021-04-02] MEDS: lisINopril 20 MG (PRINIVIL) TABLET PO SCH (08:43)
[2021-04-02] MEDS: polyethylene glycoL POWDER 17 GM (MIRALAX) PACK PO SCH ×2 (08:43→20:01)
[2021-04-02] MEDS: CLOPIDOGREL 75 MG (PLAVIX) TABLET PO SCH (08:43)
--- NOTE | 2021-04-02 08:56 | Physical Therapy Daily Note ---
PT Daily Note-Current Subjective Pt laying Supine in bed upon arrival. Pt agrees to PT. Pain Numeric Pain Scale: 9 Location: Lower Location Body Site: Back Pain Description: Ache, Tightness Mental Status Patient Orientation: Person, Place, Situation Transfers SCALE: Activities may be completed with or without assistive devices. 6-Rbacwjqrpk-xkuxbos completes the activity by him/herself with no assistance from a helper. 5-Set-up or Clean-up Assistance-helper sets up or cleans up; patient completes activity. [place] assists only prior to or following the activity. 4-Supervision or Touching Assistance-helper provides verbal cues and/or touching/steadying and/or contact guard assistance as patient completes activity. Assistance may be provided throughout the activity or intermittently. 3-Partial/Moderate Assistance-helper does LESS THAN HALF the effort. [place] lifts, holds or supports trunk or limbs, but provides less than half the effort. 2-Substantial/Maximal Assistance-helper does MORE THAN HALF the effort. [place] lifts or holds trunk or limbs and provides more than half the effort. 9-Gmiatihvo-rfipqv does ALL the effort. Patient does none of the effort to complete the activity. Or, the assistance of 2 or more helpers is required for the patient to complete the activity. If activity was not attempted, code reason: 7-Patient Refused. 9-Not Applicable-not attempted and the patient did not perform the activity before the current illness, exacerbation or injury. 10-Not Attempted due to Environmental Limitations-(lack of equipment, weather restraints, etc.). 88-Not Attempted due to Medical Conditions or Safety Concerns. Lying to Sitting/Side of Bed(Q: 4 Sit to Stand (QC): 4 Toilet Transfer (QC): 4 Weight Bearing Right Lower Extremity: Right Weight Bearing/Tolerated Left Lower Extremity: Left Weight Bearing/Tolerated Gait Training Does the Patient Walk?: Yes Distance: 15' x2, 35' Walk 10 feet (QC): 5 Walk 50 ft with 2 Turns(QC): 4 Gait Persons Needed: 1 Gait Assistive Device: FWW Wheelchair Training Does the Pt Use a Wheelchair?: Yes Type of Wheelchair: Manual Exercises Supine Ex: Ankle pumps, Quad Set, Glut sets, Heel Slides, Short Arc Quads, Straight leg raise, Hip abd/add Supine Reps: 10 Seated Therapy Exercises: Ankle pumps, Long arc quads, Hip flexion Seated Reps: 10 Treatments CO-TREAT 08:00 - 9:00: OT/PT co-treat due to skill of 2 clinicians required which a rehab director could not perform in order to coordinate UEs/LEs, decrease fall risk, and due to pt's limitations in pain, activity tolerance, strength, and mobility. OT focused on UE placement, cues for sequencing and safety. PT focused on gross overall movement, transfers/mobility, and LE placement. Pt performed bed mobility to sitting EOB, IND. Pt transferred from sit to stand EOB, CGA for safety. Pt performed functional mobility w/ FWW to toilet at [facility]. Pt performed toileting task, see above QC. Pt transferred from sit to stand, [facility] for safety. Pt performed functional mobility to SC at [facility]. Pt then performed shower, LBD, UBD, and footwear. Pt performed w/c mobility to sink side for oral hygiene and grooming task. Pt required Mod assist to brush hair while seated sink side in w/c due to decrease in activity tolerance, OT put hair in braid to keep from tangling as much. Performed functional mobility w/ FWW at [facility] from room to therapy room, requiring x2 seated rest breaks. PT departs and OT contin ues tx at this time. [id number]: Pt completes Supine & Seated Ex at recliner w/RB as needed. Pt has all needs met, call light in hand. Assessment Current Status: Fair Progress Pt fatigues quickly and needs frequent RB. Pt did walk farther than previous tx on second attempt this morning. PT Short Term Goals Short Term Goals Time Frame: Apr 09, 2021 Roll Left & Right: 5 Sit to lyin Lying to sitting on side of be: 5 Sit to stand: 5 Chair/obn-iq-ozqdl transfer: 5 Toilet transfer: 5 Walk 10 feet: 4 Walk 50 feet with two turns: 3 Walk 150 feet: 3 1 step (curb): 3 4 steps: 3 12 steps: 3 Picking up objects: 4 Does pt use a wc or scooter: Yes Wheel 50ft w/2 turns: 6 Wheel 150 feet: 6 Type: Manual PT [facility]itentiary Goals Brokerage Branch Manager Goals PT Brokerage Branch Manager Goals Time Frame: May 07, 2021 Roll Left & Right (QC): 6 Sit to Lying (QC): 6 Lying-Sitting on Side/Bed(QC): 6 Sit to Stand (QC): 6 Chair/Lug-cz-Cectg Xfer(QC): 6 Toilet Transfer (QC): 6 Car Transfer (QC): 6 Does the Patient Walk: Yes Walk 10 feet (QC): 6 Walk 50ft with 2 Turns (QC): 5 Walk 150 ft (QC): 5 Walking 10ft on Uneven Surface: 5 1 Step (curb) (QC): 5 4 Steps (QC): 5 12 Steps (QC): 5 Picking up an Object (QC): 5 Does the Pt use WC or Scooter?: Yes Wheel 50 feet with 2 turns (QC: 6 Type: Manual Wheel 150 feet: 6 Type: Manual PT Plan Problem List Problem List: Activity Tolerance, Functional Strength Treatment/Plan Treatment Plan: Continue Plan of Care Treatment Plan: Bed Mobility, Education, Functional Activity Po, Functional Strength, Group Therapy, Gait, Safety, Therapeutic Exercise, Transfers Treatment Duration: Jun 04, 2021 Frequency: At least 5 of 7 days/Wk (IRF) Estimated Hrs Per Day: 1.5 hours per day Patient and/or Family Agrees t: Yes Safety Risks/Education Patient Education: Gait Training, Correct Positioning, Safety Issues Teaching Recipient: Patient Teaching Methods: Discussion Response to Teaching: Verbalize Understanding Time/GCodes Time In: 800 Time Out: 900 Total Billed Treatment Time: 60 Total Billed Treatment 800-900: Co-treat w/OT for 60m 1, FA x3 (45m) & [facility] (15m) [id number]: 1, EX x2 (30m) BROWN WILLARD PTA Apr 02, 2021 08:56
--- NOTE | 2021-04-02 09:02 | Occupational Ther Daily Note ---
OT Current Status-Daily Note Subjective Pt was lying supine in bed w/ HOB elevated finishing up w/ breakfast upon OT arrival. Pt agreed to tx session. Nurse notified of pain and provided meds. Pain Numeric Pain Scale: 7 Location: Lower Location Body Site: Back Pain Description: Ache Mental Status/Objective Patient Orientation: Person, Place, Time, Situation ADL-Treatment Therapy Code Descriptions/Definitions Functional [place] Measure: 0=Not Assessed/NA 4=Minimal Assistance 1=Total Assistance 5=Supervision or Setup 2=Maximal Assistance 6=Modified [place] 3=Moderate Assistance 7=Complete IndependenceSCALE: Activities may be completed with or without assistive devices. 1-Dxiaikayui-gncxqak completes the activity by him/herself with no assistance from a helper. 5-Set-up or Clean-up Assistance-helper sets up or cleans up; patient completes activity. [place] assists only prior to or following the activity. 4-Supervision or Touching Assistance-helper provides verbal cues and/or touching/steadying and/or contact guard assistance as patient completes activity. Assistance may be provided throughout the activity or intermittently. 3-Partial/Moderate Assistance-helper does LESS THAN HALF the effort. [place] lifts, holds or supports trunk or limbs, but provides less than half the effort. 2-Substantial/Maximal Assistance-helper does MORE THAN HALF the effort. [place] lifts or holds trunk or limbs and provides more than half the effort. 1-Dmvubzlha-bdxylq does ALL the effort. Patient does none of the effort to complete the activity. Or, the assistance of 2 or more helpers is required for the patient to complete the activity. If activity was not attempted, code reason: 7-Patient Refused. 9-Not Applicable-not attempted and the patient did not perform the activity before the current illness, exacerbation or injury. 10-Not Attempted due to Environmental Limitations-(lack of equipment, weather restraints, etc.). 88-Not Attempted due to Medical Conditions or Safety Concerns. Eating (QC): 5 (Pt requires set up to open various items for task. ) Oral Hygiene (QC): 4 (Pt required SBA when standing sink side w/ FWW for task w/ seated rest break in w/c. ) Shower/Bathe Self (QC): 4 (Pt required CGA when standing, several VC for sequencing, able to wash all parts, utillized a long handled sponge.) Upper Body Dressing (QC): 5 (Pt required set up. ) Lower Body Dressing (QC): 4 (Pt required CGA for pant hike and doffing LB garments.) On/Off Footwear: 5 (Pt required set up. ) Toileting Hygiene (QC): 4 (Pt required CGA for task w/ FWW.) Toilet Transfer (QC): 4 (Pt required CGA from toilet to w/c w/ FWW.) Other Treatment CO-TREAT 08:00 - 9:00: OT/PT co-treat due to skill of 2 clinicians required which a rn rehabilitation could not perform in order to coordinate UEs/LEs, decrease fall risk, and due to pt's limitations in pain, activity tolerance, strength, and mobility. OT focused on UE placement, cues for sequencing and safety, and ADLs. PT focused on gross overall movement, transfers/mobility, and LE placement. Pt performed bed mobility to sitting EOB, IND. Pt transferred from sit to stand EOB, CGA for safety. Pt performed functional mobility w/ FWW to toilet at [facility]. Pt performed toileting task, see above QC. Pt transferred from sit to stand, CGA for safety. Pt performed functional mobility to SC at [facility]. Pt then performed shower, LBD, UBD, and footwear, see above QC's. Pt performed w/c mobility to sink side for oral hygiene and grooming task, see QC above. Pt required Mod assist to brush hair while seated sink side in w/c due to decrease in activity tolerance, OT put hair in braid to keep from tangling as much. Performed functional mobility w/ FWW at [facility] from room to therapy room, requiring x2 seated rest breaks. OT tx 09:00-09:30: Pt performed w/c mobility in therapy gym to arm bike table, IND. Pt participated in arm bike exercise to support strength and endurance in ADL's while seated in w/c, 10 watt resistance, 9 minutes, requiring x7 rest breaks. Pt performed w/c mobility from therapy gym to room, IND. Pt transferred to recliner using FWW, CGA. Post tx session, pt was seated in chair, legs elevated, call light within reach, and all needs met. Education OT Patient Education: Correct positioning, Energy conservation, Exercise program, Modified ADL techniques, Progress toward Goal/Update tx plan, Purpose of tx/functional activities, Safety issues, Use of adapted equipment, W/C management Teaching Recipient: Patient Teaching Methods: Demonstration, Discussion Response to Teaching: Verbalize Understanding, Return Demonstration, Reinforcement Needed OT Short Term Goals Short Term Goals Time Frame: Apr 09, 2021 Eatin Oral hygiene: 5 Toileting hygiene: 4 Shower/bathe self: 4 Upper body dressin Lower body dressin Putting on/taking off footwear: 4 OT Penitentiary Goals Penitentiary Goals Time Frame: Apr 18, 2021 Eating (QC): 6 Oral Hygiene (QC): 6 Toileting Hygiene (QC): 6 Shower/Bathe Self (QC): 6 Upper Body Dressing (QC): 6 Lower Body Dressing (QC): 6 On/Off Footwear (QC): 6 Additional Goals: 1-Demonstrate ADL Tasks, 2-Verbalize Understanding, 3- ImproveStrength/Po 1=Demonstrate adherence to instructed precautions during ADL tasks. 2=Patient will verbalize/demonstrate understanding of assistive devices/modifications for ADL. 3=Patient will improve strength/tolerance for activity to enable patient to perform ADL's. OT Education/Plan Problem List/Assessment Assessment: Decreased Activ Tolerance, Decreased UE Strength, Impaired I ADL's, Impaired Self-Care Skills Discharge Recommendations Plan/Recommendations: Continue POC Treatment Plan/Plan of Care Patient would benefit from OT for education, treatment and training to promote independence in ADL's, mobility, safety and/or upper extremity function for ADL's. Plan of Care: ADL Retraining, Functional Mobility, Group Exercise/Act as Ind, UE Funct Exercise/Act Treatment Duration: Apr 18, 2021 Frequency: At least 5 of 7 days/Wk (IRF) Estimated Hrs Per Day: 1.5 hours per day Rehab Potential: Fair Time/GCodes Start Time: 08:00 Stop Time: :30 Total Time Billed (hr/min): 90 Billed Treatment Time [place]: 08:00-09:00 OT tx session: :00-09:30 1 Visit, ADL 3 (40'), EX 2 (30'), FA (20') ALEXANDRA SINGH OT Apr 02, 2021 09:02
--- NOTE | 2021-04-02 09:28 | PM&R Progress Note ---
Subjective HPI/CC On Admission Date Seen by Provider: Apr 02, 2021 Time Seen by Provider: 09:00 Subjective/Events-last exam 04/02/2021: Patient continues to improve Frail state precludes anything but a guarded prognosis Check meds and labs Bowels are moving 04/01/2021: Patient about the same Minimal dietary intake Consult Dr. Grewal for feet and toenail care Working with therapy 03/31/2021: Pt appears to be about the same Frail status Constipated a bit yesterday, laxatives given Pain is pretty well controlled 03/30/2021: Patient about the same Pain is better controlled Wondered what her white blood cell count was today but she did not have labs ordered Subtle confusion noted Poor memory recall High risk for care home at discharge 03/29/2021: Patient improved Pain is better controlled Appreciate Dr. 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 Overall very debilitated and Pt needs a care home at discharge Pain medication will be changed to be more frequent of Q4 Dr Duque consult 03/27/2021: Patient seen in gym Very frail Pain managed with Lortab Took a shower today Very fragile Recheck labs Review of Systems General: Fatigue, Malaise Musculoskeletal: back pain Neurological: Weakness Objective Exam Vital Signs Vital Signs Date Time Temp Pulse Resp B/P (MAP) Pulse Ox O2 Delivery O2 Flow Rate FiO2 04/02/21 20:21 Room Air 04/02/21 19:41 36.8 70 17 99/52 (68) 95 Capillary Refill : General Appearance: No Apparent Distress, WD/WN, Chronically ill, Thin HEENT: PERRL/EOMI, Normal ENT Inspection, Pharynx Normal Neck: Full Range of Motion, Normal Inspection, Non Tender, Supple, Carotid Bruit Respiratory: Chest Non Tender, Lungs Clear, Normal Breath Sounds, No Accessory Muscle Use, No Respiratory Distress Cardiovascular: Regular Rate, Rhythm, No Edema, No Gallop, No JVD, No Murmur, Normal Peripheral Pulses Gastrointestinal: Normal Bowel Sounds, No Organomegaly, No Pulsatile Mass, Non Tender, Soft Back: Normal Inspection, No CVA Tenderness, No Vertebral Tenderness Extremity: Normal Capillary Refill, Normal Inspection, Normal Range of Motion (Except legs with pain in pelvis), Non Tender, No Calf Tenderness, No Pedal Edema Neurologic/Psychiatric: Alert, Oriented x3, No Motor/Sensory Deficits, Normal Mood/Affect, Abnormal Gait, Motor Weakness (Generalized 4/5 extremities) Skin: Normal Color, Warm/Dry Lymphatic: No Adenopathy Results/Procedures Lab Patient resulted labs reviewed. [facility]IM Transfers Therapy Code Descriptions/Definitions Functional [place] Measure: 0=Not Assessed/NA 4=Minimal Assistance 1=Total Assistance 5=Supervision or Setup 2=Maximal Assistance 6=Modified [place] 3=Moderate Assistance 7=Complete IndependenceSCALE: Activities may be completed with or without assistive devices. 4-Rhnjunoslq-oftwumq completes the activity by him/herself with no assistance from a helper. 5-Set-up or Clean-up Assistance-helper sets up or cleans up; patient completes activity. [place] assists only prior to or following the activity. 4-Supervision or Touching Assistance-helper provides verbal cues and/or touching/steadying and/or contact guard assistance as patient completes activity. Assistance may be provided throughout the activity or intermittently. 3-Partial/Moderate Assistance-helper does LESS THAN HALF the effort. [place] lifts, holds or supports trunk or limbs, but provides less than half the effort. 2-Substantial/Maximal Assistance-helper does MORE THAN HALF the effort. [place] lifts or holds trunk or limbs and provides more than half the effort. 3-Mynzbasvm-kbjwoz does ALL the effort. Patient does none of the effort to complete the activity. Or, the assistance of 2 or more helpers is required for the patient to complete the activity. If activity was not attempted, code reason: 7-Patient Refused. 9-Not Applicable-not attempted and the patient did not perform the activity before the current illness, exacerbation or injury. 10-Not Attempted due to Environmental Limitations-(lack of equipment, weather restraints, etc.). 88-Not Attempted due to Medical Conditions or Safety Concerns. Roll Left to Right (QC): 6 Sit to Lying (QC): 3 Sit to Stand (QC): 5 Chair/Ckz-uc-Qtucf Xfer(QC): 4 Car Transfer (QC): 3 Gait Training Does the Patient Walk?: Yes Distance: 15' x2, 35' Walk 10 feet (QC): 5 Walk 50 ft with 2 Turns(QC): 4 Walk 150 ft (QC): 88 Walking 10ft/uneven surface-QC: 88 Gait Persons Needed: 1 Gait Assistive Device: FWW Wheelchair Training Does the Pt Use a Wheelchair?: Yes Distance: 40 feet Wheel 50 ft with 2 turns (QC): 4 Wheel 150 ft (QC): 88 Type of Wheelchair: Manual Stair Training 1 Step (curb) (QC): 88 4 Steps (QC): 88 12 Steps (QC): 88 Balance Picking up an Object (QC): 88 ADL-Treatment Eating (QC): 5 (Pt requires set up to open various items for task. ) Oral Hygiene (QC): 4 (Pt required SBA when standing sink side w/ FWW for task w/ seated rest break in w/c. ) Shower/Bathe Self (QC): 4 (Pt required CGA when standing, several VC for sequencing, able to wash all parts, utillized a long handled sponge.) Upper Body Dressing (QC): 5 (Pt required set up. ) Lower Body Dressing (QC): 4 (Pt required CGA for pant hike and doffing LB garments.) On/Off Footwear (QC): 5 (Pt required set up. ) Toileting Hygiene (QC): 4 (Pt required SBA for task w/ FWW.) Toilet Transfer (QC): 4 (Pt required CGA from toilet to w/c ww/ FWW.) Assessment/Plan Assessment and Plan Assess & Plan/Chief Complaint Assessment: Debility Pelvic fracture Previous CVA Current smoker Frail status BMI 13 Pressure ulcer Falls Leukocytosis without source of infection Plan: Supportive care Pain meds Bowel regimen Aggressive therapy 03/27/2021: Increase nutrition Work-up leukocytosis appears to be some sort of leukemia or that type of abnormality Check meds and labs 03/28/21: Increase nutrition Consult Dr Duque 03/29/2021: Supportive care Pain control 03/30/2021: Supportive care Pain control Check labs in the morning 03/31/2021: Supportive care 04/01/2021: Needs care home Plan to continue aggressive therapy 04/02/2021: Continue to improve Decreased pain noted (1) Debility (2) Pelvic fracture (3) History of CVA (cerebrovascular accident) (4) Malnutrition (5) Leukocytosis (6) Fall Status: Acute ANTONIO HWANG DO Apr 02, 2021 09:28
--- NOTE | 2021-04-02 11:58 | Podiatry Progress Note ---
Standard Progress Note Progress Notes/Assess & Plan Date Seen by a Provider: Apr 02, 2021 Time Seen by a Provider: 11:57 Progress/Assessment & Plan Consultation dictated. Foot care given. Final Diagnosis Onychomycosis, Peripheral Neuropathy, MANDOD ANDREEA MENDOZA DPM Apr 02, 2021 11:58
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
[2021-04-02 19:41] VITALS: BP 99/52
[2021-04-02] MEDS: IBUPROFEN TABLET 200 MG TAB PO PRN (20:39)
[2021-04-02] MEDS: MELATONIN 3 MG TABLET PO PRN (20:39)
[2021-04-03] MEDS: HYDROcodone/APAP 5 MG/325 MG (LORTAB) TAB PO PRN ×3 (05:38→19:38)
[2021-04-03] MEDS: MULTIVIT W/MINERALS TAB (THERAGRAN M) PO SCH (05:38)
[2021-04-03 08:00] VITALS: BP 97/54
--- NOTE | 2021-04-03 08:08 | Occupational Ther Daily Note ---
OT Current Status-Daily Note Subjective Pt in bed, states she is tired but agreeable to OT Tx. Denies having pain. Mental Status/Objective Patient Orientation: Person, Place, Time, Situation ADL-Treatment Therapy Code Descriptions/Definitions Functional [place] Measure: 0=Not Assessed/NA 4=Minimal Assistance 1=Total Assistance 5=Supervision or Setup 2=Maximal Assistance 6=Modified [place] 3=Moderate Assistance 7=Complete IndependenceSCALE: Activities may be completed with or without assistive devices. 0-Dmlnuckqge-gyuncex completes the activity by him/herself with no assistance from a helper. 5-Set-up or Clean-up Assistance-helper sets up or cleans up; patient completes activity. [place] assists only prior to or following the activity. 4-Supervision or Touching Assistance-helper provides verbal cues and/or touching/steadying and/or contact guard assistance as patient completes activity. Assistance may be provided throughout the activity or intermittently. 3-Partial/Moderate Assistance-helper does LESS THAN HALF the effort. [place] lifts, holds or supports trunk or limbs, but provides less than half the effort. 2-Substantial/Maximal Assistance-helper does MORE THAN HALF the effort. [place] l ifts or holds trunk or limbs and provides more than half the effort. 8-Aypcknrus-mwqmwp does ALL the effort. Patient does none of the effort to complete the activity. Or, the assistance of 2 or more helpers is required for the patient to complete the activity. If activity was not attempted, code reason: 7-Patient Refused. 9-Not Applicable-not attempted and the patient did not perform the activity before the current illness, exacerbation or injury. 10-Not Attempted due to Environmental Limitations-(lack of equipment, weather restraints, etc.). 88-Not Attempted due to Medical Conditions or Safety Concerns. On/Off Footwear: 5 (set up with gripper socks) Toileting Hygiene (QC): 4 (Pt required SBA, pt used grab bars to asend and decend.) Toilet Transfer (QC): 4 (Pt required SBA, utilizing grab bars for safety.) Other Treatment Pt laying in bed, donned socks with set up assistance. Transfer supine to sit EOB, IND, then used FWW to transfer to w/c at [facility]. Pt declined need to toilet or complete ADLs at this time, agreeable to activities in therapy gym. Pt performed w/c mobility from room to therapy gym, requiring min A to maintain straight path and with turns. Pt participated while seated in w/c in arm bike exercise to support strength and endurance for ADL's, 10 watt resistance, 6 minutes, x4 rest breaks. Pt needed to use the bathroom during arm bike exercise. Pt was taken to room. Pt performed toileting task, see QC above. Pt was taken back to therapy gym to continue tx session. Pt participated while seated in w/c in peg and peg board activity w/ 1 lb weighted wrist weights, to support FMC, ROM, finger dexterity, crossing midline, for function and skill in ADL's, requiring set up, x4 rest breaks, completing 70/100 pegs. Pt was taken back to room. Pt transferred from w/c to chair w/ FWW at [facility] for safety. Post tx session, pt was seated in chair, legs elevated, call light within reach, and all needs met. Education OT Patient Education: Correct positioning, Energy conservation, Exercise program, Progress toward Goal/Update tx plan, Purpose of tx/functional activities, W/C management Teaching Recipient: Patient Teaching Methods: Discussion Response to Teaching: Verbalize Understanding OT Short Term Goals Short Term Goals Time Frame: Apr 09, 2021 Eatin Oral hygiene: 5 Toileting hygiene: 4 Shower/bathe self: 4 Upper body dressin Lower body dressin Putting on/taking off footwear: 4 OT Plant Operator Helper Goals Plant Operator Helper Goals Time Frame: Apr 18, 2021 Eating (QC): 6 Oral Hygiene (QC): 6 Toileting Hygiene (QC): 6 Shower/Bathe Self (QC): 6 Upper Body Dressing (QC): 6 Lower Body Dressing (QC): 6 On/Off Footwear (QC): 6 Additional Goals: 1-Demonstrate ADL Tasks, 2-Verbalize Understanding, 3- ImproveStrength/Po 1=Demonstrate adherence to instructed precautions during ADL tasks. 2=Patient will verbalize/demonstrate understanding of assistive devices/modifications for ADL. 3=Patient will improve strength/tolerance for activity to enable patient to perform ADL's. OT Education/Plan Problem List/Assessment Assessment: Decreased Activ Tolerance, Decreased UE Strength, Impaired I ADL's, Impaired Self-Care Skills Discharge Recommendations Plan/Recommendations: Continue POC Treatment Plan/Plan of Care Patient would benefit from OT for education, treatment and training to promote independence in ADL's, mobility, safety and/or upper extremity function for ADL's. Plan of Care: ADL Retraining, Functional Mobility, Group Exercise/Act as Ind, UE Funct Exercise/Act Treatment Duration: Apr 18, 2021 Frequency: At least 5 of 7 days/Wk (IRF) Estimated Hrs Per Day: 1.5 hours per day Rehab Potential: Fair Time/GCodes Start Time: 07:45 Stop Time: 08:45 Total Time Billed (hr/min): 60 Billed Treatment Time 1 Visit, ADL (20'), EX (15'), FA 2 (25') ALEXANDRA SINGH OT Apr 03, 2021 08:08
[2021-04-03 08:39] VITALS: BP 96/56
[2021-04-03] MEDS: CLOPIDOGREL 75 MG (PLAVIX) TABLET PO SCH (08:39)
[2021-04-03] MEDS: DOCUSATE SODIUM 100 MG (COLACE) CAP PO SCH ×2 (08:51→21:25)
[2021-04-03] MEDS: polyethylene glycoL POWDER 17 GM (MIRALAX) PACK PO SCH ×2 (08:51→21:25)
[2021-04-03] MEDS: lisINopril 20 MG (PRINIVIL) TABLET PO SCH (08:52)
[2021-04-03] MEDS: SENNA W/DOCUSATE (SENOKOT S) TABLET PO SCH ×2 (08:52→21:25)
--- NOTE | 2021-04-03 10:08 | PM&R Progress Note ---
Subjective HPI/CC On Admission Date Seen by Provider: Apr 03, 2021 Time Seen by Provider: 10:15 Subjective/Events-last exam 04/03/2021: Hypotension noted but asymptomatic but will hold lisinopril Bowels moved today Improving immensely 04/02/2021: Patient continues to improve Frail state precludes anything but a guarded prognosis Check meds and labs Bowels are moving 04/01/2021: Patient about the same Minimal dietary intake Consult Dr. Grewal for feet and toenail care Working with therapy 03/31/2021: Pt appears to be about the same Frail status Constipated a bit yesterday, laxatives given Pain is pretty well controlled 03/30/2021: Patient about the same Pain is better controlled Wondered what her white blood cell count was today but she did not have labs ordered Subtle confusion noted Poor memory recall High risk for long-term at discharge 03/29/2021: Patient improved Pain is better controlled Appreciate Dr. 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 Overall very debilitated and Pt needs a long-term at discharge Pain medication will be changed to be more frequent of Q4 Dr Duque consult 03/27/2021: Patient seen in gym Very frail Pain managed with Lortab Took a shower today Very fragile Recheck labs Review of Systems General: Fatigue, Malaise Neurological: Weakness, Incoordination Objective Exam Vital Signs Vital Signs Date Time Temp Pulse Resp B/P (MAP) Pulse Ox O2 Delivery O2 Flow Rate FiO2 04/04/21 04:18 36.5 04/03/21 21:00 Room Air 04/03/21 20:00 73 20 132/60 (84) 97 Capillary Refill : General Appearance: No Apparent Distress, WD/WN, Chronically ill, Thin HEENT: PERRL/EOMI, Normal ENT Inspection, Pharynx Normal Neck: Full Range of Motion, Normal Inspection, Non Tender, Supple, Carotid Bruit Respiratory: Chest Non Tender, Lungs Clear, Normal Breath Sounds, No Accessory Muscle Use, No Respiratory Distress Cardiovascular: Regular Rate, Rhythm, No Edema, No Gallop, No JVD, No Murmur, Normal Peripheral Pulses Gastrointestinal: Normal Bowel Sounds, No Organomegaly, No Pulsatile Mass, Non Tender, Soft Back: Normal Inspection, No CVA Tenderness, No Vertebral Tenderness Extremity: Normal Capillary Refill, Normal Inspection, Normal Range of Motion (Except legs with pain in pelvis), Non Tender, No Calf Tenderness, No Pedal Edema Neurologic/Psychiatric: Alert, Oriented x3, No Motor/Sensory Deficits, Normal Mood/Affect, Abnormal Gait, Motor Weakness (Generalized 4/5 extremities) Skin: Normal Color, Warm/Dry Lymphatic: No Adenopathy Results/Procedures Lab Patient resulted labs reviewed. FIM Transfers Therapy Code Descriptions/Definitions Functional [place] Measure: 0=Not Assessed/NA 4=Minimal Assistance 1=Total Assistance 5=Supervision or Setup 2=Maximal Assistance 6=Modified [place] 3=Moderate Assistance 7=Complete IndependenceSCALE: Activities may be completed with or without assistive devices. 9-Tvhrotobqh-tppjnsd completes the activity by him/herself with no assistance from a helper. 5-Set-up or Clean-up Assistance-helper sets up or cleans up; patient completes activity. [place] assists only prior to or following the activity. 4-Supervision or Touching Assistance-helper provides verbal cues and/or touching/steadying and/or contact guard assistance as patient completes activity . Assistance may be provided throughout the activity or intermittently. 3-Partial/Moderate Assistance-helper does LESS THAN HALF the effort. [place] lifts, holds or supports trunk or limbs, but provides less than half the effort. 2-Substantial/Maximal Assistance-helper does MORE THAN HALF the effort. [place] lifts or holds trunk or limbs and provides more than half the effort. 1-Lmihmiamo-atuqac does ALL the effort. Patient does none of the effort to complete the activity. Or, the assistance of 2 or more helpers is required for the patient to complete the activity. If activity was not attempted, code reason: 7-Patient Refused. 9-Not Applicable-not attempted and the patient did not perform the activity before the current illness, exacerbation or injury. 10-Not Attempted due to Environmental Limitations-(lack of equipment, weather restraints, etc.). 88-Not Attempted due to Medical Conditions or Safety Concerns. Roll Left to Right (QC): 6 Sit to Lying (QC): 3 Sit to Stand (QC): 4 Chair/Lxt-df-Nalrv Xfer(QC): 4 Car Transfer (QC): 3 Gait Training Does the Patient Walk?: Yes Distance: 15' x2, 35' Walk 10 feet (QC): 5 Walk 50 ft with 2 Turns(QC): 4 Walk 150 ft (QC): 88 Walking 10ft/uneven surface-QC: 88 Gait Persons Needed: 1 Gait Assistive Device: FWW Wheelchair Training Does the Pt Use a Wheelchair?: Yes Distance: 40 feet Wheel 50 ft with 2 turns (QC): 4 Wheel 150 ft (QC): 88 Type of Wheelchair: Manual Stair Training 1 Step (curb) (QC): 88 4 Steps (QC): 88 12 Steps (QC): 88 Balance Picking up an Object (QC): 88 ADL-Treatment Eating (QC): 5 (Pt requires set up to open various items for task. ) Oral Hygiene (QC): 4 (Pt required SBA when standing sink side w/ FWW for task w/ seated rest break in w/c. ) Shower/Bathe Self (QC): 4 (Pt required CGA when standing, several VC for sequencing, able to wash all parts, utillized a long handled sponge.) Upper Body Dressing (QC): 5 (Pt required set up. ) Lower Body Dressing (QC): 4 (Pt required CGA for pant hike and doffing LB garments.) On/Off Footwear (QC): 5 (set up with gripper socks) Toileting Hygiene (QC): 4 (Pt required SBA, pt used grab bars to asend and decend.) Toilet Transfer (QC): 4 (Pt required SBA, utilizing grab bars for safety.) Assessment/Plan Assessment and Plan Assess & Plan/Chief Complaint Assessment: Debility Pelvic fracture Previous CVA Current smoker Frail status BMI 13 Pressure ulcer [place] Leukocytosis without source of infection Plan: Supportive care Pain meds Bowel regimen Aggressive therapy 03/27/2021: Increase nutrition Work-up leukocytosis appears to be some sort of leukemia or that type of abnormality Check meds and labs 03/28/21: Increase nutrition Consult Dr Duque 03/29/2021: Supportive care Pain control 03/30/2021: Supportive care Pain control Check labs in the morning 03/31/2021: Supportive care 04/01/2021: Needs long-term Plan to continue aggressive therapy 04/02/2021: Continue to improve Decreased pain noted 04/03/2021: Hold lisinopril Supportive care (1) Debility (2) Pelvic fracture (3) History of CVA (cerebrovascular accident) (4) Malnutrition (5) Leukocytosis (6) Fall Status: Acute ANTONIO HWANG DO Apr 03, 2021 10:08
--- NOTE | 2021-04-03 12:08 | Physical Therapy Daily Note ---
PT Daily Note-Current Subjective Pt sitting in recliner resting upon arrival. Pt agrees to PT. Pain Numeric Pain Scale: 3 Location: Right, Left Location Body Site: Pelvic Pain Description: Ache Mental Status Patient Orientation: Person, Place, Situation Transfers SCALE: Activities may be completed with or without assistive devices. 0-Bofcpicyif-hwowfve completes the activity by him/herself with no assistance from a helper. 5-Set-up or Clean-up Assistance-helper sets up or cleans up; patient completes activity. [place] assists only prior to or following the activity. 4-Supervision or Touching Assistance-helper provides verbal cues and/or touching/steadying and/or contact guard assistance as patient completes activity. Assistance may be provided throughout the activity or intermittently. 3-Partial/Moderate Assistance-helper does LESS THAN HALF the effort. [place] lifts, holds or supports trunk or limbs, but provides less than half the effort. 2-Substantial/Maximal Assistance-helper does MORE THAN HALF the effort. [place] lifts or holds trunk or limbs and provides more than half the effort. 3-Kfhcgmncf-htbyrm does ALL the effort. Patient does none of the effort to complete the activity. Or, the assistance of 2 or more helpers is required for the patient to complete the activity. If activity was not attempted, code reason: 7-Patient Refused. 9-Not Applicable-not attempted and the patient did not perform the activity before the current illness, exacerbation or injury. 10-Not Attempted due to Environmental Limitations-(lack of equipment, weather restraints, etc.). 88-Not Attempted due to Medical Conditions or Safety Concerns. Sit to Lying (QC): 5 Sit to Stand (QC): 4 Weight Bearing Right Lower Extremity: Right Weight Bearing/Tolerated Left Lower Extremity: Left Weight Bearing/Tolerated Gait Training Does the Patient Walk?: Yes Distance: 30' x2, 50', 30', 50' Walk 10 feet (QC): 5 Walk 50 ft with 2 Turns(QC): 5 Gait Persons Needed: 1 Gait Assistive Device: FWW Wheelchair Training Does the Pt Use a Wheelchair?: Yes Wheel 50 ft with 2 turns (QC): 5 Wheel 150 ft (QC): 5 Type of Wheelchair: Manual Exercises Supine Ex: Ankle pumps, Quad Set, Glut sets, Heel Slides, Straight leg raise, Hip abd/add Supine Reps: 10 Seated Therapy Exercises: Ankle pumps, Long arc quads, Hip flexion, Glut set Seated Reps: 10 Treatments [id number]: TF to standing and amb. in hallway with several RB as needed for fatigue. Pt completes Seated EX in Therapy Gym then short RB. Pt propels WCH in hallway with 2 RBs. Pt then amb. back to room to rest before lunch arrives. All needs met, call light in hand. [id number]: TF from recliner to EOB to Supine as pt is fatigued and wants to sleep after tx complete. Pt completes Supine EX before repositioning to comfort and resting in bed. All needs met,call light in hand. PT Short Term Goals Short Term Goals Time Frame: Apr 09, 2021 Roll Left & Right: 5 Sit to lyin Lying to sitting on side of be: 5 Sit to stand: 5 Chair/ijv-ag-nwexw transfer: 5 Toilet transfer: 5 Walk 10 feet: 4 Walk 50 feet with two turns: 3 Walk 150 feet: 3 1 step (curb): 3 4 steps: 3 12 steps: 3 Picking up objects: 4 Does pt use a wc or scooter: Yes Wheel 50ft w/2 turns: 6 Wheel 150 feet: 6 Type: Manual PT Alf Goals Alf Goals PT [place] Goals Time Frame: May 07, 2021 Roll Left & Right (QC): 6 Sit to Lying (QC): 6 Lying-Sitting on Side/Bed(QC): 6 Sit to Stand (QC): 6 Chair/Lfd-ip-Cxjws Xfer(QC): 6 Toilet Transfer (QC): 6 Car Transfer (QC): 6 Does the Patient Walk: Yes Walk 10 feet (QC): 6 Walk 50ft with 2 Turns (QC): 5 Walk 150 ft (QC): 5 Walking 10ft on Uneven Surface: 5 1 Step (curb) (QC): 5 4 Steps (QC): 5 12 Steps (QC): 5 Picking up an Object (QC): 5 Does the Pt use WC or Scooter?: Yes Wheel 50 feet with 2 turns (QC: 6 Type: Manual Wheel 150 feet: 6 Type: Manual PT Plan Problem List Problem List: Activity Tolerance, Functional Strength Treatment/Plan Treatment Plan: Continue Plan of Care Treatment Plan: Bed Mobility, Education, Functional Activity Po, Functional Strength, Group Therapy, Gait, Safety, Therapeutic Exercise, Transfers Treatment Duration: Jun 04, 2021 Frequency: At least 5 of 7 days/Wk (IRF) Estimated Hrs Per Day: 1.5 hours per day Patient and/or Family Agrees t: Yes Safety Risks/Education Patient Education: Gait Training, Transfer Techniques, Correct Positioning Teaching Recipient: Patient Teaching Methods: Discussion Response to Teaching: Verbalize Understanding Time/GCodes Time In: 1100 Time Out: 1200 Total Billed Treatment Time: 60 Total Billed Treatment [id number]: 1, GT x2 (30m), EX (15m) & FA (15m) [id number]: 1, FA (10m) & EX (20m) BROWN WILLARD EVENT LIGHTING SPECIALIST Apr 03, 2021 12:07
--- NOTE | 2021-04-03 13:32 | Occupational Ther Daily Note ---
OT Current Status-Daily Note Subjective Pt was lying supine in bed w/ HOB elevated. Pt was finishing up w/ lunch. Pt was tired but agreed to OT tx session. Pain Numeric Pain Scale: 7 Location: Lower Location Body Site: Back Mental Status/Objective Patient Orientation: Person, Place, Time, Situation ADL-Treatment Therapy Code Descriptions/Definitions Functional [place] Measure: 0=Not Assessed/NA 4=Minimal Assistance 1=Total Assistance 5=Supervision or Setup 2=Maximal Assistance 6=Modified [place] 3=Moderate Assistance 7=Complete IndependenceSCALE: Activities may be completed with or without assistive devices. 0-Gzzbbbycwl-kojvrlc completes the activity by him/herself with no assistance from a helper. 5-Set-up or Clean-up Assistance-helper sets up or cleans up; patient completes activity. [place] assists only prior to or following the activity. 4-Supervision or Touching Assistance-helper provides verbal cues and/or touching/steadying and/or contact guard assistance as patient completes activity. Assistance may be provided throughout the activity or intermittently. 3-Partial/Moderate Assistance-helper does LESS THAN HALF the effort. [place] lifts, holds or supports trunk or limbs, but provides less than half the effort. 2-Substantial/Maximal Assistance-helper does MORE THAN HALF the effort. [place] lifts or holds trunk or limbs and provides more than half the effort. 4-Padtnzcqh-ahydfh does ALL the effort. Patient does none of the effort to complete the activity. Or, the assistance of 2 or more helpers is required for the patient to complete the activity. If activity was not attempted, code reason: 7-Patient Refused. 9-Not Applicable-not attempted and the patient did not perform the activity before the current illness, exacerbation or injury. 10-Not Attempted due to Environmental Limitations-(lack of equipment, weather restraints, etc.). 88-Not Attempted due to Medical Conditions or Safety Concerns. Eating (QC): 5 (Pt requries set up. ) Lower Body Dressing (QC): 4 (Pt required SBA for pant hike, pt utillized a echo technician to doff briefs and LB garment. ) Toileting Hygiene (QC): 4 (Pt required SBA for pant hike. ) Toilet Transfer (QC): 4 (Pt required SBA for safety. ) Other Treatment Pt was lying supine in bed w/ HOB elevated. Pt was finishing up w/ lunch. Pt was tired but agreed to OT tx session. Pt performed bed mobility to EOB, IND. Pt transferred from sit to stand w/ FWW, SBA. Pt performed functional mobility w/ FWW to toilet. Pt performed toileting task and LBD, see above QC's. Pt performed sit to stand w/ FWW, SBA. Pt transferred to w/c w/ FWW at SBA. Pt participated in grooming task sink side while seated in w/c brushing hair, requiring Min assist for tangles. Pt was taken to therapy gym. Pt performed ring arch, x4 rounds, medium level ROM, while standing w/ seated rest breaks after each round: Round 1: x12 rings R to L. Round 2: x12 rings L to R. Round 3: x12 rings R to L. Round 4: x12 rings L to R. Pt was taken to room. Pt transferred from w/c to chair w/ FWW, SBA. Post tx session, pt was seated in chair, legs elevated, call light within reach, and all needs met. Education OT Patient Education: Correct positioning, Energy conservation, Exercise program, Modified ADL techniques, Progress toward Goal/Update tx plan, Purpose of tx/functional activities, Use of adapted equipment Teaching Recipient: Patient Teaching Methods: Demonstration, Discussion Response to Teaching: Verbalize Understanding, Return Demonstration OT Short Term Goals Short Term Goals Time Frame: Apr 09, 2021 Eatin Oral hygiene: 5 Toileting hygiene: 4 Shower/bathe self: 4 Upper body dressin Lower body dressin Putting on/taking off footwear: 4 OT It Security Administrator Goals [place] Goals Time Frame: Apr 18, 2021 Eating (QC): 6 Oral Hygiene (QC): 6 Toileting Hygiene (QC): 6 Shower/Bathe Self (QC): 6 Upper Body Dressing (QC): 6 Lower Body Dressing (QC): 6 On/Off Footwear (QC): 6 Additional Goals: 1-Demonstrate ADL Tasks, 2-Verbalize Understanding, 3- ImproveStrength/Po 1=Demonstrate adherence to instructed precautions during ADL tasks. 2=Patient will verbalize/demonstrate understanding of assistive devices/modifications for ADL. 3=Patient will improve strength/tolerance for activity to enable patient to perform ADL's. OT Education/Plan Problem List/Assessment Assessment: Decreased Activ Tolerance, Decreased UE Strength, Impaired I ADL's, Impaired Self-Care Skills Discharge Recommendations Plan/Recommendations: Continue POC Treatment Plan/Plan of Care Patient would benefit from OT for education, treatment and training to promote independence in ADL's, mobility, safety and/or upper extremity function for ADL's. Plan of Care: ADL Retraining, Functional Mobility, Group Exercise/Act as Ind, UE Funct Exercise/Act Treatment Duration: Apr 18, 2021 Frequency: At least 5 of 7 days/Wk (IRF) Estimated Hrs Per Day: 1.5 hours per day Rehab Potential: Fair Time/GCodes Start Time: 13:00 Stop Time: 13:30 Total Time Billed (hr/min): 30 Billed Treatment Time 1 Visit, ADL (20'), FA (10') ALEXANDRA SINGH OT Apr 03, 2021 13:32
[2021-04-03] MEDS: MELATONIN 3 MG TABLET PO PRN (19:38)
[2021-04-03 20:00] VITALS: BP 132/60
[2021-04-04] MEDS: HYDROcodone/APAP 5 MG/325 MG (LORTAB) TAB PO PRN ×4 (03:48→20:08)
[2021-04-04] MEDS: MULTIVIT W/MINERALS TAB (THERAGRAN M) PO SCH (06:14)
[2021-04-04] MEDS: IBUPROFEN TABLET 200 MG TAB PO PRN ×2 (06:19→18:26)
[2021-04-04 07:57] VITALS: BP 131/65
[2021-04-04] MEDS: DOCUSATE SODIUM 100 MG (COLACE) CAP PO SCH ×2 (08:06→19:28)
[2021-04-04] MEDS: polyethylene glycoL POWDER 17 GM (MIRALAX) PACK PO SCH ×2 (08:07→19:28)
[2021-04-04] MEDS: CLOPIDOGREL 75 MG (PLAVIX) TABLET PO SCH (08:07)
[2021-04-04] MEDS: SENNA W/DOCUSATE (SENOKOT S) TABLET PO SCH ×2 (08:07→19:28)
--- NOTE | 2021-04-04 10:15 | Occupational Ther Daily Note ---
OT Current Status-Daily Note Subjective Pt was lying supine in bed upon OT arrival. Pt stated she wanted a shower and agreed to OT tx session. Pt stated pain in lower back, rate of 7, nurse notified, nurse gave pain medication during tx session. Nurse notified pt gripper socks were too tight on her feet causing a little cut on her R ankle, pt put on bigger sized socks. Pain Numeric Pain Scale: 7 Location: Lower Location Body Site: Back Mental Status/Objective Patient Orientation: Person, Place, Time, Situation ADL-Treatment Therapy Code Descriptions/Definitions Functional Hernandez Measure: 0=Not Assessed/NA 4=Minimal Assistance 1=Total Assistance 5=Supervision or Setup 2=Maximal Assistance 6=Modified Hernandez 3=Moderate Assistance 7=Complete IndependenceSCALE: Activities may be completed with or without assistive devices. 4-Ssesfqcfzq-uxedaht completes the activity by him/herself with no assistance from a helper. 5-Set-up or Clean-up Assistance-helper sets up or cleans up; patient completes activity. [place] assists only prior to or following the activity. 4-Supervision or Touching Assistance-helper provides verbal cues and/or touching/steadying and/or contact guard assistance as patient completes activity. Assistance may be provided throughout the activity or intermittently. 3-Partial/Moderate Assistance-helper does LESS THAN HALF the effort. [place] lifts, holds or supports trunk or limbs, but provides less than half the effort. 2-Substantial/Maximal Assistance-helper does MORE THAN HALF the effort. [place] lifts or holds trunk or limbs and provides more than half the effort. 5-Evcnghhfa-udokpu does ALL the effort. Patient does none of the effort to complete the activity. Or, the assistance of 2 or more helpers is required for the patient to complete the activity. If activity was not attempted, code reason: 7-Patient Refused. 9-Not Applicable-not attempted and the patient did not perform the activity before the current illness, exacerbation or injury. 10-Not Attempted due to Environmental Limitations-(lack of equipment, weather restraints, etc.). 88-Not Attempted due to Medical Conditions or Safety Concerns. Oral Hygiene (QC): 6 (Pt was IND while seated in w/c. ) Shower/Bathe Self (QC): 4 (Pt required SBA for safety when standing to wash backside and shyann area, pt able to wash all parts, utilized a long handled sponge and SC. ) Upper Body Dressing (QC): 5 (Pt required set up.) Lower Body Dressing (QC): 4 (Pt required SBA when standing to art LB garments and utilized a hazmat cdl driver to doff LB garments.) On/Off Footwear: 5 (Pt required set up. ) Toileting Hygiene (QC): 4 (Pt required SBA for pant hike. ) Toilet Transfer (QC): 4 (Pt required SBA for safety. ) Other Treatment Pt was lying supine in bed upon OT arrival. Pt stated she wanted a shower and agreed to OT tx session. Pt stated pain in lower back, rate of 7, nurse notified, nurse gave pain medication during tx session. Nurse notified pt gripper socks were too tight on her feet causing a little cut on her R ankle, pt put on bigger sized socks. Pt performed bed mobility from supine to EOB, IND. Pt transferred from sit to stand w/ FWW, SBA. Pt performed functional mobility to toilet, SBA. Pt performed toileting task, shower, LBD, UBD, and footwear, see above QC's. Pt transferred from SC to w/c, SBA. Pt performed donning UBD and LBD, see above QC. Pt participated in w/c mobility to sink side at IND, for oral hygiene and grooming task, see above QC. Pt required Min assist to brush hair to get out tangles, OT put hair in braid to help w/ tangles. Pt performed w/c mobility from sink side to chair, IND. Pt then transferred from w/c to chair w/ FWW at SBA for safety. Pt performed while seated in theraband minimal resistance, UE exercises, x10 reps, one round, rest breaks after each exercise for energy conservation, to support strength and endurance in ADL's, in each of the following: shoulder abduction, shoulder flexion, shoulder horizontal abduction, shoulder external rotation, elbow flexion, elbow extension. Post tx session, pt was seated in chair, legs elevated, call light within reach, and all needs met. Education OT Patient Education: Correct positioning, Energy conservation, Exercise program, Home exercise program, Modified ADL techniques, Progress toward Goal/Update tx plan, Purpose of tx/functional activities, Transfer techniques, Use of adapted equipment, W/C management Teaching Recipient: Patient Teaching Methods: Demonstration, Handout Response to Teaching: Verbalize Understanding, Return Demonstration OT Short Term Goals Short Term Goals Time Frame: Apr 09, 2021 Eatin Oral hygiene: 5 Toileting hygiene: 4 Shower/bathe self: 4 Upper body dressin Lower body dressin Putting on/taking off footwear: 4 OT Single Stroke Preformer Goals Single Stroke Preformer Goals Time Frame: Apr 18, 2021 Eating (QC): 6 Oral Hygiene (QC): 6 Toileting Hygiene (QC): 6 Shower/Bathe Self (QC): 6 Upper Body Dressing (QC): 6 Lower Body Dressing (QC): 6 On/Off Footwear (QC): 6 Additional Goals: 1-Demonstrate ADL Tasks, 2-Verbalize Understanding, 3- ImproveStrength/Po 1=Demonstrate adherence to instructed precautions during ADL tasks. 2=Patient will verbalize/demonstrate understanding of assistive devices/modifications for ADL. 3=Patient will improve strength/tolerance for activity to enable patient to perform ADL's. OT Education/Plan Problem List/Assessment Assessment: Decreased Activ Tolerance, Decreased UE Strength, Impaired I ADL's, Impaired Self-Care Skills Discharge Recommendations Plan/Recommendations: Continue POC Treatment Plan/Plan of Care Patient would benefit from OT for education, treatment and training to promote independence in ADL's, mobility, safety and/or upper extremity function for ADL's. Plan of Care: ADL Retraining, Functional Mobility, Group Exercise/Act as Ind, UE Funct Exercise/Act Treatment Duration: Apr 18, 2021 Frequency: At least 5 of 7 days/Wk (IRF) Estimated Hrs Per Day: 1.5 hours per day Rehab Potential: Fair Time/GCodes Start Time: 09:15 Stop Time: 10:15 Total Time Billed (hr/min): 60 Billed Treatment Time 1 Visit, ADL 3 (45'), EX (15') ALEXANDRA SINGH OT Apr 04, 2021 10:15
--- NOTE | 2021-04-04 11:04 | PM&R Progress Note ---
Subjective HPI/CC On Admission Date Seen by Provider: Apr 04, 2021 Time Seen by Provider: 11:15 Subjective/Events-last exam 04/04/2021: Holding lisinopril Patient doing well Pain is well controlled Moving around very well 04/03/2021: Hypotension noted but asymptomatic but will hold lisinopril Bowels moved today Improving immensely 04/02/2021: Patient continues to improve Frail state precludes anything but a guarded prognosis Check meds and labs Bowels are moving 04/01/2021: Patient about the same Minimal dietary intake Consult Dr. Grewal for feet and toenail care Working with therapy 03/31/2021: Pt appears to be about the same Frail status Constipated a bit yesterday, laxatives given Pain is pretty well controlled 03/30/2021: Patient about the same Pain is better controlled Wondered what her white blood cell count was today but she did not have labs ordered Subtle confusion noted Poor memory recall High risk for fci at discharge 03/29/2021: Patient improved Pain is better controlled Appreciate Dr. 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 Overall very debilitated and Pt needs a fci at discharge Pain medication will be changed to be more frequent of Q4 Dr Duque consult 03/27/2021: Patient seen in gym Very frail Pain managed with Lortab Took a shower today Very fragile Recheck labs Review of Systems General: Fatigue, Malaise Objective Exam Vital Signs Vital Signs Date Time Temp Pulse Resp B/P (MAP) Pulse Ox O2 Delivery O2 Flow Rate FiO2 04/04/21 19:53 Room Air 04/04/21 19:14 36.5 63 16 125/69 (87) 97 Capillary Refill : General Appearance: No Apparent Distress, WD/WN, Chronically ill, Thin HEENT: PERRL/EOMI, Normal ENT Inspection, Pharynx Normal Neck: Full Range of Motion, Normal Inspection, Non Tender, Supple, Carotid Bruit Respiratory: Chest Non Tender, Lungs Clear, Normal Breath Sounds, No Accessory Muscle Use, No Respiratory Distress Cardiovascular: Regular Rate, Rhythm, No Edema, No Gallop, No JVD, No Murmur, Normal Peripheral Pulses Gastrointestinal: Normal Bowel Sounds, No Organomegaly, No Pulsatile Mass, Non Tender, Soft Back: Normal Inspection, No CVA Tenderness, No Vertebral Tenderness Extremity: Normal Capillary Refill, Normal Inspection, Normal Range of Motion (Except legs with pain in pelvis), Non Tender, No Calf Tenderness, No Pedal Edema Neurologic/Psychiatric: Alert, Oriented x3, No Motor/Sensory Deficits, Normal Mood/Affect, Abnormal Gait, Motor Weakness (Generalized 4/5 extremities) Skin: Normal Color, Warm/Dry Lymphatic: No Adenopathy Results/Procedures Lab Patient resulted labs reviewed. FIM Transfers Therapy Code Descriptions/Definitions Functional [place] Measure: 0=Not Assessed/NA 4=Minimal Assistance 1=Total Assistance 5=Supervision or Setup 2=Maximal Assistance 6=Modified [place] 3=Moderate Assistance 7=Complete IndependenceSCALE: Activities may be completed with or without assistive devices. 7-Bbkgxneoyd-fpncldp completes the activity by him/herself with no assistance from a helper. 5-Set-up or Clean-up Assistance-helper sets up or cleans up; patient completes activity. [place] assists only prior to or following the activity. 4-Supervision or Touching Assistance-helper provides verbal cues and/or touching/steadying and/or contact guard assistance as patient completes activity. Assistance may be provided throughout the activity or intermittently. 3-Partial/Moderate Assistance-helper does LESS THAN HALF the effort. [place] lifts, holds or supports trunk or limbs, but provides less than half the effort. 2-Substantial/Maximal Assistance-helper does MORE THAN HALF the effort. [place] lifts or holds trunk or limbs and provides more than half the effort. 8-Awodwdhqx-neoxyz does ALL the effort. Patient does none of the effort to complete the activity. Or, the assistance of 2 or more helpers is required for the patient to complete the activity. If activity was not attempted, code reason: 7-Patient Refused. 9-Not Applicable-not attempted and the patient did not perform the activity before the current illness, exacerbation or injury. 10-Not Attempted due to Environmental Limitations-(lack of equipment, weather restraints, etc.). 88-Not Attempted due to Medical Conditions or Safety Concerns. Roll Left to Right (QC): 6 Sit to Lying (QC): 5 Sit to Stand (QC): 4 Chair/Gpc-ip-Qcpyb Xfer(QC): 4 Car Transfer (QC): 3 Gait Training Does the Patient Walk?: Yes Distance: 30' x2, 50', 30', 50' Walk 10 feet (QC): 5 Walk 50 ft with 2 Turns(QC): 5 Walk 150 ft (QC): 88 Walking 10ft/uneven surface-QC: 88 Gait Persons Needed: 1 Gait Assistive Device: FWW Wheelchair Training Does the Pt Use a Wheelchair?: Yes Distance: 40 feet Wheel 50 ft with 2 turns (QC): 5 Wheel 150 ft (QC): 5 Type of Wheelchair: Manual Stair Training 1 Step (curb) (QC): 88 4 Steps (QC): 88 12 Steps (QC): 88 Balance Picking up an Object (QC): 88 ADL-Treatment Eating (QC): 5 (Pt requries set up. ) Oral Hygiene (QC): 6 (Pt was IND while seated in w/c. ) Shower/Bathe Self (QC): 4 (Pt required SBA for safety when standing to wash backside and shyann area, pt able to wash all parts, utilized a long handled sponge and SC. ) Upper Body Dressing (QC): 5 (Pt required set up.) Lower Body Dressing (QC): 4 (Pt required SBA when standing to art LB garments and utilized a chip applying machine tender to doff LB garments.) On/Off Footwear (QC): 5 (Pt required set up. ) Toileting Hygiene (QC): 4 (Pt required SBA for pant hike. ) Toilet Transfer (QC): 4 (Pt required SBA for safety. ) Assessment/Plan Assessment and Plan Assess & Plan/Chief Complaint Assessment: Debility Pelvic fracture Previous CVA Current smoker Frail status BMI 13 Pressure ulcer Falls Leukocytosis without source of infection Plan: Supportive care Pain meds Bowel regimen Aggressive therapy 03/27/2021: Increase nutrition Work-up leukocytosis appears to be some sort of leukemia or that type of abnormality Check meds and labs 03/28/21: Increase nutrition Consult Dr Duque 03/29/2021: Supportive care Pain control 03/30/2021: Supportive care Pain control Check labs in the morning 03/31/2021: Supportive care 04/01/2021: Needs fci Plan to continue aggressive therapy 04/02/2021: Continue to improve Decreased pain noted 04/03/2021: Hold lisinopril Supportive care 04/04/2021: Monitor pain Impressive improvement (1) Debility (2) Pelvic fracture (3) History of CVA (cerebrovascular accident) (4) Malnutrition (5) Leukocytosis (6) Fall Status: Acute ANTONIO HWANG DO Apr 04, 2021 11:04
--- NOTE | 2021-04-04 11:55 | Physical Therapy Daily Note ---
PT Daily Note-Current Subjective Patient in recliner pre tx, agrees to PT, has 5/10 pain in right pelvis. Appearance Patient in bed post tx with nurse call, phone, tray, all needs met. Mental Status Patient Orientation: Person, Place, Situation Transfers SCALE: Activities may be completed with or without assistive devices. 1-Ufmvvwhimp-xzvmoqf completes the activity by him/herself with no assistance from a helper. 5-Set-up or Clean-up Assistance-helper sets up or cleans up; patient completes activity. [place] assists only prior to or following the activity. 4-Supervision or Touching Assistance-helper provides verbal cues and/or touc alexandra/steadying and/or contact guard assistance as patient completes activity. Assistance may be provided throughout the activity or intermittently. 3-Partial/Moderate Assistance-helper does LESS THAN HALF the effort. [place] lifts, holds or supports trunk or limbs, but provides less than half the effort. 2-Substantial/Maximal Assistance-helper does MORE THAN HALF the effort. [place] lifts or holds trunk or limbs and provides more than half the effort. 0-Xamymcwni-odqyzl does ALL the effort. Patient does none of the effort to complete the activity. Or, the assistance of 2 or more helpers is required for the patient to complete the activity. If activity was not attempted, code reason: 7-Patient Refused. 9-Not Applicable-not attempted and the patient did not perform the activity before the current illness, exacerbation or injury. 10-Not Attempted due to Environmental Limitations-(lack of equipment, weather restraints, etc.). 88-Not Attempted due to Medical Conditions or Safety Concerns. Roll Left & Right (QC): 6 Sit to Lying (QC): 4 Lying to Sitting/Side of Bed(Q: 3 Sit to Stand (QC): 4 Chair/Kwf-hy-Jghrn Xfer(QC): 4 Weight Bearing Right Lower Extremity: Right Weight Bearing/Tolerated Left Lower Extremity: Left Weight Bearing/Tolerated Gait Training Distance: 50'x2, 100'x2 Walk 10 feet (QC): 4 Walk 50 ft with 2 Turns(QC): 4 Gait Persons Needed: 1 Gait Assistive Device: FWW Gait is antalgic, slow, but no LOB. Pain limits her distance of ambulation. Exercises Supine Ex: Ankle pumps, Quad Set, Glut sets, Heel Slides Supine Reps: 20 NuStep Minutes: 15 NuStep Workload: 3 Treatments bed mobility and transfers, ambulation, LE strengthening Assessment Current Status: Fair Progress slowly improving ambulation and transfers PT Short Term Goals Short Term Goals Time Frame: Apr 09, 2021 Roll Left & Right: 5 Sit to lyin Lying to sitting on side of be: 5 Sit to stand: 5 Chair/nfm-nl-nngil transfer: 5 Toilet transfer: 5 Walk 10 feet: 4 Walk 50 feet with two turns: 3 Walk 150 feet: 3 1 step (curb): 3 4 steps: 3 12 steps: 3 Picking up objects: 4 Does pt use a wc or scooter: Yes Wheel 50ft w/2 turns: 6 Wheel 150 feet: 6 Type: Manual PT Inspector Conveyor Line Goals Inspector Conveyor Line Goals PT Shelter Goals Time Frame: May 07, 2021 Roll Left & Right (QC): 6 Sit to Lying (QC): 6 Lying-Sitting on Side/Bed(QC): 6 Sit to Stand (QC): 6 Chair/Crn-yj-Mueei Xfer(QC): 6 Toilet Transfer (QC): 6 Car Transfer (QC): 6 Does the Patient Walk: Yes Walk 10 feet (QC): 6 Walk 50ft with 2 Turns (QC): 5 Walk 150 ft (QC): 5 Walking 10ft on Uneven Surface: 5 1 Step (curb) (QC): 5 4 Steps (QC): 5 12 Steps (QC): 5 Picking up an Object (QC): 5 Does the Pt use WC or Scooter?: Yes Wheel 50 feet with 2 turns (QC: 6 Type: Manual Wheel 150 feet: 6 Type: Manual PT Plan Problem List Problem List: Activity Tolerance, Functional Strength, Safety, Balance, Gait, Transfer, Bed Mobility, ROM Treatment/Plan Treatment Plan: Continue Plan of Care Treatment Plan: Bed Mobility, Education, Functional Activity Po, Functional Strength, Group Therapy, Gait, Safety, Therapeutic Exercise, Transfers Treatment Duration: Jun 04, 2021 Frequency: At least 5 of 7 days/Wk (IRF) Estimated Hrs Per Day: 1.5 hours per day Patient and/or Family Agrees t: Yes Safety Risks/Education Patient Education: Gait Training, Transfer Techniques, Correct Positioning, Safety Issues Teaching Recipient: Patient Teaching Methods: Demonstration, Discussion Response to Teaching: Reinforcement Needed Time/GCodes Time In: 1100 Time Out: 1200 Total Billed Treatment Time: 60 Total Billed Treatment 1 visit EX 30' FA 30' RAVEN CRAMER PT Apr 04, 2021 11:55
--- NOTE | 2021-04-04 13:57 | Occupational Ther Daily Note ---
OT Current Status-Daily Note Subjective Pt was lying supine in bed upon OT arrival. Pt stated she was tired but would participate in tx session. Mental Status/Objective Patient Orientation: Person, Place, Time, Situation ADL-Treatment Therapy Code Descriptions/Definitions Functional [place] Measure: 0=Not Assessed/NA 4=Minimal Assistance 1=Total Assistance 5=Supervision or Setup 2=Maximal Assistance 6=Modified [place] 3=Moderate Assistance 7=Complete IndependenceSCALE: Activities may be completed with or without assistive devices. 5-Mtdknryede-osknnap completes the activity by him/herself with no assistance from a helper. 5-Set-up or Clean-up Assistance-helper sets up or cleans up; patient completes activity. [place] assists only prior to or following the activity. 4-Supervision or Touching Assistance-helper provides verbal cues and/or touching/steadying and/or contact guard assistance as patient completes activity. Assistance may be provided throughout the activity or intermittently. 3-Partial/Moderate Assistance-helper does LESS THAN HALF the effort. [place] lif ts, holds or supports trunk or limbs, but provides less than half the effort. 2-Substantial/Maximal Assistance-helper does MORE THAN HALF the effort. [place] lifts or holds trunk or limbs and provides more than half the effort. 6-Cxdebrnpc-osxpal does ALL the effort. Patient does none of the effort to complete the activity. Or, the assistance of 2 or more helpers is required for the patient to complete the activity. If activity was not attempted, code reason: 7-Patient Refused. 9-Not Applicable-not attempted and the patient did not perform the activity before the current illness, exacerbation or injury. 10-Not Attempted due to Environmental Limitations-(lack of equipment, weather restraints, etc.). 88-Not Attempted due to Medical Conditions or Safety Concerns. Other Treatment Pt was lying supine in bed upon OT arrival. Pt stated she was tired but would participate in tx session. Pt performed bed mobility from supine to EOB, IND. Pt transferred from sit to stand then to w/c w/ FWW, SBA. Pt performed w/c mobility to therapy gym, requiring x2 rest breaks, SBA. Pt participated while standing w/ FWW at raised tray table in card activity, 1 lb weighted wrist weights, to support crossing midline, cognition, FMC, finger dexterity, for ADL function and skill: Round 1: R hand retrieve 1/2 deck of cards, crossing midline, placing card in correct colored pile, x3 seated rest breaks. Round 2: L hand retrieve 1/2 deck of cards, crossing midline, placing card in correct colored pile x4 seated rest breaks, x2 VC for correction, x4 dropping card to floor. Pt stated she has a loss of function in L hand, for almost a couple weeks now, numbness sensation. Pt performed w/c mobility to room, requiring x3 rest breaks, SBA. Pt transferred from sit to stand w/ FWW to chair, SBA. Post tx session, pt was seated in chair, legs elevated, call light within reach, and all needs met. Education OT Patient Education: Energy conservation, Progress toward Goal/Update tx plan, Purpose of tx/functional activities, W/C management Teaching Recipient: Patient Teaching Methods: Demonstration, Discussion Response to Teaching: Verbalize Understanding, Return Demonstration OT Short Term Goals Short Term Goals Time Frame: Apr 09, 2021 Eatin Oral hygiene: 5 Toileting hygiene: 4 Shower/bathe self: 4 Upper body dressin Lower body dressin Putting on/taking off footwear: 4 OT Shelter Goals Track Car Operator Goals Time Frame: Apr 18, 2021 Eating (QC): 6 Oral Hygiene (QC): 6 Toileting Hygiene (QC): 6 Shower/Bathe Self (QC): 6 Upper Body Dressing (QC): 6 Lower Body Dressing (QC): 6 On/Off Footwear (QC): 6 Additional Goals: 1-Demonstrate ADL Tasks, 2-Verbalize Understanding, 3- ImproveStrength/Po 1=Demonstrate adherence to instructed precautions during ADL tasks. 2=Patient will verbalize/demonstrate understanding of assistive devices/modifications for ADL. 3=Patient will improve strength/tolerance for activity to enable patient to perform ADL's. OT Education/Plan Problem List/Assessment Assessment: Decreased Activ Tolerance, Decreased UE Strength, Impaired I ADL's, Impaired Self-Care Skills Discharge Recommendations Plan/Recommendations: Continue POC Treatment Plan/Plan of Care Patient would benefit from OT for education, treatment and training to promote independence in ADL's, mobility, safety and/or upper extremity function for ADL's. Plan of Care: ADL Retraining, Functional Mobility, Group Exercise/Act as Ind, UE Funct Exercise/Act Treatment Duration: Apr 18, 2021 Frequency: At least 5 of 7 days/Wk (IRF) Estimated Hrs Per Day: 1.5 hours per day Rehab Potential: Fair Time/GCodes Start Time: 13:00 Stop Time: 13:30 Total Time Billed (hr/min): 30 Billed Treatment Time 1 Visit, FA 2 (30') ALEXANDRA SINGH OT Apr 04, 2021 13:57
--- NOTE | 2021-04-04 14:25 | Physical Therapy Daily Note ---
PT Daily Note-Current Subjective Patient in recliner pre tx, agrees to PT. Patient states she has very little pain because she has had pain meds. Appearance Patient in bed post tx with nurse call, phone, tray, all needs met. Mental Status Patient Orientation: Person, Place, Situation Transfers SCALE: Activities may be completed with or without assistive devices. 3-Zrhkffubei-wmwcxjm completes the activity by him/herself with no assistance from a helper. 5-Set-up or Clean-up Assistance-helper sets up or cleans up; patient completes activity. [place] assists only prior to or following the activity. 4-Supervision or Touching Assistance-helper provides verbal cues and/or touching/steadying and/or contact guard assistance as patient completes activity. Assistance may be provided throughout the activity or intermittently. 3-Partial/Moderate Assistance-helper does LESS THAN HALF the effort. [place] lifts, holds or supports trunk or limbs, but provides less than half the effort. 2-Substantial/Maximal Assistance-helper does MORE THAN HALF the effort. [place] lifts or holds trunk or limbs and provides more than half the effort. 3-Hpyolhhzj-xmstjn does ALL the effort. Patient does none of the effort to complete the activity. Or, the assistance of 2 or more helpers is required for the patient to complete the activity. If activity was not attempted, code reason: 7-Patient Refused. 9-Not Applicable-not attempted and the patient did not perform the activity before the current illness, exacerbation or injury. 10-Not Attempted due to Environmental Limitations-(lack of equipment, weather restraints, etc.). 88-Not Attempted due to Medical Conditions or Safety Concerns. Roll Left & Right (QC): 6 Sit to Lying (QC): 6 Sit to Stand (QC): 4 Chair/Crs-kr-Ulrgr Xfer(QC): 4 Weight Bearing Right Lower Extremity: Right Weight Bearing/Tolerated Left Lower Extremity: Left Weight Bearing/Tolerated Gait Training Distance: 50'x2, 100'x2 Walk 10 feet (QC): 4 Walk 50 ft with 2 Turns(QC): 4 Gait Assistive Device: FWW SBA, slow ambulation, distance is limited by pain, pain is worse with weight bearing Treatments bed mobility and transfers, ambulation Assessment Current Status: Fair Progress improving ambulation PT Short Term Goals Short Term Goals Time Frame: Apr 09, 2021 Roll Left & Right: 5 Sit to lyin Lying to sitting on side of be: 5 Sit to stand: 5 Chair/shf-ya-kjikb transfer: 5 Toilet transfer: 5 Walk 10 feet: 4 Walk 50 feet with two turns: 3 Walk 150 feet: 3 1 step (curb): 3 4 steps: 3 12 steps: 3 Picking up objects: 4 Does pt use a wc or scooter: Yes Wheel 50ft w/2 turns: 6 Wheel 150 feet: 6 Type: Manual PT Contact Center Professional Goals Intermediate Goals PT Contact Center Professional Goals Time Frame: May 07, 2021 Roll Left & Right (QC): 6 Sit to Lying (QC): 6 Lying-Sitting on Side/Bed(QC): 6 Sit to Stand (QC): 6 Chair/Abg-fs-Vjuaz Xfer(QC): 6 Toilet Transfer (QC): 6 Car Transfer (QC): 6 Does the Patient Walk: Yes Walk 10 feet (QC): 6 Walk 50ft with 2 Turns (QC): 5 Walk 150 ft (QC): 5 Walking 10ft on Uneven Surface: 5 1 Step (curb) (QC): 5 4 Steps (QC): 5 12 Steps (QC): 5 Picking up an Object (QC): 5 Does the Pt use WC or Scooter?: Yes Wheel 50 feet with 2 turns (QC: 6 Type: Manual Wheel 150 feet: 6 Type: Manual PT Plan Problem List Problem List: Activity Tolerance, Functional Strength, Safety, Balance, Gait, Transfer, Bed Mobility, ROM Treatment/Plan Treatment Plan: Continue Plan of Care Treatment Plan: Bed Mobility, Education, Functional Activity Po, Functional Strength, Group Therapy, Gait, Safety, Therapeutic Exercise, Transfers Treatment Duration: Jun 04, 2021 Frequency: At least 5 of 7 days/Wk (IRF) Estimated Hrs Per Day: 1.5 hours per day Patient and/or Family Agrees t: Yes Safety Risks/Education Patient Education: Gait Training, Transfer Techniques, Correct Positioning, Safety Issues Teaching Recipient: Patient Teaching Methods: Demonstration, Discussion Response to Teaching: Reinforcement Needed Time/GCodes Time In: 1400 Time Out: 1430 Total Billed Treatment Time: 30 Total Billed Treatment 1 visit GT 30' RAVEN CRAMER PT Apr 04, 2021 14:25
[2021-04-04 19:14] VITALS: BP 125/69
[2021-04-05] MEDS: HYDROcodone/APAP 5 MG/325 MG (LORTAB) TAB PO PRN ×4 (01:27→20:29)
[2021-04-05] MEDS: MULTIVIT W/MINERALS TAB (THERAGRAN M) PO SCH (05:29)
[2021-04-05 07:30] VITALS: BP 97/53
[2021-04-05] MEDS: CLOPIDOGREL 75 MG (PLAVIX) TABLET PO SCH (08:10)
[2021-04-05] MEDS: polyethylene glycoL POWDER 17 GM (MIRALAX) PACK PO SCH ×2 (08:10→17:19)
[2021-04-05] MEDS: DOCUSATE SODIUM 100 MG (COLACE) CAP PO SCH ×2 (08:10→20:28)
[2021-04-05] MEDS: SENNA W/DOCUSATE (SENOKOT S) TABLET PO SCH ×2 (08:11→20:28)
--- NOTE | 2021-04-05 08:46 | Physical Therapy Daily Note ---
PT Daily Note-Current Subjective Pt agreeable. Does not rate pain but reports "Just a little bit". Mental Status Patient Orientation: Person, Place, Time, Situation Transfers SCALE: Activities may be completed with or without assistive devices. 0-Udkhkiiqtk-znlbrzt completes the activity by him/herself with no assistance from a helper. 5-Set-up or Clean-up Assistance-helper sets up or cleans up; patient completes activity. [place] assists only prior to or following the activity. 4-Supervision or Touching Assistance-helper provides verbal cues and/or touching/steadying and/or contact guard assistance as patient completes activity. Assistance may be provided throughout the activity or intermittently. 3-Partial/Moderate Assistance-helper does LESS THAN HALF the effort. [place] lifts, holds or supports trunk or limbs, but provides less than half the effort. 2-Substantial/Maximal Assistance-helper does MORE THAN HALF the effort. [place] lifts or holds trunk or limbs and provides more than half the effort. 9-Nrmjoxtfe-lzuevh does ALL the effort. Patient does none of the effort to complete the activity. Or, the assistance of 2 or more helpers is required for the patient to complete the activity. If activity was not attempted, code reason: 7-Patient Refused. 9-Not Applicable-not attempted and the patient did not perform the activity before the current illness, exacerbation or injury. 10-Not Attempted due to Environmental Limitations-(lack of equipment, weather restraints, etc.). 88-Not Attempted due to Medical Conditions or Safety Concerns. Sit to Lying (QC): 6 Lying to Sitting/Side of Bed(Q: 6 Sit to Stand (QC): 4 Toilet Transfer (QC): 4 Weight Bearing Right Lower Extremity: Right Weight Bearing/Tolerated Left Lower Extremity: Left Weight Bearing/Tolerated Gait Training Does the Patient Walk?: Yes Distance: 100 Walk 10 feet (QC): 4 Walk 50 ft with 2 Turns(QC): 4 Gait Persons Needed: 1 Gait Assistive Device: FWW Pt ambulated with moderate pace, SBA with FWW. Reports fatigue but no LOB. Exercises Supine Ex: Ankle pumps, Quad Set, Heel Slides Supine Reps: 20 Treatments Ambulation with FWW, LE bed ex. Pt returned to bed with all needs met. Assessment Current Status: Good Progress Pt tolerated well. SBA-mod (I) with functional mobility. PT Short Term Goals Short Term Goals Time Frame: Apr 09, 2021 Roll Left & Right: 5 Sit to lyin Lying to sitting on side of be: 5 Sit to stand: 5 Chair/qjx-nl-wodxv transfer: 5 Toilet transfer: 5 Walk 10 feet: 4 Walk 50 feet with two turns: 3 Walk 150 feet: 3 1 step (curb): 3 4 steps: 3 12 steps: 3 Picking up objects: 4 Does pt use a wc or scooter: Yes Wheel 50ft w/2 turns: 6 Wheel 150 feet: 6 Type: Manual PT Jail Goals Cultural Anthropology Professor Goals PT Jail Goals Time Frame: May 07, 2021 Roll Left & Right (QC): 6 Sit to Lying (QC): 6 Lying-Sitting on Side/Bed(QC): 6 Sit to Stand (QC): 6 Chair/Owo-dc-Goswj Xfer(QC): 6 Toilet Transfer (QC): 6 Car Transfer (QC): 6 Does the Patient Walk: Yes Walk 10 feet (QC): 6 Walk 50ft with 2 Turns (QC): 5 Walk 150 ft (QC): 5 Walking 10ft on Uneven Surface: 5 1 Step (curb) (QC): 5 4 Steps (QC): 5 12 Steps (QC): 5 Picking up an Object (QC): 5 Does the Pt use WC or Scooter?: Yes Wheel 50 feet with 2 turns (QC: 6 Type: Manual Wheel 150 feet: 6 Type: Manual PT Plan Problem List Problem List: Activity Tolerance, Functional Strength, Safety, Balance, Gait, Transfer Treatment/Plan Treatment Plan: Continue Plan of Care Treatment Plan: Bed Mobility, Education, Functional Activity Po, Functional Strength, Group Therapy, Gait, Safety, Therapeutic Exercise, Transfers Treatment Duration: Jun 04, 2021 Frequency: At least 5 of 7 days/Wk (IRF) Estimated Hrs Per Day: 1.5 hours per day Patient and/or Family Agrees t: Yes Time/GCodes Time In: 820 Time Out: 832 Total Billed Treatment Time: 12 Total Billed Treatment 1, FA x 12' LATRICIA PEDERSON DPT Apr 05, 2021 08:46
--- NOTE | 2021-04-05 12:34 | PM&R Progress Note ---
Subjective HPI/CC On Admission Date Seen by Provider: Apr 05, 2021 Time Seen by Provider: 12:40 Subjective/Events-last exam 04/05/2021: Patient doing well Feels sleepy today Holding lisinopril Pain is improved 04/04/2021: Holding lisinopril Patient doing well Pain is well controlled Moving around very well 04/03/2021: Hypotension noted but asymptomatic but will hold lisinopril Bowels moved today Improving immensely 04/02/2021: Patient continues to improve Frail state precludes anything but a guarded prognosis Check meds and labs Bowels are moving 04/01/2021: Patient about the same Minimal dietary intake Consult Dr. Grewal for feet and toenail care Working with therapy 03/31/2021: Pt appears to be about the same Frail status Constipated a bit yesterday, laxatives given Pain is pretty well controlled 03/30/2021: Patient about the same Pain is better controlled Wondered what her white blood cell count was today but she did not have labs ordered Subtle confusion noted Poor memory recall High risk for intermediate at discharge 03/29/2021: Patient improved Pain is better controlled Appreciate Dr. 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 Overall very debilitated and Pt needs a intermediate at discharge Pain medication will be changed to be more frequent of Q4 Dr Duque consult 03/27/2021: Patient seen in gym Very frail Pain managed with Lortab Took a shower today Very fragile Recheck labs Review of Systems Musculoskeletal: back pain, leg pain Objective Exam Vital Signs Vital Signs Date Time Temp Pulse Resp B/P (MAP) Pulse Ox O2 Delivery O2 Flow Rate FiO2 04/05/21 20:45 Room Air 04/05/21 19:53 37.0 73 18 121/61 (81) 97 Capillary Refill : General Appearance: No Apparent Distress, WD/WN, Chronically ill, Thin HEENT: PERRL/EOMI, Normal ENT Inspection, Pharynx Normal Neck: Full Range of Motion, Normal Inspection, Non Tender, Supple, Carotid Bruit Respiratory: Chest Non Tender, Lungs Clear, Normal Breath Sounds, No Accessory Muscle Use, No Respiratory Distress Cardiovascular: Regular Rate, Rhythm, No Edema, No Gallop, No JVD, No Murmur, Normal Peripheral Pulses Gastrointestinal: Normal Bowel Sounds, No Organomegaly, No Pulsatile Mass, Non Tender, Soft Back: Normal Inspection, No CVA Tenderness, No Vertebral Tenderness Extremity: Normal Capillary Refill, Normal Inspection, Normal Range of Motion (Except legs with pain in pelvis), Non Tender, No Calf Tenderness, No Pedal Edema Neurologic/Psychiatric: Alert, Oriented x3, No Motor/Sensory Deficits, Normal Mood/Affect, Abnormal Gait, Motor Weakness (Generalized 4/5 extremities) Skin: Normal Color, Warm/Dry Lymphatic: No Adenopathy Results/Procedures Lab Patient resulted labs reviewed. FIM Transfers Therapy Code Descriptions/Definitions Functional [place] Measure: 0=Not Assessed/NA 4=Minimal Assistance 1=Total Assistance 5=Supervision or Setup 2=Maximal Assistance 6=Modified [place] 3=Moderate Assistance 7=Complete IndependenceSCALE: Activities may be completed with or without assistive devices. 2-Aaogqebmtm-xykrsey completes the activity by him/herself with no assistance from a helper. 5-Set-up or Clean-up Assistance-helper sets up or cleans up; patient completes activity. [place] assists only prior to or following the activity. 4-Supervision or Touching Assistance-helper provides verbal cues and/or touching/steadying and/or contact guard assistance as patient completes activity. Assistance may be provided throughout the activity or intermittently. 3-Partial/Moderate Assistance-helper does LESS THAN HALF the effort. [place] lifts, holds or supports trunk or limbs, but provides less than half the effort. 2-Substantial/Maximal Assistance-helper does MORE THAN HALF the effort. [place] lifts or holds trunk or limbs and provides more than half the effort. 8-Chkunupgv-cfxxqz does ALL the effort. Patient does none of the effort to complete the activity. Or, the assistance of 2 or more helpers is required for the patient to complete the activity. If activity was not attempted, code reason: 7-Patient Refused. 9-Not Applicable-not attempted and the patient did not perform the activity before the current illness, exacerbation or injury. 10-Not Attempted due to Environmental Limitations-(lack of equipment, weather restraints, etc.). 88-Not Attempted due to Medical Conditions or Safety Concerns. Roll Left to Right (QC): 6 Sit to Lying (QC): 6 Sit to Stand (QC): 4 Chair/Vfg-ue-[place] Xfer(QC): 4 Car Transfer (QC): 3 Gait Training Does the Patient Walk?: Yes Distance: 100 Walk 10 feet (QC): 4 Walk 50 ft with 2 Turns(QC): 4 Walk 150 ft (QC): 88 Walking 10ft/uneven surface-QC: 88 Gait Persons Needed: 1 Gait Assistive Device: FWW Wheelchair Training Does the Pt Use a Wheelchair?: Yes Distance: 40 feet Wheel 50 ft with 2 turns (QC): 5 Wheel 150 ft (QC): 5 Type of Wheelchair: Manual Stair Training 1 Step (curb) (QC): 88 4 Steps (QC): 88 12 Steps (QC): 88 Balance Picking up an Object (QC): 88 ADL-Treatment Eating (QC): 5 (Pt requries set up. ) Oral Hygiene (QC): 6 (Pt was IND while seated in w/c. ) Shower/Bathe Self (QC): 4 (Pt required SBA for safety when standing to wash backside and shyann area, pt able to wash all parts, utilized a long handled sponge and SC. ) Upper Body Dressing (QC): 5 (Pt required set up.) Lower Body Dressing (QC): 4 (Pt required SBA when standing to art LB garments and utilized a bean sorter to doff LB garments.) On/Off Footwear (QC): 5 (Pt required set up. ) Toileting Hygiene (QC): 4 (Pt required SBA for pant hike. ) Toilet Transfer (QC): 4 (Pt required SBA for safety. ) Assessment/Plan Assessment and Plan Assess & Plan/Chief Complaint Assessment: Debility Pelvic fracture Previous CVA Current smoker Frail status BMI 13 Pressure ulcer Falls Leukocytosis without source of infection Plan: Supportive care Pain meds Bowel regimen Aggressive therapy 03/27/2021: Increase nutrition Work-up leukocytosis appears to be some sort of leukemia or that type of abnormality Check meds and labs 03/28/21: Increase nutrition Consult Dr Duque 03/29/2021: Supportive care Pain control 03/30/2021: Supportive care Pain control Check labs in the morning 03/31/2021: Supportive care 04/01/2021: Needs intermediate Plan to continue aggressive therapy 04/02/2021: Continue to improve Decreased pain noted 04/03/2021: Hold lisinopril Supportive care 04/04/2021: Monitor pain Impressive improvement 04/05/2021: Dramatic improvement Pain controlled (1) Debility (2) Pelvic fracture (3) History of CVA (cerebrovascular accident) (4) Malnutrition (5) Leukocytosis (6) Fall Status: Acute ANTONIO HWANG DO Apr 05, 2021 12:34
[2021-04-05] MEDS: IBUPROFEN TABLET 200 MG TAB PO PRN (16:00)
[2021-04-05 19:53] VITALS: BP 121/61
[2021-04-06] MEDS: HYDROcodone/APAP 5 MG/325 MG (LORTAB) TAB PO PRN ×4 (03:04→20:11)
[2021-04-06] MEDS: MULTIVIT W/MINERALS TAB (THERAGRAN M) PO SCH (06:06)
--- NOTE | 2021-04-06 07:13 | PM&R Progress Note ---
Subjective HPI/CC On Admission Date Seen by Provider: Apr 06, 2021 Time Seen by Provider: 12:30 Subjective/Events-last exam 04/06/2021: Patient doing better every day Eating better Check meds and labs 04/05/2021: Patient doing well Feels sleepy today Holding lisinopril Pain is improved 04/04/2021: Holding lisinopril Patient doing well Pain is well controlled Moving around very well 04/03/2021: Hypotension noted but asymptomatic but will hold lisinopril Bowels moved today Improving immensely 04/02/2021: Patient continues to improve Frail state precludes anything but a guarded prognosis Check meds and labs Bowels are moving 04/01/2021: Patient about the same Minimal dietary intake Consult Dr. Grewal for feet and toenail care Working with therapy 03/31/2021: Pt appears to be about the same Frail status Constipated a bit yesterday, laxatives given Pain is pretty well controlled 03/30/2021: Patient about the same Pain is better controlled Wondered what her white blood cell count was today but she did not have labs ordered Subtle confusion noted Poor memory recall High risk for alf at discharge 03/29/2021: Patient improved Pain is better controlled Appreciate Dr. 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 Overall very debilitated and Pt needs a alf at discharge Pain medication will be changed to be more frequent of Q4 Dr Duque consult 03/27/2021: Patient seen in gym Very frail Pain managed with Lortab Took a shower today Very fragile Recheck labs Review of Systems General: Fatigue, Malaise Neurological: Weakness Objective Exam Vital Signs Vital Signs Date Time Temp Pulse Resp B/P (MAP) Pulse Ox O2 Delivery O2 Flow Rate FiO2 04/06/21 20:51 Room Air 04/06/21 19:39 36.5 61 19 124/62 (82) 96 Capillary Refill : General Appearance: No Apparent Distress, WD/WN, Chronically ill, Thin HEENT: PERRL/EOMI, Normal ENT Inspection, Pharynx Normal Neck: Full Range of Motion, Normal Inspection, Non Tender, Supple, Carotid Bruit Respiratory: Chest Non Tender, Lungs Clear, Normal Breath Sounds, No Accessory Muscle Use, No Respiratory Distress Cardiovascular: Regular Rate, Rhythm, No Edema, No Gallop, No JVD, No Murmur, Normal Peripheral Pulses Gastrointestinal: Normal Bowel Sounds, No Organomegaly, No Pulsatile Mass, Non Tender, Soft Back: Normal Inspection, No CVA Tenderness, No Vertebral Tenderness Extremity: Normal Capillary Refill, Normal Inspection, Normal Range of Motion (Except legs with pain in pelvis), Non Tender, No Calf Tenderness, No Pedal Edema Neurologic/Psychiatric: Alert, Oriented x3, No Motor/Sensory Deficits, Normal Mood/Affect, Abnormal Gait, Motor Weakness (Generalized 4/5 extremities) Skin: Normal Color, Warm/Dry Lymphatic: No Adenopathy Results/Procedures Lab Laboratory Tests 04/07/21 05:15 Patient resulted labs reviewed. FIM Transfers Therapy Code Descriptions/Definitions Functional [place] Measure: 0=Not Assessed/NA 4=Minimal Assistance 1=Total Assistance 5=Supervision or Setup 2=Maximal Assistance 6=Modified [place] 3=Moderate Assistance 7=Complete IndependenceSCALE: Activities may be completed with or without assistive devices. 9-Rymwanebtj-cfxrkop completes the activity by him/herself with no assistance from a helper. 5-Set-up or Clean-up Assistance-helper sets up or cleans up; patient completes activity. [place] assists only prior to or following the activity. 4-Supervision or Touching Assistance-helper provides verbal cues and/or touching/steadying and/or contact guard assistance as patient completes activity. Assistance may be provided throughout the activity or intermittently. 3-Partial/Moderate Assistance-helper does LESS THAN HALF the effort. [place] lifts, holds or supports trunk or limbs, but provides less than half the effort. 2-Substantial/Maximal Assistance-helper does MORE THAN HALF the effort. [place] lifts or holds trunk or limbs and provides more than half the effort. 3-Ppguxcyua-tzinmh does ALL the effort. Patient does none of the effort to complete the activity. Or, the assistance of 2 or more helpers is required for the patient to complete the activity. If activity was not attempted, code reason: 7-Patient Refused. 9-Not Applicable-not attempted and the patient did not perform the activity before the current illness, exacerbation or injury. 10-Not Attempted due to Environmental Limitations-(lack of equipment, weather restraints, etc.). 88-Not Attempted due to Medical Conditions or Safety Concerns. Roll Left to Right (QC): 6 Sit to Lying (QC): 6 Sit to Stand (QC): 4 Chair/Xir-kc-Ledhq Xfer(QC): 4 Car Transfer (QC): 3 Gait Training Does the Patient Walk?: Yes Distance: 100 Walk 10 feet (QC): 4 Walk 50 ft with 2 Turns(QC): 4 Walk 150 ft (QC): 88 Walking 10ft/uneven surface-QC: 88 Gait Persons Needed: 1 Gait Assistive Device: FWW Wheelchair Training Does the Pt Use a Wheelchair?: Yes Distance: 40 feet Wheel 50 ft with 2 turns (QC): 5 Wheel 150 ft (QC): 5 Type of Wheelchair: Manual Stair Training 1 Step (curb) (QC): 88 4 Steps (QC): 88 12 Steps (QC): 88 Balance Picking up an Object (QC): 88 ADL-Treatment Eating (QC): 5 (Pt requries set up. ) Oral Hygiene (QC): 6 (Pt was IND while seated in w/c. ) Shower/Bathe Self (QC): 4 (Pt required SBA for safety when standing to wash backside and shyann area, pt able to wash all parts, utilized a long handled sponge and SC. ) Upper Body Dressing (QC): 5 (Pt required set up.) Lower Body Dressing (QC): 4 (Pt required SBA when standing to art LB garments and utilized a logistics operations director to doff LB garments.) On/Off Footwear (QC): 5 (Pt required set up. ) Toileting Hygiene (QC): 4 (Pt required SBA for pant hike. ) Toilet Transfer (QC): 4 (Pt required SBA for safety. ) Assessment/Plan Assessment and Plan Assess & Plan/Chief Complaint Assessment: Debility Pelvic fracture Previous CVA Current smoker Frail status BMI 13 Pressure ulcer [place] Leukocytosis without source of infection Plan: Supportive care Pain meds Bowel regimen Aggressive therapy 03/27/2021: Increase nutrition Work-up leukocytosis appears to be some sort of leukemia or that type of abnormality Check meds and labs 03/28/21: Increase nutrition Consult Dr Duque 03/29/2021: Supportive care Pain control 03/30/2021: Supportive care Pain control Check labs in the morning 03/31/2021: Supportive care 04/01/2021: Needs alf Plan to continue aggressive therapy 04/02/2021: Continue to improve Decreased pain noted 04/03/2021: Hold lisinopril Supportive care 04/04/2021: Monitor pain Impressive improvement 04/05/2021: Dramatic improvement Pain controlled 04/06/2021: Much improved status Continued improvement (1) Debility (2) Pelvic fracture (3) History of CVA (cerebrovascular accident) (4) Malnutrition (5) Leukocytosis (6) Fall Status: Acute ANTONIO HWANG DO Apr 06, 2021 07:13
[2021-04-06 07:26] VITALS: BP 109/52
[2021-04-06] MEDS: DOCUSATE SODIUM 100 MG (COLACE) CAP PO SCH ×2 (09:27→19:26)
[2021-04-06] MEDS: SENNA W/DOCUSATE (SENOKOT S) TABLET PO SCH ×2 (09:28→19:26)
[2021-04-06] MEDS: CLOPIDOGREL 75 MG (PLAVIX) TABLET PO SCH (09:28)
[2021-04-06] MEDS: polyethylene glycoL POWDER 17 GM (MIRALAX) PACK PO SCH ×2 (09:28→19:26)
[2021-04-06 19:39] VITALS: BP 124/62
[2021-04-06] MEDS: IBUPROFEN TABLET 200 MG TAB PO PRN (23:11)
[2021-04-07] MEDS: HYDROcodone/APAP 5 MG/325 MG (LORTAB) TAB PO PRN ×5 (02:12→23:10)
[2021-04-07 05:35] LABS: BASOPHILS # (AUTO) 0.1 10^3/uL (0.0-0.1); BASOPHILS % (AUTO) 1 % (0-10); EOSINOPHILS # (AUTO) 0.1 10^3/uL (0.0-0.3); EOSINOPHILS % (AUTO) 1 % (0-10); HEMATOCRIT 31 % (35-52); HEMOGLOBIN 10.2 g/dL (11.5-16.0); LYMPHOCYTES # (AUTO) 2.8 10^3/uL (1.0-4.0); LYMPHOCYTES % (AUTO) 25 % (12-44); MEAN CORPUSCULAR HEMOGLOBIN 31 pg (25-34); MEAN CORPUSCULAR HGB CONC 33 g/dL (32-36); MEAN CORPUSCULAR VOLUME 94 fL (80-99); MONOCYTES # (AUTO) 0.8 10^3/uL (0.0-1.0); MONOCYTES % (AUTO) 7 % (0-12); NEUTROPHILS # (AUTO) 7.6 10^3/uL (1.8-7.8); NEUTROPHILS % (AUTO) 66 % (42-75); PLATELET COUNT 487 10^3/uL (130-400); WHITE BLOOD COUNT 11.5 10^3/uL (4.3-11.0)
[2021-04-07 05:44] LABS: POTASSIUM 4.8 MMOL/L (3.6-5.0)
[2021-04-07 05:45] LABS: CALCIUM 8.3 MG/DL (8.5-10.1)
[2021-04-07 05:47] LABS: TOTAL PROTEIN 5.6 GM/DL (6.4-8.2)
[2021-04-07 05:48] LABS: BILIRUBIN,TOTAL 0.3 MG/DL (0.1-1.0)
[2021-04-07 05:50] LABS: CREATININE SERUM 0.89 MG/DL (0.60-1.30)
[2021-04-07] MEDS: MULTIVIT W/MINERALS TAB (THERAGRAN M) PO SCH (06:13)
[2021-04-07 07:36] VITALS: BP 107/54
[2021-04-07] MEDS: DOCUSATE SODIUM 100 MG (COLACE) CAP PO SCH ×2 (08:23→21:25)
[2021-04-07] MEDS: polyethylene glycoL POWDER 17 GM (MIRALAX) PACK PO SCH ×2 (08:23→21:25)
[2021-04-07] MEDS: SENNA W/DOCUSATE (SENOKOT S) TABLET PO SCH ×2 (08:24→21:25)
[2021-04-07] MEDS: CLOPIDOGREL 75 MG (PLAVIX) TABLET PO SCH (08:25)
--- NOTE | 2021-04-07 10:36 | Occupational Ther Daily Note ---
OT Current Status-Daily Note Subjective Pt was lying supine in bed upon OT arrival. Pt stated she was ready for tx session on this date. Mental Status/Objective Patient Orientation: Person, Place, Time, Situation ADL-Treatment Therapy Code Descriptions/Definitions Functional [place] Measure: 0=Not Assessed/NA 4=Minimal Assistance 1=Total Assistance 5=Supervision or Setup 2=Maximal Assistance 6=Modified [place] 3=Moderate Assistance 7=Complete IndependenceSCALE: Activities may be completed with or without assistive devices. 8-Autcajholx-pdqymoe completes the activity by him/herself with no assistance from a helper. 5-Set-up or Clean-up Assistance-helper sets up or cleans up; patient completes activity. [place] assists only prior to or following the activity. 4-Supervision or Touching Assistance-helper provides verbal cues and/or touching/steadying and/or contact guard assistance as patient completes activity. Assistance may be provided throughout the activity or intermittently. 3-Partial/Moderate Assistance-helper does LESS THAN HALF the effort. [place] lifts, holds or supports trunk or limbs, but provides less than half the effort. 2-Substantial/Maximal Assistance-helper does MORE THAN HALF the effort. [place] lifts or holds trunk or limbs and provides more than half the effort. 8-Rckoqcgra-hkolbm does ALL the effort. Patient does none of the effort to complete the activity. Or, the assistance of 2 or more helpers is required for the patient to complete the activity. If activity was not attempted, code reason: 7-Patient Refused. 9-Not Applicable-not attempted and the patient did not perform the activity before the current illness, exacerbation or injury. 10-Not Attempted due to Environmental Limitations-(lack of equipment, weather restraints, etc.). 88-Not Attempted due to Medical Conditions or Safety Concerns. Oral Hygiene (QC): 6 (Pt performed IND while seated in w/c.) Shower/Bathe Self (QC): 4 (Pt required SBA, able to wash all parts, required assistance w/ hair. ) Upper Body Dressing (QC): 5 (Pt required set up. ) Lower Body Dressing (QC): 4 (Pt requried SBA when standing for task.) On/Off Footwear: 5 (Pt required set up while seated in w/c. ) Toileting Hygiene (QC): 4 (Pt required SBA when standing for pant hike.) Toilet Transfer (QC): 4 (Pt required SBA for safety. ) Other Treatment Pt was lying supine in bed upon OT arrival. Pt stated she was ready for tx session on this date. Pt performed bed mobility from supine to EOB, IND. Pt transferred from sit to stand w/ FWW, SBA. Pt performed functional mobility to toilet, SBA using FWW. Pt performed toileting task, shower, LBD, UBD, and footwear, see above QC's. Pt transferred from SC to w/c, SBA. Pt performed donning UBD and LBD, see above QC. Pt participated in w/c mobility to sink side IND, for oral hygiene and grooming task. Pt required Min assist to brush hair to get out tangles. Pt performed w/c mobility from sink side to chair, IND. Pt then transferred from w/c to chair w/ FWW at SBA for safety. Pt performed while seated in theraband minimal resistance, UE exercises, x10 reps, one round, rest breaks after each exercise for energy conservation, to support strength and endurance in ADL's, in each of the following: shoulder abduction, shoulder flexion, shoulder horizontal abduction, shoulder external rotation, elbow flexion, elbow extension. Post tx session, pt was seated in chair, legs elevated, call light within reach, and all needs met. Education OT Patient Education: Correct positioning, Energy conservation, Exercise program, Home exercise program, Modified ADL techniques, Progress toward Goal/Update tx plan, Purpose of tx/functional activities, W/C management Teaching Recipient: Patient Teaching Methods: Demonstration, Handout, Discussion Response to Teaching: Verbalize Understanding, Return Demonstration OT Short Term Goals Short Term Goals Time Frame: Apr 09, 2021 Eatin Oral hygiene: 5 Toileting hygiene: 4 Shower/bathe self: 4 Upper body dressin Lower body dressin Putting on/taking off footwear: 4 OT Aircraft Assembler Goals Aircraft Assembler Goals Time Frame: Apr 18, 2021 Eating (QC): 6 Oral Hygiene (QC): 6 Toileting Hygiene (QC): 6 Shower/Bathe Self (QC): 6 Upper Body Dressing (QC): 6 Lower Body Dressing (QC): 6 On/Off Footwear (QC): 6 Additional Goals: 1-Demonstrate ADL Tasks, 2-Verbalize Understanding, 3-I mproveStrength/Po 1=Demonstrate adherence to instructed precautions during ADL tasks. 2=Patient will verbalize/demonstrate understanding of assistive devices/modifications for ADL. 3=Patient will improve strength/tolerance for activity to enable patient to perform ADL's. OT Education/Plan Problem List/Assessment Assessment: Decreased Activ Tolerance, Decreased UE Strength, Impaired I ADL's, Impaired Self-Care Skills Discharge Recommendations Plan/Recommendations: Continue POC Treatment Plan/Plan of Care Patient would benefit from OT for education, treatment and training to promote independence in ADL's, mobility, safety and/or upper extremity function for ADL's. Plan of Care: ADL Retraining, Functional Mobility, Group Exercise/Act as Ind, UE Funct Exercise/Act Treatment Duration: Apr 18, 2021 Frequency: At least 5 of 7 days/Wk (IRF) Estimated Hrs Per Day: 1.5 hours per day Rehab Potential: Fair Time/GCodes Start Time: 09:15 Stop Time: 10:15 Total Time Billed (hr/min): 60 Billed Treatment Time 1 Visit, ADL 3 (45'), EX (15') ALEXANDRA SINGH OT Apr 07, 2021 10:36
--- NOTE | 2021-04-07 10:48 | PM&R Progress Note ---
Subjective HPI/CC On Admission Date Seen by Provider: Apr 07, 2021 Time Seen by Provider: 10:45 Subjective/Events-last exam 04/07/2021: Dramatic improvement continues Labs reviewed and white count now 11 Discharge planned for this week Has no complaints 04/06/2021: Patient doing better every day Eating better Check meds and labs 04/05/2021: Patient doing well Feels sleepy today Holding lisinopril Pain is improved 04/04/2021: Holding lisinopril Patient doing well Pain is well controlled Moving around very well 04/03/2021: Hypotension noted but asymptomatic but will hold lisinopril Bowels moved today Improving immensely 04/02/2021: Patient continues to improve Frail state precludes anything but a guarded prognosis Check meds and labs Bowels are moving 04/01/2021: Patient about the same Minimal dietary intake Consult Dr. Grewal for feet and toenail care Working with therapy 03/31/2021: Pt appears to be about the same Frail status Constipated a bit yesterday, laxatives given Pain is pretty well controlled 03/30/2021: Patient about the same Pain is better controlled Wondered what her white blood cell count was today but she did not have labs ordered Subtle confusion noted Poor memory recall High risk for detention at discharge 03/29/2021: Patient improved Pain is better controlled Appreciate Dr. 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 Overall very debilitated and Pt needs a detention at discharge Pain medication will be changed to be more frequent of Q4 Dr Duque consult 03/27/2021: Patient seen in gym Very frail Pain managed with Lortab Took a shower today Very fragile Recheck labs Review of Systems General: Fatigue, Malaise Objective Exam Vital Signs Vital Signs Date Time Temp Pulse Resp B/P (MAP) Pulse Ox O2 Delivery O2 Flow Rate FiO2 04/07/21 20:15 97 Room Air 04/07/21 19:49 36.6 62 16 133/74 (93) Capillary Refill : General Appearance: No Apparent Distress, WD/WN, Chronically ill, Thin HEENT: PERRL/EOMI, Normal ENT Inspection, Pharynx Normal Neck: Full Range of Motion, Normal Inspection, Non Tender, Supple, Carotid Bruit Respiratory: Chest Non Tender, Lungs Clear, Normal Breath Sounds, No Accessory Muscle Use, No Respiratory Distress Cardiovascular: Regular Rate, Rhythm, No Edema, No Gallop, No JVD, No Murmur, Normal Peripheral Pulses Gastrointestinal: Normal Bowel Sounds, No Organomegaly, No Pulsatile Mass, Non Tender, Soft Back: Normal Inspection, No CVA Tenderness, No Vertebral Tenderness Extremity: Normal Capillary Refill, Normal Inspection, Normal Range of Motion (Except legs with pain in pelvis), Non Tender, No Calf Tenderness, No Pedal Edema Neurologic/Psychiatric: Alert, Oriented x3, No Motor/Sensory Deficits, Normal Mood/Affect, Abnormal Gait, Motor Weakness (Generalized 4/5 extremities) Skin: Normal Color, Warm/Dry Lymphatic: No Adenopathy Results/Procedures Lab Laboratory Tests 04/07/21 05:15 Patient resulted labs reviewed. FIM Transfers Therapy Code Descriptions/Definitions Functional [place] Measure: 0=Not Assessed/NA 4=Minimal Assistance 1=Total Assistance 5=Supervision or Setup 2=Maximal Assistance 6=Modified [place] 3=Moderate Assistance 7=Complete IndependenceSCALE: Activities may be completed with or without assistive devices. 1-Pocvswiycb-jpwbbew completes the activity by him/herself with no assistance from a helper. 5-Set-up or Clean-up Assistance-helper sets up or cleans up; patient completes activity. [place] assists only prior to or following the activity. 4-Supervision or Touching Assistance-helper provides verbal cues and/or touching/steadying and/or contact guard assistance as patient completes activity. Assistance may be provided throughout the activity or intermittently. 3-Partial/Moderate Assistance-helper does LESS THAN HALF the effort. [place] lifts, holds or supports trunk or limbs, but provides less than half the effort. 2-Substantial/Maximal Assistance-helper does MORE THAN HALF the effort. [place] lifts or holds trunk or limbs and provides more than half the effort. 4-Sdoameaqv-mcayus does ALL the effort. Patient does none of the effort to complete the activity. Or, the assistance of 2 or more helpers is required for the patient to complete the activity. If activity was not attempted, code reason: 7-Patient Refused. 9-Not Applicable-not attempted and the patient did not perform the activity before the current illness, exacerbation or injury. 10-Not Attempted due to Environmental Limitations-(lack of equipment, weather restraints, etc.). 88-Not Attempted due to Medical Conditions or Safety Concerns. Roll Left to Right (QC): 6 Sit to Lying (QC): 6 Sit to Stand (QC): 4 Chair/Zmv-uu-Zvazv Xfer(QC): 4 Car Transfer (QC): 3 Gait Training Does the Patient Walk?: Yes Distance: 100 Walk 10 feet (QC): 4 Walk 50 ft with 2 Turns(QC): 4 Walk 150 ft (QC): 88 Walking 10ft/uneven surface-QC: 88 Gait Persons Needed: 1 Gait Assistive Device: FWW Wheelchair Training Does the Pt Use a Wheelchair?: Yes Distance: 40 feet Wheel 50 ft with 2 turns (QC): 5 Wheel 150 ft (QC): 5 Type of Wheelchair: Manual Stair Training 1 Step (curb) (QC): 88 4 Steps (QC): 88 12 Steps (QC): 88 Balance Picking up an Object (QC): 88 ADL-Treatment Eating (QC): 5 (Pt requries set up. ) Oral Hygiene (QC): 6 (Pt performed IND while seated in w/c.) Shower/Bathe Self (QC): 4 (Pt required SBA, able to wash all parts, required assistance w/ hair. ) Upper Body Dressing (QC): 5 (Pt required set up. ) Lower Body Dressing (QC): 4 (Pt requried SBA when standing for task.) On/Off Footwear (QC): 5 (Pt required set up while seated in w/c. ) Toileting Hygiene (QC): 4 (Pt required SBA when standing for pant hike.) Toilet Transfer (QC): 4 (Pt required SBA for safety. ) Assessment/Plan Assessment and Plan Assess & Plan/Chief Complaint Assessment: Debility Pelvic fracture Previous CVA Current smoker Frail status BMI 13 Pressure ulcer [place] Leukocytosis without source of infection Plan: Supportive care Pain meds Bowel regimen Aggressive therapy 03/27/2021: Increase nutrition Work-up leukocytosis appears to be some sort of leukemia or that type of abnormality Check meds and labs 03/28/21: Increase nutrition Consult Dr Duque 03/29/2021: Supportive care Pain control 03/30/2021: Supportive care Pain control Check labs in the morning 03/31/2021: Supportive care 04/01/2021: Needs detention Plan to continue aggressive therapy 04/02/2021: Continue to improve Decreased pain noted 04/03/2021: Hold lisinopril Supportive care 04/04/2021: Monitor pain Impressive improvement 04/05/2021: Dramatic improvement Pain controlled 04/06/2021: Much improved status Continued improvement 04/07/2021: Supportive care Discharge plan this week (1) Debility (2) Pelvic fracture (3) History of CVA (cerebrovascular accident) (4) Malnutrition (5) Leukocytosis (6) Fall Status: Acute ANTONIO HWANG DO Apr 07, 2021 10:48
--- NOTE | 2021-04-07 11:50 | Physical Therapy Daily Note ---
PT Daily Note-Current Subjective Pt in recliner upon arrival and has no c/o pain. During tx, pt states R LE is sore, but no pain. Mental Status Patient Orientation: Person, Place, Time, Situation Transfers SCALE: Activities may be completed with or without assistive devices. 8-Krbpvaclzj-tnjsvfc completes the activity by him/herself with no assistance from a helper. 5-Set-up or Clean-up Assistance-helper sets up or cleans up; patient completes activity. [place] assists only prior to or following the activity. 4-Supervision or Touching Assistance-helper provides verbal cues and/or touching/steadying and/or contact guard assistance as patient completes act ivity. Assistance may be provided throughout the activity or intermittently. 3-Partial/Moderate Assistance-helper does LESS THAN HALF the effort. [place] lifts, holds or supports trunk or limbs, but provides less than half the effort. 2-Substantial/Maximal Assistance-helper does MORE THAN HALF the effort. [place] lifts or holds trunk or limbs and provides more than half the effort. 8-Dxwxsvdpj-ogmuzj does ALL the effort. Patient does none of the effort to complete the activity. Or, the assistance of 2 or more helpers is required for the patient to complete the activity. If activity was not attempted, code reason: 7-Patient Refused. 9-Not Applicable-not attempted and the patient did not perform the activity before the current illness, exacerbation or injury. 10-Not Attempted due to Environmental Limitations-(lack of equipment, weather restraints, etc.). 88-Not Attempted due to Medical Conditions or Safety Concerns. Sit to Stand (QC): 4 Weight Bearing Right Lower Extremity: Right Weight Bearing/Tolerated Left Lower Extremity: Left Weight Bearing/Tolerated Gait Training Does the Patient Walk?: Yes Distance: 150', 100' x3 Gait Assistive Device: FWW Pt has slow, but steady gait. Easily fatigues and is followed by WC for seated rest breaks Wheelchair Training Does the Pt Use a Wheelchair?: No Treatments Pt sit to stand from recliner and amb 150' to therapy gym. Pt completes dynamic standing balance activity, using B UE in all planes and weight shifting requiring CGA. Pt then completes static standing balance activity, pt had slight LOB during but self corrected. Pt held static balance a total of 15 minutes w/ 2 seated rest breaks, and dynamic standing balance 3 sets of 5 mins. Pt then amb on ARU and returns to room. Pt sits EOB to supine SBA, pt remains in bed with all needs met, call light in hand. Assessment Current Status: Good Progress Pt has low activity tolerance and requires increased seated rest breaks. Overall pt increasing strength, balance, and endurance PT Short Term Goals Short Term Goals Time Frame: Apr 09, 2021 Roll Left & Right: 5 Sit to lyin Lying to sitting on side of be: 5 Sit to stand: 5 Chair/rqt-wu-dncma transfer: 5 Toilet transfer: 5 Walk 10 feet: 4 Walk 50 feet with two turns: 3 Walk 150 feet: 3 1 step (curb): 3 4 steps: 3 12 steps: 3 Picking up objects: 4 Does pt use a wc or scooter: Yes Wheel 50ft w/2 turns: 6 Wheel 150 feet: 6 Type: Manual PT Relay Repairer Goals [facility] Goals PT Relay Repairer Goals Time Frame: May 07, 2021 Roll Left & Right (QC): 6 Sit to Lying (QC): 6 Lying-Sitting on Side/Bed(QC): 6 Sit to Stand (QC): 6 Chair/Twh-ef-Fofaw Xfer(QC): 6 Toilet Transfer (QC): 6 Car Transfer (QC): 6 Does the Patient Walk: Yes Walk 10 feet (QC): 6 Walk 50ft with 2 Turns (QC): 5 Walk 150 ft (QC): 5 Walking 10ft on Uneven Surface: 5 1 Step (curb) (QC): 5 4 Steps (QC): 5 12 Steps (QC): 5 Picking up an Object (QC): 5 Does the Pt use WC or Scooter?: Yes Wheel 50 feet with 2 turns (QC: 6 Type: Manual Wheel 150 feet: 6 Type: Manual PT Plan Problem List Problem List: Activity Tolerance Treatment/Plan Treatment Plan: Continue Plan of Care Treatment Plan: Bed Mobility, Education, Functional Activity Po, Functional Strength, Group Therapy, Gait, Safety, Therapeutic Exercise, Transfers Treatment Duration: Jun 04, 2021 Frequency: At least 5 of 7 days/Wk (IRF) Estimated Hrs Per Day: 1.5 hours per day Patient and/or Family Agrees t: Yes Safety Risks/Education Patient Education: Gait Training, Correct Positioning, Safety Issues Teaching Recipient: Patient Teaching Methods: Demonstration, Discussion Response to Teaching: Verbalize Understanding, Return Demonstration Time/GCodes Time In: 1100 Time Out: 1200 Total Billed Treatment Time: 60 Total Billed Treatment 1, GT x2, NM x2 OLGA WEISS BUSINESS ASSISTANT Apr 07, 2021 11:50
--- NOTE | 2021-04-07 13:55 | Occupational Ther Daily Note ---
OT Current Status-Daily Note Subjective Pt was lying supine in bed w/ HOB elevated upon OT arrival. Pt stated she was ready for her tx session. Pt stated she had pain in her lower back rating, 6/10, nurse notified, pain meds administered during tx session. Pain Numeric Pain Scale: 6 Location: Lower Location Body Site: Back Mental Status/Objective Patient Orientation: Person, Place, Time, Situation ADL-Treatment Therapy Code Descriptions/Definitions Functional [place] Measure: 0=Not Assessed/NA 4=Minimal Assistance 1=Total Assistance 5=Supervision or Setup 2=Maximal Assistance 6=Modified [place] 3=Moderate Assistance 7=Complete IndependenceSCALE: Activities may be completed with or without assistive devices. 9-Zrqqqxqrfh-osalppa completes the activity by him/herself with no assistance from a helper. 5-Set-up or Clean-up Assistance-helper sets up or cleans up; patient completes activity. [place] assists only prior to or following the activity. 4-Supervision or Touching Assistance-helper provides verbal cues and/or touching/steadying and/or contact guard assistance as patient completes activity. Assistance may be provided throughout the activity or intermittently. 3-Partial/Moderate Assistance-helper does LESS THAN HALF the effort. [place] lifts, holds or supports trunk or limbs, but provides less than half the effort. 2-Substantial/Maximal Assistance-helper does MORE THAN HALF the effort. [place] lifts or holds trunk or limbs and provides more than half the effort. 2-Nqorasfjs-xnyqmj does ALL the effort. Patient does none of the effort to complete the activity. Or, the assistance of 2 or more helpers is required for the patient to complete the activity. If activity was not attempted, code reason: 7-Patient Refused. 9-Not Applicable-not attempted and the patient did not perform the activity before the current illness, exacerbation or injury. 10-Not Attempted due to Environmental Limitations-(lack of equipment, weather restraints, etc.). 88-Not Attempted due to Medical Conditions or Safety Concerns. Toileting Hygiene (QC): 4 (Pt required SBA for safety w/ pant hike.) Toilet Transfer (QC): 4 (Pt required SBA for safety. ) Other Treatment Pt was lying supine in bed w/ HOB elevated upon OT arrival. Pt stated she was ready for her tx session. Pt performed bed mobility to EOB, IND. Pt transferred w/ FWW sit to stand and performed functional mobility to toilet, both at [facility]. Pt performed toileting task, see QC's above. Pt performed w/c mobility from room to therapy gym, IND. Pt participated while seated in w/c in arm bike exercise, 10 watt resistance, 8 minutes, required x6 rest breaks. Pt moved slowly during tx session due to fatigue but appeared motivated with tx. Pt performed w/c mobility from room to therapy gym, IND, transferred from w/c to bed, SBA. Post tx session, pt was lying supine in bed w/ HOB elevated, call light within reach, all needs met this date. Education OT Patient Education: Correct positioning, Energy conservation, Progress toward Goal/Update tx plan, Purpose of tx/functional activities, W/C management Teaching Recipient: Patient Teaching Methods: Discussion Response to Teaching: Verbalize Understanding OT Short Term Goals Short Term Goals Time Frame: Apr 09, 2021 Eatin Oral hygiene: 5 Toileting hygiene: 4 Shower/bathe self: 4 Upper body dressin Lower body dressin Putting on/taking off footwear: 4 OT Group Home Goals Group Home Goals Time Frame: Apr 18, 2021 Eating (QC): 6 Oral Hygiene (QC): 6 Toileting Hygiene (QC): 6 Shower/Bathe Self (QC): 6 Upper Body Dressing (QC): 6 Lower Body Dressing (QC): 6 On/Off Footwear (QC): 6 Additional Goals: 1-Demonstrate ADL Tasks, 2-Verbalize Understanding, 3- ImproveStrength/Po 1=Demonstrate adherence to instructed precautions during ADL tasks. 2=Patient will verbalize/demonstrate understanding of assistive devices/mo difications for ADL. 3=Patient will improve strength/tolerance for activity to enable patient to perform ADL's. OT Education/Plan Problem List/Assessment Assessment: Decreased Activ Tolerance, Decreased UE Strength, Impaired I ADL's, Impaired Self-Care Skills Discharge Recommendations Plan/Recommendations: Continue POC Treatment Plan/Plan of Care Patient would benefit from OT for education, treatment and training to promote independence in ADL's, mobility, safety and/or upper extremity function for ADL's. Plan of Care: ADL Retraining, Functional Mobility, Group Exercise/Act as Ind, UE Funct Exercise/Act Treatment Duration: Apr 18, 2021 Frequency: At least 5 of 7 days/Wk (IRF) Estimated Hrs Per Day: 1.5 hours per day Rehab Potential: Fair Time/GCodes Start Time: 13:00 Stop Time: 13:30 Total Time Billed (hr/min): 30 Billed Treatment Time 1 Visit, ADL (15'), EX (15') ALEXANDRA SINGH OT Apr 07, 2021 13:55
--- NOTE | 2021-04-07 14:26 | Physical Therapy Daily Note ---
PT Daily Note-Current Subjective Pt in bed upon arrival and agrees to PT. Pt has no c/o pain prior to tx, post tx pt states pain but doesn't rate out of 10. Pt request for pain medication and RN notified, RN states she gave it to pt prior to tx Mental Status Patient Orientation: Person, Place, Time, Situation Transfers SCALE: Activities may be completed with or without assistive devices. 2-Guxyyqotbq-htlsjqh completes the activity by him/herself with no assistance from a helper. 5-Set-up or Clean-up Assistance-helper sets up or cleans up; patient completes activity. [place] assists only prior to or following the activity. 4-Supervision or Touching Assistance-helper provides verbal cues and/or touching/steadying and/or contact guard assistance as patient completes activity. Assistance may be provided throughout the activity or intermittently. 3-Partial/Moderate Assistance-helper does LESS THAN HALF the effort. [place] lifts, holds or supports trunk or limbs, but provides less than half the effort. 2-Substantial/Maximal Assistance-helper does MORE THAN HALF the effort. [place] lifts or holds trunk or limbs and provides more than half the effort. 5-Ptwboxxyk-ysfbjo does ALL the effort. Patient does none of the effort to complete the activity. Or, the assistance of 2 or more helpers is required for the patient to complete the activity. If activity was not attempted, code reason: 7-Patient Refused. 9-Not Applicable-not attempted and the patient did not perform the activity before the current illness, exacerbation or injury. 10-Not Attempted due to Environmental Limitations-(lack of equipment, weather restraints, etc.). 88-Not Attempted due to Medical Conditions or Safety Concerns. Roll Left & Right (QC): 5 Sit to Lying (QC): 5 Lying to Sitting/Side of Bed(Q: 5 Sit to Stand (QC): 4 Weight Bearing Right Lower Extremity: Right Weight Bearing/Tolerated Left Lower Extremity: Left Weight Bearing/Tolerated Gait Training Does the Patient Walk?: Yes Distance: 125' x2 Walk 10 feet (QC): 4 Walk 50 ft with 2 Turns(QC): 4 Gait Assistive Device: FWW Pt has slow, but steady gait with no deviations noted at this time Exercises NuStep Minutes: 10 NuStep Workload: 4 Treatments Pt completes bed mobility and sits EOB, sit to stand and amb to therapy gym. pt completes NuStep for 10 minutes at WL of 4. Pt amb back to room and returns to bed. Pt remains in bed with all needs met, call light in hand. Assessment Current Status: Good Progress Pt fatigues easily and requires frequent rest breaks during tx PT Short Term Goals Short Term Goals Time Frame: Apr 09, 2021 Roll Left & Right: 5 Sit to lyin Lying to sitting on side of be: 5 Sit to stand: 5 Chair/lfm-la-ybwjy transfer: 5 Toilet transfer: 5 Walk 10 feet: 4 Walk 50 feet with two turns: 3 Walk 150 feet: 3 1 step (curb): 3 4 steps: 3 12 steps: 3 Picking up objects: 4 Does pt use a wc or scooter: Yes Wheel 50ft w/2 turns: 6 Wheel 150 feet: 6 Type: Manual PT [place]ro[place] Machine Operator Goals Alf Goals PT [place]ro[place] Machine Operator Goals Time Frame: May 07, 2021 Roll Left & Right (QC): 6 Sit to Lying (QC): 6 Lying-Sitting on Side/Bed(QC): 6 Sit to Stand (QC): 6 Chair/Zql-mp-Ructm Xfer(QC): 6 Toilet Transfer (QC): 6 Car Transfer (QC): 6 Does the Patient Walk: Yes Walk 10 feet (QC): 6 Walk 50ft with 2 Turns (QC): 5 Walk 150 ft (QC): 5 Walking 10ft on Uneven Surface: 5 1 Step (curb) (QC): 5 4 Steps (QC): 5 12 Steps (QC): 5 Picking up an Object (QC): 5 Does the Pt use WC or Scooter?: Yes Wheel 50 feet with 2 turns (QC: 6 Type: Manual Wheel 150 feet: 6 Type: Manual PT Plan Treatment/Plan Treatment Plan: Continue Plan of Care Treatment Plan: Bed Mobility, Education, Functional Activity Po, Functional Strength, Group Therapy, Gait, Safety, Therapeutic Exercise, Transfers Treatment Duration: Jun 04, 2021 Frequency: At least 5 of 7 days/Wk (IRF) Estimated Hrs Per Day: 1.5 hours per day Patient and/or Family Agrees t: Yes Time/GCodes Time In: 1400 Time Out: 1430 Total Billed Treatment Time: 30 Total Billed Treatment 1, Ex, GT ISELA,OLGA VENEREAL DISEASE CONTROL HEAD Apr 07, 2021 14:26
--- NOTE | 2021-04-07 14:30 | Progress Note ---
SCHUYLER MOON STUDENT 04/07/21 1430: Progress Note Assessment: Verito presents to IR[facility] due debility r/t pelvic fx after fall. OT: Demonstrates ability to perform hygiene/dressing tasks with min-mod assistance. Fair progress with fair prognosis. PT: Low activity tolerance, utilizes walker for gait assistance, requires min-mod assistance with ambulation and transfers. Good progress with good prognosis. Plan: Discharge to home with home health care 04/09 or 04/10, contingent on pt able to function mostly independently due to anticipated inconsistent help from family. DESIREE HWANG DO 04/08/21 0500: Supervisory-Addendum Brief Verification & Attestation Participated in pt care: history, MDM, physical Personally performed: exam, history, MDM, supervision of care Care discussed with: Medical Student Procedures: n/a Results interpretation: Verified all documentation Verification and Attestation of Medical Student E/M Service A medical student performed and documented this service in my presence. I reviewed and verified all information documented by the medical student and made modifications to such information, when appropriate. I personally performed the physical exam and medical decision making. Desiree Hwang, Apr 08, 2021,05:00 SCHUYLER MOON MED STUDENT Apr 07, 2021 14:30 DESIREE HWANG DO Apr 08, 2021 05:00
[2021-04-07 19:49] VITALS: BP 133/74
[2021-04-08] MEDS: HYDROcodone/APAP 5 MG/325 MG (LORTAB) TAB PO PRN ×4 (03:03→22:02)
[2021-04-08] MEDS: IBUPROFEN TABLET 200 MG TAB PO PRN (05:49)
[2021-04-08] MEDS: MULTIVIT W/MINERALS TAB (THERAGRAN M) PO SCH (05:49)
[2021-04-08 07:48] VITALS: BP 126/64
[2021-04-08] MEDS: DOCUSATE SODIUM 100 MG (COLACE) CAP PO SCH ×2 (08:10→21:18)
[2021-04-08] MEDS: SENNA W/DOCUSATE (SENOKOT S) TABLET PO SCH ×2 (08:10→21:18)
[2021-04-08] MEDS: CLOPIDOGREL 75 MG (PLAVIX) TABLET PO SCH (08:10)
[2021-04-08] MEDS: ONDANSETRON 4 MG (ZOFRAN) ORAL DISSOLVE TAB PO PRN (08:31)
[2021-04-08] MEDS: polyethylene glycoL POWDER 17 GM (MIRALAX) PACK PO SCH ×2 (08:40→19:13)
--- NOTE | 2021-04-08 09:04 | PM&R Progress Note ---
Subjective HPI/CC On Admission Date Seen by Provider: Apr 08, 2021 Time Seen by Provider: 09:15 Subjective/Events-last exam 04/08/2021: Patient doing very well Dramatic improvement Eating well Had some nausea and given Zofran Bowels are moving Decrease pain 04/07/2021: Dramatic improvement continues Labs reviewed and white count now 11 Discharge planned for this week Has no complaints 04/06/2021: Patient doing better every day Eating better Check meds and labs 04/05/2021: Patient doing well Feels sleepy today Holding lisinopril Pain is improved 04/04/2021: Holding lisinopril Patient doing well Pain is well controlled Moving around very well 04/03/2021: Hypotension noted but asymptomatic but will hold lisinopril Bowels moved today Improving immensely 04/02/2021: Patient continues to improve Frail state precludes anything but a guarded prognosis Check meds and labs Bowels are moving 04/01/2021: Patient about the same Minimal dietary intake Consult Dr. Grewal for feet and toenail care Working with therapy 03/31/2021: Pt appears to be about the same Frail status Constipated a bit yesterday, laxatives given Pain is pretty well controlled 03/30/2021: Patient about the same Pain is better controlled Wondered what her white blood cell count was today but she did not have labs ordered Subtle confusion noted Poor memory recall High risk for usp at discharge 03/29/2021: Patient improved Pain is better controlled Appreciate Dr. 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 Overall very debilitated and Pt needs a usp at discharge Pain medication will be changed to be more frequent of Q4 Dr Duque consult 03/27/2021: Patient seen in gym Very frail Pain managed with Lortab Took a shower today Very fragile Recheck labs Review of Systems General: Fatigue, Malaise Neurological: Weakness Objective Exam Vital Signs Vital Signs Date Time Temp Pulse Resp B/P (MAP) Pulse Ox O2 Delivery O2 Flow Rate FiO2 04/09/21 04:05 37.2 04/08/21 21:00 97 Room Air 04/08/21 20:00 71 18 113/61 (78) Capillary Refill : General Appearance: No Apparent Distress, WD/WN, Chronically ill, Thin HEENT: PERRL/EOMI, Normal ENT Inspection, Pharynx Normal Neck: Full Range of Motion, Normal Inspection, Non Tender, Supple, Carotid Bruit Respiratory: Chest Non Tender, Lungs Clear, Normal Breath Sounds, No Accessory Muscle Use, No Respiratory Distress Cardiovascular: Regular Rate, Rhythm, No Edema, No Gallop, No JVD, No Murmur, Normal Peripheral Pulses Gastrointestinal: Normal Bowel Sounds, No Organomegaly, No Pulsatile Mass, Non Tender, Soft Back: Normal Inspection, No CVA Tenderness, No Vertebral Tenderness Extremity: Normal Capillary Refill, Normal Inspection, Normal Range of Motion (Except legs with pain in pelvis), Non Tender, No Calf Tenderness, No Pedal Edema Neurologic/Psychiatric: Alert, Oriented x3, No Motor/Sensory Deficits, Normal Mood/Affect, Abnormal Gait, Motor Weakness (Generalized 4/5 extremities) Skin: Normal Color, Warm/Dry Lymphatic: No Adenopathy Results/Procedures Lab Patient resulted labs reviewed. FIM Transfers Therapy Code Descriptions/Definitions Functional [place] Measure: 0=Not Assessed/NA 4=Minimal Assistance 1=Total Assistance 5=Supervision or Setup 2=Maximal Assistance 6=Modified [place] 3=Moderate Assistance 7=Complete IndependenceSCALE: Activities may be completed with or without assistive devices. 0-Jxgajoormy-wombnbs completes the activity by him/herself with no assistance from a helper. 5-Set-up or Clean-up Assistance-helper sets up or cleans up; patient completes activity. [place] assists only prior to or following the activity. 4-Supervision or Touching Assistance-helper provides verbal cues and/or touching/steadying and/or contact guard assistance as patient completes activi ty. Assistance may be provided throughout the activity or intermittently. 3-Partial/Moderate Assistance-helper does LESS THAN HALF the effort. [place] lifts, holds or supports trunk or limbs, but provides less than half the effort. 2-Substantial/Maximal Assistance-helper does MORE THAN HALF the effort. [place] lifts or holds trunk or limbs and provides more than half the effort. 6-Gfrnvkrlh-inwhhd does ALL the effort. Patient does none of the effort to complete the activity. Or, the assistance of 2 or more helpers is required for the patient to complete the activity. If activity was not attempted, code reason: 7-Patient Refused. 9-Not Applicable-not attempted and the patient did not perform the activity before the current illness, exacerbation or injury. 10-Not Attempted due to Environmental Limitations-(lack of equipment, weather restraints, etc.). 88-Not Attempted due to Medical Conditions or Safety Concerns. Roll Left to Right (QC): 5 Sit to Lying (QC): 5 Sit to Stand (QC): 4 Chair/Bya-nv-[place] Xfer(QC): 4 Car Transfer (QC): 3 Gait Training Does the Patient Walk?: Yes Distance: 125' x2 Walk 10 feet (QC): 4 Walk 50 ft with 2 Turns(QC): 4 Walk 150 ft (QC): 88 Walking 10ft/uneven surface-QC: 88 Gait Persons Needed: 1 Gait Assistive Device: FWW Wheelchair Training Does the Pt Use a Wheelchair?: No Distance: 40 feet Wheel 50 ft with 2 turns (QC): 5 Wheel 150 ft (QC): 5 Type of Wheelchair: Manual Stair Training 1 Step (curb) (QC): 88 4 Steps (QC): 88 12 Steps (QC): 88 Balance Picking up an Object (QC): 88 ADL-Treatment Eating (QC): 5 (Pt requries set up. ) Oral Hygiene (QC): 6 (Pt performed IND while seated in w/c.) Shower/Bathe Self (QC): 4 (Pt required SBA, able to wash all parts, required assistance w/ hair. ) Upper Body Dressing (QC): 5 (Pt required set up. ) Lower Body Dressing (QC): 4 (Pt requried SBA when standing for task.) On/Off Footwear (QC): 5 (Pt required set up while seated in w/c. ) Toileting Hygiene (QC): 4 (Pt required SBA for safety w/ pant hike.) Toilet Transfer (QC): 4 (Pt required SBA for safety. ) Assessment/Plan Assessment and Plan Assess & Plan/Chief Complaint Assessment: Debility Pelvic fracture Previous CVA Current smoker Frail status BMI 13 Pressure ulcer [place] Leukocytosis without source of infection Plan: Supportive care Pain meds Bowel regimen Aggressive therapy 03/27/2021: Increase nutrition Work-up leukocytosis appears to be some sort of leukemia or that type of abnormality Check meds and labs 03/28/21: Increase nutrition Consult Dr Duque 03/29/2021: Supportive care Pain control 03/30/2021: Supportive care Pain control Check labs in the morning 03/31/2021: Supportive care 04/01/2021: Needs usp Plan to continue aggressive therapy 04/02/2021: Continue to improve Decreased pain noted 04/03/2021: Hold lisinopril Supportive care 04/04/2021: Monitor pain Impressive improvement 04/05/2021: Dramatic improvement Pain controlled 04/06/2021: Much improved status Continued improvement 04/07/2021: Supportive care Discharge plan this week 04/08/2021: Continue aggressive therapy Discharge planned on (1) Debility (2) Pelvic fracture (3) History of CVA (cerebrovascular accident) (4) Malnutrition (5) Leukocytosis (6) Fall Status: Acute ANTONIO HWANG DO Apr 08, 2021 09:04
--- NOTE | 2021-04-08 09:47 | Occupational Ther Daily Note ---
OT Current Status-Daily Note Subjective Pt was lying supine in bed. Pt stated she was feeling nauseous earlier and was given nausea medication. Pt stated she would participate in tx session this date. Mental Status/Objective Patient Orientation: Person, Place, Time, Situation ADL-Treatment Therapy Code Descriptions/Definitions Functional [place] Measure: 0=Not Assessed/NA 4=Minimal Assistance 1=Total Assistance 5=Supervision or Setup 2=Maximal Assistance 6=Modified [place] 3=Moderate Assistance 7=Complete IndependenceSCALE: Activities may be completed with or without assistive devices. 2-Mijdvdmmfu-rhyqbxx completes the activity by him/herself with no assistance from a helper. 5-Set-up or Clean-up Assistance-helper sets up or cleans up; patient completes activity. [place] assists only prior to or following the activity. 4-Supervision or Touching Assistance-helper provides verbal cues and/or touching/steadying and/or contact guard assistance as patient completes activity. Assistance may be provided throughout the activity or intermittently. 3-Partial/Moderate Assistance-helper does LESS THAN HALF the effort. [place] lifts, holds or supports trunk or limbs, but provides less than half the effort. 2-Substantial/Maximal Assistance-helper does MORE THAN HALF the effort. [place] lifts or holds trunk or limbs and provides more than half the effort. 4-Rltpzuhip-seqxar does ALL the effort. Patient does none of the effort to complete the activity. Or, the assistance of 2 or more helpers is required for the patient to complete the activity. If activity was not attempted, code reason: 7-Patient Refused. 9-Not Applicable-not attempted and the patient did not perform the activity before the current illness, exacerbation or injury. 10-Not Attempted due to Environmental Limitations-(lack of equipment, weather restraints, etc.). 88-Not Attempted due to Medical Conditions or Safety Concerns. Eating (QC): 5 (Pt requires set up to open various items, per pt report. ) Oral Hygiene (QC): 6 (Pt performed IND while seated in w/c sink side. ) Upper Body Dressing (QC): 5 (Pt required set up.) On/Off Footwear: 6 (Pt performed IND for task while seated in w/c.) Toileting Hygiene (QC): 6 (Pt performed IND w/ FWW.) Toilet Transfer (QC): 6 (Pt performed IND for task.) Other Treatment Pt was lying supine in bed. Pt stated she was feeling nauseous earlier and was given nausea medication. Pt stated she would participate in tx session this date. Pt performed bed mobility to EOB, IND. Pt performed sit to stand w/ FWW, IND. Pt performed functional mobility w/ FWW to toilet, IND. Pt performed toileting task, UBD, footwear, and oral care, see above QC's. Pt performed w/c mobility to gym, no rest breaks, IND. Pt participated in arm bike exercise, 10 watt resistance, 15 minutes, x3 rest breaks, to support BUE strengthening and endurance training for ADL's. Pt performed w/c mobility to room, then to chair, IND. Pt does fatigue during tx session due to decreased activity tolerance, pt re-educated on energy conservation strategies and is receptive to understanding her limitations, supporting functional balance and safety for ADL training. Post tx session, pt was seated in chair, legs elevated, call light within reach, and all needs met. Education OT Patient Education: Energy conservation, Modified ADL techniques, Progress toward Goal/Update tx plan, Purpose of tx/functional activities, W/C management Teaching Recipient: Patient Teaching Methods: Demonstration, Discussion Response to Teaching: Verbalize Understanding, Return Demonstration OT Short Term Goals Short Term Goals Time Frame: Apr 09, 2021 Eatin Oral hygiene: 5 Toileting hygiene: 4 Shower/bathe self: 4 Upper body dressin Lower body dressin Putting on/taking off footwear: 4 OT Detention Goals Personnel Scheduler Goals Time Frame: Apr 18, 2021 Eating (QC): 6 Oral Hygiene (QC): 6 Toileting Hygiene (QC): 6 Shower/Bathe Self (QC): 6 Upper Body Dressing (QC): 6 Lower Body Dressing (QC): 6 On/Off Footwear (QC): 6 Additional Goals: 1-Demonstrate ADL Tasks, 2-Verbalize Understanding, 3- ImproveStrength/Po 1=Demonstrate adherence to instructed precautions during ADL tasks. 2=Patient will verbalize/demonstrate understanding of assistive devices/modifica tions for ADL. 3=Patient will improve strength/tolerance for activity to enable patient to perform ADL's. OT Education/Plan Problem List/Assessment Assessment: Decreased Activ Tolerance, Decreased UE Strength, Impaired I ADL's, Impaired Self-Care Skills Discharge Recommendations Plan/Recommendations: Continue POC Treatment Plan/Plan of Care Patient would benefit from OT for education, treatment and training to promote independence in ADL's, mobility, safety and/or upper extremity function for ADL's. Plan of Care: ADL Retraining, Functional Mobility, Group Exercise/Act as Ind, UE Funct Exercise/Act Treatment Duration: Apr 18, 2021 Frequency: At least 5 of 7 days/Wk (IRF) Estimated Hrs Per Day: 1.5 hours per day Rehab Potential: Fair Time/GCodes Start Time: 09:15 Stop Time: 10:15 Total Time Billed (hr/min): 60 Billed Treatment Time 1 Visit, ADL 3 (40'),EX (20') ALEXANDRA SINGH OT Apr 08, 2021 09:47
--- NOTE | 2021-04-08 11:52 | Physical Therapy Daily Note ---
PT Daily Note-Current Subjective Pt in recliner upon arrival and agrees to tx. Pt has pain in R LE and back, but doesn't rate out of 10. Mental Status Patient Orientation: Person, Place, Time, Situation Transfers SCALE: Activities may be completed with or without assistive devices. 7-Ivkkkfqjlb-oszevzz completes the activity by him/herself with no assistance from a helper. 5-Set-up or Clean-up Assistance-helper sets up or cleans up; patient completes activity. [place] assists only prior to or following the activity. 4-Supervision or Touching Assistance-helper provides verbal cues and/or touching/steadying and/or contact guard assistance as patient completes activity. Assistance may be provided throughout the activity or intermittently. 3-Partial/Moderate Assistance-helper does LESS THAN HALF the effort. [place] lifts, holds or supports trunk or limbs, but provides less than half the effort. 2-Substantial/Maximal Assistance-helper does MORE THAN HALF the effort. [place] lifts or holds trunk or limbs and provides more than half the effort. 0-Arjdcejjl-xkopbs does ALL the effort. Patient does none of the effort to complete the activity. Or, the assistance of 2 or more helpers is required for the patient to complete the activity. If activity was not attempted, code reason: 7-Patient Refused. 9-Not Applicable-not attempted and the patient did not perform the activity before the current illness, exacerbation or injury. 10-Not Attempted due to Environmental Limitations-(lack of equipment, weather restraints, etc.). 88-Not Attempted due to Medical Conditions or Safety Concerns. Sit to Stand (QC): 5 Weight Bearing Right Lower Extremity: Right Weight Bearing/Tolerated Left Lower Extremity: Left Weight Bearing/Tolerated Gait Training Does the Patient Walk?: Yes Distance: 200' x2, 150' x2 Walk 10 feet (QC): 5 Walk 50 ft with 2 Turns(QC): 5 Walk 150 ft (QC): 5 Gait Persons Needed: 1 Gait Assistive Device: FWW Pt has steady gait with no deviations noted at this time Wheelchair Training Does the Pt Use a Wheelchair?: No Stair Training Stair Training: Handrails/: 2 handrails #of Steps: 4 1 Step (curb) (QC): 4 4 Steps (QC): 4 Stairs: Pattern: Step to VC given for sequencing, pt able to complete safely CGA Exercises Standing: Hip Abduction, Hamstring curls, Heel/toe raises, 3 way Ex=Flex, Abd, Ext, Marching, Mini squats Standing Reps: 10 NuStep Minutes: 12 NuStep Workload: 4 Treatments Pt sit to stand from recliner and amb 150' to therapy gym. Pt completes NuStep at WL of 4 for 12 mins. Pt then completes standing ex using back of chair, given HEP for standing ex for when pt DC . Pt then completes stair training. Pt performs dynamic standing balance activity unsupported from BUE and SBA. Pt weight shifting and using R UE in all planes. pt then amb 200' x2 on ARU and returns to room. pt request to lay down, sit <>supine SBA. Pt request pain medication, RN notified post tx. Pt remains in bed with all needs met, call light in hand. Assessment Current Status: Good Progress Pt increasing strength, endurance, mobility, and balance. Pt fatigues quickly and requires frequent rest breaks. PT Short Term Goals Short Term Goals Time Frame: Apr 09, 2021 Roll Left & Right: 5 Sit to lyin Lying to sitting on side of be: 5 Sit to stand: 5 Chair/crv-br-zltoh transfer: 5 Toilet transfer: 5 Walk 10 feet: 4 Walk 50 feet with two turns: 3 Walk 150 feet: 3 1 step (curb): 3 4 steps: 3 12 steps: 3 Picking up objects: 4 Does pt use a wc or scooter: Yes Wheel 50ft w/2 turns: 6 Wheel 150 feet: 6 Type: Manual PT Penitentiary Goals Penitentiary Goals PT Penitentiary Goals Time Frame: May 07, 2021 Roll Left & Right (QC): 6 Sit to Lying (QC): 6 Lying-Sitting on Side/Bed(QC): 6 Sit to Stand (QC): 6 Chair/Dti-wr-Rqihy Xfer(QC): 6 Toilet Transfer (QC): 6 Car Transfer (QC): 6 Does the Patient Walk: Yes Walk 10 feet (QC): 6 Walk 50ft with 2 Turns (QC): 5 Walk 150 ft (QC): 5 Walking 10ft on Uneven Surface: 5 1 Step (curb) (QC): 5 4 Steps (QC): 5 12 Steps (QC): 5 Picking up an Object (QC): 5 Does the Pt use WC or Scooter?: Yes Wheel 50 feet with 2 turns (QC: 6 Type: Manual Wheel 150 feet: 6 Type: Manual PT Plan Problem List Problem List: Activity Tolerance Treatment/Plan Treatment Plan: Continue Plan of Care Treatment Plan: Bed Mobility, Education, Functional Activity Po, Functional Strength, Group Therapy, Gait, Safety, Therapeutic Exercise, Transfers Treatment Duration: Jun 04, 2021 Frequency: At least 5 of 7 days/Wk (IRF) Estimated Hrs Per Day: 1.5 hours per day Patient and/or Family Agrees t: Yes Safety Risks/Education Patient Education: Gait Training, Steps, Issued Written HEP, Correct Positioning, Safety Issues Teaching Recipient: Patient Teaching Methods: Demonstration, Discussion Response to Teaching: Verbalize Understanding, Return Demonstration Time/GCodes Time In: 1100 Time Out: 1200 Total Billed Treatment Time: 60 Total Billed Treatment 1, GT, Ex x2, FA OLGA [place] STAFF [employer] OFFICER Apr 08, 2021 11:52
--- NOTE | 2021-04-08 13:32 | Occupational Ther Daily Note ---
OT Current Status-Daily Note Subjective Pt was lying supine in bed upon OT arrival. Pt stated she walked alot with PT earlier and was a little tired. However, pt agreed to OT tx session. Mental Status/Objective Patient Orientation: Person, Place, Time, Situation ADL-Treatment Therapy Code Descriptions/Definitions Functional [place] Measure: 0=Not Assessed/NA 4=Minimal Assistance 1=Total Assistance 5=Supervision or Setup 2=Maximal Assistance 6=Modified [place] 3=Moderate Assistance 7=Complete IndependenceSCALE: Activities may be completed with or without assistive devices. 1-Urqwquebwh-jfwimij completes the activity by him/herself with no assistance from a helper. 5-Set-up or Clean-up Assistance-helper sets up or cleans up; patient completes activity. [place] assists only prior to or following the activity. 4-Supervision or Touching Assistance-helper provides verbal cues and/or touching/steadying and/or contact guard assistance as patient completes activity. Assistance may be provided throughout the activity or intermittently. 3-Partial/Moderate Assistance-helper does LESS THAN HALF the effort. [place] lifts, holds or supports trunk or limbs, but provides less than half the effort. 2-Substantial/Maximal Assistance-helper does MORE THAN HALF the effort. [place] lifts or holds trunk or limbs and provides more than half the effort. 7-Zswvkqdfr-mnweva does ALL the effort. Patient does none of the effort to complete the activity. Or, the assistance of 2 or more helpers is required for the patient to complete the activity. If activity was not attempted, code reason: 7-Patient Refused. 9-Not Applicable-not attempted and the patient did not perform the activity before the current illness, exacerbation or injury. 10-Not Attempted due to Environmental Limitations-(lack of equipment, weather restraints, etc.). 88-Not Attempted due to Medical Conditions or Safety Concerns. Eating (QC): 5 (Pt required set up for opening various items, per pt.) Lower Body Dressing (QC): 5 (Pt required set up, was slow and steady when standing. ) On/Off Footwear: 6 (Pt performed IND while seated on toilet.) Other Treatment Pt was lying supine in bed upon OT arrival. Pt had just finished up w/ lunch, see QC above. Pt performed bed mobility to EOB, IND. Pt transferred sit to stand w/ FWW, IND. Pt performed functional mobility w/ FWW to toilet, IND. Pt performed toileting, LBD, and gripper socks, see above QC. Pt performed functional mobility w/ FWW to therapy kitchen area, w/ seated rest break in w/c for energy conservation, IND. Pt transferred sit to stand w/ FWW, IND. Pt participated in cone activity, retrieving cones from various levels in kitchen area, x3 rounds, w/ seated rest break after each round, to support ROM, balance, twisting, bending, reaching, and grasping, for IADL kitchen activity for function, endurance, and skill. Pt stated after the third round she felt slight pain rating a 3 in her right quad during activity, no pain otherwise at rest. Pt stated she did not want any pain medication. Pt was taken to room in w/c. Pt transferred from w/c to chair w/ FWW, IND. Post tx session, pt was seated in chair, legs elevated, call light within reach, and all needs met. Education OT Patient Education: Energy conservation, Progress toward Goal/Update tx plan, Purpose of tx/functional activities Teaching Recipient: Patient Teaching Methods: Discussion Response to Teaching: Verbalize Understanding OT Short Term Goals Short Term Goals Time Frame: Apr 09, 2021 Eatin Oral hygiene: 5 Toileting hygiene: 4 Shower/bathe self: 4 Upper body dressin Lower body dressin Putting on/taking off footwear: 4 OT [facility] Goals Instrument Technologist Goals Time Frame: Apr 18, 2021 Eating (QC): 6 Oral Hygiene (QC): 6 Toileting Hygiene (QC): 6 Shower/Bathe Self (QC): 6 Upper Body Dressing (QC): 6 Lower Body Dressing (QC): 6 On/Off Footwear (QC): 6 Additional Goals: 1-Demonstrate ADL Tasks, 2-Verbalize Understanding, 3- ImproveStrength/Po 1=Demonstrate adherence to instructed precautions during ADL tasks. 2=Patient will verbalize/demonstrate understanding of assistive devices/modifications for ADL. 3=Patient will improve strength/tolerance for activity to enable patient to perform ADL's. OT Education/Plan Problem List/Assessment Assessment: Decreased Activ Tolerance, Decreased UE Strength, Impaired I ADL's, Impaired Self-Care Skills Discharge Recommendations Plan/Recommendations: Continue POC Treatment Plan/Plan of Care Patient would benefit from OT for education, treatment and training to promote independence in ADL's, mobility, safety and/or upper extremity function for ADL's. Plan of Care: ADL Retraining, Functional Mobility, Group Exercise/Act as Ind, UE Funct Exercise/Act Treatment Duration: Apr 18, 2021 Frequency: At least 5 of 7 days/Wk (IRF) Estimated Hrs Per Day: 1.5 hours per day Rehab Potential: Fair Time/GCodes Start Time: 13:00 Stop Time: 13:30 Total Time Billed (hr/min): 30 Billed Treatment Time 1 Visit, ADL (10'), FA (20') ALEXANDRA SINGH OT Apr 08, 2021 13:32
--- NOTE | 2021-04-08 14:50 | Physical Therapy Daily Note ---
PT Daily Note-Current Subjective Pt in recliner upon arrival and agrees to tx. Pt states no pain, but soreness in R LE. Mental Status Patient Orientation: Person, Place, Time, Situation Transfers SCALE: Activities may be completed with or without assistive devices. 0-Gprwduoqbb-fhrvjal completes the activity by him/herself with no assistance from a helper. 5-Set-up or Clean-up Assistance-helper sets up or cleans up; patient completes activity. [place] assists only prior to or following the activity. 4-Supervision or Touching Assistance-helper provides verbal cues and/or touching/steadying and/or contact guard assistance as patient completes activity. Assistance may be provided throughout the activity or intermittently. 3-Partial/Moderate Assistance-helper does LESS THAN HALF the effort. [place] lifts, holds or supports trunk or limbs, but provides less than half the effort. 2-Substantial/Maximal Assistance-helper does MORE THAN HALF the effort. [place] lifts or holds trunk or limbs and provides more than half the effort. 5-Fiyhnzrmv-zmbpak does ALL the effort. Patient does none of the effort to complete the activity. Or, the assistance of 2 or more helpers is required for the patient to complete the activity. If activity was not attempted, code reason: 7-Patient Refused. 9-Not Applicable-not attempted and the patient did not perform the activity before the current illness, exacerbation or injury. 10-Not Attempted due to Environmental Limitations-(lack of equipment, weather restraints, etc.). 88-Not Attempted due to Medical Conditions or Safety Concerns. Sit to Lying (QC): 6 Lying to Sitting/Side of Bed(Q: 6 Sit to Stand (QC): 6 Weight Bearing Right Lower Extremity: Right Weight Bearing/Tolerated Left Lower Extremity: Left Weight Bearing/Tolerated Gait Training Does the Patient Walk?: Yes Distance: 200', 150' Walk 10 feet (QC): 5 Walk 50 ft with 2 Turns(QC): 5 Walk 150 ft (QC): 5 Gait Persons Needed: 1 Gait Assistive Device: FWW Pt has steady gait with no deviations noted at this time Treatments Pt sit to stand from recliner and amb to bathroom. Pt able to doff/don pants and clean self SBA. pt amb 200' on ARU to therapy gym. Pt completes functional standing activity, reaching w/ B UE in all planes while standing unsupported w/ SBA. Pt then amb 150' back to room and returns to bed. Pt remains in bed with all needs met, call light in hand. Assessment Current Status: Good Progress Pt increasing mobility, endurance, and strength PT Short Term Goals Short Term Goals Time Frame: Apr 09, 2021 Roll Left & Right: 5 Sit to lyin Lying to sitting on side of be: 5 Sit to stand: 5 Chair/ktv-dw-wgbbp transfer: 5 Toilet transfer: 5 Walk 10 feet: 4 Walk 50 feet with two turns: 3 Walk 150 feet: 3 1 step (curb): 3 4 steps: 3 12 steps: 3 Picking up objects: 4 Does pt use a wc or scooter: Yes Wheel 50ft w/2 turns: 6 Wheel 150 feet: 6 Type: Manual PT Intermediate Goals Intermediate Goals PT Physiognomist Goals Time Frame: May 07, 2021 Roll Left & Right (QC): 6 Sit to Lying (QC): 6 Lying-Sitting on Side/Bed(QC): 6 Sit to Stand (QC): 6 Chair/Zqi-xs-Tklyn Xfer(QC): 6 Toilet Transfer (QC): 6 Car Transfer (QC): 6 Does the Patient Walk: Yes Walk 10 feet (QC): 6 Walk 50ft with 2 Turns (QC): 5 Walk 150 ft (QC): 5 Walking 10ft on Uneven Surface: 5 1 Step (curb) (QC): 5 4 Steps (QC): 5 12 Steps (QC): 5 Picking up an Object (QC): 5 Does the Pt use WC or Scooter?: Yes Wheel 50 feet with 2 turns (QC: 6 Type: Manual Wheel 150 feet: 6 Type: Manual PT Plan Treatment/Plan Treatment Plan: Continue Plan of Care Treatment Plan: Bed Mobility, Education, Functional Activity Po, Functional Strength, Group Therapy, Gait, Safety, Therapeutic Exercise, Transfers Treatment Duration: Jun 04, 2021 Frequency: At least 5 of 7 days/Wk (IRF) Estimated Hrs Per Day: 1.5 hours per day Patient and/or Family Agrees t: Yes Time/GCodes Time In: 1430 Time Out: 1500 Total Billed Treatment Time: 30 Total Billed Treatment 1, GT, OLGA OLMSTEAD CASHIER ASSISTANT Apr 08, 2021 14:50
[2021-04-08 20:00] VITALS: BP 113/61
[2021-04-09] MEDS: HYDROcodone/APAP 5 MG/325 MG (LORTAB) TAB PO PRN ×4 (04:05→20:27)
[2021-04-09] MEDS: MULTIVIT W/MINERALS TAB (THERAGRAN M) PO SCH (06:49)
--- NOTE | 2021-04-09 07:07 | PM&R Progress Note ---
Subjective HPI/CC On Admission Date Seen by Provider: Apr 09, 2021 Time Seen by Provider: 11:15 Subjective/Events-last exam 04/09/2021: Pt doing well Set for DC tomorrow Daughter will live with her [place] on her coccyx for protection 04/08/2021: Patient doing very well Dramatic improvement Eating well Had some nausea and given Zofran Bowels are moving Decrease pain 04/07/2021: Dramatic improvement continues Labs reviewed and white count now 11 Discharge planned for this week Has no complaints 04/06/2021: Patient doing better every day Eating better Check meds and labs 04/05/2021: Patient doing well Feels sleepy today Holding lisinopril Pain is improved 04/04/2021: Holding lisinopril Patient doing well Pain is well controlled Moving around very well 04/03/2021: Hypotension noted but asymptomatic but will hold lisinopril Bowels moved today Improving immensely 04/02/2021: Patient continues to improve Frail state precludes anything but a guarded prognosis Check meds and labs Bowels are moving 04/01/2021: Patient about the same Minimal dietary intake Consult Dr. Grewal for feet and toenail care Working with therapy 03/31/2021: Pt appears to be about the same Frail status Constipated a bit yesterday, laxatives given Pain is pretty well controlled 03/30/2021: Patient about the same Pain is better controlled Wondered what her white blood cell count was today but she did not have labs ordered Subtle confusion noted Poor memory recall High risk for penitentiary at discharge 03/29/2021: Patient improved Pain is better controlled Appreciate Dr. 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 Overall very debilitated and Pt needs a penitentiary at discharge Pain medication will be changed to be more frequent of Q4 Dr Duque consult 03/27/2021: Patient seen in gym Very frail Pain managed with Lortab Took a shower today Very fragile Recheck labs Review of Systems General: Fatigue, Malaise Neurological: Weakness Objective Exam Vital Signs Vital Signs Date Time Temp Pulse Resp B/P (MAP) Pulse Ox O2 Delivery O2 Flow Rate FiO2 04/09/21 20:00 Room Air 04/09/21 20:00 36.9 64 18 112/55 (74) 97 Capillary Refill : General Appearance: No Apparent Distress, WD/WN, Chronically ill, Thin HEENT: PERRL/EOMI, Normal ENT Inspection, Pharynx Normal Neck: Full Range of Motion, Normal Inspection, Non Tender, Supple, Carotid Bruit Respiratory: Chest Non Tender, Lungs Clear, Normal Breath Sounds, No Accessory Muscle Use, No Respiratory Distress Cardiovascular: Regular Rate, Rhythm, No Edema, No Gallop, No JVD, No Murmur, Normal Peripheral Pulses Gastrointestinal: Normal Bowel Sounds, No Organomegaly, No Pulsatile Mass, Non Tender, Soft Back: Normal Inspection, No CVA Tenderness, No Vertebral Tenderness Extremity: Normal Capillary Refill, Normal Inspection, Normal Range of Motion (Except legs with pain in pelvis), Non Tender, No Calf Tenderness, No Pedal Edema Neurologic/Psychiatric: Alert, Oriented x3, No Motor/Sensory Deficits, Normal Mood/Affect, Abnormal Gait, Motor Weakness (Generalized 4/5 extremities) Skin: Normal Color, Warm/Dry Lymphatic: No Adenopathy Results/Procedures Lab Patient resulted labs reviewed. FIM Transfers Therapy Code Descriptions/Definitions Functional [place] Measure: 0=Not Assessed/NA 4=Minimal Assistance 1=Total Assistance 5=Supervision or Setup 2=Maximal Assistance 6=Modified [place] 3=Moderate Assistance 7=Complete IndependenceSCALE: Activities may be completed with or without assistive devices. 9-Nchrsgtfnc-qcxdqql completes the activity by him/herself with no assistance from a helper. 5-Set-up or Clean-up Assistance-helper sets up or cleans up; patient completes activity. [place] assists only prior to or following the activity. 4-Supervision or Touching Assistance-helper provides verbal cues and/or touching/steadying and/or contact guard assistance as patient completes activity. Assistance may be provided throughout the activity or intermittently. 3-Partial/Moderate Assistance-helper does LESS THAN HALF the effort. [place] lifts, holds or supports trunk or limbs, but provides less than half the effort. 2-Substantial/Maximal Assistance-helper does MORE THAN HALF the effort. [place] lifts or holds trunk or limbs and provides more than half the effort. 5-Uclnllqzk-ptjots does ALL the effort. Patient does none of the effort to complete the activity. Or, the assistance of 2 or more helpers is required for the patient to complete the activity. If activity was not attempted, code reason: 7-Patient Refused. 9-Not Applicable-not attempted and the patient did not perform the activity before the current illness, exacerbation or injury. 10-Not Attempted due to Environmental Limitations-(lack of equipment, weather restraints, etc.). 88-Not Attempted due to Medical Conditions or Safety Concerns. Roll Left to Right (QC): 5 Sit to Lying (QC): 6 Sit to Stand (QC): 6 Chair/Vdl-vn-Eoscj Xfer(QC): 4 Car Transfer (QC): 3 Gait Training Does the Patient Walk?: Yes Distance: 200', 150' Walk 10 feet (QC): 5 Walk 50 ft with 2 Turns(QC): 5 Walk 150 ft (QC): 5 Walking 10ft/uneven surface-QC: 88 Gait Persons Needed: 1 Gait Assistive Device: FWW Wheelchair Training Does the Pt Use a Wheelchair?: Yes Distance: 40 feet Wheel 50 ft with 2 turns (QC): 5 Wheel 150 ft (QC): 5 Type of Wheelchair: Manual Stair Training Stair Training: Handrails/: 2 handrails #of Steps: 4 1 Step (curb) (QC): 4 4 Steps (QC): 4 12 Steps (QC): 88 Stairs: Pattern: Step to Balance Picking up an Object (QC): 88 ADL-Treatment Eating (QC): 5 (Pt required set up for opening various items, per pt.) Oral Hygiene (QC): 6 (Pt performed IND while seated in w/c sink side. ) Shower/Bathe Self (QC): 4 (Pt required SBA, able to wash all parts, required assistance w/ hair. ) Upper Body Dressing (QC): 5 (Pt required set up.) Lower Body Dressing (QC): 5 (Pt required set up, was slow and steady when standing. ) On/Off Footwear (QC): 6 (Pt performed IND while seated on toilet.) Toileting Hygiene (QC): 6 (Pt performed IND w/ FWW.) Toilet Transfer (QC): 6 (Pt performed IND for task.) Assessment/Plan Assessment and Plan Assess & Plan/Chief Complaint Assessment: Debility Pelvic fracture Previous CVA Current smoker Frail status BMI 13 Pressure ulcer [place] Leukocytosis without source of infection Plan: Supportive care Pain meds Bowel regimen Aggressive therapy 03/27/2021: Increase nutrition Work-up leukocytosis appears to be some sort of leukemia or that type of abnormality Check meds and labs 03/28/21: Increase nutrition Consult Dr Duque 03/29/2021: Supportive care Pain control 03/30/2021: Supportive care Pain control Check labs in the morning 03/31/2021: Supportive care 04/01/2021: Needs penitentiary Plan to continue aggressive therapy 04/02/2021: Continue to improve Decreased pain noted 04/03/2021: Hold lisinopril Supportive care 04/04/2021: Monitor pain Impressive improvement 04/05/2021: Dramatic improvement Pain controlled 04/06/2021: Much improved status Continued improvement 04/07/2021: Supportive care Discharge plan this week 04/08/2021: Continue aggressive therapy Discharge planned on 04/09/2021: Supportive care Discharge tomorrow (1) Debility (2) Pelvic fracture (3) History of CVA (cerebrovascular accident) (4) Malnutrition (5) Leukocytosis (6) Fall Status: Acute ANTONIO HWANG DO Apr 09, 2021 07:07
[2021-04-09 07:45] VITALS: BP 125/60
[2021-04-09] MEDS: SENNA W/DOCUSATE (SENOKOT S) TABLET PO SCH ×2 (08:13→20:00)
[2021-04-09] MEDS: polyethylene glycoL POWDER 17 GM (MIRALAX) PACK PO SCH ×2 (08:13→20:00)
[2021-04-09] MEDS: DOCUSATE SODIUM 100 MG (COLACE) CAP PO SCH ×2 (08:13→19:59)
[2021-04-09] MEDS: CLOPIDOGREL 75 MG (PLAVIX) TABLET PO SCH (08:33)
--- NOTE | 2021-04-09 09:12 | Occupational Ther Daily Note ---
OT Current Status-Daily Note Subjective Pt was lying supine in bed w/ HOB elevated, just finishing up w/ breakfast upon OT arrival. Pt stated breakfast was good and she was ready for tx session. Mental Status/Objective Patient Orientation: Person, Place, Time, Situation ADL-Treatment Therapy Code Descriptions/Definitions Functional [place] Measure: 0=Not Assessed/NA 4=Minimal Assistance 1=Total Assistance 5=Supervision or Setup 2=Maximal Assistance 6=Modified [place] 3=Moderate Assistance 7=Complete IndependenceSCALE: Activities may be completed with or without assistive devices. 7-Qxbolvpqpl-kbrvwcb completes the activity by him/herself with no assistance from a helper. 5-Set-up or Clean-up Assistance-helper sets up or cleans up; patient completes activity. [place] assists only prior to or following the activity. 4-Supervision or Touching Assistance-helper provides verbal cues and/or touching/steadying and/or contact guard assistance as patient completes activity. Assistance may be provided throughout the activity or intermittently. 3-Partial/Moderate Assistance-helper does LESS THAN HALF the effort. [place] lifts, holds or supports trunk or limbs, but provides less than half the effort. 2-Substantial/Maximal Assistance-helper does MORE THAN HALF the effort. [place] lifts or holds trunk or limbs and provides more than half the effort. 9-Tsurygajy-voemvb does ALL the effort. Patient does none of the effort to complete the activity. Or, the assistance of 2 or more helpers is required for the patient to complete the activity. If activity was not attempted, code reason: 7-Patient Refused. 9-Not Applicable-not attempted and the patient did not perform the activity before the current illness, exacerbation or injury. 10-Not Attempted due to Environmental Limitations-(lack of equipment, weather restraints, etc.). 88-Not Attempted due to Medical Conditions or Safety Concerns. Eating (QC): 5 (Pt required set up, per pt report to open various items. ) Oral Hygiene (QC): 6 (Pt was IND while seated in w/c sink side for task. ) Shower/Bathe Self (QC): 4 (Pt required SBA when standing to wash backside and shyann area for safety due to soap spill in shower, able to wash all parts, utilized LHS. ) Upper Body Dressing (QC): 6 (Pt was IND while seated in w/c and retrieved garments w/ FWW.) Lower Body Dressing (QC): 6 (Pt was IND and retrieved garments w/ FWW, utilized a court administrator to doff LB garments. ) On/Off Footwear: 6 (Pt was IND w/ task while seated in w/c, retrieving gripper socks from closet, utilized a court administrator to doff. ) Toileting Hygiene (QC): 6 (Pt was IND w/ task w/ FWW.) Toilet Transfer (QC): 6 (Pt was IND w/ task w/ FWW.) Other Treatment Pt was lying supine in bed w/ HOB elevated. Pt had just finished up w/ breakfast, see above QC. Pt performed bed mobility to EOB, IND. Pt performed sit to stand w/ FWW, IND. Pt performed functional mobility w/ FWW to toilet, IND. Pt performed toileting task, shower, UBD, LBD, footwear, and oral care, see above QC's. Pt performed w/c mobility to kitchen area, no rest breaks, IND. Pt participated in cone activity, x2 rounds, w/ x3 seated rest breaks, retrieving cones from various planes to support bending, reaching, twist, ROM, and standing balance, for function and skill for IADL kitchen task. Pt performed w/c mobility to gym, x2 rest breaks for energy conservation, IND. Pt participated in arm bike exercise, 10 watt resistance, 15 minutes, x3 rest breaks, to support BUE strengthening and endurance training for ADL's. Pt taken to room. Pt transferred from w/c to chair, IND. Post tx session, pt was seated in chair, legs elevated, call light within reach, and all needs met. Education OT Patient Education: Energy conservation, Modified ADL techniques, Progress toward Goal/Update tx plan, Purpose of tx/functional activities, W/C management Teaching Recipient: Patient Teaching Methods: Demonstration, Discussion Response to Teaching: Verbalize Understanding, Return Demonstration OT Short Term Goals Short Term Goals Time Frame: Apr 09, 2021 Eatin Oral hygiene: 5 Toileting hygiene: 4 Shower/bathe self: 4 Upper body dressin Lower body dressin Putting on/taking off footwear: 4 OT Correction Goals Senior Research Engineer Goals Time Frame: Apr 18, 2021 Eating (QC): 6 (not met) Oral Hygiene (QC): 6 (met) Toileting Hygiene (QC): 6 (met) Shower/Bathe Self (QC): 6 (not met) Upper Body Dressing (QC): 6 (met) Lower Body Dressing (QC): 6 (met) On/Off Footwear (QC): 6 (met) Additional Goals: 1-Demonstrate ADL Tasks, 2-Verbalize Understanding, 3- ImproveStrength/Po 1=Demonstrate adherence to instructed precautions during ADL tasks. 2=Patient will verbalize/demonstrate understanding of assistive devices/modifications for ADL. 3=Patient will improve strength/tolerance for activity to enable patient to perform ADL's. OT Education/Plan Problem List/Assessment Assessment: Decreased Activ Tolerance, Decreased UE Strength, Impaired I ADL's, Impaired Self-Care Skills Discharge Recommendations Plan/Recommendations: Continue POC Treatment Plan/Plan of Care Patient would benefit from OT for education, treatment and training to promote independence in ADL's, mobility, safety and/or upper extremity function for ADL's. Plan of Care: ADL Retraining, Functional Mobility, Group Exercise/Act as Ind, UE Funct Exercise/Act Treatment Duration: Apr 18, 2021 Frequency: At least 5 of 7 days/Wk (IRF) Estimated Hrs Per Day: 1.5 hours per day Rehab Potential: Fair Time/GCodes Start Time: 08:00 Stop Time: 09:30 Total Time Billed (hr/min): 90 Billed Treatment Time 1 Visit, ADL 3 (45'), FA 2 (25'), EX (20') ALEXANDRA SINGH OT Apr 09, 2021 09:12
--- NOTE | 2021-04-09 10:58 | Physical Therapy Daily Note ---
PT Daily Note-Current Subjective Pt. agrees to Rx, states she is a little tired and requests rest breaks with some min SOB, O2 sats >90% Pain Location: No Pain Reported Mental Status Patient Orientation: Normal For Age Attachments: Other-See Comments (gt belt, mask ) Transfers SCALE: Activities may be completed with or without assistive devices. 4-Vqpujfjvvw-yzkhbtp completes the activity by him/herself with no assistance from a helper. 5-Set-up or Clean-up Assistance-helper sets up or cleans up; patient completes activity. [place] assists only prior to or following the activity. 4-Supervision or Touching Assistance-helper provides verbal cues and/or touching/steadying and/or contact guard assistance as patient completes activity. Assistance may be provided throughout the activity or intermittently. 3-Partial/Moderate Assistance-helper does LESS THAN HALF the effort. [place] lifts, holds or supports trunk or limbs, but provides less than half the effort. 2-Substantial/Maximal Assistance-helper does MORE THAN HALF the effort. [place] lifts or holds trunk or limbs and provides more than half the effort. 7-Xwtwkcvcz-iznkkd does ALL the effort. Patient does none of the effort to complete the activity. Or, the assistance of 2 or more helpers is required for the patient to complete the activity. If activity was not attempted, code reason: 7-Patient Refused. 9-Not Applicable-not attempted and the patient did not perform the activity before the current illness, exacerbation or injury. 10-Not Attempted due to Environmental Limitations-(lack of equipment, weather restraints, etc.). 88-Not Attempted due to Medical Conditions or Safety Concerns. Roll Left & Right (QC): 6 Sit to Lying (QC): 6 Lying to Sitting/Side of Bed(Q: 6 Sit to Stand (QC): 6 Chair/Trf-gf-Qxspe Xfer(QC): 6 Toilet Transfer (QC): 6 Car Transfer (QC): 6 Weight Bearing Right Lower Extremity: Right Weight Bearing/Tolerated Left Lower Extremity: Left Weight Bearing/Tolerated Gait Training Does the Patient Walk?: Yes Walk 10 feet (QC): 6 Walk 50 ft with 2 Turns(QC): 6 Walk 150 ft (QC): 6 Walking 10ft/uneven surface-QC: 6 Gait Persons Needed: 0 Gait Assistive Device: FWW no gait deviation or LOB Stair Training Stair Training: Handrails/: 2 handrails #of Steps: 8 1 Step (curb) (QC): 5 4 Steps (QC): 5 Stairs: Pattern: Reciprocal Balance Picking up an Object (QC): 5 Exercises Supine Ex: Ankle pumps, Rolling, Heel Slides, Scooting, Straight leg raise Supine Reps: 15 Seated Therapy Exercises: Ankle pumps, Sit to stand, Long arc quads, Hip flexion Seated Reps: 15 Standing: Hip Abduction, Hamstring curls, Heel/toe raises, Marching, Maze Standing Reps: 15 NuStep Minutes: 8 NuStep Workload: 3 Assessment Current Status: Good Progress PT Short Term Goals Short Term Goals Time Frame: Apr 09, 2021 Roll Left & Right: 5 Sit to lyin Lying to sitting on side of be: 5 Sit to stand: 5 Chair/ogt-sy-hrotb transfer: 5 Toilet transfer: 5 Walk 10 feet: 4 Walk 50 feet with two turns: 3 Walk 150 feet: 3 1 step (curb): 3 4 steps: 3 12 steps: 3 Picking up objects: 4 Does pt use a wc or scooter: Yes Wheel 50ft w/2 turns: 6 Wheel 150 feet: 6 Type: Manual PT Skilled Nursing Goals Fire Extinguisher Sprinkler Inspector Goals PT Skilled Nursing Goals Time Frame: May 07, 2021 Roll Left & Right (QC): 6 Sit to Lying (QC): 6 Lying-Sitting on Side/Bed(QC): 6 Sit to Stand (QC): 6 Chair/Cmd-pr-Hgunq Xfer(QC): 6 Toilet Transfer (QC): 6 Car Transfer (QC): 6 Does the Patient Walk: Yes Walk 10 feet (QC): 6 Walk 50ft with 2 Turns (QC): 5 Walk 150 ft (QC): 5 Walking 10ft on Uneven Surface: 5 1 Step (curb) (QC): 5 4 Steps (QC): 5 12 Steps (QC): 5 Picking up an Object (QC): 5 Does the Pt use WC or Scooter?: Yes Wheel 50 feet with 2 turns (QC: 6 Type: Manual Wheel 150 feet: 6 Type: Manual PT Plan Treatment/Plan Treatment Plan: Continue Plan of Care Treatment Plan: Bed Mobility, Education, Functional Activity Po, Functional Strength, Group Therapy, Gait, Safety, Therapeutic Exercise, Transfers Treatment Duration: Jun 04, 2021 Frequency: At least 5 of 7 days/Wk (IRF) Estimated Hrs Per Day: 1.5 hours per day Patient and/or Family Agrees t: Yes Safety Risks/Education Patient Education: Gait Training, Transfer Techniques, Steps, Correct Positioning, Safety Issues Teaching Recipient: Patient Teaching Methods: Demonstration, Discussion Response to Teaching: Verbalize Understanding, Return Demonstration, Reinforcement Needed Time/GCodes Time In: 1000 Time Out: 1100 Total Billed Treatment Time: 60 Total Billed Treatment 1,GT15m,EX25m,FA20m JOSHUA BLUM [employer] ME[employer] PACKER Apr 09, 2021 10:58
--- NOTE | 2021-04-09 11:57 | Physical Therapy Daily Note ---
PT Daily Note-Current Subjective Pt in bed upon arrival and agrees to tx. Pt has no c/o pain but states soreness in R LE. Pt ready to DC tomorrow Mental Status Patient Orientation: Person, Place, Time, Situation Transfers SCALE: Activities may be completed with or without assistive devices. 5-Jjmnelhdav-zzexcnt completes the activity by him/herself with no assistance from a helper. 5-Set-up or Clean-up Assistance-helper sets up or cleans up; patient completes activity. [place] assists only prior to or following the activity. 4-Supervision or Touching Assistance-helper provides verbal cues and/or touching/steadying and/or contact guard assistance as patient completes activity. Assistance may be provided throughout the activity or intermittently. 3-Partial/Moderate Assistance-helper does LESS THAN HALF the effort. [place] lifts, holds or supports trunk or limbs, but provides less than half the effort. 2-Substantial/Maximal Assistance-helper does MORE THAN HALF the effort. [place] lifts or holds trunk or limbs and provides more than half the effort. 0-Slsdvsnvg-awjwwa does ALL the effort. Patient does none of the effort to complete the activity. Or, the assistance of 2 or more helpers is required for the patient to complete the activity. If activity was not attempted, code reason: 7-Patient Refused. 9-Not Applicable-not attempted and the patient did not perform the activity before the current illness, exacerbation or injury. 10-Not Attempted due to Environmental Limitations-(lack of equipment, weather restraints, etc.). 88-Not Attempted due to Medical Conditions or Safety Concerns. Roll Left & Right (QC): 5 Sit to Lying (QC): 5 Lying to Sitting/Side of Bed(Q: 5 Sit to Stand (QC): 5 Weight Bearing Right Lower Extremity: Right Weight Bearing/Tolerated Left Lower Extremity: Left Weight Bearing/Tolerated Gait Training Does the Patient Walk?: Yes Distance: 200', 150' Walk 10 feet (QC): 5 Walk 50 ft with 2 Turns(QC): 5 Walk 150 ft (QC): 5 Gait Persons Needed: 1 Gait Assistive Device: FWW Pt has slow, but steady gait with no deviations noted at this time Treatments Pt completes bed mobility and sits EOB. Pt sit to stand SBA and amb 200' on ARU to therapy gym. Pt performs dynamic standing balance activity, supported w/ L UE on FWW and using R UE in all planes with SBA. Pt then amb another 150' back to room and sits EOB. Pt sit <> supine and remains in bed with all needs met, call light in hand. Assessment Current Status: Good Progress Pt increasing endurance, mobility, strength, and balance. Pt ready to DC tomorrow PT Short Term Goals Short Term Goals Time Frame: Apr 09, 2021 Roll Left & Right: 5 Sit to lyin Lying to sitting on side of be: 5 Sit to stand: 5 Chair/wnr-jd-wnkyc transfer: 5 Toilet transfer: 5 Walk 10 feet: 4 Walk 50 feet with two turns: 3 Walk 150 feet: 3 1 step (curb): 3 4 steps: 3 12 steps: 3 Picking up objects: 4 Does pt use a wc or scooter: Yes Wheel 50ft w/2 turns: 6 Wheel 150 feet: 6 Type: Manual PT [facility]ci Goals Fci Goals PT Nurse Wound Care Goals Time Frame: May 07, 2021 Roll Left & Right (QC): 6 Sit to Lying (QC): 6 Lying-Sitting on Side/Bed(QC): 6 Sit to Stand (QC): 6 Chair/Gcf-wy-Dypsc Xfer(QC): 6 Toilet Transfer (QC): 6 Car Transfer (QC): 6 Does the Patient Walk: Yes Walk 10 feet (QC): 6 Walk 50ft with 2 Turns (QC): 5 Walk 150 ft (QC): 5 Walking 10ft on Uneven Surface: 5 1 Step (curb) (QC): 5 4 Steps (QC): 5 12 Steps (QC): 5 Picking up an Object (QC): 5 Does the Pt use WC or Scooter?: Yes Wheel 50 feet with 2 turns (QC: 6 Type: Manual Wheel 150 feet: 6 Type: Manual PT Plan Treatment/Plan Treatment Plan: Continue Plan of Care Treatment Plan: Bed Mobility, Education, Functional Activity Po, Functional Strength, Group Therapy, Gait, Safety, Therapeutic Exercise, Transfers Treatment Duration: Jun 04, 2021 Frequency: At least 5 of 7 days/Wk (IRF) Estimated Hrs Per Day: 1.5 hours per day Patient and/or Family Agrees t: Yes Time/GCodes Time In: 1130 Time Out: 1200 Total Billed Treatment Time: 30 Total Billed Treatment 1, GT, [place],[facility] [employer] ARCHITECT Apr 09, 2021 11:57
[2021-04-09 20:00] VITALS: BP 112/55
[2021-04-09] MEDS: MELATONIN 3 MG TABLET PO PRN (20:27)
[2021-04-10] MEDS: HYDROcodone/APAP 5 MG/325 MG (LORTAB) TAB PO PRN ×2 (02:04→08:06)
[2021-04-10] MEDS ORDERED: ACHD5005 PO (06:06)
--- NOTE | 2021-04-10 06:09 | Discharge Summary ---
Diagnosis/Chief Complaint Date of Admission Mar 26, 2021 at 10:00 Date of Discharge Discharge Date: Apr 10, 2021 Discharge Diagnosis Assessment: Debility Pelvic fracture Previous CVA Current smoker Frail status BMI 13 Pressure ulcer Falls Leukocytosis without source of infection Plan: Supportive care Pain meds Bowel regimen Aggressive therapy 03/27/2021: Increase nutrition Work-up leukocytosis appears to be some sort of leukemia or that type of abnormality Check meds and labs 03/28/21: Increase nutrition Consult Dr Duque 03/29/2021: Supportive care Pain control 03/30/2021: Supportive care Pain control Check labs in the morning 03/31/2021: Supportive care 04/01/2021: Needs intermediate Plan to continue aggressive therapy 04/02/2021: Continue to improve Decreased pain noted 04/03/2021: Hold lisinopril Supportive care 04/04/2021: Monitor pain Impressive improvement 04/05/2021: Dramatic improvement Pain controlled 04/06/2021: Much improved status Continued improvement 04/07/2021: Supportive care Discharge plan this week 04/08/2021: Continue aggressive therapy Discharge planned on 04/09/2021: Supportive care Discharge tomorrow (1) Debility (2) Pelvic fracture (3) History of CVA (cerebrovascular accident) (4) Malnutrition (5) Leukocytosis (6) Fall Status: Acute Discharge Summary Discharge Physical Examination Allergies: Coded Allergies: No Known Drug Allergies (Unverified , 01/14/17) Vitals & I&Os Vital Signs Date Time Temp Pulse Resp B/P (MAP) Pulse Ox O2 Delivery O2 Flow Rate FiO2 04/10/21 10:00 36.6 67 16 117/58 97 Room Air General Appearance: Alert, Oriented X3, Cooperative Respiratory: Clear to Auscultation Cardiovascular: Regular Rate Neuro: Normal Gait, Normal Speech, Strength at 5/5 X4 Ext Psych/Mental Status: Mental Status NL Hospital Course Was the Problem List Reviewed?: Yes Hospital course: Patient had a very productive hospital course she was admitted for pelvic fracture and severe debility and she participated in aggressive therapy regimen and after 16 days she went from extremely weak and cachectic and neglect of self-care to able to return back to independent living in her own home where her daughter will live with her until she is recovered. She was decreasing pain medication by time at discharge and bowel function returned back to normal. Labs (last 24 hrs) Laboratory Tests 03/26/21 12:20: White Blood Count 17.1H, Red Blood Count 4.37, Hemoglobin 13.5, Hematocrit 40, Mean Corpuscular Volume 91, Mean Corpuscular Hemoglobin 31, Mean Corpuscular Hemoglobin Concent 34, Red Cell Distribution Width 12.3, Platelet Count 348, Mean Platelet Volume 10.4, Immature Granulocyte % (Auto) 1, Neutrophils (%) (Auto) 82H, Lymphocytes (%) (Auto) 11L, Monocytes (%) (Auto) 6, Eosinophils (%) (Auto) 0, Basophils (%) (Auto) 0, Neutrophils # (Auto) 14.1H, Lymphocytes # (Auto) 1.8, Monocytes # (Auto) 1.1H, Eosinophils # (Auto) 0.0, Basophils # (Auto) 0.0, Immature Granulocyte # (Auto) 0.1, Neutrophils % (Manual) 81, Lymphocytes % (Manual) 14, Monocytes % (Manual) 5, Blood Morphology Comment NORMAL, Sodium Level 141, Potassium Level 2.9L, Chloride Level 100, Carbon Dioxide Level 26, Anion Gap 15H, Blood Urea Nitrogen 22H, Creatinine 0.99, Estimat Glomerular Filtration Rate 55, BUN/Creatinine Ratio 22, Glucose Level 139H, Calcium Level 10.0, Corrected Calcium 10.2H, Total Bilirubin 0.8, Aspartate Amino Transf (AST/SGOT) 25, Alanine Aminotransferase (ALT/SGPT) 25, Alkaline Phosphatase 100, Total Protein 7.0, Albumin 3.8, Procalcitonin 0.14H 03/26/21 14:49: Lactic Acid Level 1.12 03/26/21 16:10: Urine Color YELLOW, Urine Clarity CLEAR, Urine pH 6.0, Urine Specific [place]amy 1.015L, Urine Protein 1+H, Urine Glucose (UA) NEGATIVE, Urine Ketones TRACEH, Urine Nitrite NEGATIVE, Urine Bilirubin NEGATIVE, Urine Urobilinogen 2.0, Urine Leukocyte Esterase NEGATIVE, Urine RBC (Auto) TRACE-IH, Urine RBC RARE, Urine WBC 0-2, Urine Squamous Epithelial Cells 0-2, Urine Crystals NONE, Urine Bacteria NEGATIVE, Urine Casts NONE, Urine Mucus NEGATIVE, Urine Culture Indicated NO 03/27/21 10:46: White Blood Count 18.7H, Red Blood Count 4.25, Hemoglobin 13.1, Hematocrit 39, Mean Corpuscular Volume 93, Mean Corpuscular Hemoglobin 31, Mean Corpuscular Hemoglobin Concent 33, Red Cell Distribution Width 12.4, Platelet Count 364, Mean Platelet Volume 10.6, Immature Granulocyte % (Auto) 1, Neutrophils (%) (Auto) 72, Lymphocytes (%) (Auto) 19, Monocytes (%) (Auto) 8, Eosinophils (%) (Auto) 1, Basophils (%) (Auto) 0, Neutrophils # (Auto) 13.5H, Lymphocytes # (Auto) 3.5, Monocytes # (Auto) 1.4H, Eosinophils # (Auto) 0.1, Basophils # (Auto) 0.1, Immature Granulocyte # (Auto) 0.1, Neutrophils % (Manual) 78, Lymphocytes % (Manual) 13, Monocytes % (Manual) 8, Blood Morphology Comment NORMAL, Sodium Level 141, Potassium Level 3.5L, Chloride Level 100, Carbon Dioxide Level 28, Anion Gap 13, Blood Urea Nitrogen 31H, Creatinine 1.11, Estimat Glomerular Filtration Rate 48, BUN/Creatinine Ratio 28, Glucose Level 129H, Calcium Level 10.1, Corrected Calcium 10.3H, Total Bilirubin 0.4, Aspartate Amino Transf (AST/SGOT) 23, Alanine Aminotransferase (ALT/SGPT) 21, Alkaline Phosphatase 99, Total Protein 6.9, Albumin 3.7, Eosinophils % (Manual) 0, Basophils % (Manual) 0, Band Neutrophils 1, Percent Immature Platelet Frac tion 4.5, Absolute Reticulocyte Count 91H, Percent Reticulocyte Count 2.15, Magnesium Level 2.4, Lactate Dehydrogenase 325H 03/31/21 05:59: White Blood Count 16.8H, Red Blood Count 3.61L, Hemoglobin 11.0L, Hematocrit 33L , Mean Corpuscular Volume 93, Mean Corpuscular Hemoglobin 31, Mean Corpuscular Hemoglobin Concent 33, Red Cell Distribution Width 12.3, Platelet Count 442H, Mean Platelet Volume 9.7, Immature Granulocyte % (Auto) 1, Neutrophils (%) (Auto) 72, Lymphocytes (%) (Auto) 18, Monocytes (%) (Auto) 8, Eosinophils (%) (Auto) 1, Basophils (%) (Auto) 0, Neutrophils # (Auto) 12.2H, Lymphocytes # (Auto) 2.9, Monocytes # (Auto) 1.4H, Eosinophils # (Auto) 0.2, Basophils # (Auto) 0.1, Immature Granulocyte # (Auto) 0.1, Sodium Level 139, Potassium Level 4.1, Chloride Level 100, Carbon Dioxide Level 28, Anion Gap 11, Blood Urea Nitrogen 17, Creatinine 0.97, Estimat Glomerular Filtration Rate 56, BUN/Creatinine Ratio 18, Glucose Level 85, Calcium Level 9.2, Corrected Calcium 9.9, Total Bilirubin 0.5, Aspartate Amino Transf (AST/SGOT) 23, Alanine Aminotransferase (ALT/SGPT) 15, Alkaline Phosphatase 146H, Total Protein 5.8L, Albumin 3.1L 04/07/21 05:15: White Blood Count 11.5H, Red Blood Count 3.31L, Hemoglobin 10.2L, Hematocrit 31L , Mean Corpuscular Volume 94, Mean Corpuscular Hemoglobin 31, Mean Corpuscular Hemoglobin Concent 33, Red Cell Distribution Width 12.6, Platelet Count 487H, Mean Platelet Volume 9.0, Immature Granulocyte % (Auto) 1, Neutrophils (%) (Auto) 66, Lymphocytes (%) (Auto) 25, Monocytes (%) (Auto) 7, Eosinophils (%) (Auto) 1, Basophils (%) (Auto) 1, Neutrophils # (Auto) 7.6, Lymphocytes # (Auto) 2.8, Monocytes # (Auto) 0.8, Eosinophils # (Auto) 0.1, Basophils # (Auto) 0.1, Immature Granulocyte # (Auto) 0.1, Sodium Level 138, Potassium Level 4.8, Chloride Level 109H, Carbon Dioxide Level 20L, Anion Gap 9, Blood Urea Nitrogen 21H, Creatinine 0.89, Estimat Glomerular Filtration Rate 62, BUN/Creatinine Ratio 24, Glucose Level 92, Calcium Level 8.3L, Corrected Calcium 9.1, Total Bilirubin 0.3, Aspartate Amino Transf (AST/SGOT) 21, Alanine Aminotransferase (ALT/SGPT) 18, Alkaline Phosphatase 249H, Total Protein 5.6L, Albumin 3.0L Pending Labs Laboratory Tests 03/26/21 12:20: White Blood Count 17.1, Red Blood Count 4.37, Hemoglobin 13.5, Hematocrit 40, Mean Corpuscular Volume 91, Mean Corpuscular Hemoglobin 31, Mean Corpuscular Hemoglobin Concent 34, Red Cell Distribution Width 12.3, Platelet Count 348, Mean Platelet Volume 10.4, Immature Granulocyte % (Auto) 1, Neutrophils (%) (Auto) 82, Lymphocytes (%) (Auto) 11, Monocytes (%) (Auto) 6, Eosinophils (%) (Auto) 0, Basophils (%) (Auto) 0, Neutrophils # (Auto) 14.1, Lymphocytes # (Auto) 1.8, Monocytes # (Auto) 1.1, Eosinophils # (Auto) 0.0, Basophils # (Auto) 0.0, Immature Granulocyte # (Auto) 0.1, Neutrophils % (Manual) 81, Lymphocytes % (Manual) 14, Monocytes % (Manual) 5, Blood Morphology Comment NORMAL, Sodium Level 141, Potassium Level 2.9, Chloride Level 100, Carbon Dioxide Level 26, Anion Gap 15, Blood Urea Nitrogen 22, Creatinine 0.99, Estimat Glomerular Filt ration Rate 55, BUN/Creatinine Ratio 22, Glucose Level 139, Calcium Level 10.0, Corrected Calcium 10.2, Total Bilirubin 0.8, Aspartate Amino Transf (AST/SGOT) 25, Alanine Aminotransferase (ALT/SGPT) 25, Alkaline Phosphatase 100, Total Protein 7.0, Albumin 3.8, Procalcitonin 0.14 03/26/21 14:49: Lactic Acid Level 1.12 03/26/21 16:10: Urine Color YELLOW, Urine Clarity CLEAR, Urine pH 6.0, Urine Specific [place] 1.015, Urine Protein 1+, Urine Glucose (UA) NEGATIVE, Urine Ketones TRACE, Urine Nitrite NEGATIVE, Urine Bilirubin NEGATIVE, Urine Urobilinogen 2.0, Urine Leukocyte Esterase NEGATIVE, Urine RBC (Auto) TRACE-I, Urine RBC RARE, Urine WBC 0-2, Urine Squamous Epithelial Cells 0-2, Urine Crystals NONE, Urine Bacteria NEGATIVE, Urine Casts NONE, Urine Mucus NEGATIVE, Urine Culture Indicated NO 03/27/21 10:46: White Blood Count 18.7, Red Blood Count 4.25, Hemoglobin 13.1, Hematocrit 39, Mean Corpuscular Volume 93, Mean Corpuscular Hemoglobin 31, Mean Corpuscular Hemoglobin Concent 33, Red Cell Distribution Width 12.4, Platelet Count 364, Mean Platelet Volume 10.6, Immature Granulocyte % (Auto) 1, Neutrophils (%) (Auto) 72, Lymphocytes (%) (Auto) 19, Monocytes (%) (Auto) 8, Eosinophils (%) (Auto) 1, Basophils (%) (Auto) 0, Neutrophils # (Auto) 13.5, Lymphocytes # (Auto) 3.5, Monocytes # (Auto) 1.4, Eosinophils # (Auto) 0.1, Basophils # (Auto) 0.1, Immature Granulocyte # (Auto) 0.1, Neutrophils % (Manual) 78, Lymphocytes % (Manual) 13, Monocytes % (Manual) 8, Blood Morphology Comment NORMAL, Sodium Level 141, Potassium Level 3.5, Chloride Level 100, Carbon Dioxide Level 28, An ion Gap 13, Blood Urea Nitrogen 31, Creatinine 1.11, Estimat Glomerular Filtration Rate 48, BUN/Creatinine Ratio 28, Glucose Level 129, Calcium Level 10.1, Corrected Calcium 10.3, Total Bilirubin 0.4, Aspartate Amino Transf (AST/SGOT) 23, Alanine Aminotransferase (ALT/SGPT) 21, Alkaline Phosphatase 99, Total Protein 6.9, Albumin 3.7, Eosinophils % (Manual) 0, Basophils % (Manual) 0 , Band Neutrophils 1, Percent Immature Platelet Fraction 4.5, Absolute Reticulocyte Count 91, Percent Reticulocyte Count 2.15, Magnesium Level 2.4, Lactate Dehydrogenase 325 03/31/21 05:59: White Blood Count 16.8, Red Blood Count 3.61, Hemoglobin 11.0, Hematocrit 33, Mean Corpuscular Volume 93, Mean Corpuscular Hemoglobin 31, Mean Corpuscular Hemoglobin Concent 33, Red Cell Distribution Width 12.3, Platelet Count 442, Mean Platelet Volume 9.7, Immature Granulocyte % (Auto) 1, Neutrophils (%) (Auto) 72, Lymphocytes (%) (Auto) 18, Monocytes (%) (Auto) 8, Eosinophils (%) (Auto) 1, Basophils (%) (Auto) 0, Neutrophils # (Auto) 12.2, Lymphocytes # (Auto) 2.9, Monocytes # (Auto) 1.4, Eosinophils # (Auto) 0.2, Basophils # (Auto) 0.1, Immature Granulocyte # (Auto) 0.1, Sodium Level 139, Potassium Level 4.1, Chloride Level 100, Carbon Dioxide Level 28, Anion Gap 11, Blood Urea Nitrogen 17, Creatinine 0.97, Estimat Glomerular Filtration Rate 56, BUN/Creatinine Ratio 18, Glucose Level 85, Calcium Level 9.2, Corrected Calcium 9.9, Total Bilirubin 0.5, Aspartate Amino Transf (AST/SGOT) 23, Alanine Aminotransferase (ALT/SGPT) 1 5, Alkaline Phosphatase 146, Total Protein 5.8, Albumin 3.1 04/07/21 05:15: White Blood Count 11.5, Red Blood Count 3.31, Hemoglobin 10.2, Hematocrit 31, Mean Corpuscular Volume 94, Mean Corpuscular Hemoglobin 31, Mean Corpuscular Hemoglobin Concent 33, Red Cell Distribution Width 12.6, Platelet Count 487, Mean Platelet Volume 9.0, Immature Granulocyte % (Auto) 1, Neutrophils (%) (Auto) 66, Lymphocytes (%) (Auto) 25, Monocytes (%) (Auto) 7, Eosinophils (%) (Auto) 1, Basophils (%) (Auto) 1, Neutrophils # (Auto) 7.6, Lymphocytes # (Auto) 2.8, Monocytes # (Auto) 0.8, Eosinophils # (Auto) 0.1, Basophils # (Auto) 0.1, Immature Granulocyte # (Auto) 0.1, Sodium Level 138, Potassium Level 4.8, Chloride Level 109, Carbon Dioxide Level 20, Anion Gap 9, Blood Urea Nitrogen 21, Creatinine 0.89, Estimat Glomerular Filtration Rate 62, BUN/Creatinine Ratio 24, Glucose Level 92, Calcium Level 8.3, Corrected Calcium 9.1, Total Bilirubin 0.3, Aspartate Amino Transf (AST/SGOT) 21, Alanine Aminotransferase (ALT/SGPT) 18, Alkaline Phosphatase 249, Total Protein 5.6, Albumin 3.0 Discharge Home Medications: Active Scripts Active Hydrocodone-Acetamin 5-325 mg (Hydrocodone/Acetaminophen) 1 Each Tablet 1 Ea PO Q6H PRN Reported Ibuprofen 200 Mg Capsule 400 Mg PO Q8H PRN Lisinopril 20 Mg Tablet 20 Mg PO DAILY Plavix (Clopidogrel Bisulfate) 75 Mg Tablet 75 Mg PO DAILY Multiple Vitamins (Multivitamin) 1 Each Tablet 1 Tab PO DAILY Instructions to patient/family Please see electronic discharge instructions given to patient. Diagnosis/Problems Diagnosis/Problems (1) Debility (2) Pelvic fracture (3) History of CVA (cerebrovascular accident) (4) Malnutrition (5) Leukocytosis (6) Fall Status: Acute ANTONIO HWANG DO Apr 10, 2021 06:09
--- NOTE | 2021-04-10 06:09 | D/C HH Face to Face Order ---
D/C Face to Face Orders Reconcile Patient Problems Problems Reviewed?: Yes Instructions for Patient Home health Patient Instructions/FollowUp: PCP in 1 week Physician to follow Patient: Jeffery Discharge Diet for Home: No Restrictions Patient Problems: Pelvic fracture Patient Data-Allergies,Ht & Wt Patient Allergies: Coded Allergies: No Known Drug Allergies (Unverified , 01/14/17) Height (Feet): 4 Height (Inches): 11.00 Weight (Pounds): 72 Weight (Ounces): 5.0 Home Health Need/Face to Face Date of Face to Face: Apr 10, 2021 Clinical Findings: Generalized weakness and fatigue, Instability, Muscle weakness, Pain with ambulation I have seen Pt [id number]: Yes Discharged To: Home Diagnosis/Conditions: Pelvic fracture Patient is Homebound due to: Kai fall risk due to instabilty, Muscle weakness, Pain w/ambulation Homebound Status Due to the above stated illness, injury or surgical procedure (medical condition or diagnosis) and associated clinical findings, the patient is homebound because of his/her inability to leave home except with aid of a supportive device and/or person AND leaving the home requires a considerable and taxing effort or is medically contraindicated. Pt req the following assistanc: Walker Home Health Nursing Orders Home Health Services Order: Nursing Services, [employer]ator [employer] Laborer-Evaluate & Treat, Physical Therapy-Evaluate & Treat Certify Stmt I certify that this patient is under my care and that I, a nurse practitioner or a physician; a medical laboratory assistant working with me, had a face to face encounter that - meets the physician face to face encounter requirements with this patient as jair ed. ANTONIO HWANG DO Apr 10, 2021 06:09
[2021-04-10] MEDS: MULTIVIT W/MINERALS TAB (THERAGRAN M) PO SCH (06:45)
[2021-04-10 07:40] VITALS: BP 117/58
[2021-04-10] MEDS: SENNA W/DOCUSATE (SENOKOT S) TABLET PO SCH (07:51)
[2021-04-10] MEDS: DOCUSATE SODIUM 100 MG (COLACE) CAP PO SCH (07:51)
[2021-04-10] MEDS: CLOPIDOGREL 75 MG (PLAVIX) TABLET PO SCH (07:52)
--- NOTE | 2021-04-10 08:45 | Therapy Team Discharge Summary ---
Therapy Discharge Summary Discharge Recommendations Date of Discharge Occupational Therapy Pt admitted to ARU s/p pelvic fxs. At PLOF, pt was independent with ADLs and functional mobility, occasionally used cane. Upon initial evaluation, pt required set up assistance with eating, CGA oral care, max A showering, min A upper body dressing, max A lower body dressing, max A footwear and min A toileting. OT txs focused on increasing BUE strength and activity tolerance, increasing safety and independence with ADLs and functional mobility, and education on AE for LE dressing. At discharge, pt required set up assistance with eating, and SBA showering, not meeting those LTGs. Pt made good progress towards goals and achieved IND with oral care, upper/lower body dressing, footwear and toileting, meeting those LTGs. 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 Pt to discharge from facility on this date, d/c from OT. Decreased Activ Tolerance, Decreased UE Strength, Impaired I ADL's, Impaired Self-Care Skills PT Group Home Goals Entry Level Account Representative Goals PT Entry Level Account Representative Goals Time Frame: May 07, 2021 Roll Left to Right (QC): 6 Sit to Lying (QC): 6 Lying-Sitting on Side/Bed(QC): 6 Sit to Stand (QC): 6 Chair/Jyk-wq-Bnyyp Xfer(QC): 6 Car Transfer (QC): 6 Does the Patient Walk: Yes Walk 10 feet (QC): 6 Walk 10ft-Uneven Surface(QC): 5 Walk 50ft with 2 Turns (QC): 5 Walk 150 ft (QC): 5 Does the Pt use WC or Scooter?: Yes Wheel 50 feet with 2 turns (QC: 6 1 Step (curb) (QC): 5 4 Steps (QC): 5 12 Steps (QC): 5 Picking up an Object (QC): 5 OT Entry Level Account Representative Goals Entry Level Account Representative Goals Time Frame: Apr 18, 2021 Eating (QC): 6 (not met) Oral Hygiene (QC): 6 (met) Shower/Bathe Self (QC): 6 (not met) Upper Body Dressing (QC): 6 (met) Lower Body Dressing (QC): 6 (met) On/Off Footwear (QC): 6 (met) Toileting Hygiene (QC): 6 (met) Toilet/Commode Transfer (QC): 6 Additional Goals: 1-Demonstrate ADL Tasks, 2-Verbalize Understanding, 3- ImproveStrength/Po 1=Demonstrate adherence to instructed precautions during ADL tasks. 2=Patient will verbalize/demonstrate understanding of assistive devices/modifications for ADL. 3=Patient will improve strength/tolerance for activity to enable patient to perform ADL's. ALEXANDRA SINGH OT Apr 10, 2021 08:45
[2021-04-10] MEDS: polyethylene glycoL POWDER 17 GM (MIRALAX) PACK PO SCH (09:26)
[2021-04-10 10:00] VITALS: BP 117/58
--- NOTE | 2021-04-10 13:31 | Therapy Team Discharge Summary ---
Therapy Discharge Summary Discharge Recommendations Date of Discharge Apr 10, 2021 at 10:00 Therapy D/C Recommendations: Home w/ Family Support, Physical Therapy Home Care, Physical Therapy Outpatient Physical Therapy Pt completes bed mobility and sits EOB with SBA. Pt sit to stand SBA and amb 2 00' with SBA and FWW. Pt performs dynamic standing balance activity, supported w/ L UE on FWW and using R UE in all planes with SBA. Pt then amb another 150' back to room and sits EOB. Pt sit <> supine and remains in bed with all needs met, call light in hand. Patient demonstrates significant improvement with skilled Physical therapy intervention and demonstrates good potential to return home safely with assistance for ADLS and balance. She will be going home with her Daughter who will provide assistance as needed while not at work. Patient would benefit from continued HHPT or Outpatient PT for strengthening and balance. 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 Packing Line Operator Goals PT Skilled Nursing Goals Time Frame: May 07, 2021 Roll Left to Right (QC): 6 Sit to Lying (QC): 6 Lying-Sitting on Side/Bed(QC): 6 Sit to Stand (QC): 6 Chair/Fqn-cb-Mzoqg Xfer(QC): 6 Car Transfer (QC): 6 Does the Patient Walk: Yes Walk 10 feet (QC): 6 Walk 10ft-Uneven Surface(QC): 5 Walk 50ft with 2 Turns (QC): 5 Walk 150 ft (QC): 5 Does the Pt use WC or Scooter?: Yes Wheel 50 feet with 2 turns (QC: 6 1 Step (curb) (QC): 5 4 Steps (QC): 5 12 Steps (QC): 5 Picking up an Object (QC): 5 OT Skilled Nursing Goals Skilled Nursing Goals Time Frame: Apr 18, 2021 Eating (QC): 6 (not met) Oral Hygiene (QC): 6 (met) Shower/Bathe Self (QC): 6 (not met) Upper Body Dressing (QC): 6 (met) Lower Body Dressing (QC): 6 (met) On/Off Footwear (QC): 6 (met) Toileting Hygiene (QC): 6 (met) Toilet/Commode Transfer (QC): 6 Additional Goals: 1-Demonstrate ADL Tasks, 2-Verbalize Understanding, 3- ImproveStrength/Po 1=Demonstrate adherence to instructed precautions during ADL tasks. 2=Patient will verbalize/demonstrate understanding of assistive devices/modifications for ADL. 3=Patient will improve strength/tolerance for activity to enable patient to perform ADL's. TOSHIA MCCLELLAND PT Apr 10, 2021 13:31
== END 2021-04-10 10:00 | disposition home health service (06) | DRG 560 ==
PROVIDERS: ADMIT Internal Medicine; ATTEND Internal Medicine
DX: S32.9XXD Fracture of unspecified parts of lumbosacral spine and pelvis, subsequent encounter for fracture with routine healing (principal); E46 Unspecified protein-calorie malnutrition; Z68.1 Body mass index [BMI] 19.9 or less, adult; F17.210 Nicotine dependence, cigarettes, uncomplicated; R54 Age-related physical debility; I10 Essential (primary) hypertension; M19.91 Primary osteoarthritis, unspecified site; H54.7 Unspecified visual loss; L89.159 Pressure ulcer of sacral region, unspecified stage; K59.00 Constipation, unspecified; G60.9 Hereditary and idiopathic neuropathy, unspecified; B35.1 Tinea unguium; M20.42 Other hammer toe(s) (acquired), left foot; M20.41 Other hammer toe(s) (acquired), right foot; I95.9 Hypotension, unspecified; D72.829 Elevated white blood cell count, unspecified; Z86.73 Personal history of transient ischemic attack (TIA), and cerebral infarction without residual deficits; W01.0XXD Fall on same level from slipping, tripping and stumbling without subsequent striking against object, subsequent encounter
CPT/HCPCS: 36415; 71045; 80053; 81000; 83605; 83615; 83735; 84145; 85007; 85025; 85027; 85045; 85055

== ENCOUNTER → 2021-07-01 | Outpatient (CLI) | payer MEDICARE ==
[~2021-07-01] MED LIST changes: +ACHD5005 PO; +IBUP-2185 PO
== END ==
LOC: LABNPT 15:32
PROVIDERS: ATTEND Registered Nurse Emergency
DX: R10.9 Unspecified abdominal pain (principal)
CPT/HCPCS: 87088

== ENCOUNTER → 2021-07-16 | Outpatient (CLI) | payer MEDICARE | LOC: FSOP 14:52 | PROVIDERS: ATTEND Registered Nurse Emergency | DX: R31.9 Hematuria, unspecified (principal) | CPT/HCPCS: 87088 ==